=== PATIENT | female | born 1950 | race Caucasian/White ===

== ENCOUNTER 2022-12-19 07:59 | Emergency (ER) | payer MEDICARE, OTHER, SELFPAY ==
--- NOTE | ~2022-12-19 | XR_ITS ---
EXAMINATION: XR LUMBAR SPINE CLINICAL INFORMATION: Trauma COMPARISON: None TECHNIQUE: Frontal lateral and coned-down L5-S1 frontal lateral,total of 3 views FINDINGS: Five [id number] lumbar vertebrae were identified maintaining normal height, 2 rods, multiple screws posterior fusion of L4-L5 and S1, hardware are intact. Mild grade 1 anterior listhesis of L4 on L5 and L5 on S1. Mild levoscoliosis.. Loss of intervertebral disc spaces suggest underlying degenerative disc disease. Heavy vascular calcification. Catheter projecting over the midabdomen. Paravertebral soft tissues are unremarkable. There are radiolucencies, most likely superimposed bowel gas.. No radiographic evidence of osteolytic or osteoblastic lesions. XR/XR lumbar spine 2-3V IMPRESSION: - Hardware posterior fusion of lower lumbar spine is intact. - Mild grade 1 anterolisthesis of L4 on L5 and L5 on S1. - Heavy vascular calcification. - Catheter projecting over the midabdomen.
--- NOTE | ~2022-12-19 | XR_ITS ---
EXAMINATION: XR HIP, RIGHT Pelvis: CLINICAL INFORMATION: Pain COMPARISON: X-ray the right hip January 2021 TECHNIQUE: Two views of the right hip. Single view the pelvis FINDINGS: Right hip: No fracture. Alignment is anatomic. Hip joint space is maintained. Soft tissues are unremarkable. Pelvis: Bone and joints in the remaining pelvis unremarkable. Postoperative changes in the partially visualized lumbar sacral spine with orthopedic hardware in place. There is a catheter/tubing device overlying the pelvis XR/XR hip RT w PEL1V IMPRESSION: RIGHT HIP: No acute abnormality. PELVIS: No acute abnormality.
[2022-12-19 08:15] VITALS: BP 168/101; PULSE 76; RESP 18; TEMP 36.6; O2SAT 100; BMI 40.7
--- NOTE | 2022-12-19 08:28 | ED_ITS ---
HPI - General Adult General Chief complaint: Extremity Injury, Lower Stated complaint: R hip pain/back pain Time Seen by Provider: 12/19/22 08:20 Source: patient Mode of arrival: ambulatory Limitations: no limitations History of Present Illness HPI narrative: This is a 72 years old of female complaining of right hip pain lower back pain. She drove herself to the emergency department she was able to ambulate to [facility]. She states she visited another emergency department of December 16 she is not any better she has history of prior back surgery. Onset (ago): week(s) (1) Location: lower extremity (Right hip) Radiation: non-radiation Severity: moderate Quality: burning Pain Consistency: constant Exacerbating factors: none Associated symptoms: denies other symptoms Related Data Previous Rx's Medication Instructions Recorded cyclobenzaprine 10 mg tablet 10 mg PO TID PRN muscle spasm #10 12/19/22 tabs oxycodone 5 mg capsule 5 mg PO Q8H PRN pain #12 caps 12/19/22 Allergies Allergy/AdvReac Type Severity Reaction Status Date / Time celecoxib [Celebrex] Allergy Unknown hypertensio Verified 12/19/22 08:14 n Review of Systems ENT: Reports system reviewed and no additional complaints, except as documented Respiratory: Respiratory: Reports no additional respiratory complaints Gastrointestinal: Gastrointestinal: Reports no additional gastrointestinal complaints [facility] Past Medical History [facility] Narrative: Chronic lower back pain,ovarian cancer Social History Social History Advance Directives: No Advance Directives Information Provided: No Physical Exam ED Vital Signs: Vital Signs - 24 hr 12/19/22 08:15 Temperature 98 F Pulse Rate 76 Respiratory Rate 18 Blood Pressure 168/101 H Pulse Oximetry 100 Oxygen Delivery Method Room Air BMI result Body Mass Index 40.7 Const General: cooperative, no acute distress, well developed, alert and awake Nutritional Appearance: well nourished Limitations: no limitations HENMT Head: Yes normal to inspection General nose exam: Normal external nose present Face and sinus: Yes normal facial exam Mouth: Normal oral and palatal mucosa present Neck Neck: Yes normal visual inspection and Yes full ROM Chest Chest palpation & inspection: normal inspection of the chest Resp Effort & Inspection: normal respiratory effort Auscultation: clear to auscultation bilaterally Cardio Jugular venous distension: no JVD Rate: regular rate Rhythm: regular rhythm GI Inspection: Yes normal to inspection Palpation (GI): Soft to palpation and nontender Percussion: Yes normal to percussion Auscultation: normal bowel sounds Skin General skin exam: no rashes or lesions noted, elasticity normal and turgor normal Lesions: no lesions Rashes: no rashes Medical Decision Making Medical Decision Making [facility] Narrative: Patient presented with lower back pain right pain, she was ambulatory to the emergency department no injury. She does have a history of lower back pain most likely this pain is due to radiculopathy Differential Diagnosis Differential Diagnoses: The differential diagnosis associated with the presentation includes Occult hip fracture/sciatic/exacerbation of chronic lower back pain Admission/Observation Consideration of admission/observation: Escalation of care including admission/observation considered Independent Interpretation I performed an independent interpretation of an: Plain X-Ray Interpretation: I personally reviwed and interpreted the imaging Radiology Impression Discussion of test interpretation with radiology: I have reviewed the radiologist's reading. Radiologist Impression: FINDINGS: Right hip: No fracture. Alignment is anatomic. Hip joint space is maintained. Soft tissues are unremarkable. Pelvis: Bone and joints in the remaining pelvis unremarkable. Postoperative changes in the partially visualized lumbar sacral spine with orthopedic hardware in place. There is a catheter/tubing device overlying the pelvis XR/XR hip RT w PEL1V IMPRESSION: RIGHT HIP: No acute abnormality. ? PELVIS: No acute abnormality. ? Dictated By: Jose Angel Larkin MD Signed By: <Electronically signed by Jose Angel Larkin MD in OV> 12/19/22 0937 Discharge Plan Discharge Clinical Impression: Back pain Patient Disposition: Home, Self-Care Instructions: Back Pain (ED) Additional Instructions: Follow-up with your back surgeon also we will give you the number of onof the primary care physician [phone] Prescriptions: New oxycodone 5 mg capsule 5 mg PO Q8H PRN (Reason: pain) Qty: 12 0RF Rx Instructions: Partial Fill upon patient request. cyclobenzaprine 10 mg tablet 10 mg PO TID PRN (Reason: muscle spasm) Qty: 10 0RF Interventions: ED Discharge Assessment Last Done: 12/19/22 10:14 Discharge Date/Time: 12/19/22 10:14
== END 2022-12-19 10:14 | disposition home or self-care (01) ==
PROVIDERS: Emergency Provider Emergency Medicine
DX: M54.50 Low back pain, unspecified (principal); M25.551 Pain in right hip
CPT/HCPCS: 72100; 73502; 99282; 99284

== ENCOUNTER 2023-02-18 11:51 | Outpatient (AMB) | payer MEDICARE, OTHER, SELFPAY ==
--- NOTE | 2023-02-18 11:54 | MHC.PC.OV ---
Vital Signs 02/18/23 11:56 Height 5 ft 3.5 in Weight 250 lb 8 oz BMI 43.7 BP 148/78 H Blood Pressure Location Lt brachial Position Sitting Pulse 90 Pulse Source Pulse Oximeter Pulse Oximetry (%) 98 Oxygen Delivery Method Room Air Intake Visit Reasons: New patient-prediabetic,thyroid Intake Note: Patient is a new patient here to establish care for Overian Cancer, Thyroid Cancer, Skin Cancer, Back pain, Heart Murmur. Transferring care from Dr Bruno. Medical records have been requested and have received. 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: Not Required per policy Accompanied by: Self / Same As Patient Allergies celecoxib [Celebrex] Allergy (Unknown, Verified 02/18/23 12:36) hypertension Medication List - Last Reconciled 02/18/23 by TWILA Diego Tobacco use date assessed: 02/18/23 Fall risk assessment: 1 Fall in past year Last assessed Fall Risk: 02/18/23 Dental Screening Dental Screen Date: 02/18/23 Did you have a dental visit in the last 12 months?: No Did you have a dental problem in the last 6 months where you did not have access to dental care?: No Was dental information given to patient?: No (dentures) HPI HPI Comments History of Present Illness Details 72-year-old female new patient presents today to establish care. Past medical history significant for impaired glucose tolerance, thyroid cancer status post partial thyroidectomy. Patient currently follows with Dr. Federico NGUYEN. Patient also reports history of aortic stenosis patient [facility]. Patient reports had lumbar spine fusion in January 2022 patient continues to follow with Dr. Ubaldo LYNN for this. Patient also has history of ovarian cancer status post chemotherapy treatment in 2013 as well had a melanoma removed on her back that seen year. Patient denies any acute concerns. Denies chest pain, palpitations, shortness of breath and syncope. [facility] Medical History (Updated 02/19/23 @ 08:07 by TWILA Diego) Tubular adenoma Melanoma Ovarian cancer Thyroid cancer Aortic stenosis Surgical History (Updated 02/19/23 @ 08:04 by TWILA Diego) S/P lumbar spinal fusion History of carpal tunnel surgery History of knee surgery History of thyroidectomy Family History (Updated 02/18/23 @ 12:44 by TWILA Diego) Mother No problems noted. Father COPD (chronic obstructive pulmonary disease) Social History (Updated 02/18/23 @ 12:44 by TWILA Diego) Housing: House Alcohol intake: current Alcohol intake frequency: holidays/special occasions only Patient Tobacco Use Status: Former Tobacco user (30 year ago) e-Cigarette/Vaping Use: Never Used Second Hand Smoke Exposure: Yes service: No Current occupational status: retired Cognitive needs: Yes (cane) Hearing needs: No Vision needs: Yes (glasses) Questionnaire PHQ-9 Over the last 2 weeks, how often have you been bothered by any of the following problems? 1. Little interest or pleasure in doing things: not at all 2. Feeling down, depressed, or hopeless: not at all 3. Trouble falling or staying asleep, or sleeping too much: not at all 4. Feeling tired or having little energy: not at all 5. Poor appetite or overeating: not at all 6. Feeling bad about yourself - or that you are a failure or have let yourself or your family down: not at all 7. Trouble concentrating on things, such as reading the newspaper or watching television: not at all 8. Moving or speaking so slowly that other people could have noticed. Or the opposite - being so fidgety or restless that you have been moving around a lot more than usual: not at all 9. Thoughts that you would be better off or of hurting yourself in some way: not at all Total score: 0 Depression Screening Interpretation: Negative Depression Screening Done: Yes 83557 - PHQ-9 Billing: Yes Source: Developed by Drs. Familia Parker, Nandini Teague, Garett Urena and colleagues, with an educational sindi from [employer]. Thrive Questionnaire Date Thrive assessed: 02/18/23 I am a: Patient What is your living situation today?: I have a steady place to live Within the past 12 months, did the food you bought not last and you didn't have the money to get more?: Never true Within the past 12 months, did you worry whether your food would run out before you got money to buy more?: Never true Do you have trouble paying for medicines?: No Do you have trouble getting transportation to medical appointments?: No Do you have trouble paying your heating and electricity bill?: No Do you have trouble taking care of your child, family member or friend?: No Do you have trouble with day-to-day activities such as bathing, preparing meals, shopping, managing finances, etc.?: No Are you currently unemployed and looking for a job?: No Are you interested in more education?: No Currently or been in a relationship where the following occur: no concerns reported AUDIT C Alcohol Use Questionnaire (AUDIT-C) 1. How often do you have a drink containing alcohol?: Never Total Score: 0 SHARMILA-7 AMB Questionnaire SHARMILA-7 Date SHARMILA - 7 assessed: 02/18/23 Feeling nervous, anxious, or on edge: 0 = Not at all Not being able to stop or control worryin = Not at all Worrying too much about different things: 0 = Not at all Trouble relaxin = Not at all Being so restless that it is hard to sit still: 0 = Not at all Becoming easily annoyed or irritable: 0 = Not at all Feeling afraid as if something awful might happen: 0 = Not at all Total SHARMILA-7 score (0-4 normal; 5-9 mild; 10-14 moderate; 15-21 severe): 0 Source: Developed by Drs. Familia Parker, Nandini Teague, Garett Urena and colleagues, with an educational sindi from [employer]. SHARMILA-7 Assessment Billing SHARMILA-7 Assessment Tool: SHARMILA-7 Assessment 47589 Review of Systems Const Denies chills, Denies fatigue, Denies fever(s) and Denies poor appetite Eyes Denies no additional complaints ENT Reports Normal hearing present Card Denies chest pain, Denies syncope, Denies rapid heart rate and Denies dyspnea Resp Denies cough and Denies dyspnea GI Denies change in stool character, Denies constipation, Denies diarrhea, Denies nausea and Denies vomiting Denies urinary frequency, Denies dysuria and Denies urinary urgency Neuro Reports Normal hearing present, Denies confusion and Denies syncope Psych Denies confusion Endo Denies fatigue Physical exam (Primary Care) Vital Signs: Last Vital Signs Pulse 90 02/18/23 11:56 BP 148/78 H 02/18/23 11:56 Pulse Ox 98 02/18/23 11:56 Oxygen Delivery Method Room Air 02/18/23 11:56 BMI result Body Mass Index 43.7 Tobacco/Smoking Status: Tobacco use Status Tobacco use date assessed 02/18/23 02/18/23 12:00 Patient Tobacco Use Status Former Tobacco user (30 year 02/18/23 12:44 ago) e-Cigarette/Vaping Use Never Used 02/18/23 12:44 PHQ-9: PHQ-9 Score PHQ-9: Total score 0 02/18/23 12:45 Depression Screening Interpretation: Negative Thrive Assessment: Date of Thrive Assessment Date Thrive assessed 02/18/23 02/18/23 12:00 Currently or been in a relationship where the following occur: no concerns reported Const General: No confusion Orientation/consciousness: No confusion HENMT Head: Yes normocephalic and Yes atraumatic Eyes Conjunctivae: conjunctivae normal Chest Chest palpation & inspection: normal inspection of the chest Resp Effort & Inspection: normal respiratory effort Auscultation: clear to auscultation bilaterally, no crackles, no rhonchi and no wheezes Cardio Rate: regular rate Rhythm: regular rhythm Heart sounds: S1 normal heart sound present and S2 normal heart sound present Peripheral pulses: dorsalis pedis present GI Inspection: Yes normal to inspection General: Yes no CVA tenderness Back/Spine/Pelvis Back: no CVA tenderness Neuro General: No confusion Cranial nerves: Yes Normal hearing present Extrem General: No edema Assessment and Plan Assessment & Plan (1) Impaired glucose tolerance: Code(s): R73.02 - Impaired glucose tolerance (oral) Plan: Fasting glucose and hemoglobin A1c ordered. (2) Lumbar back pain: Code(s): M54.50 - Low back pain, unspecified Plan: Continue to follow with [facility] (3) Aortic stenosis: Code(s): I35.0 - Nonrheumatic aortic (valve) stenosis Plan: Continue to follow with [facility] cardiology. Patient reports she receives yearly echocardiogram Plan Follow-up in 3 months for complete physical exam Orders: Orders Comprehensive [place]. Panel Fast 02/18/23 R73.02 - Impaired glucose tolerance (oral) Hemoglobin A1c 02/18/23 R73.02 - Impaired glucose tolerance (oral) Complete Blood Count Auto Diff 02/18/23 Z13.0 - Encounter for screening for diseases of the blood and blood-forming organs and certain disorders involving the immune mechanism Lipid Panel 02/18/23 Z13.220 - Encounter for screening for lipoid disorders TSH reflex Free T4 02/18/23 Z13.29 - Encounter for screening for other suspected endocrine disorder Coding Level of Care Code New Pt Level 3 (44139) Diagnoses Impaired glucose tolerance R73.02 Lumbar back pain M54.50 Aortic stenosis I35.0 Additional Codes SHARMILA-7 Assessment Billing - SHARMILA-7 Assessment Tool: SHARMILA-7 Assessment 07900 ([id number])
[2023-02-18 11:56] VITALS: BP 148/78; PULSE 90; O2SAT 98; BMI 43.7
== END 2023-02-18 13:03 | disposition home or self-care (01) ==
PROVIDERS: PCP Nurse Practitioner Family; Visit Provider Nurse Practitioner Family
DX: R73.02 Impaired glucose tolerance (oral) (principal); M54.50 Low back pain, unspecified; I35.0 Nonrheumatic aortic (valve) stenosis
CPT/HCPCS: 99203

== ENCOUNTER 2023-02-22 08:14 | Outpatient (REF) | payer MEDICARE, OTHER, SELFPAY ==
[2023-02-22 09:21] LABS: Basophils Absolute Auto 0.1 X10*3/uL (0.0-0.2); Basophils Percent Auto 0.8 % (0-2); Eosinophils Absolute Auto 1.8 X10*3/uL (0.0-0.4); Hematocrit 41.9 % (37.0-47.0); Hemoglobin 14.6 g/dl (12.0-16.0); Imm Gran Abs Auto 0.02 X10*3/uL (0.00-0.03); Imm Gran Pct Auto 0.2 % (0.0-0.4); Lymphocytes Absolute Auto 1.6 X10*3/uL (1.2-4.9); Lymphocytes Percent Auto 19.5 % (20-40); MANUAL DIFF FLAG SCAN; Mean Corpuscular HGB Conc 34.8 g/dl (31.0-35.0); Mean Corpuscular Hemoglobin 31.3 pg (27.0-33.0); Mean Corpuscular Volume 89.9 fL (80.0-98.0); Mean Platelet Volume 9.6 fL (9.4-12.3); Monocytes Absolute Auto 0.5 X10*3/uL (0.1-1.2); Monocytes Percent Auto 6.1 % (2-11); Neutrophils Absolute Auto 4.3 x10*3/uL (2.0-8.3); Neutrophils Percent Auto 51.4 % (45-73); Platelet Count 195 X10*3/uL (160-400); Red Blood Count 4.66 X10*6/uL (4.20-5.50); SCAN SMEAR FLAG 1; White Blood Count 8.3 X10*3/uL (4.8-10.8)
[2023-02-22 09:38] LABS: Estimated Average Glucose 114 mg/dL; Hemoglobin A1c % 5.6 % (<6.0)
[2023-02-22 09:50] LABS: SLIDE REVIEW VERIFIED
[2023-02-22 09:58] LABS: Alanine Aminotransferase 15 U/L (0-31); Albumin Level 4.1 g/dL (3.5-5.0); Alkaline Phosphatase 122 U/L (39-117); Anion Gap 15 (12-20); Aspartate Amino Transferase 22 U/L (5-31); Bilirubin Total 0.7 mg/dL (0.0-1.0); Blood Urea Nitrogen 11 mg/dL (9-16); Calcium 9.7 mg/dL (8.4-10.2); Carbon Dioxide 24 mmol/L (22-29); Chloride 108 mmol/L (96-108); Cholesterol 230 mg/dL (<200); Estimated Glomerular Filt Rate > 60; Glucose Fasting 112 mg/dL (60-99); HDL Cholesterol 47 mg/dL (>40); LDL Cholesterol Calculated 159 mg/dL (<100); Sodium 143 mmol/L (135-145); Total Protein 7.1 g/dL (6.5-8.0); Triglycerides 120 mg/dL (<150)
[2023-02-22 10:06] LABS: TSH reflex Free T4 2.86 uIU/mL (0.32-4.0)
== END 2023-02-22 08:15 | disposition home or self-care (01) ==
LOC: HO.LAB 08:14
PROVIDERS: PCP Internal Medicine; Visit Provider Nurse Practitioner Family
DX: R73.02 Impaired glucose tolerance (oral) (principal); Z13.0 Encounter for screening for diseases of the blood and blood-forming organs and certain disorders involving the immune mechanism; Z13.220 Encounter for screening for lipoid disorders; Z13.29 Encounter for screening for other suspected endocrine disorder; E78.00 Pure hypercholesterolemia, unspecified
CPT/HCPCS: 36415; 80053; 80061; 83036; 84443; 85025

== ENCOUNTER 2023-06-02 13:31 | Outpatient (AMB) | payer MEDICARE, OTHER, SELFPAY ==
[2023-06-02 13:34] VITALS: BP 146/76; PULSE 81; O2SAT 98; BMI 46.0
--- NOTE | 2023-06-02 13:34 | A.OFFPC_ITS ---
Vital Signs 06/02/23 13:34 Height 5 ft 3.5 in Weight 264 lb BMI 46.0 BP 146/76 H Blood Pressure Location Lt brachial Position Sitting Pulse 81 Pulse Source Pulse Oximeter Pulse Oximetry (%) 98 Oxygen Delivery Method Room Air Intake Visit Reasons: Annual Exam Intake Note: Patient is here today for a physical. 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 Required: No Allergies celecoxib [Celebrex] Allergy (Unknown, Verified 06/02/23 13:34) hypertension Medication List - Last Reconciled 06/02/23 by Edward Maddox MD ezetimibe 10 mg PO DAILY metformin ER 500 mg PO DAILY multivitamin 1 tab PO DAILY red yeast rice 600 mg PO DAILY sertraline 50 mg PO DAILY Tobacco use date assessed: 06/02/23 Fall risk assessment: No Falls in past year Last assessed Fall Risk: 06/02/23 Dental Screening Dental Screen Date: 06/02/23 Did you have a dental visit in the last 12 months?: No Did you have a dental problem in the last 6 months where you did not have access to dental care?: No HPI Annual Exam HPI Details 73-year-old morbidly obese female with i mpaired glucose tolerance chr onic low back pain and aortic stenosis last seen in January 2023 comes in for physical exam review of the notes sees Orthopedics from [facility] has had toe fractures on the right foot, right carpal tunnel syndrome. Has post surgical and degenerative changes in the lumbar spine fusion hardware moderate to severe canal stenosis and moderate bilateral neural foraminal narrowing at L3-L4 varying degrees of moderate to severe neural foraminal stenosis at multiple levels more pronounced right L2-L3 left L5-S1. This was CT scan done in November 2022. And MRI done December 2022. 02/22/2022 had posterior laminectomy, decompression and instrumented fusion L4 to the sacrum Dr. Conner for spinal stenosis spondylolisthesis L4 to the sacrum. Patient also had right 1st carpometacarpal arthroplasty with flexor carpi radialis tendon transfer Dr. Lincoln done in October 2019, July 2017 had flexor tenosynovectomy right middle finger corticosteroid injection right 1st carpometacarpal joint right 2nd metacarpophalangeal joint Dr. Lincoln December 2010 had of foreign body removal right palm September 2010 left carpal tunnel release Dr. Lincoln August 2010 right carpal tunnel release L4-5 and L5-S1 fusion January 2022 PSS follow up 02/2023 Dr. Ordoñze. Thyroid nodule 12/14/2022 Dr. Alvarez, last US 12/2022 136/80 at home [facility] Medical History (Updated 06/02/23 @ 14:25 by Edward Maddox MD) Tubular adenoma Melanoma Ovarian cancer Thyroid cancer Aortic stenosis Surgical History (Updated 02/19/23 @ 08:04 by TWILA Diego) S/P lumbar spinal fusion History of carpal tunnel surgery History of knee surgery History of thyroidectomy Family History (Updated 02/18/23 @ 12:44 by TWILA Diego) Mother No problems noted. Father COPD (chronic obstructive pulmonary disease) Social History (Updated 06/02/23 @ 13:57 by Edward Maddox MD) Housing: House Alcohol intake: current Alcohol intake frequency: holidays/special occasions only Comment: 2-3 xa year 2 bottles beer Patient Tobacco Use Status: Former Tobacco user (30 year ago) Years Smoked: quit 30yrs ago 42 years old e-Cigarette/Vaping Use: Never Used Second Hand Smoke Exposure: Yes service: No Current occupational status: retired Cognitive needs: Yes (cane) Hearing needs: No Vision needs: Yes (glasses) Questionnaire PHQ-9 Over the last 2 weeks, how often have you been bothered by any of the following problems? 1. Little interest or pleasure in doing things: not at all 2. Feeling down, depressed, or hopeless: not at all 3. Trouble falling or staying asleep, or sleeping too much: not at all 4. Feeling tired or having little energy: not at all 5. Poor appetite or overeating: not at all 6. Feeling bad about yourself - or that you are a failure or have let yourself or your family down: not at all 7. Trouble concentrating on things, such as reading the newspaper or watching television: not at all 8. Moving or speaking so slowly that other people could have noticed. Or the opposite - being so fidgety or restless that you have been moving around a lot more than usual: not at all 9. Thoughts that you would be better off or of hurting yourself in some way: not at all Total score: 0 Depression Screening Interpretation: Negative Depression Screening Done: Yes 21155 - PHQ-9 Billing: Yes Source: Developed by Drs. Familia Parker, Nandini Teague, Garett Urena and colleagues, with an educational sindi from [employer]. Thrive Questionnaire Date Thrive assessed: 06/02/23 I am a: Patient What is your living situation today?: I have a steady place to live Within the past 12 months, did the food you bought not last and you didn't have the money to get more?: Never true Within the past 12 months, did you worry whether your food would run out before you got money to buy more?: Never true Do you have trouble paying for medicines?: No Do you have trouble getting transportation to medical appointments?: No Do you have trouble paying your heating and electricity bill?: No Do you have trouble taking care of your child, family member or friend?: No Do you have trouble with day-to-day activities such as bathing, preparing meals, shopping, managing finances, etc.?: No Are you currently unemployed and looking for a job?: No Are you interested in more education?: No Please select the resources that you would like help with: None THRIVE Score: 0 AUDIT C Alcohol Use Questionnaire (AUDIT-C) 1. How often do you have a drink containing alcohol?: Never 2. How many drinks containing alcohol do you have on a typical day when you are drinking?: 1 or 2 (0) 3. How often do you have six or more drinks on one occasion?: Never Total Score: 0 SHARMILA-7 AMB Questionnaire SHARMILA-7 Date SHARMILA - 7 assessed: 06/02/23 Feeling nervous, anxious, or on edge: 0 = Not at all Not being able to stop or control worryin = Not at all Worrying too much about different things: 0 = Not at all Trouble relaxin = Not at all Being so restless that it is hard to sit still: 0 = Not at all Becoming easily annoyed or irritable: 0 = Not at all Feeling afraid as if something awful might happen: 0 = Not at all Total SHARMILA-7 score (0-4 normal; 5-9 mild; 10-14 moderate; 15-21 severe): 0 Source: Developed by Nandini Jackson Kurt Kroenke and colleagues, with an educational sindi from [employer]. Review of Systems Const Denies poor appetite and Denies weakness Eyes Denies no additional complaints ENT Reports Normal hearing present, Denies dizziness, Denies nasal congestion, Denies tinnitus and Denies sore throat Card Denies chest pain, Denies syncope, Denies rapid heart rate and Denies dyspnea Resp Denies cough and Denies dyspnea GI Denies change in stool character, Reports constipation, Denies diarrhea, Denies nausea and Denies vomiting Denies urinary frequency, Denies difficulty voiding and Denies dysuria Neuro Reports Normal hearing present, Denies confusion, Denies dizziness, Denies syncope and Denies weakness Psych Denies confusion Physical exam (Primary Care) Vital Signs: Last Vital Signs Pulse 81 06/02/23 13:34 BP 146/76 H 06/02/23 13:34 Pulse Ox 98 06/02/23 13:34 Oxygen Delivery Method Room Air 06/02/23 13:34 BMI result Body Mass Index 46.0 Tobacco/Smoking Status: Tobacco use Status Tobacco use date assessed 06/02/23 06/02/23 13:36 Patient Tobacco Use Status Former Tobacco user (30 year 06/02/23 13:36 ago) e-Cigarette/Vaping Use Never Used 06/02/23 13:36 PHQ-9: PHQ-9 Score PHQ-9: Total score 0 06/02/23 13:36 Depression Screening Interpretation: Negative Thrive Assessment: Date of Thrive Assessment Date Thrive assessed 06/02/23 06/02/23 13:36 Const General: No confusion Orientation/consciousness: No confusion HENMT Head: Yes normocephalic Ears: external ears normal and TM's normal bilaterally Face and sinus: Yes normal facial exam Mouth: moist mucous membranes Throat: Yes tonsils normal Eyes Conjunctivae: conjunctivae normal Pupils: Equal, round and reactive pupils present and Pupil accommodation reflex normal Direct Ophthalmoscopy: normal light reflex Neck Neck: No lymphadenopathy Thyroid: Thyroid normal Chest Chest palpation & inspection: normal inspection of the chest Resp Effort & Inspection: normal respiratory effort and no audible wheezes Auscultation: clear to auscultation bilaterally, no crackles, no wheezes and lung sounds not diminished Cardio Rate: regular rate Rhythm: regular rhythm Peripheral pulses: radial pulses present and dorsalis pedis present GI Palpation (GI): no masses Auscultation: normal bowel sounds and normoactive bowel sounds Rectal Exam - Female: deferred Skin General skin exam: no rashes or lesions noted Rashes: no rashes Neuro General: No confusion Cranial nerves: Yes Equal, round and reactive pupils present and Yes Normal hearing present Cognition (Neuro): normal cognition Gait exam (Neuro): Normal gait present Motor exam (neuro): 5/5 motor strength present throughout Deep tendon reflexes (DTR's): Right brachioradialis reflex intensity grade: 2+, Left brachioradialis reflex intensity grade: 2+, Right patellar reflex intensity grade: 2+ and Left patellar reflex intensity grade: 2+ Extrem General: No edema Assessment and Plan Assessment & Plan (1) Annual physical exam: Code(s): Z00.00 - Encounter for general adult medical examination without abnormal findings (2) Impaired glucose tolerance: Code(s): R73.02 - Impaired glucose tolerance (oral) Plan: Decrease the amount of carbohydrate intake, pasta, bread, rice and potatoes are all sugar and that is aside from all the sweet stuff, remember that fruits are good but they are Sweet also. (3) Hypercholesteremia: Code(s): E78.00 - Pure hypercholesterolemia, unspecified Plan: Avoid fried foods, chicken skin, eggs, butter margarine, pastries and meat. Be it pork or beef they have a lot of cholesterol LDL goal of less than 130 and triglyceride of less than 150 (4) Lumbar back pain: Code(s): M54.50 - Low back pain, unspecified Plan: Keep active try to lose the weight! (5) Aortic stenosis: Code(s): I35.0 - Nonrheumatic aortic (valve) stenosis Plan: Continue to follow-up with cardiology (6) Thyroid nodule: Code(s): E04.1 - Nontoxic single thyroid nodule (7) Generalized anxiety disorder: Code(s): F41.1 - Generalized anxiety disorder (8) GERD (gastroesophageal reflux disease): Code(s): K21.9 - Gastro-esophageal reflux disease without esophagitis (9) Osteopenia: Code(s): M85.80 - Other specified disorders of bone density and structure, unspecified site (10) Obesities, morbid: Code(s): E66.01 - Morbid (severe) obesity due to excess calories (11) Obstructive sleep apnea: Code(s): G47.33 - Obstructive sleep apnea (adult) (pediatric) (12) Occipital headache: Code(s): R51.9 - Headache, unspecified Orders: Orders RT home sleep study Today G47.33 - Obstructive sleep apnea (adult) (pediatric) XR DEXA axial skeleton Today M81.0 - Age-related osteoporosis without current pathological fracture, M85.80 - Other specified disorders of bone density and structure, unspecified site Referrals Medical Weight Management Referral E66.01 - Morbid (severe) obesity due to excess calories Medications: New cyclobenzaprine 5 mg PO TID PRN 20 tabs 0RF muscle spasm R51.9 - Headache, unspecified Coding Level of Care Code Est Pt Prev Care >65y(32554) Diagnoses Annual physical exam Z00.00 Impaired glucose tolerance R73.02 Hypercholesteremia E78.00 Lumbar back pain M54.50 Aortic stenosis I35.0 Thyroid nodule E04.1 Generalized anxiety disorder F41.1 GERD (gastroesophageal reflux disease) K21.9 Osteopenia M85.80 Obesities, morbid E66.01 Obstructive sleep apnea G47.33 Occipital headache R51.9
== END 2023-06-02 14:33 | disposition home or self-care (01) ==
PROVIDERS: PCP Nurse Practitioner Family; Visit Provider Internal Medicine
DX: Z00.00 Encounter for general adult medical examination without abnormal findings (principal); E66.01 Morbid (severe) obesity due to excess calories; Z68.42 Body mass index [BMI] 45.0-49.9, adult; R73.02 Impaired glucose tolerance (oral); E78.00 Pure hypercholesterolemia, unspecified; M54.50 Low back pain, unspecified; I35.0 Nonrheumatic aortic (valve) stenosis; E04.1 Nontoxic single thyroid nodule; F41.1 Generalized anxiety disorder; K21.9 Gastro-esophageal reflux disease without esophagitis; M85.80 Other specified disorders of bone density and structure, unspecified site; G47.33 Obstructive sleep apnea (adult) (pediatric)
CPT/HCPCS: 99397

== ENCOUNTER 2023-06-18 09:02 | Emergency (ER) | payer MEDICARE, OTHER, SELFPAY ==
--- NOTE | ~2023-06-18 | XR_ITS ---
EXAMINATION: XR FOOT, RIGHT CLINICAL INFORMATION: Right great toe foot pain COMPARISON: None available. TECHNIQUE: AP, lateral, and oblique views of the right foot. FINDINGS: Comminuted mildly displaced intra-articular fracture of the first proximal phalanx extending from the mid diaphysis into the first metatarsophalangeal joint. Multi joint arthritic changes. Has planus. Spurring the dorsal midfoot. Tiny plantar calcaneal heel spur. Joint space alignment are otherwise maintained. Soft tissues are unremarkable. XR/XR foot RT min 3V IMPRESSION: 1. Comminuted mildly displaced intra-articular fracture of the first proximal phalanx extending from the mid diaphysis into the first metatarsophalangeal joint. 2. Multi joint arthritic changes. 3. Pes planus.
[2023-06-18 09:06] VITALS: BP 170/76; PULSE 94; RESP 18; TEMP 36.6; O2SAT 95; BMI 42.6
--- NOTE | 2023-06-18 10:30 | ED.LOWEXIN ---
HPI - Extremity Injury (Lower) General Chief Complaint: Extremity Injury, Lower Stated Complaint: fall 06/17, right foot injury Time Seen by Provider: 06/18/23 09:55 Source: patient Mode of arrival: wheelchair Limitations: no limitations History of Present Illness HPI Narrative: 73-year-old female presents the ER with right foot pain after an injury yesterday. Patient reports she is tripped going up the stairs but is unsure the exact mechanism of injury to her right foot. Since then she has had pain, swelling and difficulty with weight-bearing. She denies any head strike or loss of consciousness. She denies any associated weakness, numbness or tingling of the extremity. Related Data Home Medications Medication Instructions Recorded Confirmed ezetimibe 10 mg tablet 10 mg PO DAILY 06/02/23 06/02/23 metformin 500 mg tablet,extended 500 mg PO DAILY 06/02/23 06/02/23 release 24 hr multivitamin 1 tab PO DAILY 06/02/23 06/02/23 red yeast rice 600 mg tablet 600 mg PO DAILY 06/02/23 06/02/23 sertraline 50 mg tablet 50 mg PO DAILY 06/02/23 06/02/23 Previous Rx's Medication Instructions Recorded cyclobenzaprine 5 mg tablet 5 mg PO TID PRN muscle spasm #20 06/02/23 tabs tramadol 50 mg tablet 50 mg PO TID PRN pain #10 tabs 06/18/23 Allergies Allergy/AdvReac Type Severity Reaction Status Date / Time celecoxib [Celebrex] AdvReac Intermediate hypertensio Verified 06/18/23 09:06 n Review of Systems Review of Systems: Yes all other systems are reviewed and are negative Constitutional: Constitutional: Reports no additional constitutional complaints, Denies body ache(s), Denies chills, Denies fever(s), Denies headache(s) and Denies weakness Eyes: Eyes: Reports no additional eye complaints and Denies change in vision ENT: Reports system reviewed and no additional complaints, except as documented, Denies dizziness, Denies headache(s), Denies nasal congestion, Denies nasal discharge and Denies neck pain Cardiovascular: Cardiovascular: Reports no additional cardiovascular complaints, Denies chest pain, Denies leg edema and Denies dyspnea Respiratory: Respiratory: Reports no additional respiratory complaints, Denies cough and Denies dyspnea Gastrointestinal: Gastrointestinal: Reports no additional gastrointestinal complaints, Denies abdominal pain, Denies diarrhea, Denies nausea and Denies vomiting Genitourinary: Genitourinary: Reports no additional female genitourinary complaints and Denies urinary incontinence Musculoskeletal: Musculoskeletal: Reports no additional musculoskeletal complaints, Denies back pain, Reports arthralgias, Reports joint swelling, Reports limited range of motion, Denies neck pain, Denies numbness and Denies tingling Integumentary/Breasts: Skin/Breast: Reports system reviewed and no additional complaints, except as docu and Denies rash Neurologic: Reports system reviewed and no additional complaints, except as documented, Denies Abnormal speech present, Denies dizziness, Denies headache(s), Denies numbness, Denies tingling and Denies weakness PMFSH Past Medical History Attestation statement: The following information was validated with the patient. Source: old records reviewed and nursing notes reviewed Medical History Tubular adenoma Melanoma Ovarian cancer Thyroid cancer Aortic stenosis Surgical History S/P lumbar spinal fusion History of carpal tunnel surgery History of knee surgery History of thyroidectomy Family History Family History Mother No problems noted. Father COPD (chronic obstructive pulmonary disease) Social History Social History Housing: House Alcohol intake: current Alcohol intake frequency: holidays/special occasions only Comment: 2-3 xa year 2 bottles beer Patient Tobacco Use Status: Former Tobacco user (30 year ago) Years Smoked: quit 30yrs ago 42 years old e-Cigarette/Vaping Use: Never Used Second Hand Smoke Exposure: Yes Advance Directives: No Advance Directives Information Provided: No service: No Current occupational status: retired Cognitive needs: Yes (cane) Hearing needs: No Vision needs: Yes (glasses) Physical Exam Vital Signs: Vital Signs: Last Vital Signs Temp 97.9 F 06/18/23 09:06 Pulse 94 06/18/23 09:06 Resp 18 06/18/23 09:06 BP 170/76 H 06/18/23 09:06 Pulse Ox 95 02/24/24 09:06 O2 Del Method Room Air 06/18/23 09:06 BMI result Body Mass Index 42.6 Const: General: cooperative, healthy appearing, comfortable and no acute distress Orientation/consciousness: patient oriented x3 Limitations: no limitations HEENT: Head: Yes normal to inspection Ears: hearing grossly normal bilaterally General nose exam: Normal external nose present Face and sinus: Yes normal facial exam Mouth: Normal oral and palatal mucosa present Throat: Yes posterior oropharynx normal Eyes: General: appearance normal, both eyes and all related structures Pupils: Equal, round and reactive pupils present Neck: Neck: Yes normal visual inspection Chest: Chest palpation & inspection: normal inspection of the chest Resp: Effort & Inspection: normal respiratory effort Auscultation: clear to auscultation bilaterally Cardio: Rate: regular rate Rhythm: regular rhythm Peripheral pulses: Peripheral pulses 2+ throughout GI: Inspection: Yes normal to inspection Palpation (GI): Soft to palpation and nontender Auscultation: normal bowel sounds Back/Spine/Pelvis: Thoracic/Lumbar Spine: thoracic and lumbar spine normal to inspection Skin: General skin exam: no rashes or lesions noted Neuro: General: patient oriented x3, no focal motor deficits and normal sensation to monofilament Cranial nerves: Yes Equal, round and reactive pupils present Cognition (Neuro): normal cognition Speech: No Abnormal speech present Gait exam (Neuro): Normal gait present Motor exam (neuro): 5/5 motor strength present throughout Extrem: Other: To the base of the right foot great toe there is swelling, redness and tenderness on palpation with limited range of motion due to pain. There are normal DP and PT pulses. Normal sensation. General: Yes normal to inspection Medical Decision Making Medical Decision Making MDM Narrative: 73-year-old female presents the ER with right foot pain after an injury yesterday. Patient reports she is tripped going up the stairs but is unsure the exact mechanism of injury to her right foot. Since then she has had pain, swelling and difficulty with weight-bearing. She denies any head strike or loss of consciousness. She denies any associated weakness, numbness or tingling of the extremity. To the base of the right foot great toe there is swelling, redness and tenderness on palpation with limited range of motion due to pain. There are normal DP and PT pulses. Normal sensation. Will check x-ray Differential Diagnosis Differential Diagnoses: The differential diagnosis associated with the presentation includes fracture, contusion, sprain, strain, low suspicion for dislocation Admission/Observation Consideration of admission/observation: Escalation of care including admission/observation considered Consult Healthcare Provider Management of the patient was discussed with: Soliciting Freight Agent spoke to Orthopedics (Christina ABBASI) in regards to x-ray results. Recommended boot Independent Interpretation I performed an independent interpretation of an: Plain X-Ray Interpretation: I independently viewed the x-ray and agree with the radiology report Radiology Impression Discussion of test interpretation with radiology: I have reviewed the radiologist's reading. Radiologist Impression: [address] [address] XRay Report Signed Patient: Christianne Yoder MR#: [id number] : 1950 Acct:[id number] Age/Sex: 73 / F ADM Date: 06/18/23 Loc: .ED Attending Dr: Ordering Physician: Generic ED Physician Date of Service: 06/18/23 Procedure(s): XR foot RT min 3V Accession Number(s): [id number] cc: Generic ED Physician; Edward Maddox MD~ EXAMINATION: XR FOOT, RIGHT CLINICAL INFORMATION: Right great toe foot pain COMPARISON: None available. TECHNIQUE: AP, lateral, and oblique views of the right foot. FINDINGS: Comminuted mildly displaced intra-articular fracture of the first proximal phalanx extending from the mid diaphysis into the first metatarsophalangeal joint. Multi joint arthritic changes. Has planus. Spurring the dorsal midfoot. Tiny plantar calcaneal heel spur. Joint space alignment are otherwise maintained. Soft tissues are unremarkable. XR/XR foot RT min 3V IMPRESSION: 1. Comminuted mildly displaced intra-articular fracture of the first proximal phalanx extending from the mid diaphysis into the first metatarsophalangeal joint. 2. Multi joint arthritic changes. 3. Pes planus. Tests considered The following testing was considered but not selected: low suspicion for vascular injury requiring further imaging Prescription Management I considered prescription management with: Pain Medication Procedures Orthopedic Splinting/Casting Injury #1: Side: right Lower Extremity Injury Location: lower leg Lower Extremity Immobilizer: boot orthosis Other Orthopedic Equipment: cane Discharge Plan Discharge Clinical Impression: Foot fracture, right Patient Disposition: Home, Self-Care Instructions: Foot Fracture in Adults (ED) Additional Instructions: use the boot and cane for ambulation You may remove the boot when your at rest and apply ice to the affected area Elevate the extremity Take Motrin or Tylenol 1st for any pain. if no relief then you may take the stronger pain medication Prescriptions: New tramadol 50 mg tablet 50 mg PO TID PRN (Reason: pain) Qty: 10 0RF No Action metformin 500 mg tablet extended release 24 hr 500 mg PO DAILY ezetimibe 10 mg tablet 10 mg PO DAILY sertraline 50 mg tablet 50 mg PO DAILY red yeast rice 600 mg tablet 600 mg PO DAILY Rx Instructions: give with meal/snack multivitamin Tablet 1 tab PO DAILY cyclobenzaprine 5 mg tablet 5 mg PO TID PRN (Reason: muscle spasm) Qty: 20 0RF Referrals: [facility] [Provider Group] - 1 week
[2023-06-18] MEDS: traMADoL HCL 50 MG TABLET PO (10:45)
== END 2023-06-18 11:19 | disposition home or self-care (01) ==
PROVIDERS: Emergency Provider Emergency Medicine; PCP Internal Medicine
DX: S92.911A Unspecified fracture of right toe(s), initial encounter for closed fracture (principal); W18.43XA Slipping, tripping and stumbling without falling due to stepping from one level to another, initial encounter; Y93.89 Activity, other specified; Y92.9 Unspecified place or not applicable; Y99.9 Unspecified external cause status; M79.89 Other specified soft tissue disorders; M79.671 Pain in right foot
CPT/HCPCS: 73630; 99284

== ENCOUNTER 2023-06-28 10:17 | Outpatient (REF) | payer MEDICARE, OTHER, SELFPAY ==
--- NOTE | ~2023-06-28 | MM_ITS ---
EXAMINATION: BONE DENSITOMETRY CLINICAL INDICATION: Age-related osteoporosis without current pathological fracture. COMPARISON: This is the patient's baseline examination. TECHNIQUE: Using a [employer] DXA System (software version: 13.1) manufactured by [employer], dual-energy x-ray absorptiometry was performed of the lumbar spine and left hip. The images are of good technical quality. Summary results are attached. FINDINGS: LEFT FEMUR, NECK: BMD 0.778 g/cm2, Z-score -0.9, T-score -1.9, osteopenia. LEFT FEMUR, TOTAL: BMD 0.937 g/cm2, Z-score 0.1, T-score -0.6, normal. AP SPINE L1-L2 (excluding L3 and L4): The data of L1-L4 has been changed to exclude the L3 and L4 vertebral bodies, because metallic artifact at these levels may cause overestimation of lumbar spine density. BMD 1.298 g/cm2, Z-score 1.6, T-score 1.1, normal. IDENTIFIED RISK FACTORS: Menopause, osteoporosis, hysterectomy, bilateral oophorectomy. HISTORY OF FRACTURE: None listed. MEDICATIONS: None listed. MM/XR DEXA axial skeleton IMPRESSION: 1. DIAGNOSIS: Osteopenia based on the lowest T-score value of -1.9 in the femoral neck applying World Health Organization criteria. 2. 10-YEAR FRACTURE RISK PREDICTION, FRAX: Major osteoporotic fracture (clinical spine, forearm, hip or shoulder) 10.0%. Hip fracture 1.8%. 3. Treatment Recommendations: NOF guidelines recommend consideration for treatment in postmenopausal women and men age 50 and older presenting with the following: -A hip or vertebral (clinical or morphometric) fracture. -T-score less than or equal to -2.5 at the femoral neck or spine after appropriate evaluation to exclude secondary causes. -Low bone mass at the hip or spine and a 10-year fracture probability by FRAX of greater than or equal to 3% for hip fracture or greater than or equal to 20% for major osteoporotic fracture based on the [place] adapted WHO algorithm. 4. Other Recommendations: All treatment decisions require clinical judgment and consideration of individual patient factors, including patient preferences, comorbidities, previous drug use, risk factors not captured in the FRAX model (e.g. frailty, falls, vitamin D deficiency, increased bone turnover, interval significant decline in bone density) and possible under or overestimation of fracture risk by FRAX. Additional medical evaluation for secondary cause of low bone mineral density may be appropriate. FUTURE SCAN RECOMMENDATION: People with diagnosed cases of osteoporosis or at high risk for fracture should have regular bone mineral density tests. For patients eligible for Medicare, routine testing is allowed once every 2 years. The testing frequency can be increased to one year for patients who have rapidly progressing disease, those who are receiving or discontinuing medical therapy to restore bone mass, or have additional risk factors.
== END 2023-06-28 10:18 | disposition home or self-care (01) ==
LOC: HO.MAMMO 10:17
PROVIDERS: PCP Internal Medicine; Visit Provider Internal Medicine
DX: Z13.820 Encounter for screening for osteoporosis (principal); Z78.0 Asymptomatic menopausal state; M85.80 Other specified disorders of bone density and structure, unspecified site; M81.0 Age-related osteoporosis without current pathological fracture
CPT/HCPCS: 77080

== ENCOUNTER 2023-06-30 10:14 | Outpatient (AMB) | payer MEDICARE, OTHER, SELFPAY ==
--- NOTE | 2023-06-30 10:26 | A.OFFVIS_ITS ---
Intake Vital Signs 06/30/23 10:29 Height 5 ft 6 in Weight 264 lb BMI 42.6 Intake Visit Reasons: FC-Right ankle/foot FC DOI 06/17/23. Intake Note: Christianne garcia 73 year old female presents today for an ER follow up of right foot fx, DOI 06/17/23. Patient reports she is tripped going up the stairs, landing on her knee however she is unsure the exact mechanism of injury to her right foot. She presented to [facility] ED the following day due to her pain, swelling and difficulty with weight-bearing. She was placed in a walking boot and cane was given as well as orthopedic referral. Currently her pain has been increasing due to weather, states a burning sensation in her big toe. She will have mild swelling throughout the day and tingling in her foot with prolong sitting. Allergies celecoxib [Celebrex] Adverse Reaction (Intermediate, Verified 06/30/23 10:33) hypertension HPI FC-Right ankle/foot FC DOI 06/17/23. HPI Details 73-year-old female who presents [facility] for an ER follow-up of right foot injury s/p trip and fall going up the stairs and landing on her knee, 06/17/23. She was seen at ED the next day for her pain, swelling, and difficulty with weight bearing where she was placed in a walking boot, cane was given, and she was referred to our office. She currently states she has pain in her foot which has been aggravated due to the weather. She also c/o a burning sensation in her big toe. She also reports she has mild swelling throughout the day and tingling in her foot with prolonged sitting and boot use. She finds relief with resting. [facility] Medical History Tubular adenoma Melanoma Ovarian cancer Thyroid cancer Aortic stenosis Surgical History S/P lumbar spinal fusion History of carpal tunnel surgery History of knee surgery History of thyroidectomy Family History Mother No problems noted. Father COPD (chronic obstructive pulmonary disease) Social History Housing: House Alcohol intake: current Alcohol intake frequency: holidays/special occasions only Comment: 2-3 xa year 2 bottles beer Patient Tobacco Use Status: Former Tobacco user (30 year ago) Years Smoked: quit 30yrs ago 42 years old e-Cigarette/Vaping Use: Never Used Second Hand Smoke Exposure: Yes service: No Current occupational status: retired Cognitive needs: Yes (cane) Hearing needs: No Vision needs: Yes (glasses) Review of Systems Const All systems reviewed & are unremarkable except as noted in HPI and below Physical Exam Vital Signs: BMI result Body Mass Index 42.6 Const General: cooperative, healthy appearing, comfortable, no acute distress, well developed and alert Orientation/consciousness: patient oriented x3 HEENT Head: Yes normal to inspection, Yes normocephalic and Yes atraumatic Eyes General: appearance normal, both eyes and all related structures Resp Effort & Inspection: normal respiratory effort and able to speak in complete sentences Cardio Rate: regular rate Peripheral pulses: Peripheral pulses 2+ throughout GI Palpation (GI): Soft to palpation Skin Lesions: no lesions Rashes: no rashes Neuro General: patient oriented x3 Extrem Other: Right foot: Normal to inspection. She has some swelling around the great toe with tenderness to palpation. NVI. Office Procedures Fracture Care Fracture Billing Code: Fracture Billing Code Results Reviewed Results Reviewed: xrays right foot 06/18/23 IMPRESSION: 1. Comminuted mildly displaced intra-articular fracture of the first proximal phalanx extending from the mid diaphysis into the first metatarsophalangeal joint. 2. Multi joint arthritic changes. 3. Pes planus. Assessment & Plan Assessment & Plan (1) Fracture of right great toe: Code(s): S92.401A - Displaced unspecified fracture of right great toe, initial encounter for closed fracture Qualifiers: Encounter type: initial encounter Fracture type: closed Phalanx: unspecified phalanx Fracture alignment: displaced Qualified Code(s): S92.401A - Displaced unspecified fracture of right great toe, initial encounter for closed fracture Plan She will continue wearing her boot as needed for pain. I did let her know that bone healing typically takes 6-8 weeks to heal where it is strong and less painful. She can transition to a regular street shoe with a stiff sole if she feels them comfortable. She can see me back in 6 weeks with new x-rays, otherwise as needed. Patient Instructions: Scribed for Joselin Saldana PA-C, by Martin Donovan medical clerical assistant, on 06/30/2023 at 10:30 AM EST. IJoselin PA-C, have personally reviewed and agree with the information entered by the scribe. Coding Level of Care Code New Pt Level 3 (88093) Diagnoses Closed displaced fracture of phalanx of right great toe, unspecified phalanx, initial encounter S92.401A Encounter type: initial encounter Fracture type: closed Phalanx: unspecified phalanx Fracture alignment: displaced CPT Codes Fracture Care - Fracture Billing Code: Fracture Billing Code ([id number])
[2023-06-30 10:29] VITALS: BMI 42.6
== END 2023-06-30 11:02 | disposition home or self-care (01) ==
PROVIDERS: PCP Internal Medicine; Visit Provider Physician Assistant
DX: S92.411A Displaced fracture of proximal phalanx of right great toe, initial encounter for closed fracture (principal)
CPT/HCPCS: 99203

== ENCOUNTER → 2023-06-30 10:14 | Outpatient (BNVA) | payer MEDICARE, OTHER, SELFPAY | PROVIDERS: PCP Internal Medicine; Visit Provider Physician Assistant | DX: S92.401A Displaced unspecified fracture of right great toe, initial encounter for closed fracture (principal) | CPT/HCPCS: 99202 ==

== ENCOUNTER → 2023-07-19 09:46 | Outpatient (REF) | payer MEDICARE, OTHER, SELFPAY | LOC: HO.SL 09:46 | PROVIDERS: PCP Internal Medicine; Visit Provider Internal Medicine | DX: G47.33 Obstructive sleep apnea (adult) (pediatric) (principal) | CPT/HCPCS: 95806 ==

== ENCOUNTER → 2023-07-19 10:03 | Outpatient (BNV) | payer MEDICARE, OTHER, SELFPAY | PROVIDERS: PCP Internal Medicine; Visit Provider Internal Medicine | DX: G47.33 Obstructive sleep apnea (adult) (pediatric) (principal) | CPT/HCPCS: 95806 ==

== ENCOUNTER 2023-07-26 14:37 | Outpatient (AMB) | payer MEDICARE, OTHER, SELFPAY ==
[2023-07-26 14:47] VITALS: BP 136/86; PULSE 86; O2SAT 95; BMI 42.6
--- NOTE | 2023-07-26 14:47 | MHC.PC.OV ---
Vital Signs 07/26/23 14:47 Height 5 ft 6 in Weight 264 lb 0.2 oz BMI 42.6 BP 136/86 Blood Pressure Location Lt brachial Position Sitting Pulse 86 Pulse Source Pulse Oximeter Pulse Oximetry (%) 95 Oxygen Delivery Method Room Air Intake Visit Reasons: Follow Up/ Paper work Junior Systems Analyst Required: No Allergies celecoxib [Celebrex] Adverse Reaction (Intermediate, Verified 07/26/23 14:51) hypertension Tobacco use date assessed: 07/26/23 Fall risk assessment: No Falls in past year Last assessed Fall Risk: 07/26/23 Dental Screening Dental Screen Date: 06/02/23 HPI Follow Up/ Paper work HPI Details 73-year-old morbidly obese female with impaired glucose tolerance hypercholesterolemia aortic stenosis generalized anxiety disorder GERD obstructive sleep apnea coming in for an acute problem. Last seen in May 2023. Review of the notes in June 29 was seen by orthopedics for right ankle foot fracture date of incident was 06/17/2023 tripped going up the stairs. Diagnosis of comminuted mildly displaced intra-articular fracture of the 1st proximal phalanx extending from the mid diaphysis into the 1st metatarsophalangeal joint advised to wear the boot as needed for pain healing takes 6-8 weeks. FMLA paper for [employer] work. PFSH Medical History Tubular adenoma Melanoma Ovarian cancer Thyroid cancer Aortic stenosis Surgical History S/P lumbar spinal fusion History of carpal tunnel surgery History of knee surgery History of thyroidectomy Family History Mother No problems noted. Father COPD (chronic obstructive pulmonary disease) Social History Housing: House Alcohol intake: current Alcohol intake frequency: holidays/special occasions only Comment: 2-3 xa year 2 bottles beer Patient Tobacco Use Status: Former Tobacco user (30 year ago) Years Smoked: quit 30yrs ago 42 years old e-Cigarette/Vaping Use: Never Used Second Hand Smoke Exposure: Yes service: No Current occupational status: retired Cognitive needs: Yes (cane) Hearing needs: No Vision needs: Yes (glasses) Questionnaire Thrive Questionnaire Date Thrive assessed: 06/02/23 AUDIT C Alcohol Use Questionnaire (AUDIT-C) 1. How often do you have a drink containing alcohol?: Never 2. How many drinks containing alcohol do you have on a typical day when you are drinking?: 1 or 2 (0) 3. How often do you have six or more drinks on one occasion?: Never Total Score: 0 SHARMILA-7 AMB Questionnaire SHARMILA-7 Date SHARMILA - 7 assessed: 06/02/23 Source: Developed by Drs. Familia Parker, Nandini Teague, Garett Urena and colleagues, with an educational sindi from [employer]. Physical exam (Primary Care) Vital Signs: Last Vital Signs Pulse 86 07/26/23 14:47 BP 136/86 07/26/23 14:47 Pulse Ox 95 07/26/23 14:47 Oxygen Delivery Method Room Air 07/26/23 14:47 BMI result Body Mass Index 42.6 Tobacco/Smoking Status: Tobacco use Status Tobacco use date assessed 07/26/23 07/26/23 14:52 Patient Tobacco Use Status Former Tobacco user (30 year 07/26/23 14:49 ago) e-Cigarette/Vaping Use Never Used 07/26/23 14:49 Thrive Assessment: Date of Thrive Assessment Date Thrive assessed 06/02/23 07/26/23 14:49 Const General: alert; No acute distress Eyes Conjunctivae: conjunctivae normal Resp Auscultation: clear to auscultation bilaterally Cardio Rate: regular rate Rhythm: regular rhythm GI Inspection: Yes normal to inspection Extrem General: Yes normal to inspection and No edema Assessment and Plan Assessment & Plan (1) Fracture of right great toe: Code(s): S92.401A - Displaced unspecified fracture of right great toe, initial encounter for closed fracture Qualifiers: Encounter type: initial encounter Fracture type: closed Phalanx: unspecified phalanx Fracture alignment: displaced Qualified Code(s): S92.401A - Displaced unspecified fracture of right great toe, initial encounter for closed fracture Plan: Patient has seen ortho and advised to wear the boot as needed and 6-8 weeks of healing. (2) Lumbar back pain: Code(s): M54.50 - Low back pain, unspecified Plan: Walks with a cane for mobility. FMLA form filled out for the son (3) Obstructive sleep apnea: Code(s): G47.33 - Obstructive sleep apnea (adult) (pediatric) Plan: Patient had a sleep study and awaiting for results. Coding Level of Care Code Est Pt Level 4 (43672) Diagnoses Closed displaced fracture of phalanx of right great toe, unspecified phalanx, initial encounter S92.401A Encounter type: initial encounter Fracture type: closed Phalanx: unspecified phalanx Fracture alignment: displaced Lumbar back pain M54.50 Obstructive sleep apnea G47.33
== END 2023-07-26 16:41 | disposition home or self-care (01) ==
PROVIDERS: PCP Internal Medicine; Visit Provider Internal Medicine
DX: S92.401A Displaced unspecified fracture of right great toe, initial encounter for closed fracture (principal); M54.50 Low back pain, unspecified; G47.33 Obstructive sleep apnea (adult) (pediatric)
CPT/HCPCS: 99214

== ENCOUNTER 2023-09-30 07:44 | Outpatient (REF) | payer MEDICARE, OTHER, SELFPAY | END 2023-09-30 07:45 | disposition home or self-care (01) | LOC: HO.LAB 07:44 | PROVIDERS: PCP Internal Medicine; Visit Provider Physician Assistant Surgical | DX: Z13.89 Encounter for screening for other disorder (principal) ==

== ENCOUNTER 2023-12-12 10:34 | Outpatient (AMB) | payer MEDICARE, OTHER, SELFPAY ==
[2023-12-12 10:36] VITALS: BP 190/92; PULSE 89; O2SAT 97; BMI 43.0
--- NOTE | 2023-12-12 10:36 | MHC.PC.OV ---
Vital Signs 12/12/23 10:36 12/12/23 10:46 12/12/23 11:00 Height 5 ft 6 in Weight 266 lb 6 oz BMI 43.0 BP 190/92 H 180/110 H 170/90 H Blood Pressure Location Lt brachial Rt brachial Lt brachial Position Sitting Sitting Sitting Pulse 89 Pulse Source Pulse Oximeter Pulse Oximetry (%) 97 Oxygen Delivery Method Room Air Intake Visit Reasons: cholesterol Engine Specialist Required: No Accompanied by: Self / Same As Patient Allergies celecoxib [Celebrex] Adverse Reaction (Intermediate, Verified 12/12/23 10:36) hypertension Tobacco use date assessed: 12/12/23 Fall risk assessment: 1 Fall in past year Last assessed Fall Risk: 12/12/23 Dental Screening Dental Screen Date: 12/12/23 Did you have a dental visit in the last 12 months?: No Did you have a dental problem in the last 6 months where you did not have access to dental care?: No Was dental information given to patient?: No HPI cholesterol HPI Details 73-year-old morbidly obese female with a history of aortic stenosis hypercholesterolemia GERD generalized anxiety disorder obstructive sleep apnea coming in for follow-up. Patient was last seen in July 2023 having had a right great toe fracture. Colonoscopy is up-to-date 05/14/2022 mammogram is due bone density is up-to-date. Review of the notes was seen by Cardiology and had an echocardiogram 09/01/2023 ejection fraction 60% grade 2 diastolic impairment mild left concentric ventricular hypertrophy mild dilatation of the RV cavity trileaflet aortic valve moderate aortic stenosis mild to moderate, moderate thickening of the mitral leaflets mild tricuspid insufficiency. Patient had a sleep study done in 07/19/2023 showing mild obstructive sleep apnea COUNTS INCLUDE 234 BEDS AT THE [facility] Medical History (Updated 12/12/23 @ 11:06 by Edward Maddox MD) Tubular adenoma Melanoma Ovarian cancer Thyroid cancer Aortic stenosis Surgical History S/P lumbar spinal fusion History of carpal tunnel surgery History of knee surgery History of thyroidectomy Family History Mother No problems noted. Father COPD (chronic obstructive pulmonary disease) Social History Housing: House Alcohol intake: current Alcohol intake frequency: holidays/special occasions only Comment: 2-3 xa year 2 bottles beer Patient Tobacco Use Status: Former Tobacco user (30 year ago) Years Smoked: quit 30yrs ago 42 years old e-Cigarette/Vaping Use: Never Used Second Hand Smoke Exposure: Yes service: No Current occupational status: retired Cognitive needs: Yes (cane) Hearing needs: No Vision needs: Yes (glasses) Questionnaire PHQ-9 Over the last 2 weeks, how often have you been bothered by any of the following problems? 1. Little interest or pleasure in doing things: not at all 2. Feeling down, depressed, or hopeless: not at all 3. Trouble falling or staying asleep, or sleeping too much: not at all 4. Feeling tired or having little energy: not at all 5. Poor appetite or overeating: not at all 6. Feeling bad about yourself - or that you are a failure or have let yourself or your family down: not at all 7. Trouble concentrating on things, such as reading the newspaper or watching television: not at all 8. Moving or speaking so slowly that other people could have noticed. Or the opposite - being so fidgety or restless that you have been moving around a lot more than usual: not at all 9. Thoughts that you would be better off or of hurting yourself in some way: not at all Total score: 0 Depression Screening Interpretation: Negative Depression Screening Done: Yes 50485 - PHQ-9 Billing: Yes Source: Developed by Drs. Familia Parker, Nandini Teague, Garett Urena and colleagues, with an educational sindi from [employer]. Thrive Questionnaire Date Thrive assessed: 12/12/23 I am a: Patient What is your living situation today?: I have a steady place to live Within the past 12 months, did the food you bought not last and you didn't have the money to get more?: Never true Within the past 12 months, did you worry whether your food would run out before you got money to buy more?: Never true Do you have trouble paying for medicines?: No Do you have trouble getting transportation to medical appointments?: No Do you have trouble paying your heating and electricity bill?: No Do you have trouble taking care of your child, family member or friend?: No Do you have trouble with day-to-day activities such as bathing, preparing meals, shopping, managing finances, etc.?: No Are you currently unemployed and looking for a job?: No Are you interested in more education?: No Please select the resources that you would like help with: None Currently or been in a relationship where the following occur: No concerns reported THRIVE Score: 0 AUDIT C Alcohol Use Questionnaire (AUDIT-C) 1. How often do you have a drink containing alcohol?: Never 2. How many drinks containing alcohol do you have on a typical day when you are drinking?: 1 or 2 (0) 3. How often do you have six or more drinks on one occasion?: Never Total Score: 0 SHARMILA-7 AMB Questionnaire SHARMILA-7 Date SHARMILA - 7 assessed: 12/12/23 Feeling nervous, anxious, or on edge: 0 = Not at all Not being able to stop or control worryin = Not at all Worrying too much about different things: 0 = Not at all Trouble relaxin = Not at all Being so restless that it is hard to sit still: 0 = Not at all Becoming easily annoyed or irritable: 0 = Not at all Feeling afraid as if something awful might happen: 0 = Not at all Total SHARMILA-7 score (0-4 normal; 5-9 mild; 10-14 moderate; 15-21 severe): 0 Source: Developed by Drs. Familia Parker, Nandini Teague, Garett Urena and colleagues, with an educational sindi from [employer]. Physical exam (Primary Care) Vital Signs: Last Vital Signs Pulse 89 12/12/23 10:36 BP 180/110 H 12/12/23 10:46 Pulse Ox 97 12/12/23 10:36 Oxygen Delivery Method Room Air 12/12/23 10:36 BMI result Body Mass Index 43.0 Tobacco/Smoking Status: Tobacco use Status Tobacco use date assessed 12/12/23 12/12/23 10:46 Patient Tobacco Use Status Former Tobacco user (30 year 12/12/23 10:46 ago) e-Cigarette/Vaping Use Never Used 12/12/23 10:46 PHQ-9: PHQ-9 Score PHQ-9: Total score 0 12/12/23 10:46 Depression Screening Interpretation: Negative Thrive Assessment: Date of Thrive Assessment Date Thrive assessed 12/12/23 12/12/23 10:46 Currently or been in a relationship where the following occur: No concerns reported Const General: alert; No acute distress Eyes Conjunctivae: conjunctivae normal Resp Auscultation: clear to auscultation bilaterally Cardio Rate: regular rate Rhythm: regular rhythm GI Inspection: Yes normal to inspection Extrem General: Yes normal to inspection and No edema Assessment and Plan Assessment & Plan (1) Obesities, morbid: Code(s): E66.01 - Morbid (severe) obesity due to excess calories Plan: Diet and exercise (2) Aortic stenosis: Comment: August 2023 moderate aortic stenosis 1.2 cm Code(s): I35.0 - Nonrheumatic aortic (valve) stenosis Plan: Patient continues to be monitored by Cardiology August 2023 last tested (3) Impaired glucose tolerance: Code(s): R73.02 - Impaired glucose tolerance (oral) Plan: Decrease the amount of carbohydrate intake, pasta, bread, rice and potatoes are all sugar and that is aside from all the sweet stuff, remember that fruits are good but they are Sweet also. (4) Hypercholesteremia: Code(s): E78.00 - Pure hypercholesterolemia, unspecified Plan: Avoid fried foods, chicken skin, eggs, butter margarine, pastries and meat. Be it pork or beef they have a lot of cholesterol LDL goal of less than 130 and triglyceride of less than 150 on Zetia (5) Blood pressure elevated without history of HTN: Code(s): R03.0 - Elevated blood-pressure reading, without diagnosis of hypertension Plan: monitor the BP and ff up .dicussed about the importance of monitor the BP and record (6) Lumbar back pain: Comment: john Conner 2021 Code(s): M54.50 - Low back pain, unspecified Plan: seeing [facility] (7) Hyperhidrosis: Code(s): R61 - Generalized hyperhidrosis Plan: oral oxybutinin prescribe Orders: Orders Complete Blood Count Auto Diff Today E78.00 - Pure hypercholesterolemia, unspecified Thyroid Stimulating Hormone Today E78.00 - Pure hypercholesterolemia, unspecified Lipid Panel Today E78.00 - Pure hypercholesterolemia, unspecified Vitamin B12 and Folate Today E78.00 - Pure hypercholesterolemia, unspecified Comprehensive Met. Panel Today E78.00 - Pure hypercholesterolemia, unspecified Free T4 (Free Thyroxine) Today E78.00 - Pure hypercholesterolemia, unspecified Hemoglobin A1c Today E78.00 - Pure hypercholesterolemia, unspecified Vitamin D 25-OH Total Today E78.00 - Pure hypercholesterolemia, unspecified Medications: New oxybutynin chloride 2.5 mg PO BID 60 tabs 2RF R61 - Generalized hyperhidrosis Coding Level of Care Code Est Pt Level 4 (84665) Diagnoses Obesities, morbid E66.01 Aortic stenosis I35.0 Impaired glucose tolerance R73.02 Hypercholesteremia E78.00 Blood pressure elevated without history of HTN R03.0 Lumbar back pain M54.50 Hyperhidrosis R61
[2023-12-12 10:46] VITALS: BP 180/110
[2023-12-12 11:00] VITALS: BP 170/90
== END 2023-12-12 11:31 | disposition home or self-care (01) ==
PROVIDERS: PCP Internal Medicine; Visit Provider Internal Medicine
DX: I35.0 Nonrheumatic aortic (valve) stenosis (principal); E66.01 Morbid (severe) obesity due to excess calories; Z68.41 Body mass index [BMI] 40.0-44.9, adult; R73.02 Impaired glucose tolerance (oral); E78.00 Pure hypercholesterolemia, unspecified; R03.0 Elevated blood-pressure reading, without diagnosis of hypertension; M54.50 Low back pain, unspecified; R61 Generalized hyperhidrosis
CPT/HCPCS: 99214

== ENCOUNTER 2023-12-13 06:49 | Outpatient (REF) | payer MEDICARE, OTHER, SELFPAY ==
[2023-12-13 07:03] LABS: MANUAL DIFF FLAG NO
[2023-12-13 07:13] LABS: Basophils Absolute Auto 0.1 X10*3/uL (0.0-0.2); Basophils Percent Auto 0.7 % (0-2); Eosinophils Absolute Auto 0.4 X10*3/uL (0.0-0.4); Eosinophils Percent Auto 4.5 % (0-4); Hematocrit 42.5 % (37.0-47.0); Hemoglobin 14.1 g/dl (12.0-16.0); Imm Gran Abs Auto 0.02 X10*3/uL (0.00-0.03); Imm Gran Pct Auto 0.2 % (0.0-0.4); Lymphocytes Absolute Auto 1.8 X10*3/uL (1.2-4.9); Lymphocytes Percent Auto 22.6 % (20-40); Mean Corpuscular HGB Conc 33.2 g/dl (31.0-35.0); Mean Corpuscular Hemoglobin 30.7 pg (27.0-33.0); Mean Corpuscular Volume 92.6 fL (80.0-98.0); Mean Platelet Volume 9.2 fL (9.4-12.3); Monocytes Absolute Auto 0.6 X10*3/uL (0.1-1.2); Neutrophils Absolute Auto 5.2 x10*3/uL (2.0-8.3); Platelet Count 231 X10*3/uL (160-400); Red Blood Count 4.59 X10*6/uL (4.20-5.50); Red Cell Distribution Width 14.2 % (11.0-16.0)
[2023-12-13 07:39] LABS: Estimated Average Glucose 117 mg/dL; Hemoglobin A1c % 5.7 % (<6.0)
[2023-12-13 07:48] LABS: Alanine Aminotransferase 26 U/L (0-31); Albumin Level 3.9 g/dL (3.5-5.0); Alkaline Phosphatase 72 U/L (39-117); Anion Gap 16 (12-20); Aspartate Amino Transferase 29 U/L (5-31); Bilirubin Total 0.4 mg/dL (0.0-1.0); Blood Urea Nitrogen 12 mg/dL (9-16); Calcium 9.2 mg/dL (8.4-10.2); Carbon Dioxide 21 mmol/L (22-29); Chloride 110 mmol/L (96-108); Cholesterol 221 mg/dL (<200); Estimated Glomerular Filt Rate > 60; Glucose Random 120 mg/dL (60-115); HDL Cholesterol 44 mg/dL (>40); LDL Cholesterol Calculated 137 mg/dL (<100); Potassium 3.8 mmol/L (3.3-5.1); Sodium 143 mmol/L (135-145); Total Protein 6.9 g/dL (6.5-8.0); Triglycerides 200 mg/dL (<150)
[2023-12-13 08:11] LABS: Free T4 (Free Thyroxine) 0.64 ng/dL (0.71-1.85); Thyroid Stimulating Hormone 2.58 uIU/mL (0.32-4.0); Vitamin D 25-OH Total 38.7 ng/mL (>30)
[2023-12-13 08:26] LABS: Folate 12.5 ng/mL (> or = 4.0); Vitamin B12 1117 pg/mL (200-900)
== END 2023-12-13 06:50 | disposition home or self-care (01) ==
LOC: HO.LAB 06:49
PROVIDERS: PCP Internal Medicine; Visit Provider Internal Medicine
DX: Z13.1 Encounter for screening for diabetes mellitus (principal); E78.00 Pure hypercholesterolemia, unspecified
CPT/HCPCS: 36415; 80053; 80061; 82306; 82607; 82746; 83036; 84439; 84443; 85025

== ENCOUNTER 2024-03-30 12:47 | Outpatient (AMB) | payer MEDICARE, OTHER, SELFPAY ==
[2024-03-30 12:54] VITALS: BP 168/98; PULSE 89; O2SAT 94; BMI 44.9
--- NOTE | 2024-03-30 12:54 | MHC.PC.OV ---
Vital Signs 03/30/24 12:54 Height 5 ft 6 in Weight 278 lb BMI 44.9 BP 168/98 H Blood Pressure Location Lt brachial Position Sitting Pulse 89 Pulse Source Pulse Oximeter Pulse Oximetry (%) 94 Oxygen Delivery Method Room Air Intake Visit Reasons: Hypertension Allergies celecoxib [Celebrex] Adverse Reaction (Intermediate, Verified 03/30/24 12:54) hypertension Tobacco use date assessed: 03/30/24 Fall risk assessment: No Falls in past year Last assessed Fall Risk: 03/30/24 Dental Screening Dental Screen Date: 12/12/23 HPI Hypertension HPI Details Patient sees Dr. Barrientos for ENDOCRINE The patient is a 74-year-old female presenting with a history of elevated blood pressure, noted to be high at previous medical appointments, recommended for monitoring. The patient acknowledges elevated readings of 180 and 170 mmHg during prior physician visits, with at-home measurements peaking at 145/36 or 135/72 mmHg. There is no consistent home monitoring due to perceived unimportance. She was last seen in November 2023 with similar issues. Medical history includes morbid obesity, a history of urethral stenosis last tested in August 2023, impaired glucose tolerance indicated by recent HbA1c of 6.1%, hypercholesterolemia with LDL at 174 mg/dL, total cholesterol at 258 mg/dL, GERD, obstructive sleep apnea, and a history of thyroid cancer, with a forthcoming ultrasound scheduled for April as a precaution. Previous blood work in November 2023 showed normal TSH levels. She takes red yeast rice for cholesterol control, reporting it effective over prescribed medications like Zeria. She also reports a relationship of depression and anxiety treatment (Zoloft) with increased sweating and minor memory loss, which is under evaluation by discontinuation. - Colonoscopy last completed in 2022 and up to date. - Mammogram due but has been completed at baseline. - Bone density test up to date as of June 2023. - Follow-up ultrasound for thyroid scheduled for April. - Discussed lifestyle management, advised weight management due to obesity. - Discussed dietary modifications focusing on cholesterol management with red yeast rice instead of medication. - Recommended ambulatory blood pressure monitoring for better home tracking of blood pressure. - Upcoming nephrology referral for further blood pressure management. - Employment: Son works in [email or web address], impacts her schedule for appointments. - Family Status: Lives with son and [id number], strained relationships noted. - Activity level: Has a treadmill, plans to increase activity. 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 - Nutrition: Prefers red yeast rice for cholesterol management over pharmaceuticals. - Cardiovascular: Reports episodes of shortness of breath. - Musculoskeletal: Reports pain and prior injections in the spine for osteoarthritis. - Neurology/Psychiatry: Reports increased sweating and memory issues potentially related to antidepressant medication. - Genitourinary: Nocturia noted, not using sleep apnea device. [facility] Medical History (Updated 03/30/24 @ 13:17 by Edward Maddox MD) Blood pressure elevated without history of HTN Tubular adenoma Melanoma Ovarian cancer Thyroid cancer Aortic stenosis Surgical History S/P lumbar spinal fusion History of carpal tunnel surgery History of knee surgery History of thyroidectomy Family History Mother No problems noted. Father COPD (chronic obstructive pulmonary disease) Social History Housing: House Alcohol intake: current Alcohol intake frequency: holidays/special occasions only Comment: 2-3 xa year 2 bottles beer Patient Tobacco Use Status: Former Tobacco user (30 year ago) Tobacco use type: Cigarette Years Smoked: quit 30yrs ago 42 years old e-Cigarette/Vaping Use: Never Used Second Hand Smoke Exposure: Yes service: No Current occupational status: retired Cognitive needs: Yes (cane) Hearing needs: No Vision needs: Yes (glasses) Questionnaire PHQ-9 Over the last 2 weeks, how often have you been bothered by any of the following problems? 1. Little interest or pleasure in doing things: not at all 2. Feeling down, depressed, or hopeless: not at all 3. Trouble falling or staying asleep, or sleeping too much: not at all 4. Feeling tired or having little energy: not at all 5. Poor appetite or overeating: not at all 6. Feeling bad about yourself - or that you are a failure or have let yourself or your family down: not at all 7. Trouble concentrating on things, such as reading the newspaper or watching television: not at all 8. Moving or speaking so slowly that other people could have noticed. Or the opposite - being so fidgety or restless that you have been moving around a lot more than usual: not at all 9. Thoughts that you would be better off or of hurting yourself in some way: not at all Total score: 0 Depression Screening Interpretation: Negative Depression Screening Done: Yes 99301 - PHQ-9 Billing: Yes Source: Developed by Drs. Familia Parker, Nandini Teague, Garett Urena and colleagues, with an educational sindi from [employer]. Thrive Questionnaire Date Thrive assessed: 12/12/23 AUDIT C Alcohol Use Questionnaire (AUDIT-C) 3. How often do you have six or more drinks on one occasion?: Never Total Score: 0 SHARMILA-7 AMB Questionnaire SHARMILA-7 Date SHARMILA - 7 assessed: 12/12/23 Source: Developed by Drs. Familia Parker, Nnadini Teague, Garett Urena and colleagues, with an educational sindi from [employer]. Physical exam (Primary Care) Vital Signs: Last Vital Signs Pulse 89 03/30/24 12:54 BP 168/98 H 03/30/24 12:54 Pulse Ox 94 03/30/24 12:54 Oxygen Delivery Method Room Air 03/30/24 12:54 BMI result Body Mass Index 44.9 Tobacco/Smoking Status: Tobacco use Status Tobacco use date assessed 03/30/24 03/30/24 12:55 Patient Tobacco Use Status Former Tobacco user (30 year 03/30/24 12:55 ago) Tobacco use type Cigarette 03/30/24 12:55 e-Cigarette/Vaping Use Never Used 03/30/24 12:55 PHQ-9: PHQ-9 Score PHQ-9: Total score 0 03/30/24 13:11 Depression Screening Interpretation: Negative Thrive Assessment: Date of Thrive Assessment Date Thrive assessed 12/12/23 03/30/24 12:55 Const General: alert; No acute distress Eyes Conjunctivae: conjunctivae normal Resp Auscultation: clear to auscultation bilaterally Cardio Rate: regular rate Rhythm: regular rhythm GI Inspection: Yes normal to inspection Extrem General: Yes normal to inspection and No edema Coding Level of Care Code Est Pt Level 4 (45484) Diagnoses Primary hypertension I10 Hypertension type: primary hypertension Morbid obesity due to excess calories E66.01 Obstructive sleep apnea G47.33 Hypercholesteremia E78.00 Nonrheumatic aortic valve stenosis I35.0 Cardiac valve disease etiology: nonrheumatic Impaired glucose tolerance R73.02 Additional Codes PHQ-9 - 40834 - PHQ-9 Billing: Yes ([id number]) Assessment & Plan Assessment & Plan (1) Hypertension: Code(s): I10 - Essential (primary) hypertension Category: Medical Qualifiers: Hypertension type: primary hypertension Qualified Code(s): I10 - Essential (primary) hypertension Plan: Concern that the blood pressure is elevated and discussed about medical treatment. states the BP at home is 145/72. (2) Morbid obesity due to excess calories: Comment: hx of thyroid cancer- cannot take GLP! Code(s): E66.01 - Morbid (severe) obesity due to excess calories Category: Medical Plan: Diet and exercise noted increase in weight. (3) Obstructive sleep apnea: Comment: mild and no need for CPAP Code(s): G47.33 - Obstructive sleep apnea (adult) (pediatric) Category: Medical Plan: Discussed about sleep apnea and relation to blood pressure (4) Hypercholesteremia: Code(s): E78.00 - Pure hypercholesterolemia, unspecified Category: Medical Plan: Avoid fried foods, chicken skin, eggs, butter margarine, pastries and meat. Be it pork or beef they have a lot of cholesterol LDL goal of less than 130 and triglyceride of less than 150. (5) Aortic stenosis: Comment: August 2023 moderate aortic stenosis 1.2 cm Code(s): I35.0 - Nonrheumatic aortic (valve) stenosis Category: Medical Qualifiers: Cardiac valve disease etiology: nonrheumatic Qualified Code(s): I35.0 - Nonrheumatic aortic (valve) stenosis Plan: Will request for another ultrasound in 09/11/2024 (6) Impaired glucose tolerance: Code(s): R73.02 - Impaired glucose tolerance (oral) Category: Medical Plan: Decrease the amount of carbohydrate intake, pasta, bread, rice and potatoes are all sugar and that is aside from all the sweet stuff, remember that fruits are good but they are Sweet also. Plan - Labs: Hemoglobin A1c 6.1% (indicative of pre-diabetes), LDL 174 mg/dL, Total cholesterol 258 mg/dL, Triglycerides 95 mg/dL, HDL 65 mg/dL. TSH levels noted as normal. - Previously noted hypertension with an at-home measurement of a maximum 145/36 to 135/72 mmHg. - Elevated Blood Pressure: Referral to nephrology for ambulatory blood pressure monitoring to assess daily patterns in a regular environment. Discussed current home measurements and inconsistencies. - Hypercholesterolemia: Continue red yeast rice as preferred for cholesterol management, monitor lipid levels in subsequent labs. - Impaired Glucose Tolerance: Monitor carbohydrate intake, encourage routine exercise, and regular follow-up to reassess HbA1c. - General Anxiety Disorder: Evaluate ongoing effects of Zoloft on sweating and memory, consider gradual tapering with monitoring. - History of Thyroid Cancer: Follow-up ultrasound scheduled to monitor for any progression. - Osteoarthritis: Continue muscle relaxants as needed, follow up with pain management services. I discussed with the patient the significance of managing elevated blood pressure and suggested the use of ambulatory monitoring through a nephrology referral. I emphasized the importance of consistent home recording of blood pressure. We reviewed the current use of red yeast rice for cholesterol management, which the patient finds effective, and discussed maintaining this regimen. The patient's elevated A1c level was discussed as indicative of pre-diabetes, and I reinforced lifestyle changes. For anxiety and depression management, we addressed the side effects of Zoloft, specifically increased sweating and minor memory issues. Future follow-up in four months was agreed upon to reassess the blood pressure and cholesterol levels, and to monitor any changes in these conditions. - Schedule and attend nephrology referral for ambulatory blood pressure monitoring. - Continue using red yeast rice and monitor cholesterol levels periodically. - Maintain home blood pressure logs to identify trends. - Engage in regular physical activity as tolerated. - Follow dietary recommendations focusing on low cholesterol and balanced glucose management. - Watch for any worsening of memory or continued excessive sweating, and report these symptoms. - Attend scheduled ultrasound for thyroid monitoring in April. Orders: Orders AMB Hemoglobin A1c Today Z13.9 - Encounter for screening, unspecified Referrals Nephrology Referral I10 - Essential (primary) hypertension Medications: Discontinued tramadol Discontinued Reason: Doctor's Order 50 mg PO TID PRN 10 tabs 0RF pain
--- OUTSIDE RECORDS SUMMARY | 2024-04-04 08:29 | XMS_ITS | Patient Health Record ---
Author Organization [facility] Address [address] [place] [address] Care Team Providers Care Lining Stitcher Name Role Phone Sobia White Primary Care Provider Harriett Glover Unavailable [phone] Reason For Referral No Information Medications Medication SIG (Take, Route, Fr equency, Duration) Notes Start Date End Date Status Hair Skin Nails Acti ve Multivitamin Adults 50+ Active Vitamin B-12 500 MCG 1 tablet Orally Onc e a day for 30 day(s) Active Vitamin B-6 100 MG 1 tablet Orally Once a day for 30 day(s) Active Social History Tobacco Use: Social History Observation Description Date Details (start date - stop date) Former Smoker NA - NA Tobacco Use/Smoking Question Answer Notes Are you a: former smoker Additional Findings: Tobacco Non-User Current no n-smoker,Ex-cigarette smoker Alcohol Screen Question Answer Notes Did you have a drink contain ing alcohol in the past year? Yes How often did you have a dri nk containing alcohol in the past year? Monthly or less (1 point) Points 1 Interpretation Negative Tobacco use other than smoking: Question Answer Notes Are you an other tobacco user? No Problems Problem Type SNOMED Code ICD Code Onset Dates Problem Status W/U Status Risk Notes Problem 677998712 Hammer toe of ri ght foot (M20.41) Active confirmed Problem 592514394 Hammer toe of le ft foot (M20.42) Active confirmed Problem 126167651 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) Active confirmed Plan Of Treatment Pending Test Test Name Order Date X ray : Foot, left 3V 12/09/2021 X ray : Foot, right 3V 12/09/2021 Insurance Providers Payer Name Payer Address Payer Phone Subscriber Number Group Number Insured Name Patient Relationship to Insured Coverage Start Date Coverage End Date Medicare National [employer]t [employer] [address] [place] [phone] [id number] Christianne Yoder Self - patient is the insured [employer] [address] [place] [address] [id number] Christianne Yoder Self - patient is the insured Medical (General) History Medical History History ICD Code Arthritis Back,Hip,and Knee pain Cancer Reflux ( GERD) Measles Mumps Chicken pox Joint implants/screws Surgical History Surgery Date(Month/Year) knee replacement 11/2015, 05/2016 hysterectomy 03/2013 trapezoid bone 10/2019
--- OUTSIDE RECORDS SUMMARY | 2024-04-04 08:29 | XMS_ITS | Patient Health Record ---
Author Organization [facility] Address 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 08470807817138619 Problem 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) Active confirmed [id number] PLAN OF TREATMENT Pending Test Test Name Order Date X ray : Foot, left 3v 09/30/2020 X ray : Foot, right 3v 09/30/2020 Insurance Providers Payer Name Payer Address Payer Phone Subscriber Number Group Number Insured Name Patient Relationship to Insured Coverage Start Date Coverage End Date Medicare of [place] s [address] [place] [phone] [id number] Christianne Yoder Self - patient is the insured [facility] [address] [place] [address] [id number] Yoder Christianne Self - patient is the insured MEDICAL (GENERAL) HISTORY Medical History History ICD Code History of Ovarian Cancer: chemotherapy History of Melanoma Mixed hyperlipidemia Primary insomnia Surgical History Surgery Date(Month/Year) B/L knee surgeries
--- OUTSIDE RECORDS SUMMARY | 2024-04-04 08:30 | XMS_ITS | Continuity of Care Document ---
Author Organization [facility] [address] [place] [address] Phone [phone] Care Team Providers Care Behavioral Health Consultant Name Role Phone Edward Maddox Care Team Information [employer] Store Area Supervisor + [phone] Problems Active Problems Provider Date H/O: depression Yosef Barrientos M.D. Onset: 1 05/27/2023 Malignant melanoma Yosef Barrientos M.D. Onset : 03/26/2024 Multinodular goiter Yosef Barrientos M.D. Onse t: 03/26/2024 Osteoporosis Yosef Barrientos M.D. Onset: 1 05/28/2023 Hypercholesterolemia Yosef Barrientos M.D. Ons et: 03/27/2024 Essential hypertension Yosef Barrientos M.D. O nset: 03/27/2024 Heart disease Yosef Barrientos M.D. Onset: 1 05/28/2023 Obesity Yosef Barrientos M.D. Onset: 1 05/28/2023 Social History Type Date Description Comments Sex Unknown Medications Active Medications SIG Qnty Indications Order ing Provider Date Zepbound2.5mg/0.5ML Solution Auto-Inject inject weekly 2ml Yosef Barrientos M.D. 04/02/2024 Cyclobenzaprine OVY57id Tablets Take 1 Tablet By Mouth Three Times Daily as Needed Noe Ordoñez MD [id number] Tablets Unknown Sertraline GKI79zo Tablets Take 1 Tablet By Mouth Daily Andree Diggs Oxybutynin Chloride2.5mg Tablets Take 1 Tablet By Mouth Twice Daily Po, Lorenver Anszqltqvnxrqz8lu Tablets Take 1 Tablet By Mouth Twice Daily as Needed For Sweating Unknown [id number]/GM Powder Apply Externally To The Affected Area Every Day After Shower Unknown Cyclobenzaprine HCL5mg Tablets Take 1 Tablet By Mouth Three Times Daily as Needed For Muscle Spasm Po, Lorenver Vital Signs Date Vital Result Comment 03/27/2024 1:41pm BP Systolic 170 mmHg BP Diastolic 105 mmHg Height 66 inches 5'6 Weight 278.50 lb BMI (Body Mass Index) 44.9 kg/m2 Results Test Acquired Date Facility Test Result H/L Range N ote Comp. Metabolic Panel (14) 03/28/2024 [facility] Glucose 123 mg/dL High 70-99 BUN 19 mg/dL 8-27 Creatinine 0.77 mg/dL 0.57-1.00 eGFR 82 mL/min/1.73 >59 BUN/Creatinine Ratio 25 12-28 Sodium 146 mmol/L High 134-144 Potassium 4.2 mmol/L 3.5-5.2 Chloride 105 mmol/L 96-106 Carbon Dioxide, Total 23 mmol/L 20-29 Calcium 10.1 mg/dL 8.7-10.3 Protein, Total 7.0 g/dL 6.0-8.5 Albumin 4.3 g/dL 3.8-4.8 Globulin, Total 2.7 g/dL 1.5-4.5 Bilirubin, Total 0.5 mg/dL 0.0-1 .2 Alkaline Phosphatase 87 IU/L 44-121 Ast (Sgot) 25 IU/L 0-40 Alt (SGPT) 28 IU/L 0-32 Hemoglobin A1c 03/28/2024 [facility] Hemoglobin A1c 6.3 % High 4.8-5.6 1 CBC With Differential/Pl atelet 03/28/2024 [facility] WBC 10.2 x10E3/uL 3.4-10.8 RBC 4.78 x10E6/uL 3.77-5.28 Hemoglobin 15.0 g/dL 11.1-15.9 Hematocrit 45.7 % 34.0-46.6 MCV 96 fL 79-97 MCH 31.4 pg 26.6-33.0 MCHC 32.8 g/dL 31.5-35.7 RDW 14.2 % 11.7-15.4 Platelets 275 x10E3/uL 150-450 Neutrophils 73 % Not Estab. Lymphs 16 % Not Estab. Monocytes 7 % Not Estab. Eos 2 % Not Estab. Basos 1 % Not Estab. Immature Cells TNP Neutrophils (Absolute) 7.5 x10E3/uL High 1.4-7.0 Lymphs (Absolute) 1.7 x10E3/uL 0.7-3.1 Monocytes(Absol kalin ) 0.7 x10E3/uL 0.1-0.9 Eos (Absolute) 0.2 x10E3/uL 0.0-0.4 Baso (Absolute) 0.1 x10E3/uL 0.0-0.2 Immature Granulocytes 1 % Not Estab. Immature Grans (Abs) 0.1 x10E3/uL 0.0-0.1 NRBC TNP Hematology Comments: TNP TSH+Free T4 03/28/2024 [facility] TSH 2.870 uIU/mL 0.450-4.5 00 T4,Free(Direct) 0.83 ng/dL 0.82- 1.77 Igf-1 With Z-Score 03/28/2024 [facility] Insulin-Like Growth Factor I 61 ng/mL 48-191 Igf-1, Z Score -1.4 S.D. -2.0 - +2.0 Tgab+Thyroglobu bhartahi, Naheed Or LCMS 03/28/2024 [facility] Thyroglobulin Antibody <1.0 IU/mL 0.0-0.9 2 Thyroglobulin b y Naheed 10.6 ng/mL 1.5-38.5 3 1 Prediabetes: 5.7 - 6 .4 Diabetes: >6.4 Glycemic control for adults with diabetes: <7.0 2 Thyroglobulin Antibo dy measured by [employer] Methodology It should be noted that the presence of thyroglobulin antibodies may not be pathogenic nor diagnostic, especially at very low levels. The assay continuous dryout operator has found that four percent of individuals without evidence of thyroid disease or autoimmunity will have positive TgAb levels up to 4 IU/mL. 3 According to the [facility] [employer], the reference interval for Thyroglobulin (TG) should be related to euthyroid patients and not for patients who underwent thyroidectomy. TG reference intervals for these patients depend on the residual mass of the thyroid tissue left after surgery. Establishing a post-operative baseline is recommended. The assay limit of quantitation is 0.1 ng/mL Thyroglobulin measured by [employer] Immunometric Assay Medical Devices Description No Information Available Encounters Type Date Location Provider Dx Diagnosis Office Visit 03/27/2024 1:45p Main Office Yosef Lizama M.D. 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 03/27/2024 R61 Excessive sweating Yosef genao M.D. Plan of Treatment Future Appointment(s):* 07/26/2024 10:00 am - Yosef Barrientos M.D. at Main Office 03/27/2024 - Yosef Barrientos M.D.* C73 Hurthle cell carcinoma of thyroid * R61 Excessive sweating* New Xrays:* Ultrasound Thyroid, Scheduled: 05/02/24 Functional Status Description No Information Available Mental Status Description No Information Available Referrals Description No Information Available
== END 2024-03-30 13:39 | disposition home or self-care (01) ==
PROVIDERS: PCP Internal Medicine; Visit Provider Internal Medicine
DX: I10 Essential (primary) hypertension (principal); E66.01 Morbid (severe) obesity due to excess calories; Z68.41 Body mass index [BMI] 40.0-44.9, adult; G47.33 Obstructive sleep apnea (adult) (pediatric); E78.00 Pure hypercholesterolemia, unspecified; I35.0 Nonrheumatic aortic (valve) stenosis; R73.02 Impaired glucose tolerance (oral)

== ENCOUNTER → 2024-03-30 12:47 | Outpatient (BNVA) | payer MEDICARE, OTHER, SELFPAY | PROVIDERS: PCP Internal Medicine; Visit Provider Internal Medicine | DX: I10 Essential (primary) hypertension (principal); E66.01 Morbid (severe) obesity due to excess calories; G47.33 Obstructive sleep apnea (adult) (pediatric); E78.00 Pure hypercholesterolemia, unspecified; I35.0 Nonrheumatic aortic (valve) stenosis; R73.02 Impaired glucose tolerance (oral) | CPT/HCPCS: 96127; 99212 ==

== ENCOUNTER 2024-04-17 10:16 | Outpatient (AMB) | payer MEDICARE, OTHER, SELFPAY ==
[2024-04-17 10:07] VITALS: BP 170/100; PULSE 95; O2SAT 97; BMI 44.9
--- NOTE | 2024-04-17 10:07 | HO.NEPHOV_ITS ---
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 Over the last 6 hours 8 years she has gained significant weight. Blood pressure has been elevated however she tells me at home blood pressure readings have been around 135 mm Hg systolic. She is not on any antihypertensive medication at this time. She has history of ovarian cancer status post hysterectomy. History of partial thyroidectomy. She has upper body sweating and she is currently being evaluated. She underwent home sleep study which showed mild obstructive sleep apnea however she had significant nocturnal hypoxemia. CPAP has been recommended COUNTS INCLUDE 234 BEDS AT THE [facility] Medical History (Updated 03/30/24 @ 13:17 by Edward Maddox MD) Blood pressure elevated without history of HTN Tubular adenoma Melanoma Ovarian cancer Thyroid cancer Aortic stenosis Surgical History S/P lumbar spinal fusion History of carpal tunnel surgery History of knee surgery History of thyroidectomy Family History Mother No problems noted. Father COPD (chronic obstructive pulmonary disease) Social History Housing: House Alcohol intake: current Alcohol intake frequency: holidays/special occasions only Comment: 2-3 xa year 2 bottles beer Patient Tobacco Use Status: Former Tobacco user Tobacco use type: Cigarette Years Smoked: quit 30yrs ago 42 years old e-Cigarette/Vaping Use: Never Used Second Hand Smoke Exposure: Yes service: No Current occupational status: retired Cognitive needs: Yes (cane) Hearing needs: No Vision needs: Yes (glasses) Review of Systems Const Denies fever(s) and Denies weight loss Card Denies chest pain Resp Denies cough and Denies hemoptysis GI Denies abdominal pain, Denies diarrhea and Denies nausea Musc Denies back pain Neuro Denies focal weakness Physical Exam Vital Signs: Last Vital Signs Pulse 95 04/17/24 10:07 BP 170/100 H 04/17/24 10:07 Pulse Ox 97 04/17/24 10:07 Oxygen Delivery Method Room Air 04/17/24 10:07 BMI result Body Mass Index 44.9 Comfortable Neck supple no JVD. Lungs entry equal no rales. Heart S1-S2 heard no gallop or rub. Abdomen soft nontender. Neuro alert awake oriented. No asterixis. Extremities no edema. Results Reviewed Nephrology Results: Hgb 14.1 g/dl (12.0-16.0) 12/13/23 WBC 8.0 X10*3/uL (4.8-10.8) 12/13/23 Plt Count 231 X10*3/uL (160-400) 12/13/23 Sodium 143 mmol/L (135-145) 12/13/23 Potassium 3.8 mmol/L (3.3-5.1) 12/13/23 Chloride 110 mmol/L (96-108) H 12/13/23 Carbon Dioxide 21 mmol/L (22-29) L 12/13/23 BUN 12 mg/dL (9-16) 12/13/23 Creatinine 0.77 mg/dL (0.5-1.4) 12/13/23 Calcium 9.2 mg/dL (8.4-10.2) 12/13/23 Assessment & Plan Assessment & Plan (1) Hypertension: Code(s): I10 - Essential (primary) hypertension Category: Medical Qualifiers: Hypertension type: primary hypertension Qualified Code(s): I10 - Esse ntial (primary) hypertension Plan Blood pressure elevated today. I will arrange for 24 hour ambulatory blood pressure monitoring. In the meantime encouraged her to stand low-sodium diet She will benefit from weight loss. I suspect she has sleep apnea and the home sleep study showed mild STEFANIE with hypoxemia at night. She might need a incenter polysomnography. Orders: Orders AMB 24 HR B/P Monitor PLACEMENT Today I10 - Essential (primary) hypertension Coding Level of Care Code New Pt Level 4 (47290) Diagnoses Primary hypertension I10 Hypertension type: primary hypertension
--- OUTSIDE RECORDS SUMMARY | 2024-04-17 10:18 | XMS_ITS | Patient Health Record ---
Author Organization [facility] Address [address] [place] [address] Care Team Providers Care Project Inspector Name Role Phone Sobia White Primary Care Provider Harriett Glover Unavailable [phone] Reason For Referral No Information Medications Medication [...] Problem Status W/U Status Risk Notes Problem 268739274 Hammer toe of ri ght foot (M20.41) Active confirmed Problem 007938348 Hammer toe of le ft foot (M20.42) Active confirmed Problem 404884237 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) Active confirmed Plan Of Treatment Pending Test Test Name Order Date X ray : Foot, left 3V 12/09/2021 X ray : Foot, right 3V 12/09/2021 Insurance Providers Payer Name Payer Address Payer Phone Subscriber Number Group Number Insured Name Patient Relationship to Insured Coverage Start Date Coverage End Date Medicare National Govt Sv[employer] [address] [place] [phone] [id number] Christianne Yoder Self - patient is the insured [employer] [address] [place] [address] [id number] Christianne Yoder Self - patient is the insured Medical (General) History Medical History History ICD Code Arthritis Back,Hip,and Knee pain Cancer Reflux ( GERD) Measles Mumps Chicken pox Joint implants/screws Surgical History Surgery Date(Month/Year) knee replacement 11/2015, 05/2016 hysterectomy 03/2013 trapezoid bone 10/2019
--- OUTSIDE RECORDS SUMMARY | 2024-04-17 10:19 | XMS_ITS | Continuity of Care Document ---
Author Organization [facility] [address] [place] [address] Phone [phone] Care Team Providers Care Wildlife Rehabilitator Name Role Phone Edward Maddox Care Team Information Inside Sales Agent + [phone] Problems Active Problems Provider Date H/O: depression [...] weekly 2ml Yosef Barrientos M.D. 04/02/2024 Cyclobenzaprine BAL27zt Tablets Take 1 Tablet By Mouth Three Times Daily as Needed Noe Ordoñez MD [id number] Tablets Unknown Sertraline VTS12dr Tablets Take 1 Tablet By Mouth Daily Andree Diggs Oxybutynin Chloride2.5mg Tablets Take 1 Tablet By Mouth Twice Daily Po, Lorenver Urwnqqhctdwsfe9bh Tablets Take 1 Tablet By Mouth Twice Daily as Needed For Sweating Unknown [id number]/GM Powder Apply Externally To The Affected Area [...] Score -1.4 S.D. -2.0 - +2.0 Tgab+Thyroglobu bharathi, Naheed Or LCMS 03/28/2024 [facility] Thyroglobulin Antibody <1.0 IU/mL 0.0-0.9 2 Thyroglobulin b y Naheed 10.6 ng/mL 1.5-38.5 3 1 Prediabetes: 5.7 - 6 .4 Diabetes: >6.4 Glycemic control for adults with diabetes: <7.0 2 Thyroglobulin Antibo dy measured by [employer] Methodology It should be noted that the presence of thyroglobulin antibodies may not be pathogenic nor diagnostic, especially at very low levels. The assay senior enterprise architect has found that four percent of individuals without evidence of thyroid disease or autoimmunity will have positive TgAb levels up to 4 IU/mL. 3 According to the [employer] [facility] [employer], the reference interval [...] Diagnosis Office Visit 03/27/2024 1:45p Main Office Yosfe Lizama M.D. C73 Malignant neoplasm of thyroid [...]
--- OUTSIDE RECORDS SUMMARY | 2024-04-17 10:19 | XMS_ITS | Patient Health Record ---
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 Problem [id number] 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 Problem [id number] 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) Active confirmed Plan Of Treatment Pending Test Test Name Order Date X ray : Foot, left 3v 09/30/2020 X ray : Foot, right 3v 09/30/2020 Insurance Providers Payer Name Payer Address Payer Phone Subscriber Number Group Number Insured Name Patient Relationship to Insured Coverage Start Date Coverage End Date Medicare of [place] s [address] [place] [phone] [id number] Christianne Yoder Self - patient is the insured [facility] [address] [place] [address] [id number] YoderChristianne Self - patient is the insured Medical (General) History Medical History History ICD Code History of Ovarian Cancer: chemotherapy History of Melanoma Mixed hyperlipidemia Primary insomnia Surgical History Surgery Date(Month/Year) B/L knee surgeries
== END 2024-04-17 10:23 | disposition home or self-care (01) ==
PROVIDERS: PCP Internal Medicine; Referring Provider Internal Medicine; Visit Provider Internal Medicine Hypertension Specialist
DX: I10 Essential (primary) hypertension (principal)
CPT/HCPCS: 99204

== ENCOUNTER → 2024-04-17 10:16 | Outpatient (BNVA) | payer MEDICARE, OTHER, SELFPAY | PROVIDERS: PCP Internal Medicine; Referring Provider Internal Medicine; Visit Provider Internal Medicine Hypertension Specialist | DX: I10 Essential (primary) hypertension (principal) | CPT/HCPCS: 99202 ==

== ENCOUNTER → 2024-04-30 07:35 | Outpatient (BNV) | payer MEDICARE, OTHER, SELFPAY | PROVIDERS: Emergency Provider Emergency Medicine Emergency Medical Services; PCP Internal Medicine; Visit Provider Internal Medicine | DX: M54.50 Low back pain, unspecified (principal) | CPT/HCPCS: 93010 ==

== ENCOUNTER → 2024-04-30 08:40 | Outpatient (BNV) | payer MEDICARE, OTHER, SELFPAY | PROVIDERS: Emergency Provider Emergency Medicine Emergency Medical Services; PCP Internal Medicine; Visit Provider Radiology Diagnostic Radiology | DX: M25.511 Pain in right shoulder (principal); R07.1 Chest pain on breathing | CPT/HCPCS: 71046; 71275; 73030 ==

== ENCOUNTER 2024-05-15 10:36 | Outpatient (AMB) | payer MEDICARE, OTHER, SELFPAY ==
--- NOTE | 2024-05-15 10:41 | HO.NEPHOV ---
Vital Signs 05/15/24 10:43 Height 5 ft 6 in Weight 278 lb BMI 44.9 Pulse 109 H Pulse Source Pulse Oximeter Pulse Oximetry (%) 96 Oxygen Delivery Method Room Air Intake Visit Reasons: BP Take off/Interpretation Sporting Goods Salesperson Required: No Accompanied by: Self / Same As Patient Allergies celecoxib [Celebrex] Adverse Reaction (Intermediate, Verified 05/15/24 10:43) hypertension Medication List - Last Reconciled 05/15/24 by Navi Ramsay MD acetaminophen (Tylenol Extra Strength) 500 mg PO Q6H PRN cyclobenzaprine 5 mg PO TID PRN lidocaine 5% (Lidoderm) 1 patch topical DAILY multivitamin 1 tab PO DAILY oxybutynin chloride 5 mg PO DAILY red yeast rice 600 mg PO DAILY tramadol 50 mg PO Q8H PRN HPI Comments Details: 74-year-old woman with a history of obesity has been referred for evaluation hypertension. Over the last 6 hours 8 years she has gained significant weight. Blood pressure has been elevated however she tells me at home blood pressure readings have been around 135 mm Hg systolic. She is not on any antihypertensive medication at this time. She has history of ovarian cancer status post hysterectomy. History of partial thyroidectomy. She has upper body sweating and she is currently being evaluated. She underwent home sleep study which showed mild obstructive sleep apnea however she had significant nocturnal hypoxemia. CPAP has been recommended 05/15/2024. She underwent 24 hour ABP M. Home blood pressure readings have been around 145 mm Hg. [facility] Medical History (Updated 05/01/24 @ 00:01 by Oscar Rodriguez) Blood pressure elevated without history of HTN Tubular adenoma Melanoma Ovarian cancer Thyroid cancer Aortic stenosis Surgical History S/P lumbar spinal fusion History of carpal tunnel surgery History of knee surgery History of thyroidectomy Family History Mother No problems noted. Father COPD (chronic obstructive pulmonary disease) Social History Housing: House Alcohol intake: current Alcohol intake frequency: holidays/special occasions only Comment: 2-3 xa year 2 bottles beer Patient Tobacco Use Status: Former Tobacco user Tobacco use type: Cigarette Years Smoked: quit 30yrs ago 42 years old e-Cigarette/Vaping Use: Never Used Second Hand Smoke Exposure: Yes service: No Current occupational status: retired Cognitive needs: Yes (cane) Hearing needs: No Vision needs: Yes (glasses) Physical Exam Vital Signs: Last Vital Signs Pulse 109 H 05/15/24 10:43 Pulse Ox 96 05/15/24 10:43 Oxygen Delivery Method Room Air 05/15/24 10:43 BMI result Body Mass Index 44.9 Comfortable Neck supple no JVD. Lungs entry equal no rales. Heart S1-S2 heard no gallop or rub. Abdomen soft nontender. Neuro alert awake oriented. No asterixis. Extremities no edema. Office Procedures 24 B/P Monitor Interpretation Details: 24 hour ABP M reveals suboptimal blood pressure. Suboptimal nocturnal dipping. CPT: 48362 24 Hour Blood Pressure Monitor Reading Procedure code (CPT) selection complete Results Reviewed Nephrology Results: Hgb 14.2 g/dl (12.0-16.0) 04/30/24 WBC 9.7 X10*3/uL (4.8-10.8) 04/30/24 Plt Count 203 X10*3/uL (160-400) 04/30/24 Sodium 142 mmol/L (135-145) 04/30/24 Potassium 4.8 mmol/L (3.3-5.1) 04/30/24 Chloride 112 mmol/L (96-108) H 04/30/24 Carbon Dioxide 22 mmol/L (22-29) 04/30/24 BUN 12 mg/dL (9-16) 04/30/24 Creatinine 0.73 mg/dL (0.5-1.4) 04/30/24 Calcium 8.6 mg/dL (8.4-10.2) 04/30/24 Assessment & Plan Assessment & Plan (1) Hypertension: Code(s): I10 - Essential (primary) hypertension Category: Medical Qualifiers: Hypertension type: primary hypertension Qualified Code(s): I10 - Essential (primary) hypertension Plan Blood pressure elevated today. 24 hour ABP M revealed suboptimal blood pressures with minimal nocturnal dipping. I will add HCTZ 12.5 mg a day and titrate the dose In the meantime encouraged her to stay on low-sodium diet She will benefit from weight loss. I suspect she has sleep apnea and the home sleep study showed mild STEFANIE with hypoxemia at night. She might need a incenter polysomnography. Orders: Orders AMB 24 HR B/P Monitor INTERPRETATION Today I10 - Essential (primary) hypertension Medications: New hydrochlorothiazide 12.5 mg PO DAILY 30 caps 3RF Coding Level of Care Code Est Pt Level 4 (81388) Diagnoses Primary hypertension I10 Hypertension type: primary hypertension CPT Codes - CPT: 33407 24 Hour Blood Pressure Monitor Reading ([id number])
[2024-05-15 10:43] VITALS: PULSE 109; O2SAT 96; BMI 44.9
== END 2024-05-15 11:04 | disposition home or self-care (01) ==
PROVIDERS: PCP Internal Medicine; Visit Provider Internal Medicine Hypertension Specialist
DX: I10 Essential (primary) hypertension (principal)
CPT/HCPCS: 93790; 99214

== ENCOUNTER → 2024-05-15 10:36 | Outpatient (BNVA) | payer MEDICARE, OTHER, SELFPAY | PROVIDERS: PCP Internal Medicine; Visit Provider Internal Medicine Hypertension Specialist | DX: I10 Essential (primary) hypertension (principal); E66.9 Obesity, unspecified; Z68.41 Body mass index [BMI] 40.0-44.9, adult | CPT/HCPCS: 93786; 99212 ==

== ENCOUNTER 2024-06-26 09:36 | Outpatient (AMB) | payer MEDICARE, OTHER, SELFPAY ==
[2024-06-26 09:37] VITALS: BP 166/98; PULSE 111; O2SAT 98; BMI 44.7
--- NOTE | 2024-06-26 09:37 | HO.NEPHOV ---
Vital Signs 06/26/24 09:37 Height 5 ft 6 in Weight 277 lb BMI 44.7 BP 166/98 H Blood Pressure Location Rt brachial Position Sitting Pulse 111 H Pulse Source Pulse Oximeter Pulse Oximetry (%) 98 Oxygen Delivery Method Room Air Intake Visit Reasons: Hypertension/ Conf Director Of Early Childhood Required: No Accompanied by: Self / Same As Patient Allergies celecoxib [Celebrex] Adverse Reaction (Intermediate, Verified 06/26/24 09:40) hypertension Medication List - Last Reconciled 06/26/24 by Navi Ramsay MD acetaminophen (Tylenol Extra Strength) 500 mg PO Q6H PRN cyclobenzaprine 5 mg PO TID PRN hydrochlorothiazide 25 mg PO DAILY lidocaine 5% (Lidoderm) 1 patch topical DAILY multivitamin 1 tab PO DAILY HPI Comments Details: 74-year-old woman with a history of obesity has been referred for evaluation hypertension. Over the last 6 hours 8 years she has gained significant weight. Blood pressure has been elevated however she tells me at home blood pressure readings have been around 135 mm Hg systolic. She is not on any antihypertensive medication at this time. She has history of ovarian cancer status post hysterectomy. History of partial thyroidectomy. She has upper body sweating and she is currently being evaluated. She underwent home sleep study which showed mild obstructive sleep apnea however she had significant nocturnal hypoxemia. CPAP has been recommended 05/15/2024. She underwent 24 hour ABP M. Home blood pressure readings have been around 145 mm Hg. 06/26/24 BP is suboptimal Tolerating HCTZ PFSH Medical History (Updated 05/01/24 @ 00:01 by Oscar Rodriguez) Blood pressure elevated without history of HTN Tubular adenoma Melanoma Ovarian cancer Thyroid cancer Aortic stenosis Surgical History S/P lumbar spinal fusion History of carpal tunnel surgery History of knee surgery History of thyroidectomy Family History Mother No problems noted. Father COPD (chronic obstructive pulmonary disease) Social History Housing: House Alcohol intake: current Alcohol intake frequency: holidays/special occasions only Comment: 2-3 xa year 2 bottles beer Patient Tobacco Use Status: Former Tobacco user Tobacco use type: Cigarette Years Smoked: quit 30yrs ago 42 years old e-Cigarette/Vaping Use: Never Used Second Hand Smoke Exposure: Yes service: No Current occupational status: retired Cognitive needs: Yes (cane) Hearing needs: No Vision needs: Yes (glasses) Physical Exam Vital Signs: Last Vital Signs Pulse 111 H 06/26/24 09:37 BP 166/98 H 06/26/24 09:37 Pulse Ox 98 06/26/24 09:37 Oxygen Delivery Method Room Air 06/26/24 09:37 BMI result Body Mass Index 44.7 Results Reviewed Nephrology Results: Hgb 14.2 g/dl (12.0-16.0) 04/30/24 WBC 9.7 X10*3/uL (4.8-10.8) 04/30/24 Plt Count 203 X10*3/uL (160-400) 04/30/24 Sodium 142 mmol/L (135-145) 04/30/24 Potassium 4.8 mmol/L (3.3-5.1) 04/30/24 Chloride 112 mmol/L (96-108) H 04/30/24 Carbon Dioxide 22 mmol/L (22-29) 04/30/24 BUN 12 mg/dL (9-16) 04/30/24 Creatinine 0.73 mg/dL (0.5-1.4) 04/30/24 Calcium 8.6 mg/dL (8.4-10.2) 04/30/24 Assessment & Plan Assessment & Plan (1) Hypertension: Code(s): I10 - Essential (primary) hypertension Category: Medical Qualifiers: Hypertension type: primary hypertension Qualified Code(s): I10 - Essential (primary) hypertension Plan Blood pressure elevated today. 24 hour ABP M revealed suboptimal blood pressures with minimal nocturnal dipping. BP is still sub optimal I will INCREASE HCTZ 25 mg a day In the meantime encouraged her to stay on low-sodium diet She will benefit from weight loss. Needs to monitor BP at home She has a component of white coat effect I suspect she has sleep apnea and the home sleep study showed mild STEFANIE with hypoxemia at night. She might need a incenter polysomnography. Orders: Orders Basic Metabolic Panel 2 Months I10 - Essential (primary) hypertension Medications: New hydrochlorothiazide 25 mg (2 x 12.5 mg) PO DAILY 60 caps 2RF Coding Level of Care Code Est Pt Level 4 (27251) Diagnoses Primary hypertension I10 Hypertension type: primary hypertension
--- OUTSIDE RECORDS SUMMARY | 2024-06-26 10:48 | XMS_ITS | Encounter Summary ---
Author Organization [facility] Address [address] [place] [address] Care Team Providers Care Tear Down Matcher Name Role Phone Edward Maddox MD Primary Care Provider [phone] Encounter Details Date Type Department Care Team (Latest Contact Info) Description 03/29/2024 Lab Requisition [facility] - Main Lab [address] [place] [id number] Andree Yusuf MD [address] [address] Encounter for gynecological examination (general) (routine) without abnormal findings Social History Tobacco Use Types Packs/Day Years Used Date Smoking Tobacco: Never Assessed Comments Unknown Sex and Gender Information Value Date Recorded Sex Assigned at Not on file Legal Sex Female 7:37 PM EST Gender Identity Not on file Sexual Orientation Not on file documented as of this encounter Plan of Treatment Not on file documented as of this encounter Procedures Procedure Name Priority Date/Time Associated Diagnosis Comments PAP SMEAR Routine 03/28/2024 12:00 AM EST Encounter for gynecological examination (general) (routine) without abnormal findings documented in this encounter Results * Pap smear (03/28/2024 12:00 AM EST) Interpretation Negative for intraepithelial lesion or malignancy 04/02/2024 3:10 PM EST [facility] General Categorization Negative 04/02/2024 3:10 PM EST [facility] Specimen Adequacy Satisfactory for evaluation 04/02/2024 3:10 PM EST [facility] Pap Methodology Liquid Based Pap Test 04/02/2024 3:10 PM EST [facility] Disclaimer The Pap test is a screening test which carries an inherent false negative rate. These test results should be correlated with the patient's clinical findings and history. This Pap test was processed using an automated screening system. Technical cytopathology services provided by [facility], at [address] [place] [id number] (CLIA # [id number]/Deandre Aleman MD, Forestry Consultant.) 04/02/2024 3:10 PM [facility] Console Pap Interpretation Reported 04/02/2024 3:10 PM [facility] Brushing/Spatula Vaginal structure / Unknown 03/28/2024 03/29/2024 8:25 AM EST us Andree Yusuf MD LAB CYTOLOGY ORDERABLES Final Result [facility] [address] [place] [address], documented in this encounter Visit Diagnoses Diagnosis Encounter for gynecological examination (general) (routine) without abnormal findings documented in this encounter Care Teams Tear Down Matcher Relationship Specialty Start Date End Date Edward Maddox MD [address] [place] [address] [address] [facility] [place] [address] PCP - General Internal Medicine 04/20/24 documented as of this encounter
--- OUTSIDE RECORDS SUMMARY | 2024-06-26 10:48 | XMS_ITS | Clinical Summary ---
Author Organization [address] Address [address] [place] [address] Phone Care Team Providers Care Senior Cost Analyst Name Role Phone Edward Maddox MD Primary Care Provider [phone] Encounters Date Type Department Care Team Description 03/29/2024 Lab Requisition [facility] - Main Lab [address] [facility] [place] [address] Andree Yusuf MD Encounter for gynecological examination (general) (routine) without abnormal findings from Last 3 Months Social History Tobacco Use Types Packs/Day Years Used Date Smoking Tobacco: Never Assessed Comments Unknown Sex and Gender Information Value Date Recorded Sex Assigned at Not on file Legal Sex Female 7:37 PM EST Gender Identity Not on file Sexual Orientation Not on file Plan of Treatment Health Maintenance Due Date Last Done Comments Breast Cancer Screening 1950 RSV Immunization Patients 60+ Years Old (1 - Risk 60-74 years 1-dose series) 2012 COVID-19 Vaccine (2 - Abram risk series) 07/24/2020 06/26/2020 Colorectal Cancer Screening: Colonoscopy 05/24/2023 Depression Screening 05/24/2023 Falls Risk Assessment 05/24/2023 Medicare Annual Wellness Visit 05/24/2023 Social Influencers of Health Screening 05/24/2023 Influenza Vaccine (#1) 2023 , 02/21/2019, 01/09/2018, Additional history exists Hypertension/CHF/CAD Annual BMP Blood Test 03/27/2024 08/16/2022, 04/13/2022, 05/27/2021, Additional history exists DTaP,Tdap,and Td Vaccines (5 - Td or Tdap) 12/24/2027 12/23/2017, 04/01/2008, 04/01/2008, Additional history exists Osteoporosis Screening (Bone Density Screening) 04/21/2028 04/21/2018 Cholesterol Screening (Lipid Panel) 02/24/2029 02/25/2024 Zoster Vaccines Completed 05/24/2019, 1109/2018, 09/04/2015 Pneumococcal Vaccine: 50+ Years Completed 01/22/2020, 05/11/2016, 04/30/2009 Hepatitis C Screening Completed 01/23/2020 HIB Vaccines Aged Out No longer eligi ble based on patient's age to complete this topic HPV Vaccines Aged Out No longer eligi ble based on patient's age to complete this topic Hepatitis A Vaccines Aged Out No long er eligible based on patient's age to complete this topic Hepatitis B Vaccines Aged Out No long er eligible based on patient's age to complete this topic IPV Vaccines Aged Out No longer eligi ble based on patient's age to complete this topic MMR Vaccines Aged Out No longer eligi ble based on patient's age to complete this topic Meningococcal ACWY Vaccine Aged Out N o longer eligible based on patient's age to complete this topic Meningococcal B Vacine Aged Out No lo nger eligible based on patient's age to complete this topic RSV Immunization Patients Under 20 months Aged Out No longer eligible based on patient's age to complete this topic Varicella Vaccines Aged Out No longer eligible based on patient's age to complete this topic Procedures Procedure Name Priority Date/Time Associated Diagnosis Comments CANCER ANTIGEN 125 Routine 04/20/2024 11 :17 AM EST Ovarian cancer (CMS/HCC) PAP SMEAR Routine 03/28/2024 12:00 AM EST Encounter for gynecological examination (general) (routine) without abnormal findings from Last 3 Months Results * Cancer antigen 125 (04/20/2024 11:17 AM EST) CA 125 8.0 <35.0 unit/mL LAB CHEMISTRY METHOD 04/20/2024 1:18 PM EST [facility] Blood Venous blood specimen / Unknown Venipuncture / Unknown 04/20/2024 11:17 AM EST 04/20/2024 12:07 PM EST Narrative [facility] - 04/20/2024 1:18 PM EST The Siemens Advia Centaur Chemiluminescent Immunoassay is used. Results obtained with different assay methods or kits cannot be used interchangeably. Results cannot be interpreted as absolute evidence of the presence or absence of malignant disease. us Andree Yusuf MD LAB BLOOD ORDERABLES Fin al Result [facility] [address] [place] [address], * Pap smear (03/28/2024 12:00 AM EST) Interpretation Negative for intraepithelial lesion or malignancy 04/02/2024 3:10 PM EST [facility] General Categorization Negative 04/02/2024 3:10 PM EST [facility] Specimen Adequacy Satisfactory for evaluation 04/02/2024 3:10 PM EST [facility] Pap Methodology Liquid Based Pap Test 04/02/2024 3:10 PM EST [facility] Disclaimer The Pap test is a screening test which carries an inherent false negative rate. These test results should be correlated with the patient's clinical findings and history. This Pap test was processed using an automated screening system. Technical cytopathology services provided by [facility], at [address] [place] [id number] (CLIA # [id number]/Deandre Aleman MD, In Service Education Teacher.) 04/02/2024 3:10 PM EST [facility] Console Pap Interpretation Reported 04/02/2024 3:10 PM [facility] Brushing/Spatula Vaginal structure / Unknown 03/28/2024 03/29/2024 8:25 AM EST Andree Yusuf MD LAB CYTOLOGY ORDERABLES Final Result [facility] [address] [place] [address], [place] [phone] from Last 3 Months Insurance MEDICARE [facility] Care Teams Senior Cost Analyst Relationship Specialty Start Date End Date Edward Maddox MD [address] [place] [address] Sandra Encinas [facility] [place] [address] PCP - General Internal Medicine 04/20/24
--- OUTSIDE RECORDS SUMMARY | 2024-06-26 10:48 | XMS_ITS | Patient Health Record ---
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 Problem [id number] 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
--- OUTSIDE RECORDS SUMMARY | 2024-06-26 10:48 | XMS_ITS | Patient Health Record ---
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) Active confirmed Plan Of Treatment Pending Test Test Name Order Date X ray : Foot, left 3V 12/09/2021 X ray : Foot, right 3V 12/09/2021 Insurance Providers Payer Name Payer Address Payer Phone Subscriber Number Group Number Insured Name Patient Relationship to Insured Coverage Start Date Coverage End Date Medicare National [employer]t [employer] [address] [place] [phone] [id number] Christianne Yoder Self - patient is the insured [employer] [address] [place] [address] [id number] Christianne Yoder Self - patient is the insured Medical (General) History Medical History History ICD Code Arthritis Back,Hip,and Knee pain Cancer Reflux ( GERD) Measles Mumps Chicken pox Joint implants/screws Surgical History Surgery Date(Month/Year) knee replacement 11/2015, 05/2016 hysterectomy 03/2013 trapezoid bone 10/2019
--- OUTSIDE RECORDS SUMMARY | 2024-06-26 10:48 | XMS_ITS | Continuity of Care Document ---
Author Organization [facility] [address] [place] [address] Phone [phone] Care Team Providers Care Music Writer Name Role Phone Edward Maddox Care Team Information Narrow Gauge Operator + [phone] Problems Active Problems Provider Date H/O: depression [...] Unknown Medications Active Medications SIG Qnty Indications Ordering Provider Date Wegovy0.25mg/0.5ML Solution Auto-Inject inject 0.5 ml weekly for one month 2ml Yosef Barrientos M.D. 06/05/2024 Zepbound2.5mg/0.5ML Solution Auto-Inject inject weekly 2ml Yosef Barrientos M.D. 04/02/2024 Cyclobenzaprine ZOW90dy Tablets Take 1 Tablet By Mouth Three Times Daily as Needed Noe Ordoñez MD Vital Signs Date Vital Result Comment 03/27/2024 [...] <7.0 2 Thyroglobulin Antibo dy measured by [facility] Methodology It should be noted that the presence of thyroglobulin antibodies may not be pathogenic nor diagnostic, especially at very low levels. The assay advertising copy writer has found that four percent of individuals without evidence of thyroid disease or autoimmunity will have positive TgAb levels up to 4 IU/mL. 3 According to the [employer] [facility] [employer], the reference interval for Thyroglobulin (TG) should be related to euthyroid patients and not for patients who underwent thyroidectomy. TG reference intervals for these patients depend on the residual mass of the thyroid tissue left after surgery. Establishing a post-operative baseline is recommended. The assay limit of quantitation is 0.1 ng/mL Thyroglobulin measured by [facility] Immunometric Assay Medical Devices Description No Information Available Encounters Type Date Location Provider Dx Diagnosis Office Visit 03/27/2024 1:45p Main Office Yosef Lizama M.D. 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 03/27/2024 R61 Excessive sweating Yosef genao M.D. Plan of Treatment 03/27/2024 - Yosef Barrientos M.D.* C73 Hurthle cell carcinoma of thyroid * R61 Excessive sweating* New Xrays:* Ultrasound Thyroid, Scheduled: 05/02/24 Functional Status Description No Information Available Mental Status Description No Information Available Referrals Description No Information Available
== END 2024-06-26 09:57 | disposition home or self-care (01) ==
PROVIDERS: PCP Internal Medicine; Visit Provider Internal Medicine Hypertension Specialist
DX: I10 Essential (primary) hypertension (principal)
CPT/HCPCS: 99214

== ENCOUNTER → 2024-06-26 09:36 | Outpatient (BNVA) | payer MEDICARE, OTHER, SELFPAY | PROVIDERS: PCP Internal Medicine; Visit Provider Internal Medicine Hypertension Specialist | DX: I10 Essential (primary) hypertension (principal) | CPT/HCPCS: 99212 ==

== ENCOUNTER 2024-07-30 09:15 | Outpatient (AMB) | payer MEDICARE, OTHER, SELFPAY ==
[2024-07-30 09:18] VITALS: BP 156/90; PULSE 100; O2SAT 98; BMI 43.1
--- NOTE | 2024-07-30 09:18 | A.OFFPC_ITS ---
Vital Signs 07/30/24 09:18 Height 5 ft 6 in Weight 267 lb BMI 43.1 BP 156/90 H Blood Pressure Location Lt brachial Position Sitting Pulse 100 Pulse Source Pulse Oximeter Pulse Oximetry (%) 98 Oxygen Delivery Method Room Air Intake Visit Reasons: BP elevation Allergies celecoxib [Celebrex] Adverse Reaction (Intermediate, Verified 07/30/24 09:18) hypertension Tobacco use date assessed: 07/30/24 Fall risk assessment: No Falls in past year Last assessed Fall Risk: 07/30/24 Dental Screening Dental Screen Date: 07/30/24 Did you have a dental visit in the last 12 months?: Yes Did you have a dental problem in the last 6 months where you did not have access to dental care?: No Was dental information given to patient?: Patient has dentist HPI BP elevation HPI Details Patient has BP list on her own and is good 104-136 DBP 70-84 but do ff up with nephrology, PAtient also complains of R shoulder pain and also low back pain PFS Medical History (Updated 07/30/24 @ 10:00 by Edward Maddox MD) Blood pressure elevated without history of HTN Tubular adenoma Melanoma Ovarian cancer Thyroid cancer Aortic stenosis Surgical History S/P lumbar spinal fusion History of carpal tunnel surgery History of knee surgery History of thyroidectomy Family History Mother No problems noted. Father COPD (chronic obstructive pulmonary disease) Social History Housing: House Alcohol intake: current Alcohol intake frequency: holidays/special occasions only Comment: 2-3 xa year 2 bottles beer Patient Tobacco Use Status: Former Tobacco user Tobacco use type: Cigarette Years Smoked: quit 30yrs ago 42 years old e-Cigarette/Vaping Use: Never Used Second Hand Smoke Exposure: Yes service: No Current occupational status: retired Cognitive needs: Yes (cane) Hearing needs: No Vision needs: Yes (glasses) Questionnaire PHQ-9 Over the last 2 weeks, how often have you been bothered by any of the following problems? 1. Little interest or pleasure in doing things: not at all 2. Feeling down, depressed, or hopeless: not at all 3. Trouble falling or staying asleep, or sleeping too much: not at all 4. Feeling tired or having little energy: not at all 5. Poor appetite or overeating: not at all 6. Feeling bad about yourself - or that you are a failure or have let yourself or your family down: not at all 7. Trouble concentrating on things, such as reading the newspaper or watching television: not at all 8. Moving or speaking so slowly that other people could have noticed. Or the opposite - being so fidgety or restless that you have been moving around a lot more than usual: not at all 9. Thoughts that you would be better off or of hurting yourself in some way: not at all Total score: 0 Depression Screening Interpretation: Negative Depression Screening Done: Yes 70447 - PHQ-9 Billing: Yes Source: Developed by Drs. Familia Parker, Nandini Teague, Graett Urena and colleagues, with an educational sindi from [employer]. Thrive Questionnaire Date Thrive assessed: 07/30/24 I am a: Patient What is your living situation today?: I have a steady place to live Within the past 12 months, did the food you bought not last and you didn't have the money to get more?: Never true Within the past 12 months, did you worry whether your food would run out before you got money to buy more?: Never true Do you have trouble paying for medicines?: No Do you have trouble getting transportation to medical appointments?: No Do you have trouble paying your heating and electricity bill?: No Do you have trouble taking care of your child, family member or friend?: No Do you have trouble with day-to-day activities such as bathing, preparing meals, shopping, managing finances, etc.?: No Are you currently unemployed and looking for a job?: No Are you interested in more education?: No Currently or been in a relationship where the following occur: No concerns reported THRIVE Score: 0 AUDIT C Alcohol Use Questionnaire (AUDIT-C) 3. How often do you have six or more drinks on one occasion?: Never Total Score: 0 SHARMILA-7 AMB Questionnaire SHARMILA-7 Date SHARMILA - 7 assessed: 07/30/24 Feeling nervous, anxious, or on edge: 0 = Not at all Not being able to stop or control worryin = Not at all Worrying too much about different things: 0 = Not at all Trouble relaxin = Not at all Being so restless that it is hard to sit still: 0 = Not at all Becoming easily annoyed or irritable: 0 = Not at all Feeling afraid as if something awful might happen: 0 = Not at all Total SHARMILA-7 score (0-4 normal; 5-9 mild; 10-14 moderate; 15-21 severe): 0 Source: Developed by Drs. Familia Parker, Nandini Teague, Garett Urena and colleagues, with an educational sindi from [employer]. Physical exam (Primary Care) Vital Signs: Last Vital Signs Pulse 100 07/30/24 09:18 BP 156/90 H 07/30/24 09:18 Pulse Ox 98 07/30/24 09:18 Oxygen Delivery Method Room Air 07/30/24 09:18 BMI result Body Mass Index 43.1 Tobacco/Smoking Status: Tobacco use Status Tobacco use date assessed 07/30/24 07/30/24 09:24 Patient Tobacco Use Status Former Tobacco user 07/30/24 09:24 Tobacco use type Cigarette 07/30/24 09:24 e-Cigarette/Vaping Use Never Used 07/30/24 09:24 PHQ-9: PHQ-9 Score PHQ-9: Total score 0 07/30/24 09:51 Depression Screening Interpretation: Negative Thrive Assessment: Date of Thrive Assessment Date Thrive assessed 07/30/24 07/30/24 09:24 Currently or been in a relationship where the following occur: No concerns reported Const General: alert; No acute distress Eyes Conjunctivae: conjunctivae normal Resp Auscultation: clear to auscultation bilaterally Cardio Rate: regular rate Rhythm: regular rhythm GI Inspection: Yes normal to inspection Extrem General: Yes normal to inspection and No edema Coding Level of Care Code Est Pt Level 4 (85567) Complex EM visit Add On G2211 Diagnoses Morbid obesity due to excess calories E66.01 Primary hypertension I10 Hypertension type: primary hypertension GERD (gastroesophageal reflux disease) K21.9 Thyroid cancer C73 Impaired glucose tolerance R73.02 Nonrheumatic aortic valve stenosis I35.0 Cardiac valve disease etiology: nonrheumatic Hypercholesteremia E78.00 Lumbar back pain M54.50 Shoulder pain, right M25.511 Additional Codes PHQ-9 - 47963 - PHQ-9 Billing: Yes ([id number]) Assessment & Plan Assessment & Plan (1) Morbid obesity due to excess calories: Comment: hx of thyroid cancer- cannot take GLP! Code(s): E66.01 - Morbid (severe) obesity due to excess calories Category: Medical Plan: Diet and exercise (2) Hypertension: Code(s): I10 - Essential (primary) hypertension Category: Medical Qualifiers: Hypertension type: primary hypertension Qualified Code(s): I10 - Essential (primary) hypertension Plan: Patient is being followed up by Nephrology on hydrochlorothiazide and recently increased but patient declined (3) GERD (gastroesophageal reflux disease): Code(s): K21.9 - Gastro-esophageal reflux disease without esophagitis Category: Medical Plan: Avoid the foods that causes that usually spicy foods, tomato products, juices, coffee, soda and foods that your sensitive to. After eating do not lie down, allow 3-4 hours before in lie down. And keep the head of bed above 30 degrees to avoid the acid from going up. 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 With a normal hemoglobin A1c (6) Aortic stenosis: Comment: August 2023 moderate aortic stenosis 1.2 cm Code(s): I35.0 - Nonrheumatic aortic (valve) stenosis Category: Medical Qualifiers: Cardiac valve disease etiology: nonrheumatic Qualified Code(s): I35.0 - Nonrheumatic aortic (valve) stenosis Plan: Will continue to monitor with another echocardiogram (7) Hypercholesteremia: Code(s): E78.00 - Pure hypercholesterolemia, unspecified Category: Medical Plan: Avoid fried foods, chicken skin, eggs, butter margarine, pastries and meat. Be it pork or beef they have a lot of cholesterol LDL goal of less than 130 and triglyceride of less than 150 (8) Lumbar back pain: Comment: john Conner 2021 Code(s): M54.50 - Low back pain, unspecified Category: Medical Plan: Patient has lumbar stenosis and SI joint problem. (9) Shoulder pain, right: Code(s): M25.511 - Pain in right shoulder Category: Medical Plan History of Present Illness The patient is a 74-year-old female presenting for follow-up on multiple chronic conditions and pain management. Her medical history is significant for aortic stenosis, impaired glucose tolerance, and morbid obesity, with ongoing challenges in weight management despite a recent 10-pound weight loss. A history of hypercholesterolemia presents with a heightened LDL and triglyceride level. She has experienced recent thoracic back muscle spasms and has a diagnosis of lumbar spondylosis and spinal stenosis, alongside sacroiliac joint dysfunction that previously required injections for pain relief. Gastroesophageal reflux disease and obstructive sleep apnea are addressed within her comprehensive care plan. 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 She experiences chronic low back pain, accentuated by recent recommendations to increase hydrochlorothiazide for blood pressure regulation. The patient reports issues with calcified bursitis in the shoulder, affecting mobility and prompting interest in further orthopedic assessment. Health Maintenance - Mammogram done in October 2022 - Bone density scan up to date as of June 2023 - Recent colon test completed in April 2022 - Continual monitoring and control of hemoglobin A1c levels - Fasting lipid profile indicated LDL of 137 mg/dL and triglycerides of 200 mg/dL in November 2023 Social History - Engages in minimal physical activity, recently started walking on a treadmill at home - Reports taking Tylenol regularly for pain management - No regular use of muscle relaxants or vitamins Review of Systems - Musculoskeletal: Reports persistent back pain, shoulder pain, and limitations in movement - Cardiovascular: Denies new onset chest pain or palpitations - Gastrointestinal: Reports management of GERD symptoms - Respiratory: Denies new onset respiratory symptoms - Neurological: Denies recent headaches or visual changes Physical Exam Results - Labs: Hemoglobin A1c under control, liver function test shows elevation at 53 - Diagnostic Tests: Last echocardiogram in August 2023 showed aortic stenosis with measurement at 1.2 cm, recent thyroid ultrasound with no residual thyroid tissue, fasting lipid profile showing elevated LDL and triglycerides - Imaging: CT angiogram of the chest, negative for pulmonary embolism Plan The patient's management involves comprehensive treatment of multiple chronic conditions. For hypertension, hydrochlorothiazide has been increased to a dosage of 25 mg daily. Hypercholesterolemia management includes Zetia with lifestyle modifications to achieve specific lipid targets. Regarding lumbar spondylosis and thoracic pain, orthopedics and neurosurgery evaluations are warranted, and pain management includes Tramadol and potential lidocaine gel, dependent on authorization. Management of calcified bursitis urges further orthopedic assessment. Endocrinology oversight will ensure thyroid hormone monitoring post- hemithyroidectomy. Ongoing follow-up with nephrology and cardiology is essential. Continuation of moderate physical activity is highly encouraged to support overall health. Patient was informed and verbally consented to the use of an ambient scribe for clinic note documentation during this visit. Discussion Notes I discussed the various chronic conditions the patient faces, emphasizing each management plan's necessity, including the increase in hydrochlorothiazide dosage for hypertension and Zetia for hypercholesterolemia control. I addressed pain management strategies, including Tramadol and possible lidocaine gel use, underlining the need for prior authorization. We reviewed the rationale for additional consultations with orthopedics and neurosurgery regarding the patient's back and shoulder issues. I emphasized the importance of follow-up appointments with endocrinology, nephrology, and cardiology to ensure comprehensive management of her conditions. I highlighted potential insurance limitations and how they impact the accessibility of treatments like Mounjaro. I suggested ongoing moderate physical activity and weight management as adjunct supports to treatment. We planned for an MRI and further diagnostic imaging studies for a detailed assessment of thoracic and lumbar issues. I also scheduled a follow-up in three months to reassess treatment efficacy and ongoing care needs. Patient Instructions - Take hydrochlorothiazide 25 mg once daily for blood pressure management. - Continue with Zetia for cholesterol management and adhere to dietary and exercise recommendations. - Use Tramadol for pain management as prescribed. - Contact insurance to check coverage for lidocaine gel and use as advised. - Attend all follow-up appointments with specialists including orthopedics, neurosurgery, cardiology, and endocrinology. - Continue walking or other moderate exercises as tolerated to aid in weight management. - Schedule blood work and imaging studies as instructed before the next visit. - Return to the clinic in three months or sooner if symptoms worsen or for any new concerns. Orders: Orders MR lumbar spine wo con Today M54.50 - Low back pain, unspecified Thyroid Stimulating Hormone Today M54.50 - Low back pain, unspecified Lipid Panel Today E78.00 - Pure hypercholesterolemia, unspecified, M54.50 - Low back pain, unspecified Vitamin D 25-OH Total Today M54.50 - Low back pain, unspecified Hemoglobin A1c Today M54.50 - Low back pain, unspecified Complete Blood Count Auto Diff Today M54.50 - Low back pain, unspecified Comprehensive Met. Panel Today M54.50 - Low back pain, unspecified Free T4 (Free Thyroxine) Today M54.50 - Low back pain, unspecified Vitamin B12 and Folate Today M54.50 - Low back pain, unspecified Referrals Orthopedics Referral M25.511 - Pain in right shoulder Neurosurgery Referral M54.50 - Low back pain, unspecified Medications: New tirzepatide (Mounjaro) for 4 weeks 2.5 mg (0.5 mL) subcut QWEEK 2 mL 0RF lidocaine HCl 4% (AsperFlex (lidocaine HCl)) 1 ea topical TID PRN 100 grams 0RF low back pain M54.50 - Low back pain, unspecified ezetimibe 10 mg PO DAILY 30 tabs 0RF Changed From hydrochlorothiazide 25 mg (2 x 12.5 mg) PO DAILY 60 caps 2RF To hydrochlorothiazide 12.5 mg PO DAILY 60 caps 2RF Discontinued lidocaine 5% (Lidoderm) leave on most painful area for up to 12 hrs Discontinued Reason: Insurance Denied 1 patch topical DAILY 30 ea 0RF
--- OUTSIDE RECORDS SUMMARY | 2024-07-30 10:16 | XMS_ITS | Clinical Summary ---
Author Organization [address] Address [address] [place] [address] Phone Care Team Providers Care Chalk Machine Operator Name Role Phone Edward Maddox MD Primary Care Provider [phone] Social History Tobacco Use Types Packs/Day Years Used Date Smoking Tobacco: Never Assessed Comments Unknown Sex and Gender Information Value Date Recorded Sex Assigned at Not on file Legal Sex Female 7:37 PM EST Gender Identity Not on file Sexual Orientation Not on file Plan of Treatment Health Maintenance Due Date Last Done Comments Breast Cancer Screening 1950 RSV Immunization Adult Patients (1 - Risk 60-74 years 1-dose series) [...] Panel) 02/24/2029 02/25/2024 Zoster Vaccines Completed 05/24/2019, 09/2018, 09/04/2015 Pneumococcal Vaccine: 50+ Years Completed 01/22/2020, [...] on patient's age to complete this topic Insurance MEDICARE [facility] Care Teams Chalk Machine Operator Relationship Specialty Start Date End Date Edward Maddox MD [address] [place] [address] [address] [facility] [place] [address] PCP - General Internal Medicine 04/20/24
--- OUTSIDE RECORDS SUMMARY | 2024-07-30 10:16 | XMS_ITS | Continuity of Care Document ---
Author Organization [facility] [address] [place] [address] Phone [phone] Care Team Providers Care Reworker Name Role Phone Edward Maddox Care Team Information Truck Headlight Assembler [phone] Problems Active Problems Provider Date H/O: depression [...] Obesity Yosef Barrientos M.D. Onset: 1 05/28/2023 Hurthle cell carcinoma of thyroid Yosef bah M.D. Onset: 07/09/2024 Social History Type Date Description Comments Sex Unknown Medications Active Medications SIG Qnty Indications Ordering Provider Date Wegovy0.25mg/0.5ML Solution Auto-Inject inject 0.5 ml weekly for one month 2ml Yosef Barrientos M.D. 06/05/2024 Zepbound2.5mg/0.5ML Solution Auto-Inject inject weekly 2ml Yosef Barrientos M.D. 04/02/2024 Cyclobenzaprine IYN45pr Tablets Take 1 Tablet By Mouth Three Times Daily as Needed Noe Ordoñez MD Ozxovyottxinlkygpcf18.5m g Capsules Take 1 Capsule By Mouth Daily Unknown Vital Signs Date Vital Result Comment 07/09/2024 8:56am BP Systolic 170 mmHg BP Diastolic 86 mmHg Heart Rate 72 /min Height 66 inches 5'6 Weight 277.25 lb BMI (Body Mass Index) 44.7 kg/m2 Results Test Acquired Date Facility Test [...] <7.0 2 Thyroglobulin Antibo dy measured by [employer] It should be noted that the presence of thyroglobulin antibodies may not be pathogenic nor diagnostic, especially at very low levels. The assay crop adjuster has found that four percent of individuals without evidence of thyroid disease or autoimmunity will have positive TgAb levels up to 4 IU/mL. 3 According to the [facility] [employer], the reference interval for Thyroglobulin (TG) should be related to euthyroid patients and not for patients who underwent thyroidectomy. TG reference intervals for these patients depend on the residual mass of the thyroid tissue left after surgery. Establishing a post-operative baseline is recommended. The assay limit of quantitation is 0.1 ng/mL Thyroglobulin measured by [employer] Medical Devices Description No Information Available Encounters Type Date Location Provider Dx Diagnosis Office Visit 07/09/2024 8:45a Main Office Yosef Barrientos M.D. E66.9 Obesity, unspecified C73 Malignant neoplasm o f thyroid gland Assessments Date Code Description Provider 07/09/2024 E66.9 Obesity Yosef rosas M.D. 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 Plan of Treatment No Information Available Functional Status Description No Information Available Mental Status Description No Information Available Referrals Description No Information Available
--- OUTSIDE RECORDS SUMMARY | 2024-07-30 10:16 | XMS_ITS | Encounter Summary ---
Author Organization [facility] Address [address] [place] [address] Care Team Providers Care Supervisor Process Testing Name Role Phone Edward Maddox MD Primary Care Provider [phone] Encounter Details Date Type Department Care Team (Latest Contact Info) Description 03/29/2024 Lab Requisition [facility] - Main Lab [address] [place] [id number] Andree Yusuf MD [address] [address] Encounter for gynecological examination (general) [...] lesion or malignancy 04/02/2024 3:10 PM EST [facility] General Categorization Negative 04/02/2024 3:10 PM EST [facility] Specimen Adequacy Satisfactory for evaluation 04/02/2024 3:10 PM EST [facility] Pap Methodology Liquid Based Pap Test 04/02/2024 3:10 PM EST [facility] Disclaimer The Pap test is a screening test which carries an inherent false negative rate. These test results should be correlated with the patient's clinical findings and history. This Pap test was processed using an automated screening system. Technical cytopathology services provided by [facility], at [address] [place] [id number] (CLIA # [id number]/Deandre Aleman MD, Plant Physiologist.) 04/02/2024 3:10 PM [facility] Console Pap Interpretation Reported 04/02/2024 3:10 PM [facility] Brushing/Spatula Vaginal structure / Unknown 03/28/2024 03/29/2024 8:25 AM EST us Andree Yusuf MD LAB CYTOLOGY ORDERABLES Final Result [facility] [address] [place] [address], documented in this encounter Visit Diagnoses Diagnosis Encounter for gynecological examination (general) (routine) without abnormal findings documented in this encounter Care Teams Supervisor Process Testing Relationship Specialty Start Date End Date Edward Maddox MD [address] [place] [address] [address] [facility] [place] [address] PCP - General Internal Medicine 04/20/24 documented as of this encounter
--- OUTSIDE RECORDS SUMMARY | 2024-07-30 10:16 | XMS_ITS | Patient Health Record ---
Author Organization [facility] Address [address] [place] [address] Care Team Providers Care Stock Layer Name Role Phone Sobia White Primary Care Provider Harriett Glover Unavailable [phone] Reason For Referral No Information Medications Medication [...] Problem Status W/U Status Risk Notes Problem [id number] Hammer toe of ri ght foot (M20.41) Active confirmed Problem [id number] Hammer toe of le ft foot (M20.42) Active confirmed Problem [id number] 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) Active confirmed Plan Of Treatment Pending Test Test Name Order Date X ray : Foot, left 3V 12/09/2021 X ray : Foot, right 3V 12/09/2021 Insurance Providers Payer Name Payer Address Payer Phone Subscriber Number Group Number Insured Name Patient Relationship to Insured Coverage Start Date Coverage End Date Medicare National [employer]t [employer] [address] [place] [phone] [id number] Christianne Yoder Self - patient is the insured [employer] [address] [place] [address] [id number] Christianne Yoder Self - patient is the insured Medical (General) History Medical History History ICD Code Arthritis Back,Hip,and Knee pain Cancer Reflux ( GERD) Measles Mumps Chicken pox Joint implants/screws Surgical History Surgery Date(Month/Year) knee replacement 11/2015, 05/2016 hysterectomy 03/2013 trapezoid bone 10/2019
--- OUTSIDE RECORDS SUMMARY | 2024-07-30 10:16 | XMS_ITS | Patient Health Record ---
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 Problem [id number] 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
== END 2024-07-30 10:14 | disposition home or self-care (01) ==
LOC: HO.HMCH 09:15
PROVIDERS: PCP Internal Medicine; Visit Provider Internal Medicine
DX: I10 Essential (primary) hypertension (principal); E66.01 Morbid (severe) obesity due to excess calories; C73 Malignant neoplasm of thyroid gland; Z68.41 Body mass index [BMI] 40.0-44.9, adult; K21.9 Gastro-esophageal reflux disease without esophagitis; R73.02 Impaired glucose tolerance (oral); I35.0 Nonrheumatic aortic (valve) stenosis; E78.00 Pure hypercholesterolemia, unspecified; M54.50 Low back pain, unspecified; M25.511 Pain in right shoulder

== ENCOUNTER → 2024-07-30 09:15 | Outpatient (BNVA) | payer MEDICARE, OTHER, SELFPAY | PROVIDERS: PCP Internal Medicine; Visit Provider Internal Medicine | DX: M25.511 Pain in right shoulder (principal); M54.50 Low back pain, unspecified; E66.01 Morbid (severe) obesity due to excess calories; I10 Essential (primary) hypertension; K21.9 Gastro-esophageal reflux disease without esophagitis; C73 Malignant neoplasm of thyroid gland; R73.02 Impaired glucose tolerance (oral); I35.0 Nonrheumatic aortic (valve) stenosis; E78.00 Pure hypercholesterolemia, unspecified; Z68.41 Body mass index [BMI] 40.0-44.9, adult | CPT/HCPCS: 96127; 99212 ==

== ENCOUNTER 2024-08-02 09:49 | Outpatient (REF) | payer MEDICARE, OTHER, SELFPAY ==
--- NOTE | ~2024-08-02 | MR_ITS ---
CLINICAL HISTORY: M54.50 - Low back pain, unspecified MR lumbar spine without contrast. COMPARISON: None FINDINGS: Grade 1 anterolisthesis of L4 on L5 with posterior spinal fixation hardware bridging the L4, L5 and S1 levels. Metallic artifact from the hardware limits evaluation on multiple sequences at these levels. Grade 1 anterolisthesis of L5 on S1 with posterior spinal fixation hardware present. Mild apex left curvature of the mid lumbar spine. Vertebral heights are maintained. Modic type 2 degenerative endplate changes at L3-L4. The conus terminates at superior endplate of L2 and is otherwise unremarkable. Visualized portions of the sacrum are normal. Small amount of edema present within the posterior subcutaneous soft tissues in the lower lumbar spine. No organizing fluid collection identified. No abnormal enhancement. L5-S1: Loss of disc space height. Posterior disc uncovering measuring 4 mm. Mild spinal canal stenosis at this level. Facet joint arthrosis. Mild right and pdolfdqp-rq-gytmqh left neural foraminal narrowing. L4-L5: Loss of disc space height. Posterior disc uncovering measuring 4 mm. Mild spinal canal stenosis at this level. Facet joint arthrosis. Akzl-kp-rdrsciaw bilateral neural foraminal narrowing. L3-L4: Loss of disc space height. Posterior disc bulge measuring 4 mm. Facet joint arthrosis. Severe spinal canal stenosis at this level measuring 5 mm. Ligamentum flavum hypertrophy. Severe bilateral neural foraminal narrowing. L2-L3: Loss of disc space height. Mild posterior disc bulge. Facet joint arthrosis. Alhlznxq-so-pbflno right and mild left neural foraminal narrowing. Mild spinal canal stenosis at this level. L1-L2: Loss of disc space height. Mild broad-based posterior disc bulge measuring 4 mm. Kuxq-px-yenvqbdi right neural foraminal narrowing. Mild right hydronephrosis partially visualized. IMPRESSION: 1. No evidence of acute injury to the lumbar spine. No abnormal enhancement. 2. Posterior spinal fixation hardware bridges the L4 through S1 levels. Artifact from the hardware limits evaluation at these levels. 3. Grade 1 anterolisthesis of L4 on L5 and L5 on S1 with posterior spinal fixation hardware place. 4. Severe spinal canal stenosis at L3-4 mild spinal canal stenosis at L4-5 and L5-S1. 5. Advanced multilevel degenerative changes of the lumbar spine with multilevel ljgxdxse-wr-poejvk spinal canal stenosis most pronounced at L3-4. 6. Partially visualized mild right hydronephrosis. This document has been electronically signed by: Oscar Welch MD on 08/03/2024 13:20:23
[2024-08-02] MEDS: gadobutroL 10 ML VIAL IVPUSH (11:07)
--- OUTSIDE RECORDS SUMMARY | 2024-08-02 11:09 | XMS_ITS | Clinical Summary ---
Author Organization [address] Address [address] [place] [address] Phone Care Team Providers Care Focused Factory Manager Name Role Phone Edward Maddox MD Primary Care Provider [phone] Social History Tobacco Use Types Packs/Day Years [...] 05/24/2023 Social Influencers of Health Screening 05/24/2023 Hypertension/CHF/CAD Annual BMP Blood Test 03/27/2024 08/16/2022, 04/13/2022, 05/27/2021, Additional history exists Influenza Vaccine (Season Ended) 2024 01/22/2020, 02/21/2019, 01/09/2018, Additional history exists DTaP,Tdap,and Td Vaccines (5 [...] age to complete this topic Meningococcal B Vaccine Aged Out No l onger eligible based on patient's age to complete this topic RSV Immunization Patients Under 20 months Aged Out No longer eligible based on patient's age to complete this topic Varicella Vaccines Aged Out No longer eligible based on patient's age to complete this topic Insurance [facility]ICARE [facility] Care Teams Focused Factory Manager Relationship Specialty Start Date End Date Edward Maddox MD [address] [place] [address] [address] [facility] [place] [address] PCP - General Internal Medicine 04/20/24
--- OUTSIDE RECORDS SUMMARY | 2024-08-02 11:09 | XMS_ITS | Patient Health Record ---
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) Active confirmed Problem [id number] 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
--- OUTSIDE RECORDS SUMMARY | 2024-08-02 11:09 | XMS_ITS | Encounter Summary ---
Author Organization [facility] Address [address] [place] [address] Care Team Providers Care Presentation Team Member Name Role Phone Edward Maddox MD Primary Care Provider Encounter Details Date Type Department Care Team (Latest Contact Info) Description 03/29/2024 Lab Requisition [facility] - Main Lab [address] [place] [id number] Andree Yusuf MD [address] [address] Encounter for gynecological examination (general) [...] lesion or malignancy 04/02/2024 3:10 PM EST [facility] General Categorization Negative 04/02/2024 3:10 PM EST [facility] Specimen Adequacy Satisfactory for evaluation 04/02/2024 3:10 PM EST [facility] Pap Methodology Liquid Based Pap Test 04/02/2024 3:10 PM EST [facility] Disclaimer The Pap test is a screening test which carries an inherent false negative rate. These test results should be correlated with the patient's clinical findings and history. This Pap test was processed using an automated screening system. Technical cytopathology services provided by [facility], at [address] [place] [address] (CLIA # [id number]/Deandre Aleman MD, Graphics Coordinator.) 04/02/2024 3:10 PM [facility] Console Pap Interpretation Reported 04/02/2024 3:10 PM [facility] Brushing/Spatula Vaginal structure / Unknown 03/28/2024 03/29/2024 8:25 AM EST us Andree Yusuf MD LAB CYTOLOGY ORDERABLES Final Result [facility] [address] [place] [address], documented in this encounter Visit Diagnoses Diagnosis Encounter for gynecological examination (general) (routine) without abnormal findings documented in this encounter Care Teams Presentation Team Member Relationship Specialty Start Date End Date Edward Maddox MD [address] [place] [address] [address] [facility] [place] [address] PCP - General Internal Medicine 04/20/24 documented as of this encounter
--- OUTSIDE RECORDS SUMMARY | 2024-08-02 11:09 | XMS_ITS | Patient Health Record ---
Author Organization [facility] Address [address] [place] [address] Care Team Providers Care Clarification Operator Name Role Phone Sobia White Primary Care Provider Harriett Glover Unavailable [phone] Reason For Referral No Information Medications Medication [...] Problem Status W/U Status Risk Notes Problem [id number] Hammer toe of ri ght foot (M20.41) Active confirmed Problem 203617823 Hammer toe of le ft foot (M20.42) Active confirmed Problem 905151714 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) Active confirmed Plan Of Treatment Pending Test Test Name Order Date X ray : Foot, left 3V 12/09/2021 X ray : Foot, right 3V 12/09/2021 Insurance Providers Payer Name Payer Address Payer Phone Subscriber Number Group Number Insured Name Patient Relationship to Insured Coverage Start Date Coverage End Date Medicare National Govt Sv[employer] [address] [place] [phone] [id number] Christianne Yoder Self - patient is the insured [employer] [address] [place] [address] [id number] Christianne Yoder Self - patient is the insured Medical (General) History Medical History History ICD Code Arthritis Back,Hip,and Knee pain Cancer Reflux ( GERD) Measles Mumps Chicken pox Joint implants/screws Surgical History Surgery Date(Month/Year) knee replacement 11/2015, 05/2016 hysterectomy 03/2013 trapezoid bone 10/2019
== END 2024-08-02 09:50 | disposition home or self-care (01) ==
LOC: HO.MRI 09:49
PROVIDERS: PCP Internal Medicine; Visit Provider Internal Medicine
DX: M54.50 Low back pain, unspecified (principal)
CPT/HCPCS: 72158; A9585

== ENCOUNTER → 2024-08-02 10:02 | Outpatient (BNV) | payer MEDICARE, OTHER, SELFPAY | PROVIDERS: PCP Internal Medicine; Visit Provider Radiology Diagnostic Radiology | DX: M54.50 Low back pain, unspecified (principal) | CPT/HCPCS: 72158 ==

== ENCOUNTER 2024-08-20 09:00 | Outpatient (AMB) | payer MEDICARE, OTHER, SELFPAY ==
--- NOTE | 2024-08-20 09:02 | A.SPINEOV_ITS ---
Vital Signs 08/20/24 09:06 Height 5 ft 6 in Weight 264 lb BMI 42.6 Intake Visit Reasons: LBP Intake Note: Ms. Yoder is here today c/o Low back pain that radiates down the right leg. [employer] Required: No Allergies celecoxib [Celebrex] Adverse Reaction (Intermediate, Verified 07/30/24 09:18) hypertension Assessment & Plan Assessment & Plan (1) Degenerative scoliosis: Code(s): M41.50 - Other secondary scoliosis, site unspecified Category: Medical Plan Dear Dr. Maddox Thank you for referring Christianne to our office today. She is a pleasant, complicated 74-year-old female who comes in today with a chief complaint of severe low back pain and right hip pain. She states this has been going on for about 10 years. She denies any known inciting incident for the pain. She denies any shooting radicular pain down her bilateral lower extremities. She denies any significant numbness/tingling in her bilateral lower extremities. S he states that standing and ambulation worsens her pain, and reports that sitting helps to alleviate her pain. She has attempted several different forms of conservative treatment in an effort to address her pain, including physical therapy which she found was not helpful, cortisone injections with our colleagues at [facility], and associate director career services. After exhausting conservative treatment she attempted lumbar fusion L4-S1 with Dr. Caro in 2021. She was informed that it will be a minimally invasive surgery. She had a very difficult postoperative recovery course, and reported severe pain after surgery despite narcotic pain control. Thankfully, she does state that her pain overall gradually improved since the surgery, but is still fairly severe rating as a 9/10 PMH: History of L4-S1 lumbar fusion completed by Dr. Caro, history of bilateral total knee replacements in 2016, and 2017. Current right rotator cuff impingement. Osteopenia based on DEXA scan from 06/28/2023, with lowest T-score of-1.9. History of ovarian cancer in remission since 07/27/2013. History of skin cancer removal, followed by Dermatology yearly. History of thyroid cancer with partial thyroid removal, followed by endocrinology yearly. Prediabetic, hypertension, aortic stenosis, obesity. Social hx: Patient does not smoke, reports no substance use. Medications: See [employer] list. Mounjaro, no anticoagulants. Allergies: Celebrex. Physical exam: The patient has 5/5 strength in her upper and lower extremities. She ambulates slowly slightly hunched over. She is able to get up onto the exam table without assistance. She has no significant sensational deficits on examination. Her reflexes are 2+ intact diffusely. (-) bilateral straight leg raise, (-) clonus, (-) Lowery's. Imaging review: MRI of the lumbar spine completed here at [facility] [place] [place] shows evidence of previous L4-S1 lumbar fusion. There is a degenerative levoscoliosis of the lumbar spine with the apex at L2-3. Diffuse spondylosis of the lumbar spine with severe degenerative disc disease most pronounced at L2-3, L3-4. Impression: Christianne is a pleasant 74-year-old female who comes in today for evaluation of chronic longstanding low back pain, despite L4-S1 lumbar fusion completed by Dr. Caro in 2021. She reports that her pain did slightly improve after surgery, but still is quite debilitating throughout the day. I believe based on her imaging she is likely symptomatic from the degenerative scoliosis that has formed above her previous fusion construct. We did briefly discuss the possibility of lumbar fusion to address this, however I believe we should obtain a CT scan of the lumbar spine before heading further down that road. I would like to evaluate for fusion progress L4-S1, to see if posterior instrumentation could be removed concurrently if lumbar fusion were offered to her. I would also like to see if there is any auto fusion of the above segments where the degenerative scoliosis seems to be forming. I will call the patient back after we have her CT scan read by Radiology, and I am able to review her case with Dr. Mcdonnell. Thank you for allowing us to care for your patient. The total time spent with this visit with this patient was 65 minutes reviewing history, physical exam, MRI imaging review, and implementation of treatment plan or further diagnostic testing Dylan Mcdonnell MD,PhD [facility] Orders: Orders CT lumbar spine wo IV con Today M54.50 - Low back pain, unspecified Coding Level of Care Code New Pt Level 5 (81049) Diagnoses Degenerative scoliosis M41.50
[2024-08-20 09:06] VITALS: BMI 42.6
--- OUTSIDE RECORDS SUMMARY | 2024-08-20 09:44 | XMS_ITS | Clinical Summary ---
Author Organization [address] Address [address] [place] [address] Phone Care Team Providers Care Slots Manager Name Role Phone Edward Maddox MD Primary Care Provider [phone] Social History Tobacco Use Types Packs/Day Years [...] age to complete this topic Insurance MEDICARE [facility] Care Teams Slots Manager Relationship Specialty Start Date End Date Edward Maddox MD [address] [place] [address] [address] [facility] [place] [address] PCP - General Internal Medicine 04/20/24
--- OUTSIDE RECORDS SUMMARY | 2024-08-20 09:44 | XMS_ITS | Patient Health Record ---
Author Organization [facility] Address [address] [place] [address] Care Team Providers Care Tugboat Mate Name Role Phone Sobia White Primary Care Provider Harriett Glover Unavailable [phone] Reason For Referral No Information Medications Medication [...] Problem Status W/U Status Risk Notes Problem 992006424 Hammer toe of ri ght foot (M20.41) Active confirmed Problem 453438311 Hammer toe of le ft foot (M20.42) Active confirmed Problem 300650532 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) Active confirmed Plan Of Treatment Pending Test Test Name Order Date X ray : Foot, left 3V 12/09/2021 X ray : Foot, right 3V 12/09/2021 Insurance Providers Payer Name Payer Address Payer Phone Subscriber Number Group Number Insured Name Patient Relationship to Insured Coverage Start Date Coverage End Date Medicare National Govt Svcs Inc [address] [place] [phone] [id number] Christianne Yoder Self - patient is the insured [employer] [address] [place] [address] [id number] Christianne Yoder Self - patient is the insured Medical (General) History Medical History History ICD Code Arthritis Back,Hip,and Knee pain Cancer Reflux ( GERD) Measles Mumps Chicken pox Joint implants/screws Surgical History Surgery Date(Month/Year) knee replacement 11/2015, 05/2016 hysterectomy 03/2013 trapezoid bone 10/2019
--- OUTSIDE RECORDS SUMMARY | 2024-08-20 09:44 | XMS_ITS | Encounter Summary ---
Author Organization [facility] Address [address] [place] [address] Care Team Providers Care Duct Layer Supervisor Name Role Phone Edward Maddox MD Primary Care Provider [phone] Encounter Details Date Type Department Care Team (Latest Contact Info) Description 03/29/2024 Lab Requisition [facility] - Main Lab [address] [place] [phone] Andree Yusuf MD [address] [address] Encounter for gynecological examination (general) [...] lesion or malignancy 04/02/2024 3:10 PM EST [facility] General Categorization Negative 04/02/2024 3:10 PM EST [facility] Specimen Adequacy Satisfactory for evaluation 04/02/2024 3:10 PM EST [facility] Pap Methodology Liquid Based Pap Test 04/02/2024 3:10 PM EST [facility] Disclaimer The Pap test is a screening test which carries an inherent false negative rate. These test results should be correlated with the patient's clinical findings and history. This Pap test was processed using an automated screening system. Technical cytopathology services provided by [facility], at [address] [place] [address] (CLIA # [id number]/Deandre Aleman MD, Livestock Haulier.) 04/02/2024 3:10 PM [facility] Console Pap Interpretation Reported 04/02/2024 3:10 PM [facility] Brushing/Spatula Vaginal structure / Unknown 03/28/2024 03/29/2024 8:25 AM EST us Andree Yusuf MD LAB CYTOLOGY ORDERABLES Final Result [facility] [address] [place] [address], documented in this encounter Visit Diagnoses Diagnosis Encounter for gynecological examination (general) (routine) without abnormal findings documented in this encounter Care Teams Duct Layer Supervisor Relationship Specialty Start Date End Date Edward Maddox MD [address] [place] [address] [address] [facility] [place] [address] PCP - General Internal Medicine 04/20/24 documented as of this encounter
--- OUTSIDE RECORDS SUMMARY | 2024-08-20 09:45 | XMS_ITS | Continuity of Care Document ---
Author Organization [facility] [address] [facility] [address] [place] [address] Phone [phone] Care Team Providers Care Talent Development Consultant Name Role Phone Edward Maddox Care Team Information Senior Qualitative Researcher [phone] Problems Active Problems Provider Date H/O: depression [...] weekly 2ml Yosef Barrientos M.D. 04/02/2024 Cyclobenzaprine [id number] Tablets Take 1 Tablet By Mouth Three Times Daily as Needed Noe Ordoñez MD Yuvrfjjkhxxwzbrznvo81.5m g Capsules Take 1 Capsule By Mouth [...] 1.4-7.0 Lymphs (Absolute) 1.7 x10E3/uL 0.7-3.1 Monocytes(Absol point hope ira ) 0.7 x10E3/uL 0.1-0.9 Eos (Absolute) 0.2 [...] <7.0 2 Thyroglobulin Antibo dy measured by [employer] Methodology It should be noted that the presence of thyroglobulin antibodies may not be pathogenic nor diagnostic, especially at very low levels. The assay addiction psychiatrist has found that four percent of individuals without evidence of thyroid disease or autoimmunity will have positive TgAb levels up to 4 IU/mL. 3 According to the [facility] Academy of Clinical Biochemistry, the reference interval for Thyroglobulin (TG) should be related to euthyroid patients and not for patients who underwent thyroidectomy. TG reference intervals for these patients depend on the residual mass of the thyroid tissue left after surgery. Establishing a post-operative baseline is recommended. The assay limit of quantitation is 0.1 ng/mL Thyroglobulin measured by [employer] Immunometric Assay Medical Devices Description No Information [...]
--- OUTSIDE RECORDS SUMMARY | 2024-08-20 09:45 | XMS_ITS | Patient Health Record ---
Author Organization [facility] Address [address] 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
== END 2024-08-20 10:53 | disposition home or self-care (01) ==
LOC: HO.HNS 09:00
PROVIDERS: PCP Internal Medicine; Referring Provider Internal Medicine; Visit Provider Physician Assistant
DX: M54.50 Low back pain, unspecified (principal); M41.50 Other secondary scoliosis, site unspecified
CPT/HCPCS: 99205

== ENCOUNTER → 2024-08-20 09:00 | Outpatient (BNVA) | payer MEDICARE, OTHER, SELFPAY | PROVIDERS: PCP Internal Medicine; Referring Provider Internal Medicine; Visit Provider Physician Assistant | DX: M54.50 Low back pain, unspecified (principal); M41.50 Other secondary scoliosis, site unspecified | CPT/HCPCS: 99202 ==

== ENCOUNTER 2024-08-22 08:17 | Outpatient (REF) | payer MEDICARE, OTHER, SELFPAY ==
--- OUTSIDE RECORDS SUMMARY | 2024-08-22 08:31 | XMS_ITS | Clinical Summary ---
Author Organization [address] Address [address] [place] [address] Phone Care Team Providers Care Weighing Station Operator Name Role Phone Edward Maddox MD Primary Care Provider [phone] Social History Tobacco Use Types Packs/Day Years [...] age to complete this topic Insurance [facility]ICARE [facility] Care Teams Weighing Station Operator Relationship Specialty Start Date End Date Edward Maddox MD [address] [place] [address] [address] [facility] [place] [address] PCP - General Internal Medicine 04/20/24
--- OUTSIDE RECORDS SUMMARY | 2024-08-22 08:31 | XMS_ITS | Encounter Summary ---
Author Organization [facility] Address [address] [place] [address] Care Team Providers Care Travel Writer Name Role Phone Edward Maddox MD Primary Care Provider Encounter Details Date Type Department Care Team (Latest Contact Info) Description 03/29/2024 Lab Requisition [facility] - Main Lab [address] [place] [id number] Andree Yusuf MD [address] [address] Encounter for gynecological examination (general) [...] lesion or malignancy 04/02/2024 3:10 PM EST [facility] General Categorization Negative 04/02/2024 3:10 PM EST [facility] Specimen Adequacy Satisfactory for evaluation 04/02/2024 3:10 PM EST [facility] Pap Methodology Liquid Based Pap Test 04/02/2024 3:10 PM EST [facility] Disclaimer The Pap test is a screening test which carries an inherent false negative rate. These test results should be correlated with the patient's clinical findings and history. This Pap test was processed using an automated screening system. Technical cytopathology services provided by [facility], at [address] [place] [id number] (CLIA # [id number]/Deandre Aleman MD, Mobile Ui Designer.) 04/02/2024 3:10 PM [facility] Console Pap Interpretation Reported 04/02/2024 3:10 PM [facility] Brushing/Spatula Vaginal structure / Unknown 03/28/2024 03/29/2024 8:25 AM EST us Andree Yusuf MD LAB CYTOLOGY ORDERABLES Final Result [facility] [address] [place] [address], documented in this encounter Visit Diagnoses Diagnosis Encounter for gynecological examination (general) (routine) without abnormal findings documented in this encounter Care Teams Travel Writer Relationship Specialty Start Date End Date Edward Maddox MD [address] [place] [address] Dr [address] [facility] [place] [address] PCP - General Internal Medicine 04/20/24 documented as of this encounter
--- OUTSIDE RECORDS SUMMARY | 2024-08-22 08:31 | XMS_ITS | Patient Health Record ---
Author Organization [facility] Address [address] [place] [address] Care Team Providers Care Research Advisor Name Role Phone Sobia White Primary Care Provider Harriett Glover Unavailable [phone] Reason For Referral No Information Medications Medication [...] Problem Status W/U Status Risk Notes Problem [id number] Hammer toe of ri ght foot (M20.41) Active confirmed Problem 822955642 Hammer toe of le ft foot (M20.42) Active confirmed Problem 474718452 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) Active confirmed Plan Of Treatment Pending Test Test Name Order Date X ray : Foot, left 3V 12/09/2021 X ray : Foot, right 3V 12/09/2021 Insurance Providers Payer Name Payer Address Payer Phone Subscriber Number Group Number Insured Name Patient Relationship to Insured Coverage Start Date Coverage End Date Medicare National Govt Svcs Inc [address] [place] [phone] [id number] Christianne Yoder Self - patient is the insured [employer] [address] [place] [address] [id number] Christianne Yoder Self - patient is the insured Medical (General) History Medical History History ICD Code Arthritis Back,Hip,and Knee pain Cancer Reflux ( GERD) Measles Mumps Chicken pox Joint implants/screws Surgical History Surgery Date(Month/Year) knee replacement 11/2015, 05/2016 hysterectomy 03/2013 trapezoid bone 10/2019
[2024-08-22 09:25] LABS: Anion Gap 15 (12-20); Blood Urea Nitrogen 11 mg/dL (9-16); Calcium 9.7 mg/dL (8.4-10.2); Carbon Dioxide 25 mmol/L (22-29); Chloride 106 mmol/L (96-108); Estimated Glomerular Filt Rate > 60; Glucose Random 111 mg/dL (60-115); Potassium 3.6 mmol/L (3.3-5.1); Sodium 142 mmol/L (135-145)
== END 2024-08-22 08:18 | disposition home or self-care (01) ==
LOC: HO.LAB 08:17
PROVIDERS: PCP Internal Medicine; Visit Provider Internal Medicine Hypertension Specialist
DX: I10 Essential (primary) hypertension (principal)
CPT/HCPCS: 36415; 80048

== ENCOUNTER 2024-08-27 10:57 | Outpatient (AMB) | payer MEDICARE, OTHER, SELFPAY ==
[2024-08-27 11:00] VITALS: BP 152/92; PULSE 102; O2SAT 98; BMI 42.5
--- NOTE | 2024-08-27 11:00 | HO.NEPHOV ---
Vital Signs 08/27/24 11:00 Height 5 ft 6 in Weight 263 lb 2 oz BMI 42.5 BP 152/92 H Blood Pressure Location Lt brachial Position Sitting Pulse 102 H Pulse Source Pulse Oximeter Pulse Oximetry (%) 98 Oxygen Delivery Method Room Air Intake Visit Reasons: 2 MO FU/ Conf Shoer Required: No Accompanied by: Self / Same As Patient Allergies celecoxib [Celebrex] Adverse Reaction (Intermediate, Verified 08/27/24 11:03) hypertension Medication List - Last Reconciled 08/27/24 by Navi Ramsay MD acetaminophen (Tylenol Extra Strength) 500 mg PO Q6H PRN cyclobenzaprine 5 mg PO TID PRN ezetimibe 10 mg PO DAILY hydrochlorothiazide 12.5 mg PO DAILY lidocaine HCl 4% (AsperFlex (lidocaine HCl)) 1 ea topical TID PRN multivitamin 1 tab PO DAILY tirzepatide (Mounjaro) 2.5 mg (0.5 mL) subcut QWEEK Do you need a note to return to daycare/school/sports/work: No HPI Comments Details: 74-year-old woman with a history of obesity has been referred for evaluation hypertension. Over the last 6 hours 8 years she has gained significant weight. Blood pressure has been elevated however she tells me at home blood pressure readings have been around 135 mm Hg systolic. She is not on any antihypertensive medication at this time. She has history of ovarian cancer status post hysterectomy. History of partial thyroidectomy. She has upper body sweating and she is currently being evaluated. She underwent home sleep study which showed mild obstructive sleep apnea however she had significant nocturnal hypoxemia. CPAP has been recommended 05/15/2024. She underwent 24 hour ABP M. Home blood pressure readings have been around 145 mm Hg. 06/26/24; BP is suboptimal; Tolerating HCTZ 08/27/2024. Overall she is doing well. She has lost few lb with Mounjaro. She is on 2.5 mg. Waiting to see continuous process rotary drum tanner for further dose adjustment. She has cut back on hydrochlorothiazide and she is taking 12.5 mg a day. Home blood pressure readings were reviewed. Home blood pressure readings are excellent. ON LICENSE OF [facility] Medical History Blood pressure elevated without history of HTN Tubular adenoma Melanoma Ovarian cancer Thyroid cancer Aortic stenosis Surgical History S/P lumbar spinal fusion History of carpal tunnel surgery History of knee surgery History of thyroidectomy Family History Mother No problems noted. Father COPD (chronic obstructive pulmonary disease) Social History Housing: House Alcohol intake: current Alcohol intake frequency: holidays/special occasions only Comment: 2-3 xa year 2 bottles beer Patient Tobacco Use Status: Former Tobacco user Tobacco use type: Cigarette Years Smoked: quit 30yrs ago 42 years old e-Cigarette/Vaping Use: Never Used Second Hand Smoke Exposure: Yes service: No Current occupational status: retired Cognitive needs: Yes (cane) Hearing needs: No Vision needs: Yes (glasses) Physical Exam Vital Signs: Last Vital Signs Pulse 102 H 08/27/24 11:00 BP 152/92 H 08/27/24 11:00 Pulse Ox 98 08/27/24 11:00 Oxygen Delivery Method Room Air 08/27/24 11:00 BMI result Body Mass Index 42.5 Results Reviewed Nephrology Results: Sodium 142 mmol/L (135-145) 08/22/24 Potassium 3.6 mmol/L (3.3-5.1) 08/22/24 Chloride 106 mmol/L (96-108) 08/22/24 Carbon Dioxide 25 mmol/L (22-29) 08/22/24 BUN 11 mg/dL (9-16) 08/22/24 Creatinine 0.76 mg/dL (0.5-1.4) 08/22/24 Calcium 9.7 mg/dL (8.4-10.2) 08/22/24 Assessment & Plan Assessment & Plan (1) Hypertension: Code(s): I10 - Essential (primary) hypertension Category: Medical Qualifiers: Hypertension type: primary hypertension Qualified Code(s): I10 - Essential (primary) hypertension Plan Blood pressure elevated in the office today. Home blood pressure readings are excellent 24 hour ABP M revealed suboptimal blood pressures with minimal nocturnal dipping. Based on home blood pressure readings I will continue with hydrochlorothiazide 12.5 mg a day. In the meantime encouraged her to stay on low-sodium diet She will benefit from weight loss. Continue to monitor BP at home She has a component of white coat effect I suspect she has sleep apnea and the home sleep study showed mild STEFANIE with hypoxemia at night. She might need a incenter polysomnography. Medications: Changed From ezetimibe 10 mg PO DAILY 30 tabs 0RF To ezetimibe Taking Rosuvastatin 10 mg daily 10 mg PO DAILY Coding Level of Care Code Est Pt Level 4 (17315) Diagnoses Primary hypertension I10 Hypertension type: primary hypertension
--- OUTSIDE RECORDS SUMMARY | 2024-08-27 12:37 | XMS_ITS | Patient Health Record ---
Author Organization [facility] Address [address] [place] [address] Care Team Providers Care Dry Cure Worker Name Role Phone Sobia White Primary Care Provider Harriett Glover Unavailable [phone] Reason For Referral No Information Medications Medication [...] Problem Status W/U Status Risk Notes Problem 523328555 Hammer toe of ri ght foot (M20.41) Active confirmed Problem 732739750 Hammer toe of le ft foot (M20.42) Active confirmed Problem 408743671 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) Active confirmed Plan Of Treatment Pending Test Test Name Order Date X ray : Foot, left 3V 12/09/2021 X ray : Foot, right 3V 12/09/2021 Insurance Providers Payer Name Payer Address Payer Phone Subscriber Number Group Number Insured Name Patient Relationship to Insured Coverage Start Date Coverage End Date Medicare National Govt Svcs Inc [address] [place] [phone] [id number] Christianne Yoder Self - patient is the insured [employer]) [address] [place] [address] [id number] Christianne Yoder Self - patient is the insured Medical (General) History Medical History History ICD Code Arthritis Back,Hip,and Knee pain Cancer Reflux ( GERD) Measles Mumps Chicken pox Joint implants/screws Surgical History Surgery Date(Month/Year) knee replacement 11/2015, 05/2016 hysterectomy 03/2013 trapezoid bone 10/2019
--- OUTSIDE RECORDS SUMMARY | 2024-08-27 12:37 | XMS_ITS | Encounter Summary ---
Author Organization [facility] Address [address] [place] [address] Care Team Providers Care Bias Cutting Machine Operator Name Role Phone Edward Maddox MD Primary Care Provider [phone] Encounter Details Date Type Department Care Team (Latest Contact Info) Description 03/29/2024 Lab Requisition [facility] - Main Lab [address] [place] [phone] Andree Yusuf MD [address] [address] Encounter for gynecological examination (general) [...] lesion or malignancy 04/02/2024 3:10 PM EST [facility] General Categorization Negative 04/02/2024 3:10 PM EST [facility] Specimen Adequacy Satisfactory for evaluation 04/02/2024 3:10 PM EST [facility] Pap Methodology Liquid Based Pap Test 04/02/2024 3:10 PM EST [facility] Disclaimer The Pap test is a screening test which carries an inherent false negative rate. These test results should be correlated with the patient's clinical findings and history. This Pap test was processed using an automated screening system. Technical cytopathology services provided by [facility], at [address] [place] [address] (CLIA # [id number]/Deandre Aleman MD, Laborer Concrete Paving.) 04/02/2024 3:10 PM [facility] Console Pap Interpretation Reported 04/02/2024 3:10 PM [facility] Brushing/Spatula Vaginal structure / Unknown 03/28/2024 03/29/2024 8:25 AM EST us Andree Yusuf MD LAB CYTOLOGY ORDERABLES Final Result [facility] [address] [place] [address], documented in this encounter Visit Diagnoses Diagnosis Encounter for gynecological examination (general) (routine) without abnormal findings documented in this encounter Care Teams Bias Cutting Machine Operator Relationship Specialty Start Date End Date Edward Maddox MD [address] [place] [address] Dr [address] [facility] [place] [address] PCP - General Internal Medicine 04/20/24 documented as of this encounter
--- OUTSIDE RECORDS SUMMARY | 2024-08-27 12:37 | XMS_ITS | Clinical Summary ---
Author Organization [address] Address [address] [place] [address] Phone Care Team Providers Care Industrial Safety And Health Specialist Name Role Phone Edward Maddox MD Primary Care Provider [phone] Social History Tobacco Use Types Packs/Day Years [...] to complete this topic Insurance [facility]IC[facility] Care Teams Industrial Safety And Health Specialist Relationship Specialty Start Date End Date Edward Maddox MD [address] [place] [address] [address] [facility] [place] [address] PCP - General Internal Medicine 04/20/24
--- OUTSIDE RECORDS SUMMARY | 2024-08-27 12:38 | XMS_ITS | Patient Health Record ---
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) Active confirmed Problem 67425701202706299 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
--- OUTSIDE RECORDS SUMMARY | 2024-08-27 12:38 | XMS_ITS | Continuity of Care Document ---
Author Organization [facility] [address] [facility] [address] [place] [address] Phone [phone] Care Team Providers Care Stacker Attendant Name Role Phone Edward Maddox Care Team Information Entomology Teacher [phone] Problems Active Problems Provider Date H/O: depression Yosef Barrientos M.D. Onset: 1 05/27/2023 Malignant melanoma Yosef Barrietnos M.D. Onset : 03/26/2024 Multinodular goiter Yosef [...] weekly 2ml Yosef Barrientos M.D. 04/02/2024 Cyclobenzaprine CUW31hw Tablets Take 1 Tablet By Mouth Three Times Daily as Needed Noe Ordoñez MD Iydpsaggrypuwlvyani06.5m g Capsules Take 1 Capsule By Mouth [...] 1.4-7.0 Lymphs (Absolute) 1.7 x10E3/uL 0.7-3.1 Monocytes(Absol mentasta ) 0.7 x10E3/uL 0.1-0.9 Eos (Absolute) 0.2 [...] <7.0 2 Thyroglobulin Antibo dy measured by Modusly Methodology It should be noted that the presence of thyroglobulin antibodies may not be pathogenic nor diagnostic, especially at very low levels. The assay batch freezer has found that four percent of individuals without evidence of thyroid disease or autoimmunity will have positive TgAb levels up to 4 IU/mL. 3 According to the [facility] [employer], the reference interval for Thyroglobulin (TG) should be related to euthyroid patients and not for patients who underwent thyroidectomy. TG reference intervals for these patients depend on the residual mass of the thyroid tissue left after surgery. Establishing a post-operative baseline is recommended. The assay limit of quantitation is 0.1 ng/mL Thyroglobulin measured by Modusly Immunometric Assay Medical Devices Description No Information [...]
== END 2024-08-27 11:22 | disposition home or self-care (01) ==
LOC: HO.HKA 10:57
PROVIDERS: PCP Internal Medicine; Visit Provider Internal Medicine Hypertension Specialist
DX: I10 Essential (primary) hypertension (principal)
CPT/HCPCS: 99214

== ENCOUNTER → 2024-08-27 10:57 | Outpatient (BNVA) | payer MEDICARE, OTHER, SELFPAY | PROVIDERS: PCP Internal Medicine; Visit Provider Internal Medicine Hypertension Specialist | DX: I10 Essential (primary) hypertension (principal) | CPT/HCPCS: 99212 ==

== ENCOUNTER 2024-09-26 07:12 | Outpatient (REF) | payer MEDICARE, OTHER, SELFPAY | END 2024-09-26 07:13 | disposition home or self-care (01) | LOC: HO.CT 07:12 | PROVIDERS: PCP Internal Medicine; Visit Provider Physician Assistant | DX: M54.50 Low back pain, unspecified (principal) | CPT/HCPCS: 72131 ==

== ENCOUNTER → 2024-09-26 07:14 | Outpatient (BNV) | payer MEDICARE, OTHER, SELFPAY | PROVIDERS: PCP Internal Medicine; Visit Provider Radiology Diagnostic Radiology | DX: M43.16 Spondylolisthesis, lumbar region (principal) | CPT/HCPCS: 72131 ==

== ENCOUNTER 2024-09-27 09:30 | Outpatient (AMB) | payer MEDICARE, OTHER, SELFPAY ==
--- NOTE | 2024-09-27 09:37 | MHC.OFFVIS ---
Vital Signs 09/27/24 09:54 Height 5 ft 6 in Weight 263 lb BMI 42.4 Intake Visit Reasons: Newprob- Pain in right shoulder Intake Note: Christianne is a 74 year old right hand dominant female who presents today for an evaluation of right shoulder pain. Patient was recently seen by her PCP who referred patient to orthopedics. Patient reports her pain has been intolerable and was seen at the ER in March for her pain. Her pain is located in her shoulder and travels to her shoulder blade area. Aggravating pain with sleeping on her right side. No numbness or tingling. Finds some relief Aleve. History of shoulder injections with the last one being in 2019. Patient mentions she was diagnosed with degenerative scoliosis. Allergies celecoxib [Celebrex] Adverse Reaction (Intermediate, Verified 09/27/24 09:59) hypertension Medication List - Last Reconciled 09/27/24 by Joselin Saldana PA-C acetaminophen (Tylenol Extra Strength) 500 mg PO Q6H PRN cyclobenzaprine 5 mg PO TID PRN hydrochlorothiazide 12.5 mg PO DAILY multivitamin 1 tab PO DAILY rosuvastatin mg PO DAILY tirzepatide (Mounjaro) 2.5 mg (0.5 mL) subcut QWEEK HPI HPI Newprob- Pain in right shoulder: Details: 74 yo female presents to the office today for her right shoulder. She states she has been experiencing pain in the shoulder for several years. She states she was seen for her shoulder in the past at [facility] and also someone in [facility] and she had steroid injections. She states the injections were helpful. She states she has no limitations with ROM, but she does have pain that extends from the shoulder to the scapula. She denies n/t. She states she has done PT many years ago. No other treatment to date. [facility] Medical History Blood pressure elevated without history of HTN Tubular adenoma Melanoma Ovarian cancer Thyroid cancer Aortic stenosis Surgical History S/P lumbar spinal fusion History of carpal tunnel surgery History of knee surgery History of thyroidectomy Family History Mother No problems noted. Father COPD (chronic obstructive pulmonary disease) Social History Housing: House Alcohol intake: current Alcohol intake frequency: holidays/special occasions only Comment: 2-3 xa year 2 bottles beer Patient Tobacco Use Status: Former Tobacco user Tobacco use type: Cigarette Years Smoked: quit 30yrs ago 42 years old e-Cigarette/Vaping Use: Never Used Second Hand Smoke Exposure: Yes service: No Current occupational status: retired Cognitive needs: Yes (cane) Hearing needs: No Vision needs: Yes (glasses) Review of Systems Const All systems reviewed & are unremarkable except as noted in HPI and below Physical Exam Vital Signs: BMI result Body Mass Index 42.4 Const General: cooperative and no acute distress Orientation/consciousness: patient oriented x3 Resp Effort & Inspection: normal respiratory effort and able to speak in complete sentences Cardio Peripheral pulses: Peripheral pulses 2+ throughout Neuro General: patient oriented x3 Extrem Other: Right shoulder normal to inspection. Full range of motion in all planes. She has mild tenderness around the paraScapular region. 5/5 rotator cuff strength. No tenderness over the AC joint. Neurovascularly intact. Results Reviewed Results Reviewed: X-rays of the right shoulder obtained April are significant for AC joint arthritis Assessment & Plan Assessment & Plan (1) Arthritis of right acromioclavicular joint: Code(s): M19.011 - Primary osteoarthritis, right shoulder Category: Medical (2) Dyskinesis of right scapula: Code(s): M25.311 - Other instability, right shoulder Category: Medical Plan I encouraged a course of physical therapy to work on rotator cuff and periscapular stabilization techniques. I did send her a prescription of Celebrex to take twice a day for 2 weeks. I also sent a prescription for diclofenac cream which she can use up to 4 times a day. Most of her pain is located around the scapular region which I feel may be due in part to poor mechanics. If symptoms persist or worsen she can contact our office otherwise follow up as needed. Medications: New diclofenac sodium 1% apply 4grams to affected area four times a day as needed 4 grams topical QID 100 grams 6RF 30 days celecoxib (Celebrex) 200 mg PO BID 60 caps 3RF 30 days Coding Level of Care Code Est Pt Level 3 (31295) Complex EM visit Add On G2211 Diagnoses Arthritis of right acromioclavicular joint M19.011 Dyskinesis of right scapula M25.311
[2024-09-27 09:54] VITALS: BMI 42.4
--- OUTSIDE RECORDS SUMMARY | 2024-09-27 10:31 | XMS_ITS | Patient Health Record ---
Author Organization [facility] Address [address] [place] [address] Care Team Providers Care Client Services Vice President Name Role Phone Sobia White Primary Care Provider Harriett Glover Unavailable [phone] Reason For Referral No Information Medications Medication [...] Problem Status W/U Status Risk Notes Problem 732171909 Hammer toe of ri ght foot (M20.41) Active confirmed Problem 308775592 Hammer toe of le ft foot (M20.42) Active confirmed Problem 965922563 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) Active confirmed Plan Of Treatment Pending Test Test Name Order Date X ray : Foot, left 3V 12/09/2021 X ray : Foot, right 3V 12/09/2021 Insurance Providers Payer Name Payer Address Payer Phone Subscriber Number Group Number Insured Name Patient Relationship to Insured Coverage Start Date Coverage End Date Medicare National Govt Svcs Inc [address] [place] [phone] [id number] Christianne Yoder Self - patient is the insured [employer] [address] [place] [address] [id number] Christianne Yoder Self - patient is the insured Medical (General) History Medical History History ICD Code Arthritis Back,Hip,and Knee pain Cancer Reflux ( GERD) Measles Mumps Chicken pox Joint implants/screws Surgical History Surgery Date(Month/Year) knee replacement 11/2015, 05/2016 hysterectomy 03/2013 trapezoid bone 10/2019
== END 2024-09-27 10:48 | disposition home or self-care (01) ==
LOC: HO.HOS 09:31
PROVIDERS: PCP Internal Medicine; Visit Provider Physician Assistant
DX: M19.011 Primary osteoarthritis, right shoulder (principal); M25.311 Other instability, right shoulder
CPT/HCPCS: 99213; G2211

== ENCOUNTER → 2024-09-27 09:30 | Outpatient (BNVA) | payer MEDICARE, OTHER, SELFPAY | PROVIDERS: PCP Internal Medicine; Visit Provider Physician Assistant | DX: M19.011 Primary osteoarthritis, right shoulder (principal); M25.311 Other instability, right shoulder | CPT/HCPCS: 99212 ==

== ENCOUNTER 2024-10-10 14:53 | Outpatient (REF) | payer MEDICARE, OTHER, SELFPAY ==
--- OUTSIDE RECORDS SUMMARY | 2024-10-10 17:10 | XMS_ITS | Patient Health Record ---
Author Organization [facility] Address [address] [place] [address] Care Team Providers Care Deflector Operator Name Role Phone Sobia White Primary Care Provider Harriett Glover Unavailable [phone] Reason For Referral No Information Medications Medication [...] Problem Status W/U Status Risk Notes Problem 106663780 Hammer toe of ri ght foot (M20.41) Active confirmed Problem 034433780 Hammer toe of le ft foot (M20.42) Active confirmed Problem 389530678 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) Active confirmed Plan Of Treatment Pending Test Test Name Order Date X ray : Foot, left 3V 12/09/2021 X ray : Foot, right 3V 12/09/2021 Insurance Providers Payer Name Payer Address Payer Phone Subscriber Number Group Number Insured Name Patient Relationship to Insured Coverage Start Date Coverage End Date Medicare National Govt Svcs Inc [address] [place] [phone] [id number] Christianne Yoder Self - patient is the insured [employer] [address] [place] [address] [id number] Christianne Yoder Self - patient is the insured Medical (General) History Medical History History ICD Code Arthritis Back,Hip,and Knee pain Cancer Reflux ( GERD) Measles Mumps Chicken pox Joint implants/screws Surgical History Surgery Date(Month/Year) knee replacement 11/2015, 05/2016 hysterectomy 03/2013 trapezoid bone 10/2019
== END 2024-10-10 14:54 | disposition home or self-care (01) ==
LOC: HO.HOSX 14:53
PROVIDERS: Visit Provider Physician Assistant
DX: Z13.89 Encounter for screening for other disorder (principal)

== ENCOUNTER 2024-11-07 14:18 | Outpatient (REF) | payer MEDICARE, OTHER, SELFPAY ==
--- NOTE | ~2024-11-07 | XR_ITS ---
EXAMINATION: X-ray lumbar spine. CLINICAL INFORMATION: Low back pain. Intervertebral disc degeneration, lumbar region. TECHNIQUE: AP and lateral views. Lateral views during flexion and extension position. COMPARISON: December 13, 2022. FINDINGS: Transpedicular screws bilaterally from L4 to S1 without loosening. Grade 1 anterolisthesis L4-5. Endplate sclerosis at L5-S1. Multilevel endplate sclerosis marginal osteophyte formation throughout the lower thoracic and upper lumbar spine. No gross motion during flexion and/or extension position. Vascular calcifications abdominal aorta and iliac arteries. Levoconvex rotoscoliosis apex at L2-3. Vascular clips right upper quadrant abdomen. Superior endplate compression deformity representing 30% volume loss at L2, unchanged. XR/XR lumbar spine 4V min IMPRESSION: No gross instability. Multilevel thoracolumbar spondylosis. Status post posterior fusion L4 S1. Overall stable since prior exam. Atherosclerosis disease. Electronically signed by: Eduardo Tomlin MD 11/07/2024 03:26 PM EDT
== END 2024-11-07 14:19 | disposition home or self-care (01) ==
LOC: HO.HOSX 14:18
PROVIDERS: PCP Internal Medicine; Visit Provider Neurological Surgery
DX: M51.362 Other intervertebral disc degeneration, lumbar region with discogenic back pain and lower extremity pain (principal); M48.061 Spinal stenosis, lumbar region without neurogenic claudication; M85.80 Other specified disorders of bone density and structure, unspecified site
CPT/HCPCS: 72110; 99212

== ENCOUNTER 2024-11-07 14:18 | Outpatient (AMB) | payer MEDICARE, OTHER, SELFPAY ==
--- NOTE | 2024-11-07 14:29 | A.SPINEOV_ITS ---
Intake Visit Reasons: discuss surgery Intake Note: Ms. Yoder is here to discuss surgery Furnace Repairer Helper Required: No Allergies celecoxib (Celebrex) Adverse Reaction (Intermediate, Verified 09/27/24 09:59) hypertension Assessment & Plan Assessment & Plan (1) Degenerative disc disease (DDD) of lumbar region with discogenic back pain and leg pain: Code(s): M51.362 - Other intervertebral disc degeneration, lumbar region with discogenic back pain and lower extremity pain Category: Medical Plan: Dear colleague, On November 07, 2024, I saw for follow-up Christianne Yoder to review and compare imaging to see if she is a candidate for surgery to address her excruciating back pain. As you know, she is status post L4-S1 lumbar fusion in 2021, which unfortunately did not improve her back pain. Additional imaging, shows progressive adjacent degenerative disc disease L3-4 with central spinal stenosis and progressive degenerative disc disease L2-3 causing an increase of the degenerative scoliosis. We had an extensive discussion about what the next step could be. We discussed extending fusion to L2-3 through an oblique lumbar interbody fusion L2-3 and L3- 4 with revision and extension of the posterior instrumentation to L2. I was quite claude with the patient that success rate is around 50% due to the fact that she already had previous surgery and has osteopenia. A quality of life is very poor and therefore I am willing to offer her the above procedure. The length of stay will be 1-2 days and recovery approximately 6 weeks to 3 months. The main complication in my opinion is breakdown of the construct due to poor bone quality, although this risk is low. She will think about this option and will let my office know if she wants to proceed. We will need preoperative clearance and Cardiology clearance before we can proceed. I also advised her to start calcium and vitamin-D for the osteopenia. I defer treatment for this to her primary care physician. I spent 50 for reviewing imaging, answering questions and discussing plan of care. Do not hesitate to call me with any questions or concerns Ravi Mcdonnell MD, PhD Spine Fellowship Trained Neurosurgeon Director, [facility] Orders: Orders XR lumbar spine 4V min Today M51.362 - Other intervertebral disc degeneration, lumbar region with discogenic back pain and lower extremity pain Coding Level of Care Code Est Pt Level 5 (17694) Diagnoses Degenerative disc disease (DDD) of lumbar region with discogenic back pain and leg pain M51.362
--- OUTSIDE RECORDS SUMMARY | 2024-11-07 14:59 | XMS_ITS | Patient Health Record ---
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) Active confirmed Problem 86031125039869021 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
--- OUTSIDE RECORDS SUMMARY | 2024-11-07 14:59 | XMS_ITS | Patient Health Record ---
[facility] Address [address] [place] [address] Care Team Providers Care Cadence Specialists Name Role Phone EdithmyrnaSobia Primary Care Provider Harriett Glover Unavailable [phone] Reason For Referral No Information Medications Medication SIG (Take, Route, Fr equency, Duration) Notes Start Date End Date Status Hair Skin Nails Acti ve Multivitamin Adults 50+ Active Vitamin B-12 500 MCG 1 tablet Orally Onc e a day; Duration: 30 day(s) Active Vitamin B-6 100 MG 1 tablet Orally Once a day; Duration: 30 day(s) Active Social History Tobacco Use: [...] Problem Status W/U Status Risk Notes Problem Acquired hammer toe of right foot (14621991428 ) Hammer toe of right foot (M20.41) Active confirmed Problem Acquired hammer toe of left foot ([id number] 60676) Hammer toe of left foot (M20.42) Active confirmed Problem Acquired hallux valgus (64769183) 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) Active confirmed Plan Of Treatment Pending Test Test Name Order Date X ray : Foot, left 3V 12/09/2021 X ray : Foot, right 3V 12/09/2021 Insurance Providers Payer Name Payer Address Payer Phone Subscriber Number Group Number Insured Name Patient Relationship to Insured Coverage Start Date Coverage End Date Medicare National Govt Svcs Inc [address] [facility] [place] [address] [id number] Christianne Yoder Self - patient is the insured [employer] [address] [place] [address] [id number] Christianne Yoder Self - patient is the insured Medical (General) History Medical History History ICD Code Arthritis Back,Hip,and Knee pain Cancer Reflux ( GERD) Measles Mumps Chicken pox Joint implants/screws Surgical History Surgery Date(Month/Year) knee replacement 11/2015, 05/2016 hysterectomy 03/2013 trapezoid bone 10/2019
--- OUTSIDE RECORDS SUMMARY | 2024-11-07 14:59 | XMS_ITS | Clinical Summary ---
Author Organization [address] Address [address] [place] [address] Phone Care Team Providers Care Insurance Licensing Supervisor Name Role Phone Edward Maddox MD Primary Care Provider [phone] Social History Tobacco Use Types Packs/Day Years [...] 04/13/2022, 05/27/2021, Additional history exists Influenza Vaccine (#1) 2024 , 02/21/2019, 01/09/2018, Additional history exists DTaP,Tdap,and Td [...] age to complete this topic Insurance MEDICARE [facility] Care Teams Insurance Licensing Supervisor Relationship Specialty Start Date End Date Edward Maddox MD [address] [place] [address] [address] [facility] [place] [address] PCP - General Internal Medicine 04/20/24
--- OUTSIDE RECORDS SUMMARY | 2024-11-07 14:59 | XMS_ITS | Continuity of Care Document ---
Author Organization [facility] [address] [place] [address] Phone [phone] Care Team Providers Care Generator Assembler Name Role Phone Edward Maddox Care Team Information Metallurgy Laboratory Technician + [phone] Problems Active Problems Provider Date H/O: depression [...] Social History Type Date Description Comments Sex Female Sex Unknown Medications Active Medications SIG Qnty Indications Ordering Provider Date Kfvmooov3qs/0.5ML Solution Auto-Inject inject 5 mg every week 2ml Yosef Barrientos M.D. 09/12/2024 Cyclobenzaprine IRT36be Tablets Take 1 Tablet By Mouth Three Times Daily as Needed Noe Ordoñez MD Cdmbinvpxqrzdymsbwe62.5m g Capsules Take 1 Capsule By Mouth Daily Unknown History Medications Wegovy0.25mg/0.5ML Solution Auto-Inject inject 0.5 ml weekly for one month 2ml Yosef Barrientos M.D. 06/05/2024 - 09/12/2024 Zepbound2.5mg/0.5ML Solution Auto-Inject inject weekly 2ml Yosef Lizama M.D. 04/02/2024 - 09/12/2024 Vital Signs Date Vital Result Comment 07/09/2024 [...] 1.4-7.0 Lymphs (Absolute) 1.7 x10E3/uL 0.7-3.1 Monocytes(Absol soboba ) 0.7 x10E3/uL 0.1-0.9 Eos (Absolute) 0.2 [...] <1.0 IU/mL 0.0-0.9 2 Thyroglobulin b y Anheed 10.6 ng/mL 1.5-38.5 3 1 Prediabetes: 5.7 - 6 .4 Diabetes: >6.4 Glycemic control for adults with diabetes: <7.0 2 Thyroglobulin Antibo dy measured by NXE Methodology It should be noted that the presence of thyroglobulin antibodies may not be pathogenic nor diagnostic, especially at very low levels. The assay physical science aide has found that four percent of individuals without evidence of thyroid disease or autoimmunity will have positive TgAb levels up to 4 IU/mL. 3 According to the [facility] [employer] Clinical [employer]ochemistry, the reference interval for Thyroglobulin (TG) should be related to euthyroid patients and not for patients who underwent thyroidectomy. TG reference intervals for these patients depend on the residual mass of the thyroid tissue left after surgery. Establishing a post-operative baseline is recommended. The assay limit of quantitation is 0.1 ng/mL Thyroglobulin measured by Elfego Mcintosh Immunometric Assay Medical Devices Description No Information Available Encounters Type Date Location Provider Dx Diagnosis Office Visit 07/09/2024 8:45a Main Office Yosef Barrientos M.D. E66.9 Obesity, unspecified C73 Malignant neoplasm o f thyroid gland Assessments Date Code Description Provider 07/09/2024 E66.9 Obesity Yosef rosas M.D. 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 Plan of Treatment Future Appointment(s):* 01/10/2025 10:45 am - Yosef Barrientos M.D. at Main Office 07/09/2024 - Yosef Barrientos M.D.* E66.9 Obesity * C73 Hurthle cell carcinoma of thyroid Functional Status Description No Information Available Mental Status Description No Information Available Referrals Description No Information Available
== END 2024-11-07 16:11 | disposition home or self-care (01) ==
LOC: HO.HNS 14:18
PROVIDERS: PCP Internal Medicine; Visit Provider Neurological Surgery
DX: M51.362 Other intervertebral disc degeneration, lumbar region with discogenic back pain and lower extremity pain (principal)
CPT/HCPCS: 99215

== ENCOUNTER → 2024-11-07 15:14 | Outpatient (BNV) | payer MEDICARE, OTHER, SELFPAY | PROVIDERS: PCP Internal Medicine; Visit Provider Radiology Diagnostic Radiology | DX: M54.50 Low back pain, unspecified (principal) | CPT/HCPCS: 72110 ==

== ENCOUNTER 2024-11-08 07:53 | Outpatient (REF) | payer MEDICARE, OTHER, SELFPAY ==
--- OUTSIDE RECORDS SUMMARY | 2024-11-08 07:56 | XMS_ITS | Patient Health Record ---
Author [facility] Address [address] [place] [address] Care Team Providers Care Territory Representative Name Role Phone EdithmyrnaSobia Primary Care Provider Harriett Glover Unavailable [phone] Reason For Referral No Information Medications Medication [...] Problem Acquired hammer toe of right foot (40548911521 ) Hammer toe of right foot (M20.41) Active confirmed Problem Acquired hammer toe of left foot (44288112377 18827) Hammer toe of left foot (M20.42) Active confirmed Problem Acquired hallux valgus (96975849) 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) Active confirmed Plan Of Treatment Pending Test Test Name Order Date X ray : Foot, left 3V 12/09/2021 X ray : Foot, right 3V 12/09/2021 Insurance Providers Payer Name Payer Address Payer Phone Subscriber Number Group Number Insured Name Patient Relationship to Insured Coverage Start Date Coverage End Date Medicare National Govt Svcs Inc [address] [place] [phone] [id number] Christianne Yoder Self - patient is the insured [employer] [address] [place] [address] [id number] Christianne Yoder Self - patient is the insured Medical (General) History Medical History History ICD Code Arthritis Back,Hip,and Knee pain Cancer Reflux ( GERD) Measles Mumps Chicken pox Joint implants/screws Surgical History Surgery Date(Month/Year) knee replacement 11/2015, 05/2016 hysterectomy 03/2013 trapezoid bone 10/2019
--- OUTSIDE RECORDS SUMMARY | 2024-11-08 07:56 | XMS_ITS | Patient Health Record ---
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 Problem 91281638052266679 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
--- OUTSIDE RECORDS SUMMARY | 2024-11-08 07:56 | XMS_ITS | Continuity of Care Document ---
Author Organization [facility] [address] [place] [address] Phone [phone] Care Team Providers Care Excavator Backhoe Operator Name Role Phone Edward Maddox Care Team Information Laboratory Phlebotomist + [phone] Problems Active Problems Provider Date H/O: depression [...] Medications SIG Qnty Indications Ordering Provider Date Dselkyga3zo/0.5ML Solution Auto-Inject inject 5 mg every week 2ml Yosef Barrientos M.D. 09/12/2024 Cyclobenzaprine NBO63ex Tablets Take 1 Tablet By Mouth Three Times Daily as Needed Noe Ordoñez MD Sjvmjupahozysxjdntn33.5m g Capsules Take 1 Capsule By Mouth [...] 1.4-7.0 Lymphs (Absolute) 1.7 x10E3/uL 0.7-3.1 Monocytes(Absol [place] ) 0.7 x10E3/uL 0.1-0.9 Eos (Absolute) 0.2 [...] <7.0 2 Thyroglobulin Antibo dy measured by [employer] Methodology It should be noted that the presence of thyroglobulin antibodies may not be pathogenic nor diagnostic, especially at very low levels. The assay healthcare receptionist has found that four percent of individuals without evidence of thyroid disease or autoimmunity will have positive TgAb levels up to 4 IU/mL. 3 According to the [place] [facility] Academy of Clinical Biochemistry, the reference interval for Thyroglobulin (TG) should be related to euthyroid patients and not for patients who underwent thyroidectomy. TG reference intervals for these patients depend on the residual mass of the thyroid tissue left after surgery. Establishing a post-operative baseline is recommended. The assay limit of quantitation is 0.1 ng/mL Thyroglobulin measured by Elfego Howe Immunometric Assay Medical Devices Description No Information [...]
--- OUTSIDE RECORDS SUMMARY | 2024-11-08 07:56 | XMS_ITS | Clinical Summary ---
Author Organization [address] Address [address] [place] [address] Phone Care Team Providers Care Collections Clerk Name Role Phone Edward Maddox MD Primary Care Provider Social History Tobacco Use Types Packs/Day Years [...] age to complete this topic Insurance MEDICARE [facility] Care Teams Collections Clerk Relationship Specialty Start Date End Date Edward Maddox MD [address] [place] [address] [address] [facility] [place] [address] PCP - General Internal Medicine 04/20/24
[2024-11-08 08:19] LABS: MANUAL DIFF FLAG NO
[2024-11-08 08:56] LABS: Hematocrit 41.2 % (37.0-47.0); Hemoglobin 13.8 g/dl (12.0-16.0); Imm Gran Abs Auto 0.01 X10*3/uL (0.00-0.03); Imm Gran Pct Auto 0.2 % (0.0-0.4); Lymphocytes Absolute Auto 1.4 X10*3/uL (1.2-4.9); Mean Corpuscular HGB Conc 33.5 g/dl (31.0-35.0); Mean Corpuscular Hemoglobin 31.0 pg (27.0-33.0); Mean Corpuscular Volume 92.6 fL (80.0-98.0); NRBC Abs Auto 0.000 X10*3/uL (0.0-0.012); NRBC Pct Auto 0.0 /100WBC (0.0-0.2); Platelet Count 189 X10*3/uL (160-400); Red Blood Count 4.45 X10*6/uL (4.20-5.50); White Blood Count 6.6 X10*3/uL (4.8-10.8)
[2024-11-08 09:17] LABS: Hemoglobin A1C 129.6137 umol/L; Total Hemoglobin (HGBA1C) 3726.4982 umol/L
[2024-11-08 09:29] LABS: Alanine Aminotransferase 19 U/L (0-31); Albumin Level 4.0 g/dL (3.5-5.0); Alkaline Phosphatase 63 U/L (39-117); Anion Gap 12 (12-20); Aspartate Amino Transferase 28 U/L (5-31); Blood Urea Nitrogen 13 mg/dL (9-16); Calcium 9.2 mg/dL (8.4-10.2); Carbon Dioxide 22 mmol/L (22-29); Chloride 113 mmol/L (96-108); Cholesterol 163 mg/dL (<200); Estimated Glomerular Filt Rate > 60; HDL Cholesterol 44 mg/dL (>40); Potassium 3.7 mmol/L (3.3-5.1); Sodium 143 mmol/L (135-145); Total Protein 6.7 g/dL (6.5-8.0); Triglycerides 120 mg/dL (<150)
[2024-11-08 09:45] LABS: Free T4 (Free Thyroxine) 0.84 ng/dL (0.71-1.85); Thyroid Stimulating Hormone 2.38 uIU/mL (0.32-4.0)
[2024-11-08 09:52] LABS: Folate 13.7 ng/mL (> or = 4.0); Vitamin B12 694 pg/mL (200-900)
== END 2024-11-08 07:54 | disposition home or self-care (01) ==
LOC: HO.LAB 07:53
PROVIDERS: Visit Provider Internal Medicine
DX: E78.00 Pure hypercholesterolemia, unspecified (principal); M54.50 Low back pain, unspecified
CPT/HCPCS: 36415; 80053; 80061; 82306; 82607; 82746; 83036; 84439; 84443; 85025

== ENCOUNTER 2024-11-14 10:46 | Outpatient (AMB) | payer MEDICARE, OTHER, SELFPAY ==
[2024-11-14 10:51] VITALS: BP 158/110; PULSE 103; RESP 18; TEMP 36.3; O2SAT 94; BMI 38.5
--- NOTE | 2024-11-14 10:51 | MHC.PC.OV ---
Vital Signs 11/14/24 10:51 Height 5 ft 6 in Weight 238 lb 6 oz BMI 38.5 BP 158/110 H Blood Pressure Location Lt brachial Position Sitting Respiration 18 Pulse 103 H Pulse Source Pulse Oximeter Temp 97.3 F Temp Source Temporal Artery Scan Pulse Oximetry (%) 94 Oxygen Delivery Method Room Air Intake Visit Reasons: 3 month f/u Allergies celecoxib (Celebrex) Adverse Reaction (Intermediate, Verified 11/14/24 10:54) hypertension Tobacco use date assessed: 11/14/24 Fall risk assessment: 1 Fall in past year Last assessed Fall Risk: 11/14/24 Dental Screening Dental Screen Date: 11/14/24 Did you have a dental visit in the last 12 months?: No Did you have a dental problem in the last 6 months where you did not have access to dental care?: No Was dental information given to patient?: Patient declined COUNT INCLUDES THE [facility] Medical History Blood pressure elevated without history of HTN Tubular adenoma Melanoma Ovarian cancer Thyroid cancer Aortic stenosis Surgical History S/P lumbar spinal fusion History of carpal tunnel surgery History of knee surgery History of thyroidectomy Family History Mother No problems noted. Father COPD (chronic obstructive pulmonary disease) Social History Housing: House Alcohol intake: current Alcohol intake frequency: holidays/special occasions only Comment: 2-3 xa year 2 bottles beer Patient Tobacco Use Status: Former Tobacco user Tobacco use type: Cigarette Years Smoked: quit 30yrs ago 42 years old e-Cigarette/Vaping Use: Never Used Second Hand Smoke Exposure: Yes service: No Current occupational status: retired Cognitive needs: Yes (cane) Hearing needs: No Vision needs: Yes (glasses) Questionnaire PHQ-9 Over the last 2 weeks, how often have you been bothered by any of the following problems? 1. Little interest or pleasure in doing things: not at all 2. Feeling down, depressed, or hopeless: not at all 3. Trouble falling or staying asleep, or sleeping too much: not at all 4. Feeling tired or having little energy: not at all 5. Poor appetite or overeating: not at all 6. Feeling bad about yourself - or that you are a failure or have let yourself or your family down: not at all 7. Trouble concentrating on things, such as reading the newspaper or watching television: not at all 8. Moving or speaking so slowly that other people could have noticed. Or the opposite - being so fidgety or restless that you have been moving around a lot more than usual: not at all 9. Thoughts that you would be better off or of hurting yourself in some way: not at all Total score: 0 Source: Developed by Drs. Familia Parker, Nandini Teague, Garett Urena and colleagues, with an educational sindi from [employer]. Thrive Questionnaire Date Thrive assessed: 07/30/24 I am a: Patient What is your living situation today?: I have a steady place to live Within the past 12 months, did the food you bought not last and you didn't have the money to get more?: Never true Within the past 12 months, did you worry whether your food would run out before you got money to buy more?: Never true Do you have trouble paying for medicines?: No Do you have trouble getting transportation to medical appointments?: No Do you have trouble paying your heating and electricity bill?: I choose not to answer this question Do you have trouble taking care of your child, family member or friend?: No Do you have trouble with day-to-day activities such as bathing, preparing meals, shopping, managing finances, etc.?: No Are you currently unemployed and looking for a job?: No Are you interested in more education?: No Please select the resources that you would like help with: None Currently or been in a relationship where the following occur: No concerns reported THRIVE Score: 0 AUDIT C Alcohol Use Questionnaire (AUDIT-C) 1. How often do you have a drink containing alcohol?: Monthly or less 2. How many drinks containing alcohol do you have on a typical day when you are drinking?: 1 or 2 3. How often do you have six or more drinks on one occasion?: Never Total Score: 1 SHARMILA-7 AMB Questionnaire SHARMILA-7 Date SHARMILA - 7 assessed: 07/30/24 Feeling nervous, anxious, or on edge: 0 = Not at all Not being able to stop or control worryin = Not at all Worrying too much about different things: 0 = Not at all Trouble relaxin = Not at all Being so restless that it is hard to sit still: 0 = Not at all Becoming easily annoyed or irritable: 0 = Not at all Feeling afraid as if something awful might happen: 0 = Not at all Total SHARMILA-7 score (0-4 normal; 5-9 mild; 10-14 moderate; 15-21 severe): 0 Source: Developed by Drs. Familia Parker, Nandini Teague, Garett Urena and colleagues, with an educational sindi from [employer]. Physical exam (Primary Care) Vital Signs: Last Vital Signs Temp 97.3 F 11/14/24 10:51 Pulse 103 H 11/14/24 10:51 Resp 18 11/14/24 10:51 BP 158/110 H 11/14/24 10:51 Pulse Ox 94 11/14/24 10:51 Oxygen Delivery Method Room Air 11/14/24 10:51 BMI result Body Mass Index 38.5 Tobacco/Smoking Status: Tobacco use Status Tobacco use date assessed 11/14/24 11/14/24 10:56 Patient Tobacco Use Status Former Tobacco user 11/14/24 10:56 Tobacco use type Cigarette 11/14/24 10:56 e-Cigarette/Vaping Use Never Used 11/14/24 10:56 PHQ-9: PHQ-9 Score PHQ-9: Total score 0 11/14/24 11:40 Thrive Assessment: Date of Thrive Assessment Date Thrive assessed 07/30/24 11/14/24 10:56 Currently or been in a relationship where the following occur: No concerns reported Const General: alert; No acute distress Eyes Conjunctivae: conjunctivae normal Resp Auscultation: clear to auscultation bilaterally Cardio Rate: regular rate Rhythm: regular rhythm GI Inspection: Yes normal to inspection Extrem General: Yes normal to inspection and No edema Coding Level of Care Code Est Pt Level 4 (44962) Complex EM visit Add On G2211 Diagnoses Primary hypertension I10 Hypertension type: primary hypertension Nonrheumatic aortic valve stenosis I35.0 Cardiac valve disease etiology: nonrheumatic Hypercholesteremia E78.00 Impaired glucose tolerance R73.02 Osteopenia M85.80 Obesity (BMI 30-39.9) E66.9 Obstructive sleep apnea G47.33 Degenerative disc disease (DDD) of lumbar region with discogenic back pain and leg pain M51.362 Shoulder pain, right M25.511 Thyroid cancer C73 Breast cancer screening by mammogram Z12.31 Assessment & Plan Assessment & Plan (1) Hypertension: Code(s): I10 - Essential (primary) hypertension Category: Medical Qualifiers: Hypertension type: primary hypertension Qualified Code(s): I10 - Essential (primary) hypertension Plan: Continue with blood pressure medication. Decrease salt intake and exercise patient has seen Nephrology and has continued on the hydrochlorothiazide. But patient did not take and the BP is good at home (2) Aortic stenosis: Comment: August 2023 moderate aortic stenosis 1.2 cm Code(s): I35.0 - Nonrheumatic aortic (valve) stenosis Category: Medical Qualifiers: Cardiac valve disease etiology: nonrheumatic Qualified Code(s): I35.0 - Nonrheumatic aortic (valve) stenosis Plan: Advised to continue to monitor this valve (3) Hypercholesteremia: Code(s): E78.00 - Pure hypercholesterolemia, unspecified Category: Medical Plan: Avoid fried foods, chicken skin, eggs, butter margarine, pastries and meat. Be it pork or beef they have a lot of cholesterol LDL goal of less than 70 and triglyceride of less than 150 on rosuvastatin (4) Impaired glucose tolerance: Code(s): R73.02 - Impaired glucose tolerance (oral) Category: Medical Plan: Decrease the amount of carbohydrate intake, pasta, bread, rice and potatoes are all sugar and that is aside from all the sweet stuff, remember that fruits are good but they are Sweet also. (5) Osteopenia: Code(s): M85.80 - Other specified disorders of bone density and structure, unspecified site Category: Medical Plan: Continue to follow-up with bone density and discussed about calcium and vitamin-D (6) Obesity (BMI 30-39.9): Code(s): E66.9 - Obesity, unspecified Category: Medical Plan: Diet and exercise continue with [place] (7) Obstructive sleep apnea: Comment: mild and no need for CPAP Code(s): G47.33 - Obstructive sleep apnea (adult) (pediatric) Category: Medical Plan: Patient was advised to get in-lab polysomnography due to hypoxemic episodes (8) Degenerative disc disease (DDD) of lumbar region with discogenic back pain and leg pain: Code(s): M51.362 - Other intervertebral disc degeneration, lumbar region with discogenic back pain and lower extremity pain Category: Medical Plan: Patient has met with neurosurgeon and planned procedure. 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 She has a history of aortic stenosis diagnosed in mid-2023, glucose intolerance, hypercholesterolemia, generalized anxiety disorder, gastroesophageal reflux disease, and osteopenia with the last bone density performed in June 2023. The patient also has mild obstructive sleep apnea, hypertension, and a history of thyroid cancer for which she underwent partial thyroidectomy in November 2022. She has lumbar degenerative disc disease and spinal stenosis, with a history of L4-S1 lumbar fusion in 2021. The patient was advised to seek cardiology clearance for a planned extended fusion from L2 to L3 due to progressive disease. She has been advised to continue treatment for osteopenia with calcium and vitamin D. The patient also has arthritis of the right acromioclavicular joint and dyskinesis of the right scapula, for which she has been advised physical therapy and prescribed Celebrex and diclofenac cream. She reported a reaction to Celebrex, leading to elevated blood pressure, and has since discontinued its use. The patient has atherosclerotic disease and has been advised to maintain an LDL cholesterol goal of less than 70 mg/dL, with current levels at 95 mg/dL. She is on rosuvastatin and has been advised to increase the dose to 10 mg. Preventative care measures include a colonoscopy due by April 2022 and a mammogram that is also due. Health Maintenance - Colonoscopy due by April 2022 - Mammogram due - Bone density follow-up with calcium and vitamin D supplementation - LDL cholesterol management with rosuvastatin, goal less than 70 mg/dL Social History Review of Systems - Cardiovascular: Reports elevated blood pressure with Celebrex use. Denies chest pain. - Musculoskeletal: Reports right shoulder pain. Denies other joint pain. - Respiratory: Denies dyspnea. - Neurological: Denies headaches or dizziness. Physical Exam Results - Labs: Normal blood count, normal electrolytes, normal renal function, elevated blood sugar, normal hemoglobin A1c, normal liver function, LDL cholesterol 95 mg/dL, normal vitamin D, B12, and folic acid levels. - Imaging: X-ray of lumbar spine showed multilevel thoracolumbar spondylosis with status post posterior fusion L4-S1. - Imaging: CT scan of lower back showed nonunion fracture, anterior superior left sacral iliac, multilevel spondylosis L2 to S1, anterior listhesis. Plan The patient will continue management of her aortic stenosis and glucose intolerance with regular monitoring and follow-up appointments. For hypercholesterolemia, the patient is advised to increase the dose of rosuvastatin to 10 mg to achieve an LDL goal of less than 70 mg/dL. She will continue treatment for osteopenia with calcium and vitamin D supplementation and follow up with bone density assessments. The patient is advised to seek cardiology clearance for the planned extended lumbar fusion surgery due to progressive spinal stenosis. She will continue physical therapy for the right shoulder arthritis and dyskinesis of the right scapula, and has been advised to avoid Celebrex due to previous adverse reactions. Preventative care measures include scheduling a colonoscopy by April 2022 and a mammogram, as both are due. Patient was informed and verbally consented to the use of an ambient scribe for clinic note documentation during this visit. Discussion Notes During the visit, I discussed with the patient the importance of managing her hypercholesterolemia by increasing her rosuvastatin dose to achieve an LDL goal of less than 70 mg/dL. We also reviewed the need for cardiology clearance for her planned lumbar fusion surgery due to progressive spinal stenosis. I advised her to continue physical therapy for her shoulder issues and to avoid Celebrex due to previous adverse reactions. Preventative care measures, including scheduling a colonoscopy and mammogram, were emphasized as both are due. Patient Instructions - Increase rosuvastatin dose to 10 mg as prescribed. - Continue calcium and vitamin D supplementation for osteopenia. - Schedule cardiology clearance for planned lumbar fusion surgery. - Continue physical therapy for shoulder issues and avoid Celebrex. - Schedule colonoscopy and mammogram as both are due. Orders: Orders Lipid Panel Today E78.00 - Pure hypercholesterolemia, unspecified CA echo transthoracic complete Today I35.0 - Nonrheumatic aortic (valve) stenosis MM tomosynthesis screening BI Today Z12.31 - Encounter for screening mammogram for malignant neoplasm of breast Comprehensive Met. Panel Today E78.00 - Pure hypercholesterolemia, unspecified Referrals Sleep Medicine Referral G47.33 - Obstructive sleep apnea (adult) (pediatric) Medications: New rosuvastatin 10 mg PO DAILY 30 tabs 2RF E78.00 - Pure hypercholesterolemia, unspecified
--- OUTSIDE RECORDS SUMMARY | 2024-11-14 11:47 | XMS_ITS | Encounter Summary ---
Author Organization [facility] Address [address] [place] [address] [place] [phone] Phone Care Team Providers Care Journeyman Glazier Name Role Phone Amaya Rodriguez MD Primary Care Provider + Amaya Rodriguez MD Unavailable [phone] Husam Carmona SHOTGUN SHELL ASSEMBLY MACHINE OPERATOR Unavailable [phone] Cortez Powell DO Unavailable [phone] Remington Post MD Unavailable [phone] Concepcion Hooper PA-C Unavailable [phone] Armond Marcano MD Unavailable [phone] Immanuel Jaimes DO Unavailable [phone] Camron Pedraza SHOTGUN SHELL ASSEMBLY MACHINE OPERATOR Unavailable Travis Smith MD Unavailable [phone] Husam Carmona SHOTGUN SHELL ASSEMBLY MACHINE OPERATOR Primary Care Provider + Amaya Rodriguez MD Unavailable [phone] Sobia White MD Primary Care Provid er + Cindy Mc STOCK HANGER Unavailable [phone] Sobia Whtie MD Unavailable + Unknown, Unknown Primary Care Provider Eder Lloyd DO Primary Care Provider [phone] Amaya Rodriguez MD Unavailable [phone] Edward Maddox MD Primary Care Provider [phone] Encounter Details Date Type Department Care Team (Late Contact Info) Description 06/03/2017 Ancillary Orders [facility] - [address] [address] Concepcion Hooper PA-C [address] [place] [address] Orthopedics & Sports Medicine, [place] [address] [email or web address] Right knee pain, unspecified chronicity Social History Tobacco Use Types Packs/Day Years Used Date Smoking Tobacco: Never Smokeless Tobacco: Never Alcohol Use Standard Drinks/Week Comments Yes 0 (1 standard drink = 0.6 oz pur e alcohol) social Comments Unknown Sex and Gender Information Value Date Recorded Sex Assigned at Female 12/18/2019 11:43 AM EDT Legal Sex Female 9:59 PM EDT Gender Identity Female 12/18/2019 11:43 AM EDT Sexual Orientation Straight 12/18/2019 11 :43 AM EDT documented as of this encounter Plan of Treatment Upcoming Encounters Date Type Department Care Team (Late Contact Info) Description 04/26/2025 8:00 AM EST Office Visit [facility] [address] [place] [address] 3rd [facility], [address] [place] [phone] Leon Osman MD [address] [place] [phone] [email or web address] documented as of this encounter Results * XR KNEE 3 VIEW (RIGHT) (06/07/2017 2:12 PM EST) Narrative YasminMary Kate tenorio - 06/07/2017 2:12 PM EST This image report has been auto-finalized and has not been read by a Radiologist. Interpretation has been included in the provider encounter note for this date of service. Concepcion Hooper PA-C IMG XR LOWER EXTREMITY Fin al Result documented in this encounter Visit Diagnoses Diagnosis Right knee pain, unspecified chronicity Right knee pain, unspecified chronicity documented in this encounter Additional Health Concerns Infection Onset Date Last Indicated Resolved Time CoV-Exposed Comment:Recent close contact 11/29/2019 11/29/2019 12/13/2019 1:23 AM EDT CoV-Risk 12/18/2019 12/18/2019 01/01/2020 1:23 AM EDT CoV-Risk 07/10/2022 07/10/2022 07/21/2022 1:21 AM EDT documented as of this encounter Care Teams Journeyman Glazier Relationship Specialty Start Date End Date Amaya Rodriguez MD 22 [facility], [address] [address] PCP - General 02/10/17 06/06/17 Husam Carmona, SHOTGUN SHELL ASSEMBLY MACHINE OPERATOR 22 [facility], [address] [address] [email or web address] PCP - General 06/07/17 04/07/21 Sobia White MD [address] [address] [email or web address] PCP - General Family Medicine 04/08/21 04/12/22 Unknown, Jian, PCP - General 04/13/22 07/09/22 Eder Mansfield DO 22 [place] [address] mary PCP - General Endocrinology 07/10/22 08/04/23 Edward Maddox MD [address] [place] [phone] PCP - General Internal Medicine 08/05/23 Amaya Rodriguez MD [address] [place] [address], [address] [place] [address] [email or web address] Historical LMR Provider 02/10/17 2 Husam Carmona CNP [address] [place] [address], [address] [place] [address] Historical LMR Provider 02/10/17 Cortez Powell DO [address] [place] [address] Orthopedics Sports [facility], [place] [address] [email or web address] Historical LMR Provider 02/10/17 05/02/21 Remington Post MD [address] [place] [address], [address] [place] [address] [email or web address] Historical LMR Provider 02/10/17 Concepcion Hooper PA-C [address] [place] [address] [facility] [place] [address] [email or web address] Historical LMR Provider 02/10/17 05/02/21 Armond Marcano MD 22 [facility] Floor 1 [place] [address] [email or web address] Historical LMR Provider 02/10/17 05/02/21 Immanuel Jaimes DO [address] [place] [address] [email or web address] Historical LMR Provider 02/10/17 MiloCamron CNP [address] [place] [address], [address] [place] [phone] Historical LMR Provider 02/10/17 Travis Smith MD [address] [place] [address] Historical LMR Provider 02/10/17 2 Amaya Rodriguez MD [address] [place] [address] Insurance Assigned Provider 06/29/19 08/01/21 Cindy Mc FNP [address] [place] [address] [email or web address] Nurse Practitioner Hematology and Oncology 05/25/21 Sobia White MD [address] [place] [phone] [email or web address] Insurance Assigned Provider 08/01/21 07/31/22 Amaya Rodriguez MD [address] [place] [address] [place] [phone] [email or web address] Insurance Assigned Provider 07/31/22 04/30/23 documented as of this encounter Additional Source Comments The information contained in this document represents components of the legal health record. It is not the complete legal health record.[facility]
--- OUTSIDE RECORDS SUMMARY | 2024-11-14 11:48 | XMS_ITS | Patient Health Record ---
Author [facility] Address [address] [place] [address] Care Team Providers Care Software Engineering Manager Name Role Phone EdithmyrnaSobia Primary Care Provider Harriett Glover Unavailable [phone] Reason For Referral No Information Medications Medication [...] Problem Acquired hammer toe of right foot (53683170992 ) Hammer toe of right foot (M20.41) Active confirmed Problem Acquired hammer toe of left foot ([id number] [address]) Hammer toe of left foot (M20.42) Active confirmed Problem Acquired hallux valgus (95681095) 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) Active confirmed Plan Of Treatment Pending Test Test Name Order Date X ray : Foot, left 3V 12/09/2021 X ray : Foot, right 3V 12/09/2021 Insurance Providers Payer Name Payer Address Payer Phone Subscriber Number Group Number Insured Name Patient Relationship to Insured Coverage Start Date Coverage End Date Medicare National Govt S[employer] [address] [facility] [phone] [id number] Christianne Yoder Self - patient is the insured [employer] ([employer] [address]) [address] [place] [address] [id number] Christianne Yoder Self - patient is the insured Medical (General) History Medical History History ICD Code Arthritis Back,Hip,and Knee pain Cancer Reflux ( GERD) Measles Mumps Chicken pox Joint implants/screws Surgical History Surgery Date(Month/Year) knee replacement 11/2015, 05/2016 hysterectomy 03/2013 trapezoid bone 10/2019
--- OUTSIDE RECORDS SUMMARY | 2024-11-14 11:48 | XMS_ITS | Continuity of Care Document ---
Author Organization [facility] [address] [facility] [address] [place] [address] Phone [phone] Care Team Providers Care Utility Operator Yarn Name Role Phone Edward Maddox Care Team Information Sewing Machine Operator Semiautomatic [phone] Problems Active Problems Provider Date H/O: depression [...] Medications SIG Qnty Indications Ordering Provider Date Mounjaro7.5mg/0.5ML Solution Auto-Inject inject 5 mg every week 4ml Yosef Barrientos M.D. 11/13/2024 Cyclobenzaprine GIF51sm Tablets Take 1 Tablet By Mouth Three Times Daily as Needed Noe Ordoñez MD Fxvennmogeyimudnxth55.5m g Capsules Take 1 Capsule By Mouth Daily Unknown History Medications Cgyryjxl4nu/0.5ML Solution Auto-Inject inject 5 mg every week 2ml Yosef Barrientos M.D. 09/12/2024 - 11/13/2024 Wegovy0.25mg/0.5ML Solution Auto-Inject inject 0.5 ml weekly [...] 1.4-7.0 Lymphs (Absolute) 1.7 x10E3/uL 0.7-3.1 Monocytes(Absol [place] band ) 0.7 x10E3/uL 0.1-0.9 Eos (Absolute) 0.2 [...] <7.0 2 Thyroglobulin Antibo dy measured by [employer] Methodology It should be noted that the presence of thyroglobulin antibodies may not be pathogenic nor diagnostic, especially at very low levels. The assay clinical team manager has found that four percent of individuals without evidence of thyroid disease or autoimmunity will have positive TgAb levels up to 4 IU/mL. 3 According to the [employer], the reference interval for Thyroglobulin (TG) should be related to euthyroid patients and not for patients who underwent thyroidectomy. TG reference intervals for these patients depend on the residual mass of the thyroid tissue left after surgery. Establishing a post-operative baseline is recommended. The assay limit of quantitation is 0.1 ng/mL Thyroglobulin measured by [employer] Immunometric Assay Medical Devices Description No Information [...]
--- OUTSIDE RECORDS SUMMARY | 2024-11-14 11:48 | XMS_ITS | Patient Health Record ---
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 Problem [id number] 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
--- OUTSIDE RECORDS SUMMARY | 2024-11-14 11:48 | XMS_ITS | Clinical Summary ---
Author Organization [address] Address [address] [place] [address] Phone Care Team Providers Care Account Assistant Name Role Phone Edward Maddox MD Primary Care Provider [phone] Social History Tobacco Use Types Packs/Day Years [...] 07/24/2020 06/26/2020 Colorectal Cancer Screening: Colonoscopy 05/24/2023 Falls Risk Assessment 05/24/2023 Medicare Annual Wellness Visit 05/24/2023 Social Influencers of Health Screening 05/24/2023 Hypertension/CHF/CAD Annual BMP Blood Test 03/27/2024 08/16/2022, 04/13/2022, 05/27/2021, Additional history exists Depression Screening 04/25/2024 Influenza Vaccine (#1) 2024 , 02/21/2019, 01/09/2018, [...] age to complete this topic Insurance MEDICARE [facility] Care Teams Account Assistant Relationship Specialty Start Date End Date Edward Maddox MD [address] [place] [address] [address] [facility] [place] [address] PCP - General Internal Medicine 04/20/24
== END 2024-11-14 11:46 | disposition home or self-care (01) ==
LOC: HO.HMCH 10:47
PROVIDERS: PCP Internal Medicine; Visit Provider Internal Medicine
DX: I10 Essential (primary) hypertension (principal); C73 Malignant neoplasm of thyroid gland; E66.9 Obesity, unspecified; Z68.38 Body mass index [BMI] 38.0-38.9, adult; I35.0 Nonrheumatic aortic (valve) stenosis; E78.00 Pure hypercholesterolemia, unspecified; R73.02 Impaired glucose tolerance (oral); M85.80 Other specified disorders of bone density and structure, unspecified site; G47.33 Obstructive sleep apnea (adult) (pediatric); M51.362 Other intervertebral disc degeneration, lumbar region with discogenic back pain and lower extremity pain; M25.511 Pain in right shoulder; Z12.31 Encounter for screening mammogram for malignant neoplasm of breast

== ENCOUNTER → 2024-11-14 10:46 | Outpatient (BNVA) | payer MEDICARE, OTHER, SELFPAY | PROVIDERS: PCP Internal Medicine; Visit Provider Internal Medicine | DX: I10 Essential (primary) hypertension (principal); I35.0 Nonrheumatic aortic (valve) stenosis; E78.00 Pure hypercholesterolemia, unspecified; R73.02 Impaired glucose tolerance (oral); M85.80 Other specified disorders of bone density and structure, unspecified site; E66.9 Obesity, unspecified; G47.33 Obstructive sleep apnea (adult) (pediatric); M51.362 Other intervertebral disc degeneration, lumbar region with discogenic back pain and lower extremity pain; M25.511 Pain in right shoulder; C73 Malignant neoplasm of thyroid gland | CPT/HCPCS: 99212 ==

== ENCOUNTER 2024-11-20 08:00 | Outpatient (AMB) | payer MEDICARE, OTHER, SELFPAY ==
[2024-11-20 08:01] VITALS: BP 140/86; PULSE 92; O2SAT 96; BMI 38.2
--- NOTE | 2024-11-20 08:01 | A.OFFVIS_ITS ---
Vital Signs 11/20/24 08:01 Height 5 ft 6 in Weight 237 lb BMI 38.2 BP 140/86 H Blood Pressure Location Lt brachial Pulse 92 Pulse Source Pulse Oximeter Pulse Oximetry (%) 96 Oxygen Delivery Method Room Air Intake Visit Reasons: INP - STEFANIE Intake Note: Patient presents ART APPRAISER STEFANIE. Mild and no need for CPAP. Patient was advised to get in-lab polysomnography due to hypoxemic episodes. HST done 06/2023(AHI 8.1, SONAL 77%). States hard time sleeping. Conteplating another back surgery Allergies celecoxib (Celebrex) Adverse Reaction (Intermediate, Verified 11/20/24 08:06) hypertension HPI Comments Details: 74 year old female presents for a new patient evaluation for sleep apnea, she is referred to us by her pcp. June 2023 HST c/w mild stefanie AHI is 8.1 and oxygen Nadirs to 77%. PMH ovarian cancer and chemotherapy with a partial thyroidectomy. She is a light sleeper and wakes up with pain or even the slightest sound disturbance. She was seen by her pcp, and has hypoxemia with apneic episodes on HST, will send her for PSG. She had spinal fusion and retrolistehes, anterolisthesis, arthrodesis, with L5/S1, R. leg paresthesias, when she walks especially with weather pressure changes. She takes flexiril 5mg po TID and this helps her with pain and sleep as she uses a wedge pillow to sleep. She is edentulous, would like to follow up with sleep dentistry to explore somno guard option. Denies RLS, however has sharp radiating pain down the r. side of her hip. Mood is stable. Memory is good at baseline, will forget words at time, and has has difficulty with recall. Diet is well managed. She started walking on her treadmill recently. [facility] Medical History Blood pressure elevated without history of HTN Tubular adenoma Melanoma Ovarian cancer Thyroid cancer Aortic stenosis Surgical History S/P lumbar spinal fusion History of carpal tunnel surgery History of knee surgery History of thyroidectomy Family History Mother No problems noted. Father COPD (chronic obstructive pulmonary disease) Social History Housing: House Alcohol intake: current Alcohol intake frequency: holidays/special occasions only Comment: 2-3 xa year 2 bottles beer Patient Tobacco Use Status: Former Tobacco user Tobacco use type: Cigarette Years Smoked: quit 30yrs ago 42 years old e-Cigarette/Vaping Use: Never Used Second Hand Smoke Exposure: Yes service: No Current occupational status: retired Cognitive needs: Yes (cane) Hearing needs: No Vision needs: Yes (glasses) Physical Exam Vital Signs: Last Vital Signs Pulse 92 11/20/24 08:01 BP 140/86 H 11/20/24 08:01 Pulse Ox 96 11/20/24 08:01 Oxygen Delivery Method Room Air 11/20/24 08:01 BMI result Body Mass Index 38.2 Const General: cooperative, comfortable and no acute distress Nutritional Appearance: obese Orientation/consciousness: patient oriented x3 Limitations: ambulation with cane HEENT Face and sinus: Yes face symmetric Teeth and gingiva: other (mallampti score 3) Eyes Pupils: Equal, round and reactive pupils present Neck Neck: Yes full ROM Resp Effort & Inspection: normal respiratory effort and able to speak in complete sentences Neuro Other: c/o hyper hydrosis, wide based gate uses a cane to ambulate. General: patient oriented x3 and moves all extremities Cranial nerves: Yes Equal, round and reactive pupils present, Yes Normal accommodation reflex present, Yes Normal facial strength present, Yes Midline tongue present, Yes Ability to bilaterally rotate head present and Yes Ability to bilaterally elevate shoulders present Cognition (Neuro): normal cognition Gait exam (Neuro): Wide-based gait present Motor exam (neuro): Abnormal motor strength present and Abnormal muscle tone present Deep tendon reflexes (DTR's): Right triceps reflex intensity grade: 1+, Left triceps reflex intensity grade: 1+, Rt Biceps (C5, C6): 1+, Left biceps reflex intensity grade: 1+, Right brachioradialis reflex intensity grade: 1+, Left brachioradialis reflex intensity grade: 1+, Right patellar reflex intensity grade: 1+, Left patellar reflex intensity grade: 1+, Right ankle reflex intensity grade: 1+ and Left ankle reflex intensity grade: 1+ Coordination: piyydj-lb-nymh test normal Psych Appearance: grossly normal Mental Status: mental status grossly normal Attitude: cooperative Thought process: Normal thought process present Thought content: Normal thought content present Results Reviewed Results Reviewed: CT September 2024 CT/CT lumbar spine wo IV con IMPRESSION: Nonunion fracture, anterior superior left sacral alar. Multilevel spondylosis and levoconvex curvature/scoliosis from L2 to S1. Grade 1 anterolisthesis L4-5. Grade 1 retrolisthesis L2-3. Atherosclerosis disease.. HST C/w mild stefanie AHI is 8 and o2 nadirs to 77% start apap [id number]. Assessment & Plan Assessment & Plan (1) Obstructive sleep apnea: Comment: patient is under 88% for 19 min Code(s): G47.33 - Obstructive sleep apnea (adult) (pediatric) Category: Medical (2) Generalized anxiety disorder: Comment: can be irritable, emotional, labile mood declines ssri today Code(s): F41.1 - Generalized anxiety disorder Category: Medical Plan HST with mild stefanie, AHI is 8 and Oxygen nadirs to 77%, and <88% for 19 min. Start cpap therapy APAP [id number], she is post chemotherapy for ovarian cancer has poor sleep quality and fragmented sleep. Will refer her to Sleep dentistry if pap is not tolerable, however will try cpap therapy first. labs reviewed with patient. f/u in 3 months for compliance and will re-evaluation for psg Patient Instructions: Sleep Hygiene provided: set a scheduled bedtime and wake time to help regulate the circadian rhythm and balance the release of pituitary hormones. Sleep in a dark room, temperatures below 68 degrees, and no devices n bed. Limit caffeinated products 6 hours prior to bed, and limit fluids 2-4 hours prior to bed. Gentle night yoga, diffusing essential oils, and playing soft music can be relaxing. Coding Level of Care Code New Pt Level 4 (00020) Diagnoses Obstructive sleep apnea G47.33 Generalized anxiety disorder F41.1 Sleep Questionnaire Difficulty falling asleep: No (takes flexiril ) Difficulty staying asleep?: No Number of arousals: 1-2x Snoring: Yes Witnessed apneas: No Gasping arousals: No Nocturia: No GERD: No Vivid dreams: No Acting out dreams: No Abnormal behavior in sleep: No Abnormal movements in sleep: No Morning headaches: No Excessive daytime sleepiness: No Daytime naps: Yes (2pm 10-15min daily) Restless legs: No Hallucinations: No Sleep paralysis: No Drop attacks: No Sleep Study: Yes (T June 2023) CPAP: No
--- OUTSIDE RECORDS SUMMARY | 2024-11-20 08:02 | XMS_ITS | Encounter Summary ---
Author Organization [facility] Address [address] [place] [address] [place] [address] Phone Care Team Providers Care Diesel Retrofit Installer Name Role Phone Amaya Rodriguez MD Primary Care Provider + Amaya Rodriguez MD Unavailable [phone] Husam Carmona MEDICAL DETAILIST Unavailable [phone] Cortez Powell DO Unavailable [phone] Remington Post MD Unavailable [phone] Concepcion Hooper PA-C Unavailable [phone] Armond Marcano MD Unavailable [phone] Immanuel Jaimes DO Unavailable [phone] Camron Pedraza MEDICAL DETAILIST Unavailable Travis Smith MD Unavailable [phone] Husam Carmona MEDICAL DETAILIST Primary Care Provider + Amaya Rodriguez MD Unavailable [phone] Sobia White MD Primary Care Provid er + Cindy Mc LIQUID SUGAR FORTIFIER Unavailable [phone] Sobia White MD Unavailable + Unknown, Unknown Primary Care Provider Eder Lloyd DO Primary Care Provider [phone] Amaya Rodriguez MD Unavailable [phone] Edward Maddox MD Primary Care Provider [phone] Encounter Details Date Type Department Care Team (Late Contact Info) Description 06/03/2017 Ancillary Orders [facility] - [address] [address] Concepcion Hooper PA-C [address] [place] [address] Orthopedics & Sports Medicine, [place] [address] [email or web address] Right knee pain, unspecified chronicity Social History [...] Description 04/26/2025 8:00 AM EST Office Visit [facility] [address] [place] [address] 3rd [facility], [address] [place] [address] Leon Osman MD [address] [place] [address] [email or web address] documented as of this encounter Results * [...] documented as of this encounter Care Teams Diesel Retrofit Installer Relationship Specialty Start Date End Date Amaya Rodriguez MD [address] [facility], [address] [address] PCP - General 02/10/17 06/06/17 Husam Carmona, MEDICAL DETAILIST [address] [facility], [address] [address] [email or web address] PCP - General 06/07/17 04/07/21 Sobia White MD [address] [address] [email or web address] PCP - General Family Medicine 04/08/21 04/12/22 Unknown, Jian, PCP - General 04/13/22 07/09/22 Eder Mansfield DO 22 [place] [address] mary PCP - General Endocrinology 07/10/22 08/04/23 Edward Maddox MD [address] [place] [phone] PCP - General Internal Medicine 08/05/23 Amaya Rodriguez MD [address] [place] [address], [address] [place] [address] [email or web address] Historical LMR Provider 02/10/17 2 Husam Carmona CNP [address] [place] [address], [address] [place] [address] Historical LMR Provider 02/10/17 Cortez Powell DO [address] [place] [address] [facility], [place] [address] [email or web address] Historical LMR Provider 02/10/17 05/02/21 Remington Post MD [address] [place] [address], [address] [place] [address] [email or web address] Historical LMR Provider 02/10/17 Concepcion Hooper PA-C [address] [place] [address] [facility] [place] [address] [email or web address] Historical LMR Provider 02/10/17 05/02/21 Armond Marcano MD [address] [facility] Floor 1 [place] [address] [email or web address] Historical LMR Provider 02/10/17 05/02/21 Immanuel Jaimes DO [address] [place] [address] [email or web address] Historical LMR Provider 02/10/17 MiloCamron CNP [address] [place] [address], [address] [place] [address] Historical LMR Provider 02/10/17 Travis Smith MD [address] [place] [address] Historical LMR Provider 02/10/17 2 Amaya Rodriguez MD [address] [place] [address] Insurance Assigned Provider 06/29/19 08/01/21 Cindy Mc FNP [address] [place] [address] [email or web address] Nurse Practitioner Hematology and Oncology 05/25/21 Sobia White MD [address] [place] [address] [email or web address] Insurance Assigned Provider 08/01/21 07/31/22 Amaya Rodriguez MD [address] [place] [address] [place] [address] [email or web address] Insurance Assigned Provider 07/31/22 04/30/23 documented as of this encounter Additional Source Comments The information contained in this document represents components of the legal health record. It is not the complete legal health record.[facility]
--- OUTSIDE RECORDS SUMMARY | 2024-11-20 08:03 | XMS_ITS | Patient Health Record ---
Author [facility] Address [address] [place] [address] Care Team Providers Care Top Steep Tender Name Role Phone EdithmyrnaSobia Primary Care Provider Harriett Glover Unavailable [phone] Reason For Referral No Information Medications Medication [...] Problem Acquired hammer toe of right foot (47306859690 ) Hammer toe of right foot (M20.41) Active confirmed Problem Acquired hammer toe of left foot (66475497341 21727) Hammer toe of left foot (M20.42) Active confirmed Problem Acquired hallux valgus (15826734) 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) Active confirmed Plan Of Treatment Pending Test Test Name Order Date X ray : Foot, left 3V 12/09/2021 X ray : Foot, right 3V 12/09/2021 Insurance Providers Payer Name Payer Address Payer Phone Subscriber Number Group Number Insured Name Patient Relationship to Insured Coverage Start Date Coverage End Date Medicare National [employer] [address] [facility] [place] [phone] [id number] Christianne Yoder Self - patient is the insured [employer] [address] [place] [address] [id number] Christianne Yoder Self - patient is the insured Medical (General) History Medical History History ICD Code Arthritis Back,Hip,and Knee pain Cancer Reflux ( GERD) Measles Mumps Chicken pox Joint implants/screws Surgical History Surgery Date(Month/Year) knee replacement 11/2015, 05/2016 hysterectomy 03/2013 trapezoid bone 10/2019
--- OUTSIDE RECORDS SUMMARY | 2024-11-20 08:03 | XMS_ITS | Patient Health Record ---
Author Organization [facility] Address [address] 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 Problem Osteoarthritis of right subtalar joint (5112899297695279 1) 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 Problem Osteoarthritis of left subtalar joint (4294249759328850 6) 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) Active confirmed Plan Of Treatment Pending Test Test Name Order Date X ray : Foot, left 3v 09/30/2020 X ray : Foot, right 3v 09/30/2020 Insurance Providers Payer Name Payer Address Payer Phone Subscriber Number Group Number Insured Name Patient Relationship to Insured Coverage Start Date Coverage End Date [place] [address] [place] [phone] [id number] Beba Christianne Self - patient is the insured [facility] [address] [place] [address] [id number] Christianne Yoder Self - patient is the insured Medical (General) History Medical History History ICD Code History of Ovarian Cancer: chemotherapy History of Melanoma Mixed hyperlipidemia Primary insomnia Surgical History Surgery Date(Month/Year) B/L knee surgeries
--- OUTSIDE RECORDS SUMMARY | 2024-11-20 08:03 | XMS_ITS | Clinical Summary ---
Author Organization [address] Address [address] [place] [address] Phone Care Team Providers Care Toolmaker Grade Three Name Role Phone Edward Maddox MD Primary Care Provider [phone] Social History Tobacco Use Types Packs/Day Years [...] age to complete this topic Insurance [facility] Care Teams Toolmaker Grade Three Relationship Specialty Start Date End Date Edward Maddox MD [address] [place] [address] [address] [facility] [place] [address] PCP - General Internal Medicine 04/20/24
--- OUTSIDE RECORDS SUMMARY | 2024-11-20 08:03 | XMS_ITS | Continuity of Care Document ---
Author Organization [facility] [address] [address] [address] [place] [address] Phone [phone] Care Team Providers Care Airbrush Artist Name Role Phone Edward Maddox Care Team Information Metallurgy Teacher + [phone] Problems Active Problems Provider Date H/O: depression [...] Ordering Provider Date Mounjaro7.5mg/0.5ML Solution Auto-Inject inject 7.5 mg every week 4ml Yosef Barrientos M.D. 11/13/2024 Cyclobenzaprine XDQ72vr Tablets Take 1 Tablet By Mouth Three Times Daily as Needed Noe Ordoñez MD Ruarvrplwlkcpbpwbsz69.5m g Capsules Take 1 Capsule By Mouth Daily Unknown History Medications Encjfgto9gq/0.5ML Solution Auto-Inject inject 5 mg every week [...] 1.4-7.0 Lymphs (Absolute) 1.7 x10E3/uL 0.7-3.1 Monocytes(Absol [place] ) 0.7 x10E3/uL 0.1-0.9 Eos (Absolute) 0.2 [...] <7.0 2 Thyroglobulin Antibo dy measured by Edgar Methodology It should be noted that the presence of thyroglobulin antibodies may not be pathogenic nor diagnostic, especially at very low levels. The assay bonsai tender has found that four percent of individuals without evidence of thyroid disease or autoimmunity will have positive TgAb levels up to 4 IU/mL. 3 According to the [place] [facility] [place], the reference interval [...]
== END 2024-11-20 09:12 | disposition home or self-care (01) ==
LOC: HO.HSMS 08:00
PROVIDERS: PCP Internal Medicine; Visit Provider Physician Assistant Medical
DX: G47.33 Obstructive sleep apnea (adult) (pediatric) (principal); F41.1 Generalized anxiety disorder
CPT/HCPCS: 99204

== ENCOUNTER → 2024-11-20 08:00 | Outpatient (BNVA) | payer MEDICARE, OTHER, SELFPAY | PROVIDERS: PCP Internal Medicine; Visit Provider Physician Assistant Medical | DX: G47.33 Obstructive sleep apnea (adult) (pediatric) (principal); F41.1 Generalized anxiety disorder; G47.9 Sleep disorder, unspecified; R09.02 Hypoxemia; Z98.1 Arthrodesis status; Z85.43 Personal history of malignant neoplasm of ovary; Z92.21 Personal history of antineoplastic chemotherapy; Z79.899 Other long term (current) drug therapy | CPT/HCPCS: 99202 ==

== ENCOUNTER 2025-01-08 12:31 | Outpatient (REF) | payer MEDICARE, OTHER, SELFPAY ==
--- OUTSIDE RECORDS SUMMARY | 2022-07-10 11:47 | XMS_ITS | Encounter Summary ---
Author Organization [facility] Address [address] [place] [address] [place] [address] Phone Care Team Providers Care Pillowcase Sewer Name Role Phone Husam Carmona Debby LEAD HANDLER Unavailable Remington Post MD Unavailable [phone] Immanuel Jaimes DO Unavailable [phone] Cindy Mc SCANNER OPERATOR Unavailable [phone] Sobia White MD Unavailable [phone] Eder Mansfield DO Primary Care Provider [phone] Encounter Details Date Type Department Care Team (Late st Contact Info) Description 07/10/2022 11:47 AM EDT Hospital Encounter [facility] [address] [place] [address] Celestina Guzman CNP [address] [place] [address] [email or web address] Social History Tobacco Use Types Packs/Day [...] Care Team (Late st Contact Info) Description 04/26/2025 8:00 AM EST Office Visit [facility] [address], [address] [place] [address] Leon Osman MD [address] [place] [address], [address] [place] [address] [email or web address] documented as of this encounter Procedures Procedure [...] no focal consolidative process or overtpulmonary edema. Celestina Guzman LEAD HANDLER IMG XR CHEST Final Resul t documented in this encounter Visit Diagnoses Not on filedocumented in this encounter Additional Health Concerns Infection Onset Date Last Indicated Resolved Time CoV-Risk 07/10/2022 07/10/2022 07/21/2022 1:21 AM EDT Assessment Noted Time PHQ-2 Depression Total Score: 0 01/19/20 20 5:25 PM EDT documented as of this encounter Care Teams Pillowcase Sewer Relationship Specialty Start Date End Date Eder Mansfield DO [address] [place] [address] [email or web address] PCP - General Endocrinology 07/10/22 08/04/23 Husam Carmona CNP [address] [place] [address], [address] [address] Historical LMR Provider 02/10/17 Remington Post MD [address] [place] [address], [address] [address] [email or web address] Historical LMR Provider 02/10/17 Immanuel Jaimes DO [address] [place] [address] [email or web address] Historical LMR Provider 02/10/17 Cindy Mc FNP [address] [place] [address] [email or web address] Nurse Practitioner Hematology and Oncology 05/25/21 Sobia White MD [address] [place] [address] [email or web address] Insurance Assigned Provider 08/01/21 07/31/22 documented as of this encounter Additional Source Comments The information contained in this document represents components of the legal health record. It is not the complete legal health record.[facility]
--- OUTSIDE RECORDS SUMMARY | 2023-08-05 12:39 | XMS_ITS | Encounter Summary ---
Author Organization [facility] Address [address] [facility] [address] [place] [address] Phone Care Team Providers Care Manager Hiv Name Role Phone Husam Carmona HUMAN ANATOMY TEACHER Unavailable Remington Post MD Unavailable [phone] Immanuel Jaimes DO Unavailable Cindy Mc PERSONAL LINES ACCOUNT EXECUTIVE Unavailable Edward Maddox MD Primary Care Provider Encounter Details Date Type Department Care Team (Late st Contact Info) Description 08/05/2023 12:39 PM EDT Hospital Encounter [facility] [address] [place] [address] Charlene Barrientos, EXPORT FREIGHT SPECIALIST [address] [place] [address] [email or web address] Social History Tobacco Use Types Packs/Day Years [...] Description 04/26/2025 8:00 AM EST Office Visit [facility] [address] [place] [address] 3rd Floor, [address] [place], [place] [phone] Leon Osman MD [address] [place] [address], [address] [place] [address] [email or web address] documented as of this encounter Procedures Procedure [...] clinician's provided indication for this examination in [facility]: Cough; cough x 1.5 weeks, hx of pneumonia COMPARISON: July 10, 2022 FINDINGS: Devices/Tubes/Lines: None. Lungs: No focal consolidation or pulmonary edema. Pleura: No pleural effusions or pneumothorax. Heart/Mediastinum: Normal cardiomediastinal silhouette. Bones/Soft Tissues: No significant abnormality. Procedure Note Chanell Patino MD - 08/05/2023 XR CHEST PA AND LATERAL 2 VIEWS Referring clinician's provided indication for this examination in [facility]:Cough; cough x 1.5 weeks, hx of pneumonia COMPARISON: July 10, 2022 FINDINGS: Devices/Tubes/Lines: None. Lungs: No focal consolidation or pulmonary edema. Pleura: No pleural effusions or pneumothorax. Heart/Mediastinum: Normal cardiomediastinal silhouette. Bones/Soft Tissues: No significant abnormality. IMPRESSION: No acute abnormality. us Charlene Barrientos EXPORT FREIGHT SPECIALIST IMG XR CHEST Final Resul t documented in this encounter Visit Diagnoses Not on filedocumented in this encounter Additional Health Concerns Assessment Noted Time PHQ-2 Depression Total Score: 0 01/18/ 20 5:25 PM EDT documented as of this encounter Care Teams Manager Hiv Relationship Specialty Start Date End Date Tan Edward Ortiz MD [address] [place] [address] Drive [address] [place] [phone] PCP - General Internal Medicine 08/05/23 Husam Carmona CNP [address] [place] [address], [address] [place] [address] Historical LMR Provider 02/10/17 Remington Post MD [address] [place] [address], [address] [place] [address] [email or web address] Historical LMR Provider 02/10/17 Immanuel Jaimes DO [address] [place] [address] [email or web address] Historical LMR Provider 02/10/17 Cindy Mc FNP [address] [place] [address] Nurse Practitioner Hematology and Oncology 05/25/21 documented as of this encounter Additional Source Comments The information contained in this document represents components of the legal health record. It is not the complete legal health record.[facility]
--- OUTSIDE RECORDS SUMMARY | 2025-01-08 16:34 | XMS_ITS | Encounter Summary ---
Author Organization [facility] Address [address] [place] [address] [place] [address] Phone Care Team Providers Care Control Systems Eng Name Role Phone Amaya Rodriguez MD Primary Care Provider + Amaya Rodriguez MD Unavailable +-[phone] Husam Carmona WIRE WEB WORKER Unavailable +[phone] Cortez Powell DO Unavailable +[phone] Remington Post MD Unavailable +-[phone] Concepcion Hooper PA-C Unavailable +[phone] Armond Marcano MD Unavailable +[phone] Immanuel Jaimes DO Unavailable +-[phone] Camron Pedraza WIRE WEB WORKER Unavailable +[phone] Travis Smith MD Unavailable +[phone] Husam Carmona WIRE WEB WORKER Primary Care Provider + Amaya Rodriguez MD Unavailable +[phone] Sobia White MD Primary Care Provid er + Cindy Mc RENAL DIALYSIS TECHNICIAN Unavailable +[phone] Sobia White MD Unavailable + Unknown, Unknown Primary Care Provider Eder Lloyd DO Primary Care Provider +-58 Amaya Rodriguez MD Unavailable +-58 Edward Maddox MD Primary Care Provider [phone] Encounter Details Date Type Department Care Team (Late Contact Info) Description 06/03/2017 Ancillary Orders [facility] - [address] [address] Concepcion Hooper PA-C [address] [place] [address] Orthopedics & Sports Medicine, [place] [address] [email or web address] Right knee pain, unspecified chronicity Social History [...] Description 04/26/2025 8:00 AM EST Office Visit [facility] [address] [place] [address], [address] [place] [address] Leon Osman MD [address] [place] [address] [email or web address] documented as of this encounter Results * XR KNEE 3 VIEW (RIGHT) (06/07/2017 2:12 PM EST) Narrative Mary Kate Bolivar - 06/07/2017 2:12 PM EST This image report has been auto-finalized and has not been read by a Radiologist. Interpretation has been included in the provider encounter note for this date of service. us Concepcion Hooper PA-C IMG XR LOWER EXTREMITY F inal Result documented in this encounter Visit Diagnoses Diagnosis Right knee pain, unspecified chronicity Right knee pain, unspecified chronicity documented in this encounter Additional Health Concerns Infection Onset Date Last Indicated Resolved Time CoV-Exposed Comment:Recent close contact 11/29/2019 11/29/2019 12/13/2019 1:23 AM EDT CoV-Risk 12/18/2019 12/18/2019 01/01/2020 1:23 AM EDT CoV-Risk 07/10/2022 07/10/2022 07/21/2022 1:21 AM EDT documented as of this encounter Care Teams Control Systems Eng Relationship Specialty Start Date End Date Amaya Rodriguez MD 22 [facility], [address] [address] [email or web address] PCP - General 02/10/17 06/06/17 Husam Carmona, WIRE WEB WORKER 22 [facility], [address] [place] [address] [email or web address] PCP - General 06/07/17 04/07/21 Sobia White MD [address] [address] [email or web address] PCP - General Family Medicine 04/08/21 04/12/22 Unknown, Jian, PCP - General 04/13/22 07/09/22 Eder Mansfield DO 22 [place] [address] [email or web address] PCP - General Endocrinology 07/10/22 08/04/23 Edward Maddox MD [address] [place] [address] [address] [place] [phone] PCP - General Internal Medicine 08/05/23 Amaya Rodriguez MD [address] [place] [address], [address] [place] [address] [email or web address] Historical LMR Provider 02/10/17 2 Husam Carmona CNP [address] [place] [address], [address] [place] [address] Historical LMR Provider 02/10/17 Cortez Powell DO [address] [place] [address] Orthopedics Sports [facility], [place] [address] [email or web address] Historical LMR Provider 02/10/17 05/02/21 Remington Post MD [address] [place] [address], [address] [place] [address] [email or web address] Historical LMR Provider 02/10/17 Concepcion Hooper PA-C [address] [place] [address] Orthopedics [facility], [place] [address] [email or web address] Historical LMR Provider 02/10/17 05/02/21 Armond Marcano MD 22 [facility] Floor 1 [place] [address] [email or web address] Historical LMR Provider 02/10/17 05/02/21 Immanuel Jaimes DO [address] [place] [address] [email or web address] Historical LMR Provider 02/10/17 Camrno Pedraza CNP [address] [place] [address], [address] [place] [address] Historical LMR Provider 02/10/17 Travis Smith MD [address] [place] [address] Historical LMR Provider 02/10/17 2 Amaya Rodriguez MD [address] [place] [address] [place] [address] Insurance Assigned Provider 06/29/19 08/01/21 Cindy Mc FNP [address] [place] [address] [email or web address] Nurse Practitioner Hematology and Oncology 05/25/21 Sobia White MD [address] [place] [address] [email or web address] Insurance Assigned Provider 08/01/21 07/31/22 Amaya Rodriguez MD [address] [place] [address], [address] [place] [address] Insurance Assigned Provider 07/31/22 04/30/23 documented as of this encounter Additional Source Comments The information contained in this document represents components of the legal health record. It is not the complete legal health record.[facility]
--- OUTSIDE RECORDS SUMMARY | 2025-01-08 16:34 | XMS_ITS | Encounter Summary ---
Author Organization [facility] Address [address] [place] [address] Care Team Providers Care Body Straightener Name Role Phone Edward Maddox MD Primary Care Provider [phone] Encounter Details Date Type Department Care Team (Latest Contact Info) Description 03/29/2024 Lab Requisition [facility] - Main Lab [address] [place] [phone] Andree Yusuf MD [address] [address] Encounter for gynecological examination (general) [...] lesion or malignancy 04/02/2024 3:[address] [facility] General Categorization Negative 04/02/2024 3:[address] [facility] Specimen Adequacy Satisfactory for evaluation 04/02/2024 3:[address] [facility] Pap Methodology Liquid Based Pap Test 04/02/2024 3:[address] [facility] Disclaimer The Pap test is a screening test which carries an inherent false negative rate. These test results should be correlated with the patient's clinical findings and history. This Pap test was processed using an automated screening system. Technical cytopathology services provided by [facility], at [address] [place] [address] (CLIA # [id number]/Deandre Aleman MD, Molecular Geneticist.) 04/02/2024 3:10 PM [facility] Console Pap Interpretation Reported 04/02/2024 3:10 PM [facility] Brushing/Spatula Vaginal structure / Unknown 03/28/2024 03/29/2024 8:25 AM EST us Andree Yusuf MD LAB CYTOLOGY ORDERABLES Final Result [facility] [address] [place] [address], documented in this encounter Visit Diagnoses Diagnosis Encounter for gynecological examination (general) (routine) without abnormal findings documented in this encounter Care Teams Body Straightener Relationship Specialty Start Date End Date Edward Maddox MD [address] [place] [address] [address] [facility] [place] [address] PCP - General Internal Medicine 04/20/24 documented as of this encounter
--- OUTSIDE RECORDS SUMMARY | 2025-01-08 16:34 | XMS_ITS | Encounter Summary ---
Author Organization [facility] Address [address] [place] [address] [place] [address] Phone Care Team Providers Care Manager Bar Name Role Phone Amaya Rodriguez MD Primary Care Provider + Amaya Rodriguez MD Unavailable +[phone] Husam Carmona MANUFACTURING ENGINEERING INTERN Unavailable +[phone] Cortez Powell DO Unavailable +[phone] Remington Post MD Unavailable +[phone] Concepcion Hooper PA-C Unavailable +[phone] Armond Marcano MD Unavailable +[phone] Immanuel Jaimes DO Unavailable +[phone] Camron Pedraza MANUFACTURING ENGINEERING INTERN Unavailable [phone] Travis Smith MD Unavailable +[phone] Husam Carmona MANUFACTURING ENGINEERING INTERN Primary Care Provider + Amaya Rodriguez MD Unavailable +[phone] Sobia White MD Primary Care Provid er + Cindy Mc FLOORHAND Unavailable +[phone] Sobia White MD Unavailable + Unknown, Unknown Primary Care Provider Eder Lloyd DO Primary Care Provider +-58 Amaya Rodriguez MD Unavailable +-00 Edward Maddox MD Primary Care Provider [phone] Encounter Details Date Type Department Care Team (Latest Contact Info) Description 04/13/2017 Transcribe Orders [facility] [address] [place] [address] Immanuel Jaimes, DO [address] [place] [address] [email or web address] Malignant neoplasm of ovary, unspecified laterality (Primary Dx) Social History Tobacco Use Types Packs/Day Years [...] Description 04/26/2025 8:00 AM EST Office Visit [facility] [address] [place] [address] 3rd [facility], [address] [place] [address] Leon Osman MD [address] [place] [address], [address] [place] [address] [email or web address] documented as of this encounter Results * (ABNORMAL) Comprehensive metabolic panel (04/13/2017 2:46 PM EST) SODIUM 145 133 - 146 mmol/L [facility] POTASSIUM 4.1 3.3 - 5.1 mmol/L [facility] CHLORIDE 106 96 - 108 mmol/L [facility] CO2 27 21 - 35 mmol/L [facility] BUN 11 6 - 19 mg/dL [facility] CREATININE 0.80 0.5 - 1.5 mg/dL [facility] GLUCOSE 118(H) 70 - 99 mg/dL [facility] ALBUMIN 3.9 3.9 - 4.8 g/dL [facility] TOTAL PROTEIN 6.7 6.5 - 8.0 g/dL [facility] CALCIUM 9.2 8.4 - 10.3 mg/dL [facility] ALKALINE PHOSPHATASE 69 39 - 117 U/L [facility] TOTAL BILIRUBIN 0.3 0 - 1.2 mg/dL [facility] AST 20 0 - 37 U/L [facility] ALT 17 0 - 40 U/L [facility] GLOBULIN 2.8 1 - 4.8 g/dL [facility] EGFR >60 >60 mL/min/1.7 3m2 [facility] Comment:Abnormal if <60. If patient is -Tajik, multiply the result by 1.21. ANION GAP 16 10 - 20 mmol/L [facility] Blood 04/13/2017 2:46 PM EST 04/13/2017 2:47 PM EST Immanuel Jaimes DO LAB BLOOD ORDERABLES Final Result Performing Organization Address City/State/[facility] Co de Phone Number [facility] [address] [place] [address] documented in this encounter Visit Diagnoses Diagnosis Malignant neoplasm of ovary, unspecified laterality- Primary documented in this encounter Additional Health Concerns Infection Onset Date Last Indicated Resolved Time CoV-Exposed Comment:Recent close contact 11/29/2019 11/29/2019 12/13/2019 1:23 AM EDT CoV-Risk 12/18/2019 12/18/2019 01/01/2020 1:23 AM EDT CoV-Risk 07/10/2022 07/10/2022 07/21/2022 1:21 AM EDT documented as of this encounter Care Teams Manager Bar Relationship Specialty Start Date End Date Amaya Rodriguez MD 22 [facility], [address] [place] [address] PCP - General 02/10/17 06/06/17 Husam Carmona, MANUFACTURING ENGINEERING INTERN 22 [facility], [address] [place] [address] [email or web address] PCP - General 06/07/17 04/07/21 Sobia White MD 22 [facility] [address] [place] [address] [email or web address] PCP - General Family Medicine 04/08/21 04/12/22 Unknown, Jian, PCP - General 04/13/22 07/09/22 Eder Mansfield DO 22 [place] [address] mary PCP - General Endocrinology 07/10/22 08/04/23 Edward Maddox MD [address] [place] [address] Drive [address] [place] [phone] PCP - General Internal Medicine 08/05/23 Amaya Rodriguez MD 22 [facility], [address] [place] [address] Historical LMR Provider 02/10/17 2 Husam Carmona CNP [address] [place] [address], [address] [place] [address] Historical LMR Provider 02/10/17 Cortez Powell DO [address] [place] [address] Orthopedics & Sports Medicine, [facility] [place] [address] Historical LMR Provider 02/10/17 05/02/21 Remington Post MD 22 [facility], [address] [place] [address] [email or web address] Historical LMR Provider 02/10/17 Concepcion Hooper PA-C [address] [place] [address] Orthopedics & Sports Medicine, [place] [address] [email or web address] Historical LMR Provider 02/10/17 05/02/21 Armond Marcano MD 22 [facility] Floor 1 [place] [address] [email or web address] Historical LMR Provider 02/10/17 05/02/21 Immanuel Jaimes DO [address] [place] [address] [email or web address] Historical LMR Provider 02/10/17 Camron Pedraza CNP [address] [place] [address], [address] [place] [address] [email or web address] Historical LMR Provider 02/10/17 Travis Smith MD [address] [place] [address] Historical LMR Provider 02/10/17 Amaya Jarrett MD [address] [place] [address], [address] [place] [address] [email or web address] Insurance Assigned Provider 06/29/19 08/01/21 Cindy Mc FNP [address] [place] [address] [email or web address] Nurse Practitioner Hematology and Oncology 05/25/21 Sobia White MD [address] [place] [address] [place] [address] [email or web address] Insurance Assigned Provider 08/01/21 07/31/22 Amaya Rodriguez MD [address] [place] [address], [address] [address] [email or web address] Insurance Assigned Provider 07/31/22 04/30/23 documented as of this encounter Additional Source Comments The information contained in this document represents components of the legal health record. It is not the complete legal health record.[facility]
--- OUTSIDE RECORDS SUMMARY | 2025-01-08 16:34 | XMS_ITS | Encounter Summary ---
Author Organization [facility] Address [address] [place] [address] [place] [address] Phone Care Team Providers Care Database Developer Name Role Phone Amaya Rodriguez MD Primary Care Provider + Amaya Rodriguez MD Unavailable +-[phone] Husam Carmona STUDIO COORDINATOR Unavailable +[phone] Cortez Powell DO Unavailable +[phone] Remington Post MD Unavailable +[phone] Concepcion Hooper PA-C Unavailable +[phone] Armond Marcano MD Unavailable +[phone] Immanuel Jaimes DO Unavailable +[phone] Camron Pedraza STUDIO COORDINATOR Unavailable +[phone] Travis Smith MD Unavailable +[phone] Husam Carmona STUDIO COORDINATOR Primary Care Provider + Amaya Rodriguez MD Unavailable +[phone] Sobia White MD Primary Care Provid er + Cindy Mc MDS MANAGER Unavailable +[phone] Sobia White MD Unavailable + Unknown, Unknown Primary Care Provider Eder Lloyd DO Primary Care Provider +[phone] Amaya Rodriguez MD Unavailable +-[phone] Edward Maddox MD Primary Care Provider [phone] Encounter Details Date Type Department Care Team (Late st Contact Info) Description 06/03/2017 Ancillary Orders [facility] Orthopedics & Sports Medicine [address] [place] [address] Concepcion Hooper PA-C [address] [place] [address] Orthopedics & Sports Medicine, [place] [address] [email or web address] Social History Tobacco Use Types Packs/Day Years [...] Description 04/26/2025 8:00 AM EST Office Visit [facility] [address] [place] [address] 3rd [facility], [address] [place] [address] Leon Osman MD [address] [place] [address], [address] [address] [email or web address] documented as of this encounter Visit Diagnoses Not on filedocumented in this encounter Additional Health Concerns Infection Onset Date Last Indicated Resolved Time CoV-Exposed Comment:Recent close contact 11/29/2019 11/29/2019 12/13/2019 1:23 AM EDT CoV-Risk 12/18/2019 12/18/2019 01/01/2020 1:23 AM EDT CoV-Risk 07/10/2022 07/10/2022 07/21/2022 1:21 AM EDT documented as of this encounter Care Teams Database Developer Relationship Specialty Start Date End Date Jennifer, Amaya M, MD 22 [facility], [address] [place] [address] PCP - General 02/10/17 06/06/17 Husam Carmona, STUDIO COORDINATOR [address] [place] [address], [address] [place] [address] PCP - General 06/07/17 04/07/21 Sobia White MD [address] [place] [address] [email or web address] PCP - General Family Medicine 04/08/21 04/12/22 Unknown, Jian, PCP - General 04/13/22 07/09/22 Eder [place] DO [address] [place] [address] [email or web address] PCP - General Endocrinology 07/10/22 08/04/23 Edward Maddox MD [address] [place] [address] [phone] PCP - General Internal Medicine 08/05/23 Amaya Rodriguez MD [address] [place] [address], [address] [place] [address] [email or web address] Historical LMR Provider 02/10/17 2 Husam Carmona, STUDIO COORDINATOR [address] [place] [address], [address] [place] [address] [email or web address] Historical LMR Provider 02/10/17 Cortez Powell DO [address] [place] [address] Orthopedics & Sports [facility], [place] [address] [email or web address] Historical LMR Provider 02/10/17 05/02/21 Remington Post MD 22 [facility], [address] [place] [address] [email or web address] Historical LMR Provider 02/10/17 Concepcion Hooper PA-C [address] [place] [address] Orthopedics Sports [facility], [place] [address] [email or web address] Historical LMR Provider 02/10/17 05/02/21 Armond Marcano MD 22 [facility] Floor 1 [place] [address] [email or web address] Historical LMR Provider 02/10/17 05/02/21 Immanuel Jaimes DO [address] [place] [address] [email or web address] Historical LMR Provider 02/10/17 Camron Pedraza CNP 22 [facility], [address] [place] [address] [email or web address] Historical LMR Provider 02/10/17 Travis Smith MD [address] [place] [address] Historical LMR Provider 02/10/17 2 Amaya Rodriguez MD [address] [place] [address], [address] [address] [email or web address] Insurance Assigned Provider 06/29/19 08/01/21 Cindy Mc, [facility] [address] [place] [address] [email or web address] Nurse Practitioner Hematology and Oncology 05/25/21 Sobia White MD [address] [place] [address] [email or web address] Insurance Assigned Provider 08/01/21 07/31/22 Amaya Rodriguez MD [address] [place] [address], [address] [address] [email or web address] Insurance Assigned Provider 07/31/22 04/30/23 documented as of this encounter Additional Source Comments The information contained in this document represents components of the legal health record. It is not the complete legal health record.[facility]
--- OUTSIDE RECORDS SUMMARY | 2025-01-08 16:34 | XMS_ITS | Encounter Summary ---
Author Organization [facility] Address [address] [place] [address] [place] [address] Phone Care Team Providers Care Intelligence Operations Specialist Name Role Phone Husam Carmona BEAM DYER RECESSED VAT Unavailable [phone] Remington Post MD Unavailable Immanuel Jaimes DO Unavailable [phone] Amaya Rodriguez MD Unavailable [phone] Sobia White MD Primary Care Provid er Cindy Mc DETONATOR ASSEMBLER Unavailable [phone] Sobia White MD Unavailable [phone] Unknown, Unknown Primary Care Provider Eder Lloyd DO Primary Care Provider [phone] Amaya Rodriguez MD Unavailable [phone] Edward Maddox MD Primary Care Provider [phone] Encounter Details Date Type Department Care Team (Late st Contact Info) Description 05/08/2021 Procedure Pass Echo Lab [place] [address] [place] [address] Social History Tobacco Use Types Packs/Day Years [...] Answer Date Recorded Are you interested in help w ith more adult education (for example, completing high school, GED, job training, learning the Turkish language, technical skills, or developing parenting skills)? No 10/10/2020 Food Answer Date Recorded Within the past [...] basis, and looking for work? Yes 10/10/2020 Comments Unknown Sex and Gender Information Value [...] Description 04/26/2025 8:00 AM EST Office Visit [facility] [address] [place] [address] 3rd Floor, [address] [place] [address] Leon Osman MD [address] [place] [address], [address] [place] [address] [email or web address] documented as of this encounter Visit Diagnoses Not on filedocumented in this encounter Additional Health Concerns Infection Onset Date Last Indicated Resolved Time CoV-Risk 07/10/2022 07/10/2022 07/21/2022 1:21 AM EDT Assessment Noted Time PHQ-2 Depression Total Score: 0 01/19/20 20 5:25 PM EDT documented as of this encounter Care Teams Intelligence Operations Specialist Relationship Specialty Start Date End Date Sobia White MD [address] [place] [address] [place] [address] [email or web address] PCP - General Family Medicine 04/08/21 04/12/22 Unknown, Jian, PCP - General 04/13/22 07/09/22 Eder Mansfield DO [address] [place] [address] mary PCP - General Endocrinology 07/10/22 08/04/23 Edward Maddox MD [address] [place] [address] [place] [phone] PCP - General Internal Medicine 08/05/23 Husam Carmona, EFRAIN [address] [place] [address], [address] [address] Historical LMR Provider 02/10/17 Remington Post MD [address] [place] [address], [address] [address] Historical LMR Provider 02/10/17 Immanuel Jaimes DO [address] [place] [address] [email or web address] Historical LMR Provider 02/10/17 Amaya Rodriguez MD [address] [place] [address], [address] [place] [address] [email or web address] Insurance Assigned Provider 06/29/19 08/01/21 Cindy Mc, DETONATOR ASSEMBLER [address] [place] [address] [email or web address] Nurse Practitioner Hematology and Oncology 05/25/21 Sobia White MD [address] [place] [address] [place] [address] [email or web address] Insurance Assigned Provider 08/01/21 07/31/22 Amaya Rodriguez MD [address] [place] [address], [address] [place] [address] [email or web address] Insurance Assigned Provider 07/31/22 04/30/23 documented as of this encounter Additional Source Comments The information contained in this document represents components of the legal health record. It is not the complete legal health record.[facility]
--- OUTSIDE RECORDS SUMMARY | 2025-01-08 16:34 | XMS_ITS | Patient Health Record ---
[facility] Organization [facility] Address [address] [place] [address] Care Team Providers Care Senior Telecommunications Engineer Name Role Phone EdithmyrnaSobia Primary Care Provider Harriett Glover Unavailable [phone] Reason For Referral No Information Medications Medication [...] Problem Acquired hammer toe of right foot (12290464425 ) Hammer toe of right foot (M20.41) Active confirmed Problem Acquired hammer toe of left foot (66154806985 18611) Hammer toe of left foot (M20.42) Active confirmed Problem Acquired hallux valgus (10404702) 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) Active confirmed Plan Of Treatment Pending Test Test Name Order Date X ray : Foot, left 3V 12/09/2021 X ray : Foot, right 3V 12/09/2021 Insurance Providers Payer Name Payer Address Payer Phone Subscriber Number Group Number Insured Name Patient Relationship to Insured Coverage Start Date Coverage End Date Medicare National Govt Svcs Inc [address] [facility] [place] [address] [id number] Christianne Yoder Self - patient is the insured [employer] [address] [place] [address] [id number] Christianne Yoder Self - patient is the insured Medical (General) History Medical History History ICD Code Arthritis Back,Hip,and Knee pain Cancer Reflux ( GERD) Measles Mumps Chicken pox Joint implants/screws Surgical History Surgery Date(Month/Year) knee replacement 11/2015, 05/2016 hysterectomy 03/2013 trapezoid bone 10/2019
--- OUTSIDE RECORDS SUMMARY | 2025-01-08 16:34 | XMS_ITS | Clinical Summary ---
Author Organization [address] Address [address] [place] [address] Phone Care Team Providers Care Rn Pacu Name Role Phone Edward Maddox MD Primary Care Provider [phone] Social History Tobacco Use Types Packs/Day Years [...] age to complete this topic Insurance MEDICARE [facility] Care Teams Rn Pacu Relationship Specialty Start Date End Date Edward Maddox MD [address] [place] [address] [address] [facility] [place] [address] PCP - General Internal Medicine 04/20/24
--- OUTSIDE RECORDS SUMMARY | 2025-01-08 16:35 | XMS_ITS | Encounter Summary ---
Author Organization [facility] Address [address] [place] [address] [place] [address] Phone Care Team Providers Care Pump Oiler Name Role Phone Husam Carmona WAREHOUSE DISTRIBUTION SPECIALIST Unavailable [phone] Remington Post MD Unavailable [phone] Immanuel Jaimes DO Unavailable [phone] Sobia White MD Primary Care Provid er Cindy Mc SPRAY UNIT FEEDER Unavailable [phone] Sobia White MD Unavailable + [phone] Unknown, Unknown Primary Care Provider Eder Lloyd DO Primary Care Provider [phone] Amaya Rodriguez MD Unavailable [phone] Edward Maddox MD Primary Care Provider [phone] Encounter Details Date Type Department Care Team (Late st Contact Info) Description 04/12/2022 Procedure Pass [facility] [address] [place] [address] Social History Tobacco Use Types Packs/Day Years [...] high school, GED, job training, learning the Albanian language, technical skills, or developing parenting skills)? [...] Description 04/26/2025 8:00 AM EST Office Visit [facility] [address] [place] [address] 3rd Floor, [address] [place] [address] Leon Osman MD [address] [facility], [address] [place] [address] [email or web address] documented as of this encounter Visit Diagnoses Not on filedocumented in this encounter Additional Health Concerns Infection Onset Date Last Indicated Resolved Time CoV-Risk 07/10/2022 07/10/2022 07/21/2022 1:21 AM EDT Assessment Noted Time PHQ-2 Depression Total Score: 0 01/19/20 5:25 PM EDT documented as of this encounter Care Teams Pump Oiler Relationship Specialty Start Date End Date Sobia White MD [address] [place] [address] [place] [address] [email or web address] PCP - General Family Medicine 04/08/21 04/12/22 Unknown, Jian, PCP - General 04/13/22 07/09/22 Eder Mansfield DO [address] [place] [address] mary PCP - General Endocrinology 07/10/22 08/04/23 Edward Maddox MD [address] [place] [address] [place] [phone] PCP - General Internal Medicine 08/05/23 Husam Carmona, EFRAIN [address] [place] [address], [address] [address] Historical LMR Provider 02/10/17 Remington Post MD [address] [place] [address], [address] [address] Historical LMR Provider 02/10/17 Immanuel Jaimes DO [address] [place] [address] [email or web address] Historical LMR Provider 02/10/17 Cindy Mc FNP [address] [place] [address] [email or web address] Nurse Practitioner Hematology and Oncology 05/25/21 Sobia White MD [address] [place] [address] [email or web address] Insurance Assigned Provider 08/01/21 07/31/22 Amaya Rodriguez MD [address] [place] [address], [address] [place] [address] [email or web address] Insurance Assigned Provider 07/31/22 04/30/23 documented as of this encounter Additional Source Comments The information contained in this document represents components of the legal health record. It is not the complete legal health record.[facility]
--- OUTSIDE RECORDS SUMMARY | 2025-01-08 16:36 | XMS_ITS | Encounter Summary ---
Author Organization [facility] Address [address] [facility] [address] [place] [address] Phone Care Team Providers Care Cant Hooker Name Role Phone Husam Carmona CYANIDE CASE HARDENER Unavailable Remington Post MD Unavailable [phone] Immanuel Jaimes DO Unavailable [phone] Cindy Mc STARBUCKS CLERK Unavailable [phone] Edward Maddox MD Primary Care Provider [phone] Encounter Details Date Type Department Care Team (Late st Contact Info) Description 09/08/2023 Procedure Pass Echo Lab [place] [place] [address] Social History Tobacco Use Types Packs/Day Years [...] Description 04/26/2025 8:00 AM EST Office Visit [facility] [address] [place] [address] 3rd Floor, [address] [place] [address] Leon Osman MD [address] [facility], [address] [place], [place] [phone] documented as of this encounter Visit Diagnoses Not on filedocumented in this encounter Additional Health Concerns Assessment Noted Time PHQ-2 Depression Total Score: 0 01/19/20 20 5:25 PM EDT documented as of this encounter Care Teams Cant Hooker Relationship Specialty Start Date End Date Tan, Edward Ortiz MD [address] [place] [address] [address] [place] [phone] PCP - General Internal Medicine 08/05/23 Husam Carmona CNP [address] [place] [address], [address] [place] [address] Historical LMR Provider 02/10/17 Remington Post MD [address] [place] [address], [address] [place] [address] Historical LMR Provider 02/10/17 Immanuel Jaimes DO [address] [place] [address] [email or web address] Historical LMR Provider 02/10/17 Cindy Mc FNP [address] [place] [address] Nurse Practitioner Hematology and Oncology 05/25/21 documented as of this encounter Additional Source Comments The information contained in this document represents components of the legal health record. It is not the complete legal health record.[facility]
--- OUTSIDE RECORDS SUMMARY | 2025-01-08 16:36 | XMS_ITS | Patient Health Record ---
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 Problem Osteoarthritis of right subtalar joint (8804314037761727 1) 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
--- OUTSIDE RECORDS SUMMARY | 2025-01-08 16:36 | XMS_ITS | Encounter Summary ---
Author Organization [facility] Address [address] [place] [address] [place] [address] Phone Care Team Providers Care Apartment Maintenance Worker Name Role Phone Husam Carmona BACCARAT MANAGER Unavailable [phone] Remington Post MD Unavailable [phone] Immanuel Jaimes DO Unavailable [phone] Sobia White MD Primary Care Provid er Cindy Mc STUNNER Unavailable [phone] Sobia White MD Unavailable [phone] Unknown, Unknown Primary Care Provider Eder Lloyd DO Primary Care Provider [phone] Amaya Rodriguez MD Unavailable [phone] Edward Maddox MD Primary Care Provider [phone] Encounter Details Date Type Department Care Team (Late st Contact Info) Description 08/31/2021 Procedure Pass Echo Lab [place] [place] [address] Social History Tobacco Use Types Packs/Day [...] high school, GED, job training, learning the Tongan language, technical skills, or developing parenting skills)? [...] Description 04/26/2025 8:00 AM EST Office Visit [facility] [address] [place] [address] 3rd Floor, [address] [place] [address] Leon Osman MD [address] [facility], [address] [place] [address] [email or web address] documented as of this encounter Visit Diagnoses Not on filedocumented in this encounter Additional Health Concerns Infection Onset Date Last Indicated Resolved Time CoV-Risk 07/10/2022 07/10/2022 07/21/2022 1:21 AM EDT Assessment Noted Time PHQ-2 Depression Total Score: 0 01/19/20 5:25 PM EDT documented as of this encounter Care Teams Apartment Maintenance Worker Relationship Specialty Start Date End Date Sobia White MD [address] [facility] [address] [place] [address] [email or web address] PCP - General Family Medicine 04/08/21 04/12/22 Unknown, Jian, PCP - General 04/13/22 07/09/22 Eder Mansfield DO [address] [place] [address] mary PCP - General Endocrinology 07/10/22 08/04/23 Edward Maddox MD [address] [place] [address] Drive [address] [place] [phone] PCP - General Internal Medicine 08/05/23 Husam Carmona, EFRAIN [address] [place] [address], [address] [address] Historical LMR Provider 02/10/17 Remington Post MD [address] [place] [address], [address] [address] Historical LMR Provider 02/10/17 Immanuel Jaimes DO [address] [place] [address] [email or web address] Historical LMR Provider 02/10/17 Cindy Mc FNP [address] [place] [address] [email or web address] Nurse Practitioner Hematology and Oncology 05/25/21 Sobia White MD [address] [place] [address] [email or web address] Insurance Assigned Provider 08/01/21 07/31/22 Amaya Rodriguez MD [address] [place] [address] [email or web address] Insurance Assigned Provider 07/31/22 04/30/23 documented as of this encounter Additional Source Comments The information contained in this document represents components of the legal health record. It is not the complete legal health record.[facility]
--- OUTSIDE RECORDS SUMMARY | 2025-01-08 16:37 | XMS_ITS | Continuity of Care Document ---
Author Organization [facility] [address] [facility] [address] [place] [address] Phone [phone] Care Team Providers Care Mechanical Commissioning Engineer Name Role Phone Edward Maddox Care Team Information Speech And Hearing Clinic Director [phone] Problems Active Problems Provider Date H/O: depression [...] week 4ml Yosef Barrientos M.D. 11/13/2024 Cyclobenzaprine OGH48ju Tablets Take 1 Tablet By Mouth Three Times Daily as Needed Noe Ordoñez MD Kuufnzmlvonppmszqwc41.5m g Capsules Take 1 Capsule By Mouth Daily Unknown History Medications Fpryctfj0uo/0.5ML Solution Auto-Inject inject 5 mg every week [...] <7.0 2 Thyroglobulin Antibo dy measured by [employer] It should be noted that the presence of thyroglobulin antibodies may not be pathogenic nor diagnostic, especially at very low levels. The assay mechanical design technician has found that four percent of individuals without evidence of thyroid disease or autoimmunity will have positive TgAb levels up to 4 IU/mL. 3 According to the [place] [facility] [employer], the reference interval [...]
== END 2025-01-08 12:32 | disposition home or self-care (01) ==
LOC: HO.MAMMO 12:31
PROVIDERS: PCP Internal Medicine; Visit Provider Internal Medicine
DX: Z12.31 Encounter for screening mammogram for malignant neoplasm of breast (principal)
CPT/HCPCS: 77063; 77067

== ENCOUNTER → 2025-01-08 12:45 | Outpatient (BNV) | payer MEDICARE, OTHER, SELFPAY | PROVIDERS: PCP Internal Medicine; Visit Provider Internal Medicine | DX: Z12.31 Encounter for screening mammogram for malignant neoplasm of breast (principal) | CPT/HCPCS: 77063; 77067 ==

== ENCOUNTER → 2025-01-09 11:16 | Outpatient (BNV) | payer MEDICARE, OTHER, SELFPAY | PROVIDERS: Admitting Provider Neurological Surgery; Visit Provider Internal Medicine | DX: R94.31 Abnormal electrocardiogram [ECG] [EKG] (principal); Z01.810 Encounter for preprocedural cardiovascular examination | CPT/HCPCS: 93010 ==

== ENCOUNTER → 2025-01-18 07:52 | Outpatient (REF) | payer MEDICARE, OTHER, SELFPAY ==
--- OUTSIDE RECORDS SUMMARY | 2022-07-10 11:47 | XMS_ITS | Encounter Summary ---
Author Organization [facility] Address [address] [place] [address] [place] [address] Phone Care Team Providers Care Chucking Lathe Operator Name Role Phone CarmonaHusam scherer Debby PROFESSOR CRIMINAL JUSTICE Unavailable Remington Post MD Unavailable Immanuel Jaimes DO Unavailable [phone] Cindy Mc FIRE BOAT ENGINEER Unavailable [phone] Sobia White MD Unavailable [phone] Eder Mansfield DO Primary Care Provider [phone] Encounter Details Date Type Department Care Team (Late st Contact Info) Description 07/10/2022 11:47 AM EDT Hospital Encounter [facility] [address] [place] [address] Celestina Guzman CNP [address] [place] [address] Social History Tobacco Use Types Packs/Day Years [...] Description 04/26/2025 8:00 AM EST Office Visit [facility] [address], [address] [place] [address] Leon Osman MD [address] [place] [address], [address] [place] [address] [email or web address] documented as of this encounter Procedures Procedure [...] consolidative process or overtpulmonary edema. Celestina Guzman PROFESSOR CRIMINAL JUSTICE IMG XR CHEST Final Resul t documented in this encounter Visit Diagnoses Not on filedocumented in this encounter Additional Health Concerns Infection Onset Date Last Indicated Resolved Time CoV-Risk 07/10/2022 07/10/2022 07/21/2022 1:21 AM EDT Assessment Noted Time PHQ-2 Depression Total Score: 0 01/19/20 20 5:25 PM EDT documented as of this encounter Care Teams Chucking Lathe Operator Relationship Specialty Start Date End Date Eder Mansfield DO [address] [place] [address] [email or web address] PCP - General Endocrinology 07/10/22 08/04/23 Husam Carmona CNP [address] [place] [address], [address] [address] Historical LMR Provider 02/10/17 Remington Post MD [address] [place] [address], [address] [address] [email or web address] Historical LMR Provider 02/10/17 Immanuel Jaimes DO [address] [place] [address] [email or web address] Historical LMR Provider 02/10/17 Cindy Mc FNP [address] [place] [address] [email or web address] Nurse Practitioner Hematology and Oncology 05/25/21 Sobia White MD [address] [place] [address] [email or web address] Insurance Assigned Provider 08/01/21 07/31/22 documented as of this encounter Additional Source Comments The information contained in this document represents components of the legal health record. It is not the complete legal health record.[facility]
--- OUTSIDE RECORDS SUMMARY | 2023-08-05 12:39 | XMS_ITS | Encounter Summary ---
Author Organization [facility] Address [address] [facility] [address] [place] [address] Phone Care Team Providers Care Freezer Unloader Name Role Phone Husam Carmona COPIER REPAIR TECHNICIAN Unavailable [phone] Remington Post MD Unavailable [phone] Immanuel Jaimes DO Unavailable [phone] Cindy Mc HAT LACER Unavailable Edward Maddox MD Primary Care Provider Encounter Details Date Type Department Care Team (Late st Contact Info) Description 08/05/2023 12:39 PM EDT Hospital Encounter [facility] [address] [place] [address] Charlene Barrientos, REAMING PRESS OPERATOR [address] [place] [address] [email or web address] Social History Tobacco Use Types Packs/Day Years [...] Description 04/26/2025 8:00 AM EST Office Visit [facility] [address] [place] [address] [address]rd Floor, [address] [place], [place] [phone] Leon Osman MD [address] [place] [address], [address] [place] [address] [email or web address] documented as of this encounter Procedures Procedure [...] clinician's provided indication for this examination in [facility]: Cough; cough x 1.5 weeks, hx of pneumonia COMPARISON: July 10, 2022 FINDINGS: Devices/Tubes/Lines: None. Lungs: No focal consolidation or pulmonary edema. Pleura: No pleural effusions or pneumothorax. Heart/Mediastinum: Normal cardiomediastinal silhouette. Bones/Soft Tissues: No significant abnormality. Procedure Note Chanell Patino MD - 08/05/2023 XR CHEST PA AND LATERAL 2 VIEWS Referring clinician's provided indication for this examination in [facility]:Cough; cough x 1.5 weeks, hx of pneumonia COMPARISON: July 10, 2022 FINDINGS: Devices/Tubes/Lines: None. Lungs: No focal consolidation or pulmonary edema. Pleura: No pleural effusions or pneumothorax. Heart/Mediastinum: Normal cardiomediastinal silhouette. Bones/Soft Tissues: No significant abnormality. IMPRESSION: No acute abnormality. us Charlene Barrientos REAMING PRESS OPERATOR IMG XR CHEST Final Resul t documented in this encounter Visit Diagnoses Not on filedocumented in this encounter Additional Health Concerns Assessment Noted Time PHQ-2 Depression Total Score: 0 01/18/ 20 5:25 PM EDT documented as of this encounter Care Teams Freezer Unloader Relationship Specialty Start Date End Date Tan Edward Ortiz MD [address] [place] [address] Drive [address] [place] [phone] PCP - General Internal Medicine 08/05/23 Husam Carmona CNP [address] [place] [address], [address] [place] [address] Historical LMR Provider 02/10/17 Remington Post MD [address] [place] [address], [address] [place] [address] [email or web address] Historical LMR Provider 02/10/17 Immanuel Jaimes DO [address] [place] [address] [email or web address] .[email or web address] Historical LMR Provider 02/10/17 Cindy Mc FNP [address] [place] [address] Nurse Practitioner Hematology and Oncology 05/25/21 documented as of this encounter Additional Source Comments The information contained in this document represents components of the legal health record. It is not the complete legal health record.[facility]
--- NOTE | 2025-01-18 07:56 | CA_ITS ---
Transthoracic Echocardiogram Patient (Last, First, Middle): Christianne Yoder, Gender: F Date of : 1950 Age: 74 Procedure Date: 01/18/2025 Procedure Type: Transthoracic Echocardiogram Location: OP Height: 167.64 cm Weight: 99.79 kg BSA: 2.08 m2 Heart Rate: bpm BP: 134 / 82 mmHg Hoisting Engineer: TO Referring MD: Ravi Mcdonnell MD PhD Symptoms: I35.0 - Nonrheumatic aortic (valve) stenosis Study Quality: Fair ECG Rhythm: Sinus Conclusions: - The left ventricular systolic function is normal. The calculated ejection fraction is 60% by biplane method. - There is moderate septal asymmetric hypertrophy. - There is moderate to severe aortic valve stenosis. - There is moderate mitral annular calcification. Findings Left Ventricle Normal left ventricular cavity size. There is mildly increased left ventricular wall thickness. The left ventricular systolic function is normal. The calculated ejection fraction is 60% by biplane method. There is no evidence of regional wall motion abnormalities. Evidence suggests grade I (mild) diastolic dysfunction. There is moderate septal asymmetric hypertrophy. Right Ventricle Normal right ventricular cavity size and systolic function. Atria The left atrium is moderately dilated. The right atrium is normal in size. Aortic Valve There is severe calcification of the aortic valve. There is moderate to severe aortic valve stenosis. The peak aortic velocity is 3.60 m/s with a calculated peak gradient of 52 mmHg. The mean gradient is 31 mmHg. The aortic valve area is 0.98 cm2. There is no aortic valve regurgitation. Dimensionless index 0.27. Mitral Valve There is moderate mitral annular calcification. There is no mitral valve regurgitation. There is no mitral valve stenosis. Pulmonic Valve The pulmonic valve is likely normal. Tricuspid Valve There is trace tricuspid valve regurgitation. Tricuspid regurgitation envelope is inadequate for calculation of right ventricular systolic pressure. Great Vessels The asc aorta is normal in size. Venous The inferior vena cava is normal in size and collapses greater than 50% with inspiration. Pericardium/Pleural There is no evidence of pericardial effusion. Prior Study Comparison Changes noted compared to prior study dated: 07/28/2018. Progression of aortic valve stenosis. Measurements 2D Linear Measurements IVSd: 1.55 0.6-0.9/0.6-1.0 cm LVIDd: 3.78 3.9-5.3/4.2-5.9 cm LVIDd Index: 1.82 2.4-3.2/2.2-3.1 cm/m2 LVIDs: 2.41 2.0-3.6 cm LVPWd: 1.14 0.7-1.1 cm LV Mass: 225.50 67-162/88-224 g LV Mass Index: 108.41 43-95/49-115 g/m2 LVOT Diam: 2.10 3.0+(-)1.3 cm 2D Systolic Function EF 4C: 59.60 >55% EF 2C: 58.10 >55% EF BiP: 60.00 >55% Mitral Valve MV VTI: 0.22 MV Pk Jeovanny: 1.08 MV Mn Jeovanny: 0.73 MV Pk Grad: 5.00 MV Mn Grad: 2.00 MV Pk E: 0.63 MV PK A: 0.88 MV Decel Time: 151.00 E/A: 0.70 E'Lateral: 6.53 E'Medial: 4.35 E/E' Med: 14.50 E/E' Lat: 9.60 PHT: 44.00 MVA PHT: 5.00 MVA Continuity: 3.08 Decel Kershaw: 4.18 Aortic Valve AoV Pk Jeovanny: 3.60 AoV Mn Jeovanny: 2.64 AoV VTI: 0.69 AoV Pk Grad: 52.00 Aov Mn Grad: 31.00 SILVANO Cont.VTI: 0.98 LVOT LVOT Pk Jeovanny: 0.96 LVOT Mn Jeovanny: 0.63 LVOT VTI: 0.20 LVOT Pk Grad: 4.00 LVOT Mn Grad: 2.00 LVOT Diam: 2.10 LVOT Area: 3.46 Diastolic Function MV Pk E: 0.63 MV Pk A: 0.88 E/A: 0.70 E'Medial: 4.35 E/E' Med: 14.50 E' Laterial: 6.53 E/E' Lat: 9.60 Right Ventricle TAPSE (mm): 24.30 TVS' Jeovanny: 14.30 Tricuspid Valve RA Press: 3.00 Great Vessels Aorta Sinus of Valsalva: 3.14 2.0-3.5 cm Ao Asc: 3.50 2.1-3.4 cm Updated in Other Vendor System with Status of Final Johnathan Meier MD electronically signed on 01/21/2025 10:35:36 AM with status of Final
--- OUTSIDE RECORDS SUMMARY | 2025-01-18 07:56 | XMS_ITS | Encounter Summary ---
Author Organization [facility] Address [address] [place] [address] [place] [address] Phone Care Team Providers Care Prop Sawyer Name Role Phone Husam Carmona FEATHER BONER Unavailable [phone] Remington Post MD Unavailable [phone] Immanuel Jaimes DO Unavailable [phone] Sobia White MD Primary Care Provid er Cindy Mc ANALOG IC DESIGN ENGINEER Unavailable [phone] Sobia White MD Unavailable [phone] Unknown, Unknown Primary Care Provider Eder Lloyd DO Primary Care Provider [phone] Amaya Rodriguez MD Unavailable [phone] Edward Maddox MD Primary Care Provider [phone] Encounter Details Date Type Department Care Team (Late st Contact Info) Description 08/31/2021 Procedure Pass Echo Lab [place] [place] [address] Social History Tobacco Use Types Packs/Day [...] high school, GED, job training, learning the Austrian language, technical skills, or developing parenting skills)? [...] Description 04/26/2025 8:00 AM EST Office Visit [facility] [address] [place] [address] 3rd Floor, [address] [place] [address] Leon Osman MD [address] [facility], [address] [place] [address] documented as of this encounter Visit Diagnoses Not on filedocumented in this encounter Additional Health Concerns Infection Onset Date Last Indicated Resolved Time CoV-Risk 07/10/2022 07/10/2022 07/21/2022 1:21 AM EDT Assessment Noted Time PHQ-2 Depression Total Score: 0 01/19/20 5:25 PM EDT documented as of this encounter Care Teams Prop Sawyer Relationship Specialty Start Date End Date Sobia White MD [address] [facility] [address] [place] [address] [email or web address] PCP - General Family Medicine 04/08/21 04/12/22 Unknown, Jian, PCP - General 04/13/22 07/09/22 Eder Mansfield DO [address] [place] [address] mary PCP - General Endocrinology 07/10/22 08/04/23 Edward Maddox MD [address] [place] [address] Drive [address] [place] [phone] PCP - General Internal Medicine 08/05/23 Husam Carmona, EFRAIN [address] [place] [address], [address] [address] Historical LMR Provider 02/10/17 Remington Post MD [address] [place] [address], [address] [address] Historical LMR Provider 02/10/17 Immanuel Jaimes DO [address] [place] [address] [email or web address] Historical LMR Provider 02/10/17 Cindy Mc FNP [address] [place] [address] [email or web address] Nurse Practitioner Hematology and Oncology 05/25/21 Sobia White MD [address] [place] [address] [email or web address] Insurance Assigned Provider 08/01/21 07/31/22 Amaya Rodriguez MD [address] [place] [address] [email or web address] Insurance Assigned Provider 07/31/22 04/30/23 documented as of this encounter Additional Source Comments The information contained in this document represents components of the legal health record. It is not the complete legal health record.[facility]
--- OUTSIDE RECORDS SUMMARY | 2025-01-18 07:56 | XMS_ITS | Encounter Summary ---
Author Organization [facility] Address [address] [place] [address] [place] [address] Phone Care Team Providers Care Inspector Wreath Name Role Phone Amaya Rodriguez MD Primary Care Provider + Amaya Rodriguez MD Unavailable +[phone] Husam Carmona REO ASSET MANAGER Unavailable [phone] Cortez Powell DO Unavailable [phone] Remington Post MD Unavailable +[phone] Concepcion Hooper PA-C Unavailable +[phone] Armond Marcano MD Unavailable +[phone] Immanuel Jaimes DO Unavailable +[phone] Camron Pedraza REO ASSET MANAGER Unavailable [phone] Travis Smith MD Unavailable +[phone] Husam Carmona REO ASSET MANAGER Primary Care Provider + Amaya Rodriguez MD Unavailable +[phone] Sobia White MD Primary Care Provid er + Cindy Mc AGRICULTURAL PRODUCE COMMISSION AGENT Unavailable [phone] Sobia White MD Unavailable + Unknown, Unknown Primary Care Provider Eder Lloyd DO Primary Care Provider +[phone] Amaya Rodriguez MD Unavailable +[phone] Edward Maddox MD Primary Care Provider [phone] Encounter Details Date Type Department Care Team (Latest Contact Info) Description 04/13/2017 Transcribe Orders [facility] [address] [place] [address] Immanuel Jaimes, DO [address] [place] [address] [email or web address] Malignant neoplasm of ovary, unspecified laterality (Primary [...] Description 04/26/2025 8:00 AM EST Office Visit [facility] [address] [place] [address] 3rd [facility], [address] [place] [address] Leon Osman MD [address] [place] [address], [address] [place] [address] [email or web address] documented as of this encounter Results * (ABNORMAL) Comprehensive metabolic panel (04/13/2017 2:46 PM EST) SODIUM 145 133 - 146 mmol/L [facility] POTASSIUM 4.1 3.3 - 5.1 mmol/L [facility] CHLORIDE 106 96 - 108 mmol/L [facility] CO2 27 21 - 35 mmol/L [facility] BUN 11 6 - 19 mg/dL [facility] CREATININE 0.80 0.5 - 1.5 mg/dL [facility] GLUCOSE 118(H) 70 - 99 mg/dL [facility] ALBUMIN 3.9 3.9 - 4.8 g/dL [facility] TOTAL PROTEIN 6.7 6.5 - 8.0 g/dL [facility] CALCIUM 9.2 8.4 - 10.3 mg/dL [facility] ALKALINE PHOSPHATASE 69 39 - 117 U/L [facility] TOTAL BILIRUBIN 0.3 0 - 1.2 mg/dL [facility] AST 20 0 - 37 U/L [facility] ALT 17 0 - 40 U/L [facility] GLOBULIN 2.8 1 - 4.8 g/dL [facility] EGFR >60 >60 mL/min/1.7 3m2 [facility] Comment:Abnormal if <60. If patient is -Equatorial [place], multiply the result by 1.21. ANION GAP 16 10 - 20 mmol/L [facility] Blood 04/13/2017 2:46 PM EST 04/13/2017 2:47 PM EST Immanuel Jaimes DO LAB BLOOD ORDERABLES Final Result Performing Organization Address City/State/[facility] Co de Phone Number [facility] [address] [place] [address] documented in this encounter Visit Diagnoses Diagnosis Malignant neoplasm of ovary, unspecified laterality- Primary documented in this encounter Additional Health Concerns Infection Onset Date Last Indicated Resolved Time CoV-Exposed Comment:Recent close contact 11/29/2019 11/29/2019 12/13/2019 1:23 AM EDT CoV-Risk 12/18/2019 12/18/2019 01/01/2020 1:23 AM EDT CoV-Risk 07/10/2022 07/10/2022 07/21/2022 1:21 AM EDT documented as of this encounter Care Teams Inspector Wreath Relationship Specialty Start Date End Date Amaya Rodriguez MD [address] [facility], [address] [place] [address] PCP - General 02/10/17 06/06/17 Husam Carmona, REO ASSET MANAGER [facility], [address] [place] [address] [email or web address] PCP - General 06/07/17 04/07/21 Sobia White MD 22 [facility] [address] [place] [address] [email or web address] PCP - General Family Medicine 04/08/21 04/12/22 Unknown, Jian, PCP - General 04/13/22 07/09/22 Eder Mansfield DO 22 [place] [address] mary PCP - General Endocrinology 07/10/22 08/04/23 Edward Maddox MD [address] [place] [address] [address] [place] [phone] PCP - General Internal Medicine 08/05/23 Amaya Rodriguez MD 22 [facility], [address] [place] [address] Historical LMR Provider 02/10/17 2 Husam Carmona CNP [address] [place] [address], [address] [place] [address] Historical LMR Provider 02/10/17 Cortez Powell DO [address] [place] [address] Orthopedics & Sports Medicine, [facility] [place] [place] [address] Historical LMR Provider 02/10/17 05/02/21 Remington Post MD [address] [facility], [address] [place] [address] [email or web address] Historical LMR Provider 02/10/17 Concepcion Hooper PA-C [address] [place] [address] Orth[facility] Medicine, [place] [address] [email or web address] Historical LMR Provider 02/10/17 05/02/21 Armond Marcano MD 22 [facility] Floor 1 [place] [address] [email or web address] Historical LMR Provider 02/10/17 05/02/21 Immanuel Jaimes DO [address] [place] [address] [email or web address] Historical LMR Provider 02/10/17 Camron Pedraza CNP [address] [place] [address], [address] [place] [address] [email or web address] Historical LMR Provider 02/10/17 Travis Smith MD [address] [place] [address] Historical LMR Provider 02/10/17 Amaya Jarrett MD [address] [place] [address], [address] [place] [address] [email or web address] Insurance Assigned Provider 06/29/19 08/01/21 Cindy cM FNP [address] [place] [address] [email or web address] Nurse Practitioner Hematology and Oncology 05/25/21 Sobia White MD [address] [place] [address] [place] [address] [email or web address] Insurance Assigned Provider 08/01/21 07/31/22 Amaya Rodriguez MD [address] [place] [address], [address] [address] [email or web address] Insurance Assigned Provider 07/31/22 04/30/23 documented as of this encounter Additional Source Comments The information contained in this document represents components of the legal health record. It is not the complete legal health record.[facility]
--- OUTSIDE RECORDS SUMMARY | 2025-01-18 07:56 | XMS_ITS | Encounter Summary ---
Author Organization [facility] Address [address] [place] [address] [place] [address] Phone Care Team Providers Care Complaint Evaluation Officer Name Role Phone Husam Carmona AREA FIELD PERSON Unavailable [phone] Remington Post MD Unavailable [phone] Immanuel Jaimes DO Unavailable [phone] Sobia White MD Primary Care Provid er Cindy Mc FUSION JUNCTURE GRINDER Unavailable [phone] Sobia White MD Unavailable + [phone] Unknown, Unknown Primary Care Provider Eder Lloyd DO Primary Care Provider [phone] Amaya Rodriguez MD Unavailable [phone] Edward Maddox MD Primary Care Provider [phone] Encounter Details Date Type Department Care Team (Late st Contact Info) Description 04/12/2022 Procedure Pass [facility] [address] [place] [address] Social History Tobacco Use Types Packs/Day Years [...] high school, GED, job training, learning the Qatari language, technical skills, or developing parenting skills)? [...] Description 04/26/2025 8:00 AM EST Office Visit [facility] [address] [place] [address] 3rd Floor, [address] [place] [address] Leon Osman MD 22 [facility], [address] [place] [address] [email or web address] documented as of this encounter Visit Diagnoses Not on filedocumented in this encounter Additional Health Concerns Infection Onset Date Last Indicated Resolved Time CoV-Risk 07/10/2022 07/10/2022 07/21/2022 1:21 AM EDT Assessment Noted Time PHQ-2 Depression Total Score: 0 01/19/20 5:25 PM EDT documented as of this encounter Care Teams Complaint Evaluation Officer Relationship Specialty Start Date End Date Sobia White MD 22 [facility] [address] [place] [address] [email or web address] PCP - General Family Medicine 04/08/21 04/12/22 Unknown, Jian, PCP - General 04/13/22 07/09/22 Eder Mansfield DO [address] [place] [address] mary PCP - General Endocrinology 07/10/22 08/04/23 Edward Maddox MD [address] [place] [address] [place] [phone] PCP - General Internal Medicine 08/05/23 Husam Carmona, EFRAIN [address] [place] [address], [address] [address] Historical LMR Provider 02/10/17 Remington Post MD [address] [place] [address], [address] [address] Historical LMR Provider 02/10/17 Immanuel Jaimes DO 30 [place] [address] [email or web address] Historical LMR Provider 02/10/17 Cindy Mc FNP [address] [place] [address] [email or web address] Nurse Practitioner Hematology and Oncology 05/25/21 Sobia White MD [address] [place] [address] [email or web address] Insurance Assigned Provider 08/01/21 07/31/22 Amaya Rodriguez MD [address] [place] [address], [address] [place] [address] [email or web address] Insurance Assigned Provider 07/31/22 04/30/23 documented as of this encounter Additional Source Comments The information contained in this document represents components of the legal health record. It is not the complete legal health record.[facility]
--- OUTSIDE RECORDS SUMMARY | 2025-01-18 07:56 | XMS_ITS | Clinical Summary ---
Author Organization [address] Address [address] [place] [address] Phone Care Team Providers Care Duct Installer Name Role Phone Edward Maddox MD Primary [...] Screening) 04/21/2028 04/21/2018 Cholesterol Screening (Lipid Panel) 09/11/2029 09/11/2024, 02/25/2024 Zoster Vaccines Completed 05/24/2019, 09/2018, 09/04/2015 [...] age to complete this topic Insurance MEDICARE [facility] [place] [id number] Care Teams Duct Installer Relationship Specialty Start Date End Date Edward Maddox MD [address] [place] [address] Dr [address] [facility] [place] [address] PCP - General Internal Medicine 04/20/24
--- OUTSIDE RECORDS SUMMARY | 2025-01-18 07:56 | XMS_ITS | Encounter Summary ---
Author Organization [facility] Address [address] [place] [address] [place] [address] Phone Care Team Providers Care Pressurizer Name Role Phone Amaya Rodriguez MD Primary Care Provider + Amaya Rodriguez MD Unavailable +[phone] Husam Carmona FILTER CHANGING TECHNICIAN Unavailable [phone] Cortez Powell DO Unavailable [phone] Remington Post MD Unavailable [phone] Concepcion Hooper PA-C Unavailable [phone] Armond Marcano MD Unavailable [phone] Immanuel Jaimes DO Unavailable [phone] Camron Pedraza FILTER CHANGING TECHNICIAN Unavailable [phone] Travis Smith MD Unavailable [phone] Husam Carmona FILTER CHANGING TECHNICIAN Primary Care Provider + Amaya Rodriguez MD Unavailable +[phone] Sobia White MD Primary Care Provid er + Cindy Mc AUTOMOTIVE GENERAL MANAGER Unavailable [phone] Sobia White MD Unavailable + Unknown, Unknown Primary Care Provider Eder Lloyd DO Primary Care Provider [phone] Amaya Rodriguez MD Unavailable +[phone] Edward Maddox MD Primary Care Provider [phone] Encounter Details Date Type Department Care Team (Late st Contact Info) Description 06/03/2017 Ancillary Orders [facility]ics [facility] Sports Medicine [address] [place] [address] Concepcion Hooper PA-C [address] [place] [address] Orthopedics & Sports Medicine, [place] [address] [email or web address] Social History Tobacco Use Types Packs/Day Years [...] Description 04/26/2025 8:00 AM EST Office Visit [facility] [address] [place] [address] 3rd [facility], [address] [place] [address] Leon Osman MD [address] [place] [address], [address] [address] [email or web address] documented as of this encounter Visit Diagnoses Not on filedocumented in this encounter Additional Health Concerns Infection Onset Date Last Indicated Resolved Time CoV-Exposed Comment:Recent close contact 11/29/2019 11/29/2019 12/13/2019 1:23 AM EDT CoV-Risk 12/18/2019 12/18/2019 01/01/2020 1:23 AM EDT CoV-Risk 07/10/2022 07/10/2022 07/21/2022 1:21 AM EDT documented as of this encounter Care Teams Pressurizer Relationship Specialty Start Date End Date Jennifer, Amaya M, MD [facility], [address] [place] [address] PCP - General 02/10/17 06/06/17 Husam Carmona, FILTER CHANGING TECHNICIAN [address] [place] [address], [address] [place] [address] PCP - General 06/07/17 04/07/21 Sobia White MD [address] [place] [address] [email or web address] PCP - General Family Medicine 04/08/21 04/12/22 Unknown, Jian, PCP - General 04/13/22 07/09/22 Eder Mansfield DO [address] [place] [address] [email or web address] PCP - General Endocrinology 07/10/22 08/04/23 Edward Maddox MD [address] [place] [address] [phone] PCP - General Internal Medicine 08/05/23 Amaya Rodriguez MD [address] [place] [address], [address] [place] [address] [email or web address] Historical LMR Provider 02/10/17 2 Husam Carmona, FILTER CHANGING TECHNICIAN [address] [place] [address], [address] [place] [address] [email or web address] Historical LMR Provider 02/10/17 Cortez Powell DO [address] [place] [address] Orthopedics & Sports [facility], [place] [address] [email or web address] Historical LMR Provider 02/10/17 05/02/21 Remington Post MD [facility], [address] [place] [address] [email or web address] Historical LMR Provider 02/10/17 Concepcion Hooper PA-C [address] [place] [address] Orthopedics Sports [facility], [place] [address] [email or web address] Historical LMR Provider 02/10/17 05/02/21 Armond Marcano MD [facility] Floor 1 [place] [address] [email or web address] Historical LMR Provider 02/10/17 05/02/21 Immanuel Jaimes DO [address] [place] [address] [email or web address] Historical LMR Provider 02/10/17 Camron Pedraza CNP [address] [facility], [address] [place] [address] [email or web address] Historical LMR Provider 02/10/17 Travis Smith MD [address] [place] [address] Historical LMR Provider 02/10/17 2 Amaya Rodriguez MD [address] [place] [address], [address] [address] [email or web address] Insurance Assigned Provider 06/29/19 08/01/21 Cindy Mc, [facility] [address] [place] [address] [email or web address] Nurse Practitioner Hematology and Oncology 05/25/21 Sobia White MD [address] [place] [address] [email or web address] Insurance Assigned Provider 08/01/21 07/31/22 Amaya Rodriguez MD [address] [place] [address], [address] [address] [email or web address] Insurance Assigned Provider 07/31/22 04/30/23 documented as of this encounter Additional Source Comments The information contained in this document represents components of the legal health record. It is not the complete legal health record.[facility]
--- OUTSIDE RECORDS SUMMARY | 2025-01-18 07:56 | XMS_ITS | Encounter Summary ---
Author Organization [facility] Address [address] [place] [address] [place] [address] Phone Care Team Providers Care Metal Ceiling Hanger Name Role Phone Husam Carmona HEAD WAITRESS Unavailable [phone] Remington Post MD Unavailable [phone] Immanuel Jaimes DO Unavailable [phone] Amaya Rodriguez MD Unavailable +[phone] Sobia White MD Primary Care Provid er Cindy Mc REEL CART OPERATOR Unavailable [phone] Sobia White MD Unavailable [phone] Unknown, Unknown Primary Care Provider Eder Lloyd DO Primary Care Provider +[phone] Amaya Rodriguez MD Unavailable +[phone] Edward Maddox MD Primary Care Provider [phone] Encounter Details Date Type Department Care Team (Late st Contact Info) Description 05/08/2021 Procedure Pass [facility] [place] [address] [place] [address] Social History Tobacco Use Types Packs/Day [...] high school, GED, job training, learning the Belarusian language, technical skills, or developing parenting skills)? [...] Description 04/26/2025 8:00 AM EST Office Visit [facility] [address] [place] [address] 3rd Floor, [address] [place] [address] Leon Osman MD [address] [place] [address], [address] [place] [address] [email or web address] documented as of this encounter Visit Diagnoses Not on filedocumented in this encounter Additional Health Concerns Infection Onset Date Last Indicated Resolved Time CoV-Risk 07/10/2022 07/10/2022 07/21/2022 1:21 AM EDT Assessment Noted Time PHQ-2 Depression Total Score: 0 01/19/20 20 5:25 PM EDT documented as of this encounter Care Teams Metal Ceiling Hanger Relationship Specialty Start Date End Date Sobia White MD [address] [place] [address] [place] [address] [email or web address] PCP - General Family Medicine 04/08/21 04/12/22 Unknown, Jian, PCP - General 04/13/22 07/09/22 Eder Mansfield DO [address] [place] [address] mary PCP - General Endocrinology 07/10/22 08/04/23 Edward Maddox MD [address] [place] [address] [place] [phone] PCP - General Internal Medicine 08/05/23 Husam Carmona, EFRAIN [address] [place] [address], [address] [address] Historical LMR Provider 02/10/17 Remington Post MD [address] [place] [address], [address] [address] Historical LMR Provider 02/10/17 Immanuel Jaimes DO [address] [place] [address] [email or web address] Historical LMR Provider 02/10/17 Amaya Rodriguez MD [address] [place] [address], [address] [place] [address] [email or web address] Insurance Assigned Provider 06/29/19 08/01/21 Cindy Mc, REEL CART OPERATOR [address] [place] [address] [email or web address] Nurse Practitioner Hematology and Oncology 05/25/21 Sobia White MD [address] [place] [address] [place] [address] [email or web address] Insurance Assigned Provider 08/01/21 07/31/22 Amaya Rodriguez MD [address] [place] [address], [address] [place] [address] [email or web address] Insurance Assigned Provider 07/31/22 04/30/23 documented as of this encounter Additional Source Comments The information contained in this document represents components of the legal health record. It is not the complete legal health record.[facility]
--- OUTSIDE RECORDS SUMMARY | 2025-01-18 07:56 | XMS_ITS | Encounter Summary ---
Author Organization [facility] Address [address] [place] [address] Care Team Providers Care Design Architect Name Role Phone Edward Maddox MD Primary Care Provider [phone] Encounter Details Date Type Department Care Team (Latest Contact Info) Description 03/29/[address] [facility] [address] [place] [phone] Andree Yusuf MD [address] [address] Encounter for gynecological examination (general) [...] lesion or malignancy 04/02/2024 3:10 PM EST [facility] General Categorization Negative 04/02/2024 3:10 PM EST [facility] Specimen Adequacy Satisfactory for evaluation 04/02/2024 3:10 PM EST [facility] Pap Methodology Liquid Based Pap Test 04/02/2024 3:10 PM EST [facility] Disclaimer The Pap test is a screening test which carries an inherent false negative rate. These test results should be correlated with the patient's clinical findings and history. This Pap test was processed using an automated screening system. Technical cytopathology services provided by [facility], at [address] [place] [address] (CLIA # [id number]/Deandre Aleman MD, Aerobics Instructor.) 04/02/2024 3:10 PM [facility] Console Pap Interpretation Reported 04/02/2024 3:10 PM [facility] Brushing/Spatula Vaginal structure / Unknown 03/28/2024 03/29/2024 8:25 AM EST us Andree Yusuf MD LAB CYTOLOGY ORDERABLES Final Result [facility] [address] [place] [address], documented in this encounter Visit Diagnoses Diagnosis Encounter for gynecological examination (general) (routine) without abnormal findings documented in this encounter Care Teams Design Architect Relationship Specialty Start Date End Date Edward Maddox MD [address] [place] [address] Dr [address] [facility] [place] [address] PCP - General Internal Medicine 04/20/24 documented as of this encounter
--- OUTSIDE RECORDS SUMMARY | 2025-01-18 07:56 | XMS_ITS | Encounter Summary ---
Author Organization [facility] Address [address] [place] [address] [place] [address] Phone Care Team Providers Care Supervisor Dehydrogenation Name Role Phone Amaya Rodriguez MD Primary Care Provider + Amaya Rodriguez MD Unavailable [phone] Husam Carmona APPRAISER ART Unavailable [phone] Cortez Powell DO Unavailable [phone] Remington Post MD Unavailable [phone] Concepcion Hooper PA-C Unavailable [phone] Armond Marcano MD Unavailable [phone] Immanuel Jaimes DO Unavailable [phone] Camron Pedraza APPRAISER ART Unavailable [phone] Travis Smith MD Unavailable [phone] Husam Carmona APPRAISER ART Primary Care Provider + Amaya Rodriguez MD Unavailable +[phone] Sobia White MD Primary Care Provid er + Cindy Mc PHYSICAL EDUCATION PROFESSOR Unavailable [phone] Sobia White MD Unavailable + Unknown, Unknown Primary Care Provider Eder Lloyd DO Primary Care Provider +[phone] Amaya Rodriguez MD Unavailable [phone] Edward Maddox MD Primary Care Provider [phone] Encounter Details Date Type Department Care Team (Late Contact Info) Description 06/03/2017 Ancillary Orders [facility] - [address] [address] Concepcion Hooper PA-C [address] [place] [address] Orthopedics & Sports [place], [place] [address] [email or web address] Right knee pain, unspecified chronicity Social History [...] Description 04/26/2025 8:00 AM EST Office Visit [facility] [address] [place] [address], [address] [place] [address] Leon Osman MD [address] [place] [address] [email or web address] documented as of this encounter Results * [...] documented as of this encounter Care Teams Supervisor Dehydrogenation Relationship Specialty Start Date End Date Amaya Rodriguez MD 22 [facility], [address] [address] [email or web address] PCP - General 02/10/17 06/06/17 Husam Carmona, APPRAISER ART 22 [facility], [address] [place] [address] [email or web address] PCP - General 06/07/17 04/07/21 Sobia White MD [address] [address] [email or web address] PCP - General Family Medicine 04/08/21 04/12/22 Unknown, Jian, PCP - General 04/13/22 07/09/22 Eder Mansfield DO 22 [place] [address] [email or web address] PCP - General Endocrinology 07/10/22 08/04/23 Edward Maddox MD [address] [place] [address] [address] [place] [phone] PCP - General Internal Medicine 08/05/23 Amaya Rodriguez MD [address] [place] [address], [address] [place] [address] [email or web address] Historical LMR Provider 02/10/17 2 Husam Carmona CNP [address] [place] [address], [address] [place] [address] Historical LMR Provider 02/10/17 Cortez Powell DO [address] [place] [address] [address]ics Sports [facility], [place] [address] [email or web address] Historical LMR Provider 02/10/17 05/02/21 Remington Post MD [address] [place] [address], [address] [place] [address] [email or web address] Historical LMR Provider 02/10/17 Concepcion Hooper PA-C [address] [place] [address] Orthopedics [facility], [place] [address] [email or web address] Historical LMR Provider 02/10/17 05/02/21 Armond Marcano MD 22 [facility] Floor 1 [place] [address] [email or web address] Historical LMR Provider 02/10/17 05/02/21 Immanuel Jaimes DO [address] [place] [address] [email or web address] Historical LMR Provider 02/10/17 Camron Pedraza CNP [address] [place] [address], [address] [place] [address] Historical LMR Provider 02/10/17 Travis Smith MD [address] [place] [address] Historical LMR Provider 02/10/17 2 Amaya Rodriguez MD [address] [place] [address] [address] [place] [address] Insurance Assigned Provider 06/29/19 08/01/21 Cindy Mc FNP [address] [place] [address] [email or web address] Nurse Practitioner Hematology and Oncology 05/25/21 Sobia White MD [address] [place] [address] [email or web address] Insurance Assigned Provider 08/01/21 07/31/22 Amaya Rodriguez MD [address] [place] [address], [address] [place] [address] Insurance Assigned Provider 07/31/22 04/30/23 documented as of this encounter Additional Source Comments The information contained in this document represents components of the legal health record. It is not the complete legal health record.[facility]
--- OUTSIDE RECORDS SUMMARY | 2025-01-18 07:56 | XMS_ITS | Patient Health Record ---
Author [facility] Address [address] [place] [address] Care Team Providers Care Rn Patient Care Name Role Phone EdithmyrnaSobia Primary Care Provider Harriett Glover Unavailable [phone] Reason For Referral No Information Medications Medication [...] Problem Acquired hammer toe of right foot (50245452202 ) Hammer toe of right foot (M20.41) Active confirmed Problem Acquired hammer toe of left foot (80260416748 93709) Hammer toe of left foot (M20.42) Active confirmed Problem Acquired hallux valgus (96452279) 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) Active confirmed Plan Of Treatment Pending Test Test Name Order Date X ray : Foot, left 3V 12/09/2021 X ray : Foot, right 3V 12/09/2021 Insurance Providers Payer Name Payer Address Payer Phone Subscriber Number Group Number Insured Name Patient Relationship to Insured Coverage Start Date Coverage End Date Medicare National [employer] [address] [facility] [place] [phone] [id number] Christianne Yoder Self - patient is the insured [employer] [address] [place] [address] [id number] Christianne Yoder Self - patient is the insured Medical (General) History Medical History History ICD Code Arthritis Back,Hip,and Knee pain Cancer Reflux ( GERD) Measles Mumps Chicken pox Joint implants/screws Surgical History Surgery Date(Month/Year) knee replacement 11/2015, 05/2016 hysterectomy 03/2013 trapezoid bone 10/2019
--- OUTSIDE RECORDS SUMMARY | 2025-01-18 07:57 | XMS_ITS | Patient Health Record ---
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 Problem Osteoarthritis of right subtalar joint (6503345611429165 1) 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
--- OUTSIDE RECORDS SUMMARY | 2025-01-18 07:57 | XMS_ITS | Encounter Summary ---
Author Organization [facility] Address [address] [facility] [address] [place] [address] Phone Care Team Providers Care Insulator Apprentice Name Role Phone Husam Carmona ROLL DOUGH DIVIDER Unavailable Remington Post MD Unavailable [phone] Immanuel Jaimes DO Unavailable [phone] Cindy Mc CLIENT EVALUATOR Unavailable [phone] Edward Maddox MD Primary Care Provider [phone] Encounter Details Date Type Department Care Team (Late st Contact Info) Description 09/08/2023 Procedure Pass [facility] [address] [place] [address] Social History Tobacco Use Types Packs/Day Years [...] Description 04/26/2025 8:00 AM EST Office Visit [facility] [address] [place] [address] [address]rd Floor, [address] [place] [address] Leon Osman MD [address] [facility], [address] [place], [place] [phone] documented as of this encounter Visit Diagnoses Not on filedocumented in this encounter Additional Health Concerns Assessment Noted Time PHQ-2 Depression Total Score: 0 01/19/20 20 5:25 PM EDT documented as of this encounter Care Teams Insulator Apprentice Relationship Specialty Start Date End Date Tan, Edward Ortiz MD [address] [place] [address] Drive [address] [place] [phone] PCP - General Internal Medicine 08/05/23 Husam Carmona CNP [address] [place] [address], [address] [place] [address] Historical LMR Provider 02/10/17 Remington Post MD [address] [place] [address], [address] [place] [address] Historical LMR Provider 02/10/17 Immanuel Jaimes DO [address] [place] [address] [email or web address] Historical LMR Provider 02/10/17 Cindy Mc FNP [address] [place] [address] Nurse Practitioner Hematology and Oncology 05/25/21 documented as of this encounter Additional Source Comments The information contained in this document represents components of the legal health record. It is not the complete legal health record.[facility]
--- OUTSIDE RECORDS SUMMARY | 2025-01-18 07:57 | XMS_ITS | Clinical Summary ---
Author Organization [facility] Address [address] [facility] [address] [place] [address] Phone Care Team Providers Care Breeding Manager Name Role Phone Husam Carmona PET STYLIST Unavailable Remington Post MD Unavailable [phone] Immanuel Jaimes W DO Unavailable Cindy Mc SILK SCREEN ETCHER Unavailable [phone] Po, Edward Ortiz MD Primary Care Provider [phone] Allergies No known active allergies Medications cyclobenzaprine (FLEXERIL) 5 MG tablet Active multivitamins-min erals-folic urep-eafstiq-hkiq in (COMPLETE SENIOR) 0.4 mg-300 mcg- 250 mcg Tab Take 1 tablet by mouth daily. Active rosuvastatin (CRESTOR) 5 MG tablet Take 1 tablet (5 mg total) by mouth daily. 90 tablet 3 04/20/2024 Active MOUNJARO 5 mg/0.5 mL PnIj subcutaneous pen Inject 5 mg under the skin once a week. 09/12/2024 Active Active Problems Patient Care Coordination No te Formatting of this note migh t be different from the original. Height 167.5cm No shoes Problem Noted Date Diagnosed Date Ankle edema 10/19/2024 Assessment & Plan (10/19/2024 9:42 AM EDT): On exam today trace ankle edema bilaterally. I have encouraged patient to participate in conservative measures hydrate well exercise compression stockings and elevation. Also encouraged patient that she could go back on hydrochlorothiazide for her trace ankle edema and high blood pressure readings as it looks like nephrology attempted to put the patient on this medication however patient continues to want to stay off this medication. 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 Thyroid function studies are in the reference range so she does not require thyroxine hormone supplementation. There was an evident rise in TSH to stimulate the left lobe to produce more thyroxine hormone. 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 She does not require radioactive iodine ablation. Will monitor with serial ultrasounds periodically to ensure that there is no new development tumors in the remainder of the gland. 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 Thyroid function studies are in the reference range so she does not require thyroxine hormone supplementation. There was an evident rise in TSH to stimulate the left lobe to produce more thyroxine hormone. Assessment & Plan (01/11/2023 9:25 AM EDT): In addition to oncocytic carcinoma that measures 0.9 x 0.8 cm she was found to have micropapillary carcinoma measuring 0.15 cm. She does not require radioactive iodine ablation or completion thyroidectomy. Will monitor with serial ultrasounds periodically to ensure that there is no new development tumors in the remainder of the gland. We do have to monitor thyroid function studies to see if she is developed hypothyroidism. Previous TSH was 1.23 IU/mL. Depressive disorder 07/10/2022 Obstructive sleep apnea syndrome 07/10/2022 Osteoarthritis of knee 07/10/2022 Overactive bladder 07/10/2022 Prediabetes 05/28/2022 Assessment & Plan (04/14/2023 9:15 AM EST): Metformin was stopped she is willing to take the medication again so I prescribed it for 1 year. Assessment & Plan (01/11/2023 9:33 AM EDT): She is on metformin extended release 500 mg/dL but the hemoglobin A1c increased from 5.9 to 6.0% possibly due to corticosteroid administration. LDL also increased I will say that she needs to maintain this below 160 mg/dL because she has 1 risk factor and is technically not diabetic. But the steroids did to increase the elevation of LDL so she will repeat the lipid panel in 3 months. If is not below 160 mg/dL she may benefit from a statin. Currently she is using Zetia 10 mg daily Assessment & Plan (09/02/2022 8:48 AM EDT): Based on glucose tolerance test she does not have diabetes but she does have prediabetes based on fasting glucose and also based on hemoglobin A1c of 5.9%. She is not able to exercise much but she can monitor her diet. At this point since she is not able to exercise much I discussed with her the use of metformin extended release she is willing to try it so I prescribed 500 mg once a day she should try to take it with food because this medication can be associated with GI symptoms. Assessment & Plan (05/28/2022 9:07 AM EST): The patient was found to have elevated fasting glucose C-peptide and insulin levels. I will check hemoglobin A1c and request glucose tolerance test. She can do this anytime but she needs to be fasting and must go to any [facility] laboratory for this study. She does not need to schedule an appointment. However it will probably be more accurate if she went to the main campus at the hospital because the specimens will not sit around for long period of time. 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 On pathology we will know if this is malignant or not. The cytology report is not consistent with medullary thyroid carcinoma which was the reason why initially was evaluating thyroid for nodules. I will refer the patient to endocrine surgeon at [facility] Dr. Rhiannon Boyd. Assessment & Plan (04/12/2022 11:22 AM EST): The patient has a nontoxic uninodular goiter with a TI-RADS 4 nodule measuring 2.3 x 1.8 x 2.0 cm. She requires ultrasound-guided fine-needle aspiration which will be done on 05/26/2022 she will return to follow-up on 05/28/2022 for review of cytology report. I did inform the patient that 95% of all nodules are benign. Elevated blood pressure read ing in office with white coat syndrome, without diagnosis of hypertension 02/09/2022 Exertional dyspnea 02/09/2022 Aortic stenosis 07/20/2021 Assessment & Plan (10/19/2024 9:39 AM EDT): Updated echo shows that aortic stenosis has progressed to moderate. Patient asymptomatic. We will continue with routine echoes. Assessment & Plan (04/20/2024 1:48 PM EST): Recent echocardiogram showed that the degree of aortic stenosis has increased from mild to moderate. Patient remains asymptomatic. Patient already has yearly echo scheduled on August/2024. Advised patient to continue to monitor for symptoms and if any changes call the office. Assessment & Plan (09/08/2023 10:35 AM EDT): Her aortic started gnosis has progressed mild to moderate. Would recommend better blood pressure control as well as weight loss. She denies any symptoms at this time. Will continue to monitor her echocardiogram on a yearly basis. Assessment & Plan (02/11/2022 4:00 PM EDT): Mild on echocardiogram in June, unlikely to cause any symptoms at present. Will recheck this every 2 years (or sooner if symptoms warrant). Hyperhidrosis 05/08/2021 Hypertension 05/08/2021 Assessment & Plan (10/19/2024 9:38 AM EDT): Blood pressure today mildly elevated at 142/86. Patient tells me she follows up with nephrology in regards to her blood pressure nephrology advised starting on antihypertensives however patient declines. She declines today in office again as patient tells me her home blood pressure readings are well below 130/80. Patient educated on HTN pathophysiology, htn medication, importance of low salt DASH heart healthy diet, exercise and home B/P monitoring. Advised if home blood pressure readings are higher than 130/80 to call the office. Assessment & Plan (04/20/2024 1:50 PM EST): Repeat blood pressure today 140/90. Patient reports she is being followed by nephrology and next week she has a planned 24-hour blood pressure monitoring and will follow-up Tuesday with nephrology regarding blood pressure results. Patient reports when she does monitor her blood pressure at home it is usually in the 130s over 80s. Patient is not currently on any antihypertensives. Patient educated on HTN pathophysiology, htn medication, importance of low salt DASH heart healthy diet, exercise and home B/P monitoring. Advised patient to follow-up with me regarding results on Tuesday regarding her blood pressure. Assessment & Plan (09/08/2023 10:34 AM EDT): Her blood pressure is quite elevated here at 170/88. She reports being a lot of pain today and was rushing to get here and that is why the elevation in her blood pressure is present today. She has gone to the doctor's office last week and during his echocardiogram her blood pressure was normal. She is on no antihypertensives at this time. She is encouraged to follow heart healthy diet including low sodium and to start exercising. Exercise is limited due to back pain. It is also strongly encouraged that she lose weight given her high blood pressure. SBP goal less than 130/80. Weight loss would help with this. A GLP-1 may be helpful for her to help lose weight however it appears she has a history for thyroid cancer which does not appear to be medullary thyroid and she does not have a family history for medullary thyroid cancer. Would like her to work on losing at least 20 pounds prior to her next visit with me. Assessment & Plan (01/11/2023 8:15 AM EDT): Blood pressure is quite elevated here in the office of 180/80. She claims she has whitecoat syndrome and her blood pressures are always high in the doctor's office. She tells me her blood pressures at home run about 130/80. She did not bring her blood pressure log for review today. She is not on any antihypertensives. She states she already follows a low-sodium diet however she blames her thyroid and her being overweight on her blood pressure. She does not want to take any blood pressure medications at this time. She only wants to take natural herbs. We did discuss that she will need to bring her blood pressure log to next visit so that we can review this and she may need to be on something for blood pressure at that time if her blood pressures remain elevated. SBP goal less than 130/80. Assessment & Plan (08/30/2022 12:56 PM EDT): BP is elevated in office today at 162/92. She tells me that she has a history of white coat hypertension and in the past was checking her BP at home and it was much more normal . She has not been doing this lately. We discussed management options going forward- starting a low dose of an antihypertensive versus having her keep an eye on her BP readings daily at home. She would like to avoid taking any medications if at all possible because she has a lot of adverse effects to medications ( if a medication says there's a 2% chance of a side effect, I'm that 2%). She is going to start checking her BP daily at home and keep a log of these values. We will readdress this at her next follow up visit. Assessment & Plan (02/11/2022 3:53 PM EDT): BP elevated today but she is quite anxious regarding her upcoming back surgery. States that blood pressures have been under good control at home. She admits to a fair amount of weight gain over the past two years and is looking forward to becoming more active after her back surgery (currently experiencing a lot of back/leg discomfort that should improve following surgery). Aware of the importance of weight loss in regard to cardiovascular health. Assessment & Plan (05/18/2021 8:29 AM EST): She may have white coat hypertension as her home readings are stable. NSAIDs could be contributory. Encourage bringing in BP cuff to calibrate against the in-office monitor. Check BP again at next office visit- consider antihypertensives. Right shoulder pain 12/18/2020 Assessment & Plan (12/18/2020 12:33 PM EDT): Likely has subacromial bursitis, or possibly osteoarthritis. Either way she may benefit from a steroid injection. We have arranged an urgent referral to rheumatology for evaluation today. Rotator cuff impingement syndrome of right shoul yobany 12/18/2020 Assessment & Plan (12/18/2020 1:48 PM EDT): Patient is referred to me for evaluation and treatment of acute pain in the right shoulder. No trauma. Anatomy suggest rotator cuff tear. Also suggestive of underlying acromioclavicular if not glenohumeral osteoarthritis. An x-ray will be done. Attempted aspiration and cortisone injection followed by pendulum and wall walking motion exercises and then referral to physical therapy for strengthening of the rotator cuff. She is to call me within 10 days and if there is no sustained improvement we should do an MRI scan to rule out a significant rotator cuff tear. 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 Assessment & Plan (04/12/2022 11:21 AM EST): The patient has diaphoresis cortisol level was low which could imply adrenal insufficiency this is unlikely she is not hypotensive glucose in the normal reference range electrolytes in the reference range. I think the cortisol level was low because it was drawn approximately 6 hours after she wakes up is just too long to wait. She still has to wait approximately 3 hours because she gets up early in the lab does not open until 7 or 8 AM. I am repeating the lab work and her proinsulin was elevated so I am checking that again but insulin was in the reference range and again glucose in the reference range. Lastly she was found to have a tumor of the thyroid gland medullary thyroid carcinoma can be associated with diaphoresis this is again extremely rare type of cancer so it seems unlikely that this is the case but we still have to proceed with ultrasound-guided fine-needle aspiration. Assessment & Plan (12/17/2021 9:34 AM EDT): The patient is having focal hyperhidrosis. Mostly evaluating endocrine etiologies but based on her history it does not appear to be any of the endocrine condition. She is not hyperthyroid TSH is in the normal reference range. Medullary thyroid carcinoma can be associated with diaphoresis. I did not palpate any thyroid nodules. I will refer the patient for an ultrasound of the thyroid gland for further evaluation. The patient is not hypertensive so pheochromocytoma seems unlikely but I will check plasma metanephrines. She has not had gastric bypass surgery so dumping syndrome and hyperinsulinemia does not appear to be likely. I will check for insulinoma although she is not complaining of fasting hypoglycemia. I will check fasting glucose levels, insulin levels and proinsulin levels but again this seems unlikely. She does not have any acromegalic features, nevertheless I will check for IGF-I levels. She does not complain of flushing or diarrhea. I will check 5-HIAA for carcinoid syndrome which I believe has already been done. I will check a cortisol level fasting to screen for adrenal insufficiency but she does not have any electrolyte abnormalities, hypoglycemia or low blood pressure. This also seems unlikely. She is not on any medications that are associated with diaphoresis. I will check 1, 25 dihydroxy vitamin D given that she is not having any fevers or weight loss. Lymphoma can be associated with marked sweats. This seems unlikely but I will check to 125 dihydroxy vitamin D. Finally I will check for mastocytosis with a tryptase level. The latter on that endocrine etiologies but could potentially be the etiology. Mixed hyperlipidemia 01/11/2019 Assessment & Plan (10/19/2024 9:40 AM EDT): Updated LDL 81. Patient will continue on rosuvastatin 5 mg daily. Patient recently lost 20 pounds since starting on Mounjaro. She will continue with PCP follow-ups to monitor her on Mounjaro. Assessment & Plan (04/20/2024 1:51 PM EST): Patient reports she stopped taking Zetia as it was not working. She reports she currently takes red yeast rice. Her last lipid panel on 02/25/2024 showed an LDL of 174. I will start her on a rosuvastatin today. Advised her to stop the red yeast rice as it is not FDA approved. She will repeat fasting lipid and liver function in 3 months. Assessment & Plan (09/08/2023 10:35 AM EDT): PCP is monitoring hyperlipidemia. She is on Zetia 10 mg daily. Assessment & Plan (04/14/2023 9:15 AM EST): LDL 136 mg/dL should be maintained below 160 mg/dL she is doing well. Assessment & Plan (01/11/2023 8:17 AM EDT): Her most recent lipid panel completed in December/2022 showed cholesterol 275, HDL 49, LDL 196, triglycerides 151.She stopped taking her Zetia as she only took this for 3 weeks but she denies having any side effects to this. She did stop taking her medication because she did not take any medications other than having natural herbs. She also was taking red rice tablets but she also stopped taking this. We came to the agreement today that she will restart her Zetia in addition to her red rice to see if this will improve her cholesterol. She also speak with Dr. Marks regarding her thyroid issues contributing to her cholesterol however we discussed today that is most likely her diet and offered her to try intermittent fasting with clean eating during this period. Assessment & Plan (08/30/2022 12:59 PM EDT): Repeat fasting lipids done last month show further increase in LDL and total cholesterol. She understands the importance of getting her lipids under control but does not want to take any form of statin due to fear of side effects. She has a friend who tolerates ezetimibe and is willing to give this a try. I did advise her that I have doubts that Zetia alone will get her lipids to goal, but she would prefer to at least try this for 3 months and repeat fasting lipids at that point. Assessment & Plan (02/11/2022 3:54 PM EDT): Again, reports lipids have been elevated recently in light of weight gain. Looking forward to increasing exercise after her back surgery. I have placed an order for fasting lipids to be drawn prior to his next follow up visit. Flat feet, bilateral 08/28/2018 History of bilateral knee replacement 08/28/2018 Overview (08/28/2018): Left [address] Smith Age-related cataract of right eye 08/28/2018 Overview (08/28/2018): Stable, cleared for surgery with Dr Clark Primary insomnia 12/22/2017 History of ovarian cancer 09/15/2017 History of melanoma 09/15/2017 Overview (08/28/2018): 2014, nl margins and neg lymph nodes on biopsy. 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 Status post adjuvant carboplatin and paclitaxel completed July 27, [address] Son[facility] staging not available sentinel lymph node biopsy negative ____ history of ovarian cancer in 07/2013 and melanoma status post excision by Dr. Rogers who is now on active surveillance and follows with oncology once a year with CA- 125, CMP, CBC monitoring. Follow up scheduled with Dr. Jaimes 05/2021 Assessment & Plan (05/18/2021 8:34 AM EST): history of ovarian cancer in 07/2013 and melanoma status post excision by Dr. Rogers who is now on active surveillance and follows with oncology once a year with CA- 125, CMP, CBC monitoring. Follow up scheduled with Dr. Jaimes 05/2021 Pain and swelling of left knee 03/15/2017 Resolved Problems Problem Noted Date Diagnosed Date Resolved Date Melanoma 08/28/2018 08/28/2018 Overview (08/28/2018): New Eng. Derm Encounters Date Type Department Care Team Description 10/19/2024 8:00 AM EDT Office Visit [facility] [address] [place] [address] [address], [address] [place] [address] Soumya Cm, MAURICIO Primary hypertension (Primary Dx); Nonrheumatic aortic valve stenosis; Mixed hyperlipidemia; Ankle edema from Last 3 Months Immunizations Immunization Administration Dates Next Due COVID-19 (Pre-02/14) Abram Vaccine, [id number], PF 06/26/2020 DT 04/01/2008 [id number] FORMULATION 04/30/2009 INFLUENZA, SPLIT VIRUS, TRIVALENT PF 01/24/2017 INFLUENZA, SPLIT VIRUS, TRIV ALENT W/ PRESERVATIVE IM 01/23/2014,02/20/2013,12/20/2011,02/10,04/13/2010 Influenza High-Dose Quadriva lent Preservative Free IM 01/22/2020 Influenza High-Dose Trivalen t Preservative Free IM 02/21/2019,01/09/2018 Influenza, Unspecified Formulation 02/21/2019, Pneumococcal conjugate PCV13 05/11/2016 Pneumococcal polysaccharide PPSV23 01/22/2020, Td (adult),2 Lf Tetanus Toxo id, PF, Adsorbed 11/08/1998 Tdap 12/23/2017,04/01/2008 Zoster live 09/04/2015 Zoster recombinant 05/24/2019,02/28/2019 Family History Medical History Relation Comments Heart disease Father [place]'s disease Mother Heart murmur Mother Infl. arthritis Mother Osteoporosis Mother Thyroid disease Unspecified Relation Status Comments Father Mother Unspecified Social History Tobacco Use Types Packs/Day Years Used Date Smoking Tobacco: Former Cigarettes Q uit: 1989 Smokeless Tobacco: Never Tobacco Cessation:Counseling Given: Not Answered Alcohol Use Standard Drinks/Week Comments Not Currently [...] Not on file Not on fi le Last Filed Vital Signs Vital Sign Reading Time Taken Comments Blood Pressure 142/86 10/19/2024 7:57 AM EDT Pulse 86 10/19/2024 7:57 AM EDT Temperature 36.8 C (98.3 F) 08/05/2023 12:25 PM EDT Respiratory Rate 18 08/05/2023 12:25 PM EDT Oxygen Saturation 96% 10/19/2024 7:57 AM EDT Inhaled Oxygen Concentration - - Weight 111.1 kg (245 lb) 10/19/2024 7:57 AM EDT Height 172.1 cm (5' 7.75 ) 10/19/2024 7:57 AM ED T Body Mass Index 37.53 10/19/2024 7:57 AM EDT Plan of Treatment Upcoming Encounters Date Type Department Care Team (Late st Contact Info) Description 04/26/2025 8:00 AM EST Office Visit [facility] [address] [place] [address] [address] Floor, [address] [place] [address] Leon Osman MD [address] [facility], [address] [place] [address] [email or web address] Maintenance Due Date Last Done Comments COLOGUARD 1997 FIT TEST 1997 FOBT 1997 SIGMOIDOSCOPY 1997 VIRTUAL COLONOSCOPY 1997 RSV VACCINE (1 - Risk 60-74 years 1-dose series) 2012 DEPRESSION SCREENING 01/18/2021 01/19/2020 MAMMOGRAM 10/30/2024 10/30/2022, 09/24, 10/19/2019, Additional history exists INFLUENZA VACCINE (#1) 2024 , 01/22/2020, 02/21/2019, Additional history exists COVID-19 VACCINE (2 - season) 2024 06/26/2020 BLOOD PRESSURE 04/20/2025 10/19/2024 SMOKING Hx and SMOKELESS TOBACCO SCREENING 10/19/2025 10/19/2024 COLONOSCOPY 05/13/2026 05/13/2016 COLORECTAL CANCER SCREENING 05/13/2026 Adult Td,Tdap Booster 12/24/2027 12/23/2017 , 04/01/2008, 11/08/1998 LIPID PANEL 09/11/2029 09/11/2024, 110 05/2023, 04/09/2023, Additional history exists OSTEOPOROSIS SCREENING INITIAL (ONE-TIME) Completed 04/21/2018 ZOSTER VACCINES Completed 05/24/2019, 11/0 09/2018, 09/04/2015 PNEUMOCOCCAL VACCINES (50+ years) Completed 01/22/2020, 05/11/2016, 04/30/2009 HEPATITIS C SCREENING Completed 01/23/2020, 020 HEPATITIS A VACCINES Aged Out No long er eligible based on patient's age to complete this topic HIB VACCINES Aged Out No longer eligi ble based on patient's age to complete this topic MENINGOCOCCAL VACCINES (ACWY) Aged Out No longer eligible based on patient's age to complete this topic MENINGOCOCCAL VACCINES (B) Aged Out N o longer eligible based on patient's age to complete this topic Medical Devices Not on file Procedures Procedure Name Priority Date/Time Associated Diagnosis Comments LIPID PANEL Routine 09/11/2024 9:33 AM EDT Mixed hyperlipidemia HM MAMMOGRAPHY Routine 10/30/2022 HEPATITIS C ANTIBODY, QUALITATIVE Routine 01/23/2020 9:51 AM EDT Encounter for hepatitis C screening test for low risk patient BD DXA SPINE AND HIP WITH FOREARM Routine 04/21/2018 8:40 AM EST Estrogen deficiency from Last 3 Months or Most Recently Relevant to Health Maintenance Results * (ABNORMAL) Lipid panel (09/11/2024 9:33 AM EDT) HDL 45 mg/dL [facility] Comment: Interpretation <40 mg/dL: Low HDL cholesterol (major risk factor for CHD) Greater than or equal to 60 mg/dL: High HDL cholesterol ( negative risk factor for CHD) HDL - cholesterol is affected by a number of factors, e.g. smoking, excerise, hormones, sex and age. CHOLESTEROL 158 0 - 240 mg/dL [facility] TRIGLYCERIDES 161(H) 30 - 160 mg/dL [facility] LDL 81 50 - 129 mg/dL [facility] Comment: LDL levels in terms of risk for coronary heart disease: <100 mg/dL: Optimal 100-129 mg/dL: Near or above optimal 130-159 mg/dL: Borderline high 160-189 mg/dL: High >190 mg/dL: Very High CARDIAC RISK RATIO 3.5 3.3 - 4.4 [facility] Blood 09/11/2024 9:33 AM EDT 09/11/2024 9:46 AM EDT us Soumya Cm DNP LAB BLOOD ORDERABLES Fin al Result Performing Organization Address City/[facility]/ZIP Co de Phone Number [address] [phone] * HM MAMMOGRAPHY FOR RESULT ENTRY ONLY (10/30/2022) us Historical Provider HEALTH MAINTENANCE Final Result * Hepatitis C antibody, qualitative (01/23/2020 9:51 AM EDT) HCV NON-REACTIV E NON-REACTI VE [facility] Blood 01/23/2020 9:51 AM EDT 01/23/2020 9:58 AM EDT us Husam Carmona PET STYLIST LAB BLOOD ORDERABLES F inal Result [facility] [address] [place] [address] * BD DXA SPINE AND HIP WITH FOREARM (04/21/2018 8:40 AM EST) Anatomical Region Laterality Modality Bone Density Bone Density 04/21/2018 1:47 PM EST Impressions 04/21/2018 1:50 PM EST Normal bone mineral density at all 4 sites assessed. S/S: Estrogen deficiency, bone density screening, family history of osteoporosis POS - [id number] Narrative 04/21/2018 1:50 PM EST This is a 68-year-old postmenopausal patient with a family history of osteoporosis. Evaluation of the lumbar spine and both hips is obtained and appears appropriate. The lumbar spine including L1 and L4 discloses a total bone mineral density of 1.135 g/cm2 with a T-score of 0.9. This is in the normal range. The right hip has a total bone mineral density of 0.927 g/cm2 with a T-score of -0.1 this is in the normal range. The left hip has a total bone mineral density of 0.909 g/cm2 for a T-score of -0.3. This is in the normal range. The left forearm has a total bone mineral density of 0.535 g/cm2 for a T-score of -0.6. This is in the normal range. Procedure Note Raymundo Waite MD - 04/21/2018 This is a 68-year-old postmenopausal patient with a family history ofosteoporosis. Evaluation of the lumbar spine and both hips is obtained and appearsappropriate. The lumbar spine including L1 and L4 discloses a total bone mineraldensity of 1.135 g/cm2 with a T-score of 0.9. This is in the normalrange. The right hip has a total bone mineral density of 0.927 g/cm2 with aT-score of - 0.1 this is in the normal range. The left hip has a total bone mineral density of 0.909 g/cm2 for a T-scoreof - 0.3. This is in the normal range. The left forearm has a total bone mineral density of 0.535 g/cm2 for aT-score of -0.6. This is in the normal range. IMPRESSION: Normal bone mineral density at all 4 sites assessed. S/S: Estrogen deficiency, bone density screening, family history ofosteoporosis POS - [id number] Eder Moser MD IMG BD BONE DENSITY DEXA Final Result from Last 3 Months or Most Recently Relevant to Health Maintenance Insurance MEDICARE PART A & B [facility] MEDICARE SUPPLEMENT MEDICARE PART A & B [employer] MEDICARE SUPPLEMENT MEDICARE PART A & B MEDICARE SUPPLEMENT MEDICARE PART A & B [employer] MEDICARE SUPPLEMENT MEDICARE PART A & B [employer] MEDICARE SUPPLEMENT MEDICARE PART A & B [employer] MEDICARE SUPPLEMENT MEDICARE PART A & B [employer] MEDICARE SUPPLEMENT MEDICARE PART A & B [employer] MEDICARE SUPPLEMENT MEDICARE PART A & B [facility] [employer] MEDICARE SUPPLEMENT Care Teams Breeding Manager Relationship Specialty Start Date End Date PoEdward MD [address] [place] [address] Drive [address] [place] [phone] PCP - General Internal Medicine 08/05/23 Husam Carmona, EFRAIN [address] [place] [address], [address] [id number] [email or web address] Historical LMR Provider 02/10/17 Remington Post MD [address] [place] [address], [address] [id number] [email or web address] Historical LMR Provider 02/10/17 Immanuel Jaimes DO [address] [place] [id number] [email or web address] Historical LMR Provider 02/10/17 Cindy Mc FNP [address] [place] [phone] [email or web address] Nurse Practitioner Hematology and Oncology 05/25/21 Additional Source Comments The information contained in this document represents components of the legal health record. It is not the complete legal health record.[facility]
== END ==
LOC: HO.CARD 07:52
PROVIDERS: PCP Internal Medicine; Visit Provider Neurological Surgery
DX: I35.0 Nonrheumatic aortic (valve) stenosis (principal)
CPT/HCPCS: 93306

== ENCOUNTER → 2025-01-18 07:56 | Outpatient (BNV) | payer MEDICARE, OTHER, SELFPAY | PROVIDERS: PCP Internal Medicine; Visit Provider Internal Medicine | DX: I42.2 Other hypertrophic cardiomyopathy (principal); I35.0 Nonrheumatic aortic (valve) stenosis; I34.81 Nonrheumatic mitral (valve) annulus calcification | CPT/HCPCS: 93306 ==

== ENCOUNTER → 2025-03-05 11:09 | Outpatient (BNV) | payer MEDICARE, OTHER, SELFPAY | PROVIDERS: Admitting Provider Neurological Surgery; PCP Internal Medicine; Visit Provider Radiology Diagnostic Radiology | DX: Z98.890 Other specified postprocedural states (principal) | CPT/HCPCS: 74018 ==

== ENCOUNTER 2025-03-05 11:42 | Inpatient (IN) | payer MEDICARE, OTHER, SELFPAY ==
[2025-02-26 15:26] VITALS: BMI 35.0
--- NOTE | 2025-02-28 09:14 | HO.ANESPROP2 ---
Documented by User: Bharti Ventura NP 02/28/25 09:16 HPI - Anesthesia Eval Consult details Narrative: 74yo F for L2-3,L3-4 Oblique Lumbar Interbody Fusion (extending previous L4-S1 fusion) PAT prior to previously scheduled (01/2025) No recent illness No CP/SOB with work around the house Aortic stenosis: Moderate to severe. Follows with [facility]. Stable at 09/2024 without symptoms. Echo updated at [facility] 01/18/25 showing mean gradient of 31 mmHg, AV area 0.98 cm2. 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 States home BP log is well within goal. Will bring DOS. Mild STEFANIE, significant noctural hypoxemia on sleep study: CPAP was recommended Case reviewed with LM Anesthesia Pre-Procedure Meds Is the patient on any of the following meds?: GLP1/DPP4 PMFSH Active Problems Active Problems: All Active Problems Breast cancer screening by mammogram (Acute) Obesity (BMI 30-39.9) (Acute) Degenerative disc disease (DDD) of lumbar region with discogenic back pain and leg pain (Acute) Dyskinesis of right scapula (Acute) Arthritis of right acromioclavicular joint (Acute) Degenerative scoliosis (Acute) Lumbago (Acute) Shoulder pain, right (Acute) Morbid obesity due to excess calories (Acute) Hypertension (Acute) Hyperhidrosis (Acute) Fracture of right great toe (Acute) Occipital headache (Acute) Obstructive sleep apnea (Acute) Obesities, morbid (Acute) Osteopenia (Acute) GERD (gastroesophageal reflux disease) (Acute) Generalized anxiety disorder (Acute) Thyroid nodule (Acute) Annual physical exam (Acute) Hypercholesteremia (Acute) Lumbar back pain (Acute) Impaired glucose tolerance (Acute) Thyroid cancer (Acute) Aortic stenosis (Acute) Past Medical History Medical History Onychomycosis OAB (overactive bladder) Fracture of one rib Callosity Ankle fracture Osteoarthritis Arthritis Hiatal hernia Numbness Murmur History of chemotherapy Blood pressure elevated without history of HTN Tubular adenoma Melanoma Ovarian cancer Thyroid cancer Aortic stenosis Family History Family History Mother No problems noted. Father COPD (chronic obstructive pulmonary disease) Surgical History Surgical History History of ankle surgery Hx of laparoscopic gastric banding Hx of appendectomy Hx of cholecystectomy Hx of total hysterectomy (~2012) History of total bilateral knee replacement Hx of partial thyroidectomy (~11/24/22) History of hand surgery History of esophagogastroduodenoscopy (EGD) H/O colonoscopy S/P lumbar spinal fusion (~02/22/22) History of carpal tunnel surgery Social History Social History Housing: House Are you a primary foster care worker to a significant other at home: No Do you presently have visiting nurse or other home services: No Alcohol intake: current Alcohol intake frequency: holidays/special occasions only Comment: 2-3 xa year 2 bottles beer Patient Tobacco Use Status: Former Tobacco user Tobacco use type: Cigarette Years Smoked: quit 30yrs ago 42 years old e-Cigarette/Vaping Use: Never Used Second Hand Smoke Exposure: Yes Use of substances other than those prescribed or required for medical reasons: No Have you been hit, kicked, punched, or otherwise hurt by someone within the past year? If so, by whom?: No Are you DNR?: No Advance Directives: No Advance Directives Information Provided: Yes Advance Directives on File: No Patient : No : No Poor oral hygiene: Yes service: No Current occupational status: retired Cognitive needs: Yes (cane) Hearing needs: No Vision needs: Yes (glasses) Meds Allergies Allergy/AdvReac Type Severity Reaction Status Date / Time celecoxib (Celebrex) AdvReac Intermediate hypertensio Verified 11/20/24 08:06 n Home Medications ?Medication ?Instructions ?Recorded ?Confirmed ?Last Taken ?Type multivitamin 1 tab PO DAILY 06/02/23 03/05/25 03/02/25 History ascorbic acid 30 mg-collagen, 1 tab PO DAILY 01/09/25 03/05/25 03/02/25 History hydrolyzed 833.3 mg tablet (Collagen Skin Renewal) cyclobenzaprine 5 mg tablet 10 mg PO TID PRN muscle spasm 01/09/25 03/05/25 03/02/25 History magnesium oxide 150 mg-herbal 2 tab PO DAILY 01/09/25 03/05/25 03/02/25 History drugs tablet (Beet Root-Magnesium) naproxen sodium 220 mg capsule 220 mg PO BID PRN Pain 01/09/25 03/05/25 02/28/25 History (Aleve) vitamin D3 1,250 mcg (50,000 1 cap PO DAILY 01/09/25 03/05/25 03/02/25 History unit)-vitamin K2 200 mcg capsule vitamin E 180 mg/2 mL oral drops 180 mg PO DAILY 01/09/25 03/05/25 03/02/25 History tirzepatide 7.5 mg/0.5 mL 7.5 mg subcut MO 03/05/25 03/05/25 02/25/25 History subcutaneous pen injector (Mounjaro) Exam Height,Weight and Vital Signs: Height 5 ft 6 in Weight 98.43 kg Pertinent Lab Results Pertinent Lab Results: Laboratory Tests 11/08/24 08:18 WBC 6.6 Hgb 13.8 Hct 41.2 Plt Count 189 Sodium 143 Potassium 3.7 Chloride 113 H Carbon Dioxide 22 BUN 13 Creatinine 0.65 Narrative Narrative: ECHO 01/18/25 Conclusions: - The left ventricular systolic function is normal. The calculated ejection fraction is 60% by biplane method. - There is moderate septal asymmetric hypertrophy. - There is moderate to severe aortic valve stenosis. - There is moderate mitral annular calcification. EKG 12/2024 Vent. Rate : 99 BPM Atrial Rate : 99 BPM P-R Int : 164 ms QRS Dur : 86 ms QT Int : 370 ms P-R-T Axes : 86 68 40 degrees QTcB Int : 474 ms Normal sinus rhythm Nonspecific ST abnormality Borderline ECG When compared with ECG of 30-Apr-2024 07:41, No significant change was found Airway Mallampati Class: II TM Dist: >3cm Neck ROM: Full Denture: Upper (No bottom teeth) Heart: RRR + M Lungs: CTAB Assessment and Plan Assessment Anesthesia Assessment: Chart Reviewed Documented by User: Berkley Castillo MD 03/05/25 08:25 PMFSH Past Medical History Medical History Onychomycosis OAB (overactive bladder) Fracture of one rib Callosity Ankle fracture Osteoarthritis Arthritis Hiatal hernia Numbness Murmur History of chemotherapy Blood pressure elevated without history of HTN Tubular adenoma Melanoma Ovarian cancer Thyroid cancer Aortic stenosis Family History Family History Mother No problems noted. Father COPD (chronic obstructive pulmonary disease) Surgical History Surgical History History of ankle surgery Hx of laparoscopic gastric banding Hx of appendectomy Hx of cholecystectomy Hx of total hysterectomy (~2012) History of total bilateral knee replacement Hx of partial thyroidectomy (~11/24/22) History of hand surgery History of esophagogastroduodenoscopy (EGD) H/O colonoscopy S/P lumbar spinal fusion (~02/22/22) History of carpal tunnel surgery History of Problems with Anesthesia: No Social History Social History Housing: House Are you a primary foster care worker to a significant other at home: No Do you presently have visiting nurse or other home services: No Alcohol intake: current Alcohol intake frequency: holidays/special occasions only Comment: 2-3 xa year 2 bottles beer Patient Tobacco Use Status: Former Tobacco user Tobacco use type: Cigarette Years Smoked: quit 30yrs ago 42 years old e-Cigarette/Vaping Use: Never Used Second Hand Smoke Exposure: Yes Use of substances other than those prescribed or required for medical reasons: No Have you been hit, kicked, punched, or otherwise hurt by someone within the past year? If so, by whom?: No Are you DNR?: No Advance Directives: No Advance Directives Information Provided: Yes Advance Directives on File: No Patient : No : No Poor oral hygiene: Yes service: No Current occupational status: retired Cognitive needs: Yes (cane) Hearing needs: No Vision needs: Yes (glasses) Meds Allergies Allergy/AdvReac Type Severity Reaction Status Date / Time celecoxib (Celebrex) AdvReac Intermediate hypertensio Verified 11/20/24 08:06 n Home Medications ?Medication ?Instructions ?Recorded ?Confirmed ?Last Taken ?Type multivitamin 1 tab PO DAILY 06/02/23 03/05/25 03/02/25 History ascorbic acid 30 mg-collagen, 1 tab PO DAILY 01/09/25 03/05/25 03/02/25 History hydrolyzed 833.3 mg tablet (Collagen Skin Renewal) cyclobenzaprine 5 mg tablet 10 mg PO TID PRN muscle spasm 01/09/25 03/05/25 03/02/25 History magnesium oxide 150 mg-herbal 2 tab PO DAILY 01/09/25 03/05/25 03/02/25 History drugs tablet (Beet Root-Magnesium) naproxen sodium 220 mg capsule 220 mg PO BID PRN Pain 01/09/25 03/05/25 02/28/25 History (Aleve) vitamin D3 1,250 mcg (50,000 1 cap PO DAILY 01/09/25 03/05/25 03/02/25 History unit)-vitamin K2 200 mcg capsule vitamin E 180 mg/2 mL oral drops 180 mg PO DAILY 01/09/25 03/05/25 03/02/25 History tirzepatide 7.5 mg/0.5 mL 7.5 mg subcut MO 03/05/25 03/05/25 02/25/25 History subcutaneous pen injector ([place]) Exam Airway Loose/Missing/Broken Teeth: Yes, Upper and Lower Assessment and Plan Assessment Anesthesia Assessment: Anesthesia Plan Discussed Final Anesthetic Review History of Problems with Anesthesia: No NPO: Yes ASA Class: III Final Preanesthetic Review: Meds/Allgs Chart Reviewed, Consent Obtained/Reviewed and Anes Risks/Benef Reviewed Patient Risk: Intermediate Procedure Risk: Intermediate Anesthetic Plan Anesthetic Plan: GA Disposition: Standard PACU
[2025-03-05] VITALS (16 sets, daily range): BP systolic 129–153; BP diastolic 60–86; PULSE 73–97; RESP 8–18; TEMP 36.1–36.8; O2SAT 79–100; BMI 37.2
--- NOTE | ~2025-03-05 | FL_ITS ---
EXAMINATION: FLUOROSCOPY GUIDANCE FOR NEEDLE PLACEMENT CLINICAL INFORMATION: L2-3, L3-4 OLIF with revision COMPARISON: Previous lumbar spine x-ray October 2024 TECHNIQUE: Intraoperative fluoroscopy guidance. FINDINGS: Images demonstrate removal of posterior fusion hardware at L4-5 and L5-S1 and placement of new posterior fusion hardware with posterior rods, bilateral interpedicular screws and disc interspacers at L2-3 and L3-4. See procedure note for detailed findings. FLUOROSCOPY TIME: 2.273 minutes DOSE AREA PRODUCT: 508 uGy-m2 (microgray-cm squared) FL/FL guidance in OR IMPRESSION: Fluoroscopy guidance for lumbar spine surgery. Electronically signed by: Berkley Robledo MD 03/06/2025 09:26 AM [facility]
--- NOTE | ~2025-03-05 | XR_ITS ---
EXAMINATION: XR ABDOMEN KUB CLINICAL INDICATION: s/p OLIF COMPARISON: None available. TECHNIQUE: AP view of the abdomen. FINDINGS: Surgical hardware is present related to OLIF L3-L5. There are also interbody spacers. Catheter tubing with metal connectors is seen looping across the left abdomen and pelvis. The upper abdomen is excluded from the [id number]. There is moderate stool in the rectum. There is degenerative sclerosis in the pubic symphysis joint. There is moderate degenerative change in the SI joints. XR/XR abdomen 1V IMPRESSION: The upper abdomen is not included on the x-ray limiting evaluation. If clinically relevant, this area can be imaged at no additional charge. Moderate degenerative changes are present in bilateral SI joints and pubic symphysis joint. There is moderate stool in the rectum. Postsurgical changes, as noted above. Electronically signed by: Alli Warren MD 03/05/2025 12:11 PM [facility]
[2025-03-05] MEDS: Lactated Ringers 1,000 ML 100 ML IVCONT (06:17)
--- NOTE | 2025-03-05 06:55 | P.HPSUR_ITS ---
Pre-Procedural Eval Section A - 24 Hr Update-Section A only Date of Service: 03/05/25 Section B - Complete if H&P > 30 days Chief Complaint: Other intervertebral disc degeneration, lumbar Allergies: Allergies Allergy/AdvReac Type Severity Reaction Status Date / Time celecoxib (Celebrex) AdvReac Intermediate hypertensio Verified 11/20/24 08:06 n Review of Systems Sugical H&P ROS: Negative: Constitution, Cardiovascular, Respiratory, Neurological, Psychiatric, Hem-Onc, Allergic/Immunologic, Gastrointestinal, Genitourinary, Musculoskeletal, Integumentary, Endocrine and Eye s/Ears/Nose/Throat Exam Surgical H&P Exam: Not Evaluated: HEENT, Not Evaluated: Heart, Not Evaluated: Lungs, Not Evaluated: Extremities, Not Evaluated: Abdomen, Not Evaluated: Skin and Not Evaluated: Neurological Exam Comment: The patient is awake, alert, in no acute distress. Proposed surgical incision site is clean, dry, with no signs of recent trauma. Plan Diagnosis/Plan: Unchanged I have reviewed the history and physical and performed a pertinent physical examination on my patient. No changes have occurred unless specified. Plan remains the same, L2-4 OLIF with revision of previous fusion construct Time Spent With Patient Time: Total time managing care of this patient today _7___ minutes.
--- NOTE | 2025-03-05 11:03 | W.PM.OPN ---
Operative Note Operative Note Date of Service: 03/05/25 Narrative: Preop Diagnosis: 1.) Adjacent degenerative disc disease L2-3, L3-4; mild lumbar degenerative scoliosis 2.) Severe low back pain Procedure: 1) L2-3, L3-4 discectomy, arthrodesis and implantation cage through an anterolateral, retroperitoneal approach 2) removal L4-S1 posterior instrumentation 3) L2-L4 posterior instrumented fusion 4) allograft Consent Informed Consent was obtained for this operation. I have explained the nature, purpose and benefits of the operation. I have discussed the risks and benefit of the operation including possible complications or adverse events with patient/family. Alternative(s) were discussed with the patient with their relative benefits and risks as well as the consequences of not accepting the operation were included in obtaining consent. Surgeon: EMILI TREVZIO MD, PHD Procedure Assisted By: ELROY Gillis Description of Procedure This 74-year-old female is suffering from intractable low back pain. Her past medical history is positive for an L4-S1 lumbar fusion. Imaging reviews adjacent degenerative disc disease L2-3 and L3-4. The patient was offered an oblique lumbar interbody fusion L2-3, L3-4 my removal of the L4-S1 posterior instrumentation followed by an L2-L4 posterior instrumented fusion. The procedure and complications were explained. Patient is higher surgical risk due to the presence of aortic stenosis. The patient was consented. The patient was brought to the operating room and endotracheally intubated. An A-line and Mills catheter were inserted for perioperative monitoring. The patient was turned in a lateral position with the left side up. Prep and drape was done followed by timeout. A small incision was made in the left lower abdominal quadrant. The muscle fascia was opened after which the 3 muscle layer was split to enter the retroperitoneal space. Dilators were docked in the anterior one third of the L3-4 disc space followed by a retractor. The retractor was opened. The L3-4 disc space was exposed. An annulotomy was done after which an elevator Lizarraga was used to release the disc material from its endplates and to perforate the contralateral side. A partial discectomy was done. An a 8 and 10 mm with 6 degree lordosis height trial implant was inserted. The discectomy was completed. The endplates were prepared. An 10 x 45 mm with 6 degree lordosis 4 web cage filled with allograft was inserted into the disc space under fluoroscopic guidance. Then attention was turned to the L2-3 level. Sequential dilators were placed followed by placement of a retractor over the anterior 1/3 of the L2-3 disc space. An annulotomy was done. An 8 mm trial implant was inserted which showed correction of the degenerative scoliosis. The diskectomy was completed in the endplates were prepared. A 8 mm x 45 mm and 0 degree lordosis 4 web cage was inserted filled with allograft under fluoroscopic guidance. This resulted in protestant of the disc space heights and alignment of the lumbar spine. The retractor was removed. Hemostasis was done. The incision was closed in 2 layers. Steri-Strips used to approximate incision. An OpSite with Tegaderm was used to cover the incision. This marked first part of the procedure. The patient was turned prone on the Dom spine table. 2C arms were installed for fluoroscopy. Prep and drape was done followed by a second timeout. Two paramedian incisions were made over the L4-S1 instrumentation. The instrumentation was exposed. The locking caps were unlocked after which the rods were removed. Finally the L4-S1 pedicle screws were removed. Then the following steps were taken for the L2 and L3 pedicles. A pediguard tap was used to create a transpedicular trajectory into the vertebral body. A K wire was placed. A specially designed instrument was advanced over the K wire to decorticate the posterolateral gutter in preparation for the posterolateral fusion. A pedicle screw was advanced over the K wire and the K wire was removed. The steps were done for the bilateral L2 and L3 pedicles. A total of 6 screws were placed in the L2, L3 and L4 pedicles with a diameter of 6.5 x 45 mm in the L2 and L3 pedicles and a diameter of 7.5 x 45 mm for the bilateral L4 pedicles. Pedicle screws were connected with 80 mm pelon bilaterally and locked down with locking caps. The extension towers were removed. The posterolateral gutter was filled with allograft to complete the posterolateral L2-L4 fusion. Hemostasis was done and the incision was closed in 2 layers. Steri-Strips were used to approximate the incision. An OpSite with tegaderm was used to cover the incision. All sponge and needle counts were correct. Patient was extubated and transferred in stable is to recovery room. This procedure was done with the aid of physician data analysis assistant, who participated in placement of the pedicle screws, interpretation of x-rays, placement of allograft and closure of the incisions. Anesthesia: General Estimated Blood Loss (ml): 40 mL Duration of Surgery: 3 hours Complications: None Postoperative Plan: Admit to inpatient for clinical observation
--- NOTE | 2025-03-05 11:56 | PHA.MEDREC ---
Pharmacy Consult ? Medication Reconciliation Pharmacy has reviewed the medication reconciliation done by nursing and also spoke to patient to confirm medication list. Per patient, she takes Mounjaro 7.5 mg every tuesday, last dose was on 02/25/25.
[2025-03-05] MEDS: oxyCODONE HCl Immed Release 5 MG TABLET PO (20:43)
[2025-03-06] MEDS: oxyCODONE HCl Immed Release 5 MG TABLET 10 MG PO ×2 (03:12→06:40)
[2025-03-06 04:00] VITALS: BP 101/50; PULSE 84; RESP 18; TEMP 36.6; O2SAT 93
[2025-03-06 07:22] VITALS: BP 97/54; PULSE 94; RESP 18; TEMP 36.8; O2SAT 93
--- NOTE | 2025-03-06 07:36 | HO.NEUROPN_ITS ---
Neurosurgery Operative Note Date of Service: 03/06/25 Narrative: POD: 1 Procedure: L3-4 OLIF with revision of posterior instrumentation Christianne is a pleasant 74-year-old female who underwent the above mentioned procedure with Dr. Mcdonnell yesterday. She was seen sitting upright in bed on 3 [address] this morning. She reports that she is very satisfied with the surgery and feels her pain has very much so improved since her operation. She states that she has been up out of bed and ambulated to the bathroom without any weakness or significant difficulty. She is tolerating her current diet, and voiding normally. She asked us if she is able to go home today. Afebrile, vital signs stable. Full strength of bilateral lower extremities. No sensational deficits reported to light touch during examination. Back and anterolateral dressings have some staining without signs of hematoma. No active sanguineous drainage. Area is dry. Plan: Mike 74-year-old female who underwent the above mentioned procedure with Dr. Mcdonnell yesterday. She is progressing normally as expected. Her pain is well controlled. Patient meets criteria to be medically discharged home. He was seen at bedside with Dr. Mcdonnell. I will send in a prescription for pain medication and a stool softener to the pharmacy here at [facility]. Dylan Mcdonnell MD,PhD [facility]
--- NOTE | 2025-03-06 07:38 | PM.DS ---
DS: Providers Provider Date of Service: 03/06/25 Date of admission: 03/05/25 11:42 Date of discharge: 03/06/25 Primary care physician: Edward Maddox MD DS: Summary Time Attestation Discharge Coordination Time (in mins): 14 Quality: Safe Use of Opioids Does Pt have an Active Cancer Diagnosis on the Problem List?: No Quality: Stroke Does the patient have a stroke diagnosis?: No Physical Exam Vital Signs: Vital Signs: Last Vital Signs Temp 98.2 F 03/06/25 07:22 Pulse 94 03/06/25 07:22 Resp 18 03/06/25 07:22 BP 97/54 L 03/06/25 07:22 Pulse Ox 93 03/06/25 07:22 O2 Del Method Room Air 03/06/25 07:22 O2 Flow Rate 2 03/05/25 19:57 BMI result Body Mass Index 37.2 DS: Data Data Completed and Pending Labs on day of discharge: Laboratory Results - last 24 hr 03/05/25 06:31 Blood Type O Negative Antibody Screen NEGATIVE Discharge Plan Discharge Anticipated Discharge Date/Time: 03/06/25 07:38 Patient Disposition: Home, Self-Care Discharge Diagnosis: s/p L4-5 OLIF w/ revision posterior instrumentation Referrals: Edward Maddox MD [Primary Care Provider, Internal Medicine] - 1 Week Discharge Medications: New oxycodone 5 mg tablet See Rx Instructions .ROUTE .COMPLEX PRN (Reason: pain) Qty: 30 0RF Rx Instructions: Take 1-2 tablets by mouth every 4 hours; Partial Fill upon patient request. docusate sodium 100 mg capsule 100 mg PO BID PRN (Reason: constipation) Qty: 14 0RF Continued rosuvastatin 10 mg tablet 10 mg PO BEDTIME Qty: 90 0RF acetaminophen [Tylenol Extra Strength] 500 mg tablet 500 mg PO Q6H PRN (Reason: pain) Qty: 30 0RF naproxen sodium [Aleve] 220 mg Capsule 220 mg PO BID PRN (Reason: Pain) cyclobenzaprine 5 mg tablet 10 mg PO TID PRN (Reason: muscle spasm) vitamin D3-vitamin K2 1,250-200 mcg Capsule 1 cap PO DAILY Collagen Skin Renewal 30-833.3 mg Tablet 1 tab PO DAILY vitamin E 180 mg/2 mL Drops 180 mg PO DAILY Beet Root-Magnesium 150 mg Tablet 2 tab PO DAILY Mounjaro 7.5 mg/0.5 mL pen injector 7.5 mg subcut MO multivitamin Tablet 1 tab PO DAILY Discharge Orders: Discharge Order (Routine); Ordered 03/06/25 Ordered By: Dylan Smith Diet: Advance to usual diet Activity on Discharge: As tolerated Stand Alone Forms: Patient Portal Discharge page Print Language: Maltese Activity Restrictions/Additional Instructions: After your spinal surgery we ask you to observe the following restrictions/guidelines: Activity: It is normal to feel some discomfort as you increase your activity, but that will improve with time. We ask you avoid heavy lifting or acitivities that cause pain. As a general rule, 8lbs is a safe limit for lifting right after surgery. Walk as much as you feel comfortable but not to exhaustion. You will feel extra tired the first few days after surgery. Stay well hydrated. It is OK to walk up and down stairs You may return to driving when you are off narcotics (such as vicodin, oxycodone, dilaudid, etc), and you are back to normal functional capacity. If you have any concerns please check with office before driving. Return to work is specific to each patient and each surgery, so please speak with your doctor/PA at first follow up. Please bring paperwork such as FMLA at that time if you need it filled out. Medications: We recommend you take 500mg Tylenol every 4 hours for the first week after surgery, if you do not have any liver issues and can tolerate this medication. Do not exceed 4,000mg daily. We also recommend you take Ibuprofen 600mg every 8 hours for the first week after surgery starting on post op day 1, ?if you do not have any kidney or sugar control issues and can tolerate this medication. Do not exceed 2,000mg daily. We will give you a short supply of narcotics after surgery (usually one weeks worth). If you need more please call the office but do not use more than prescribed. You will need to give our office 48 hours notice if you need narcotics refilled and we do not fill narcotics on weekends or evenings. If you are on a narcotic, it is a good idea to take a stool softener such as colace or senna to avoid constipation If you take blood thinner such as aspirin, Plavix, Coumadin, Effient, Eliquis etc for conditions such as Afib, DVT, Pulmonary embolus, coronary disease, stents etc please speak with your surgeon about specific details as to when you can resume these medications. You can resume NSAIDs on post op day 1 (eg: Motrin, Naproxen, etc). Follow up: Please call the office, , after surgery to arrange a 3 week follow up for wound check. Wound Care: You may remove your dressing on the first day after surgery. ?You may ?leave open to air. Please do not remove the steri strips underneath. they will fall off on their own in one week. IT IS NORMAL FOR THE WOUND TO OOZE OR BE BLOODY FOR A FEW DAYS AFTER SURGERY. ?IF THIS HAPPENS JUST PLACE NEW DRESSING OVER IT TO AVOID STAINING CLOTHES. You may shower on post op day # 1 We ask that you do not let the water soak the wound. If it does get wet, just towel dry lightly. Please do not scrub your incision or place any type of chemical/ointment on the wound. No tub baths, pools or jacuzzis for one month. If you have any leaking or redness from your wound, or fevers, please call the office. Care Plan Goals: Return to normal activity as tolerated Health Concerns: None Plan of Treatment: Follow up in clinic in 2-3 weeks Assessment: POD: 1 Procedure: L3-4 OLIF with revision of posterior instrumentation Christianne is a pleasant 74-year-old female who underwent the above mentioned procedure with Dr. Mcdonnell yesterday. She was seen sitting upright in bed on 3 South this morning. She reports that she is very satisfied with the surgery and feels her pain has very much so improved since her operation. She states that she has been up out of bed and ambulated to the bathroom without any weakness or significant difficulty. She is tolerating her current diet, and voiding normally. She asked us if she is able to go home today. Afebrile, vital signs stable. Full strength of bilateral lower extremities. No sensational deficits reported to light touch during examination. Back and anterolateral dressings have some staining without signs of hematoma. No active sanguineous drainage. Area is dry. Plan: Mike 74-year-old female who underwent the above mentioned procedure with Dr. Pennings yesterday. She is progressing normally as expected. Her pain is well controlled. Patient meets criteria to be medically discharged home. He was seen at bedside with Dr. Mcdonnell. I will send in a prescription for pain medication and a stool softener to the pharmacy here at [facility]. Dylan Mcdonnell MD,PhD [facility]
--- NOTE | 2025-03-06 08:10 | HO.POSTANES ---
Post Anesthesia Evaluation Post Anesthesia Evaluation Date of Service: 03/06/25 Vital Signs: Vital Signs Temp Pulse Resp BP Pulse Ox O2 Del Method 03/06/25 07:22 98.2 F 94 18 97/54 L 93 Room Air 03/06/25 04:00 97.8 F 84 18 101/50 L 93 Room Air Anesthesia: General Mental Status: Awake Pain Control: Satisfactory Nausea/Vomiting: None Hydration: Adequate Anesthesia-Related Issues: No Anes. Related Issues
--- NOTE | 2025-03-06 08:43 | MHC.CM.PN ---
IMM DELIVERED. PT LIVES ALONE IN A 2 FAMILY WITH SON LIVING ON SECOND FLOOR. PT IS FUNCTIONALLY INDEPENDENT BUT HAS WALKER, GRAB BARS IN BR, ETC. FROM PAST SURGERY. + COPY OF HCP AT HOME. PCP DR. BARAKAT. DP: PT HAS BEEN MEDICALLY CLEARED FOR DC HOME, NO SERVICES. PT HAS DECLINED ANY REHAB OR HOME SERVICES. PT'S SON WILL TRANSPORT.
== END 2025-03-06 09:32 | disposition home or self-care (01) | DRG 458 ==
LOC: HO.SSSA 11:43 → HO.S3 11:58
PROVIDERS: Admitting Provider Neurological Surgery; PCP Internal Medicine; Visit Provider Neurological Surgery
PROC: 0SG10A0 Fusion of 2 or more Lumbar Vertebral Joints with Interbody Fusion Device, Anterior Approach, Anterior Column, Open Approach (ICD-10-PCS; principal; 2025-03-05 07:30)
DX: M51.362 Other intervertebral disc degeneration, lumbar region with discogenic back pain and lower extremity pain (principal); M41.56 Other secondary scoliosis, lumbar region; Z87.891 Personal history of nicotine dependence; Z79.899 Other long term (current) drug therapy
CPT/HCPCS: 74018; 86850; 86900; 86901; 97162; C1713; C1889; J0131; J0690; J1171; J1630; J2405; L8699

== ENCOUNTER → 2025-03-05 11:42 | Outpatient (BNV) | payer MEDICARE, OTHER, SELFPAY | PROVIDERS: Admitting Provider Neurological Surgery; PCP Internal Medicine; Visit Provider Neurological Surgery | DX: Z48.89 Encounter for other specified surgical aftercare (principal) | CPT/HCPCS: 20930; 22558; 22585; 22612; 22614; 22840; 22853; 99024; 99499 ==

== ENCOUNTER 2025-03-12 07:43 | Emergency (ER) | payer MEDICARE, OTHER, SELFPAY ==
--- NOTE | ~2025-03-12 | XR_ITS ---
EXAMINATION: XR CHEST CLINICAL INFORMATION: Weakness COMPARISON: None available. Correlation made with CT angiography chest 04/30/2024. TECHNIQUE: Frontal view of the chest was obtained. FINDINGS: The cardiac, hilar, and mediastinal contours are normal. Aortic mural calcifications. Lungs demonstrate trace linear atelectasis or scarring left base. Lungs otherwise clear. No pneumothorax or effusion. No focal osseous or soft tissue abnormality. XR/XR chest 1V IMPRESSION: No active pulmonary disease. Electronically signed by: Saúl Carballo MD 03/12/2025 09:10 AM EST
--- NOTE | ~2025-03-12 | CT_ITS ---
EXAMINATION: CT ABDOMEN PELVIS WITH IV CONTRAST HISTORY: Pain, distention recent back surgery retroperitone COMPARISON: There are no prior studies for available comparison. TECHNIQUE: CT scan of the abdomen and pelvis was performed following administration of 85 mL Omnipaque 350 using standard departmental protocol. Coronal and sagittal reformatted images were generated and reviewed. This CT exam was performed with one or more of the following dose reduction techniques: automated exposure control, adjustment of the mA and/or kV according to patient size, use of iterative reconstruction technique. DLP: 788 mGy-cm FINDINGS: LOWER CHEST: Dependent atelectasis. There is no pleural effusion. CARDIOVASCULATURE: The heart is normal in size. There is no pericardial effusion. LIVER: The liver is normal in size and contour. Increased enhancement in the left lobe of the liver segment 2. As measures approximately 1 cm axial image 13 series 3 and appears to communicate with the left hepatic and portal veins and may represent a venovenous shunt. Small 5 mm low-attenuation lesion high in the dome of the right lobe segment 7 axial image 18 series 3, left lobe segment 4A measuring 12 mm axial image 14 and 2 small lesions in segment IVb largest measuring 5 x 6 mm axial image 25 series 3. These are difficult to accurately characterize but may represent small cysts.. The hepatic and portal veins are patent. GALLBLADDER / BILE DUCTS: The gallbladder has been removed.. There is intrahepatic biliary duct limitation, left side greater than right, and extrahepatic biliary duct dilatation, common bile duct measuring 10 mm. SPLEEN: The spleen is normal in size. No focal splenic lesion is identified. PANCREAS: The pancreas is unremarkable in appearance. ADRENAL GLANDS: Within normal limits. KIDNEYS/RETROPERITONEUM: No renal calculi are identified. There is no hydronephrosis. No renal masses are identified. LYMPH NODES: No abdominal or pelvic lymphadenopathy. VASCULATURE: Atherosclerotic disease. No aneurysm. MESENTERY/PERITONEUM: There is a small amount of retroperitoneal air is seen in the left abdomen. No intraperitoneal air. No ascites. STOMACH: Gastric lap band. Lizarraga angle measures 75 degrees questionable for slippage. Small esophageal hernia. SMALL BOWEL: The small bowel is normal in caliber. COLON: Diverticulosis of the colon. No evidence of diverticulitis. APPENDIX: The appendix is not seen, however no inflammatory changes are seen adjacent to the cecum. URINARY BLADDER/PELVIC ORGANS: The urinary bladder is unremarkable. Hysterectomy. No pelvic mass. BONES / SOFT TISSUES: Postsurgical changes following posterior fusion with rods and bilateral intrapedicular screws at from L2 to L4 and interbody hardware at L2-3 and L3-4. Surgical hardware appears intact. No fracture. There is a 5 mm anterior subluxation of L4 with respect to L5. There is severe degenerative disc disease and spondylosis at L5-S1. There is a ghost artifact from removed hardware at L5-S1. There is a small amount of fluid and fat stranding seen in the overlying paraspinal soft tissues. Largest area measures 2.7 x 5 x 6 cm the right of midline. Small amount of air in the cutaneous fat of the left lateral abdominal wall. Mild curvature of the lumbar spine to the left. Mild degenerative spondylosis of the lower thoracic and upper lumbar spine and degenerative changes at the pubic symphysis hips. CT/CT abdomen pelvis w IV con IMPRESSION: Small amount of retroperitoneal air in the left side of the abdomen. Small amount of air in the left lateral abdominal wall. Postsurgical changes to the lumbar spine from L2 to L4. Fat stranding and small amount of fluid in the overlying paraspinal soft tissues and fat. Diverticulosis of the colon. No evidence of diverticulitis. Gastric lap band. Lizarraga angle measures 75 questionable for mild slippage. There also be a small esophageal hernia. Post cholecystectomy. Dilated intra and extrahepatic biliary ductal dilatation, common bile duct measuring 10 mm. This could be better evaluated with MRCP if clinically warranted. Probable venovenous shunt in the left lobe of the liver. Small subcentimeter low-attenuation liver lesions not well characterized but may represent cysts. Electronically signed by: Berkley Robledo MD 03/12/2025 10:57 AM EST
[2025-03-12 07:47] VITALS: BP 168/74; PULSE 89; RESP 18; TEMP 36.6; O2SAT 98; BMI 34.2
[2025-03-12 08:00] VITALS: BP 160/72
--- NOTE | 2025-03-12 08:11 | ED_ITS ---
HPI - Nausea/Vomiting/Diarrhea General Chief complaint: Back Pain/Injury Stated complaint: Nausea Vomiting Diarrhea Time Seen by Provider: 03/12/25 08:01 Source: patient and old records reviewed Mode of arrival: ambulatory Limitations: no limitations History of Present Illness ED Provider: MARQUIS LOZANO Narrative: 74-year-old female with past medical history of arthritis, obesity, anxiety, GERD, aortic stenosis, thyroid cancer, ovarian cancer status post extensive surgery which included removal of uterus/bilateral ovaries/appendix. She is status post L2-L3, L3-L4 diskectomy, arthrodesis and implantation of cage through anterolateral/retroperitoneal approach, removal of her L4-S1 posterior instrumentation on 03/05/[address] Fernandes. She comes in today with complaint of starting with abdominal pain on left lower abdomen that radiates across as well as nausea and vomiting this started on TuesdayMarch 08. She states she did have a bowel movement this morning but does not remember passing any gas. She she urinated frequently but noted it was clear and no odor. She has not had a fever. She denies any cough, chest pain, shortness of breath. She denies any numbness or weakness. She denies any falls or new trauma She has a remote history of laparoscopic band surgery 18 years ago at [facility] with Dr. Yeung but she no longer wants to see him and has been trying to get into our bariatric center MD elicited complaint: nausea, vomiting and abdominal pain Pertinent past history: other Onset (ago): day(s) (Tuesday) Associated nausea: Yes Associated abdominal pain: Yes Location of pain: LLQ and suprapubic Radiation: diffuse Pain consistency: constant Severity: severe Quality: aching, dull and constant Exacerbating factors: vomiting and movement Relieving factors: none Context: recent surgery/procedure Associated symptoms: loss of appetite, malaise, nausea/vomiting, weakness and fatigue Related Data Home Medications ?Medication ?Instructions ?Recorded ?Confirmed multivitamin 1 tab PO DAILY 06/02/2302/23 ascorbic acid 30 mg-collagen, 1 tab PO DAILY 01/09/25 03/07/25 hydrolyzed 833.3 mg tablet (Collagen Skin Renewal) cyclobenzaprine 5 mg tablet 10 mg PO TID PRN muscle sp asm 01/09/25 03/07/25 magnesium oxide 150 mg-herbal 2 tab PO DAILY 01/09/25 03/07/25 drugs tablet (Beet Root-Magnesium) naproxen sodium 220 mg capsule 220 mg PO BID PRN Pain 01/09/25 03/07/25 (Aleve) vitamin D3 1,250 mcg (50,000 1 cap PO DAILY 01/09/25 1 05/07/24 unit)-vitamin K2 200 mcg capsule vitamin E 180 mg/2 mL oral drops 180 mg PO DAILY 01/0903/07/25 tirzepatide 7.5 mg/0.5 mL 7.5 mg subcut MO 03/05/25 subcutaneous pen injector ([place]) Previous Rx's ?Medication ?Instructions ?Recorded acetaminophen 500 mg tablet 500 mg PO Q6H PRN pain #30 tabs 04/30/24 (Tylenol Extra Strength) rosuvastatin 10 mg tablet 10 mg PO BEDTIME #90 tabs docusate sodium 100 mg capsule 100 mg PO BID PRN const ipation #14 03/06/25 caps hydromorphone 2 mg tablet See Rx Instructions PO Q4H P RN 03/12/25 pain #30 tabs ondansetron 4 mg disintegrating 4 mg PO Q8H PRN nausea and 03/12/25 tablet vomiting #20 tabs Allergies Allergy/AdvReac Type Severity Reaction Status Date / Time celecoxib (Celebrex) AdvReac Intermediate hypertensio Verified 03/12/25 07:49 n Review of Systems 2 Review of Systems: Constitutional : No Weight loss, No Fever, No Chills ENT/Mouth : No sore throat, No Rhinorrhea Eyes: No Swelling, No Redness Cardiovascular : No Chest Pain, No SOB, NoEdema Respiratory : No Cough, No Sputum, No Wheezing Gastrointestinal : Positive Nausea, Positive Vomiting, no Diarrhea, positive abdominal Pain, No Hematochezia, No Melena Genitourinary : No Dysuria, No Urinary Frequency, No Hematuria, No Urgency Musculoskeletal : No joint pain, No Myalgias, No Joint Swelling Skin : No Skin Lesions, No rash Neuro : Positive Weakness, No Numbness, No Dizziness, No Headache All other systems reviewed and are negative. Gastrointestinal: Gastrointestinal: Reports nausea PMFSH Past Medical History Attestation statement: The following information was validated with the patient. Source: old records reviewed Medical History Onychomycosis OAB (overactive bladder) Fracture of one rib Callosity Ankle fracture Osteoarthritis Arthritis Hiatal hernia Numbness Murmur History of chemotherapy Blood pressure elevated without history of HTN Tubular adenoma Melanoma Ovarian cancer Thyroid cancer Aortic stenosis Surgical History History of ankle surgery Hx of laparoscopic gastric banding Hx of appendectomy Hx of cholecystectomy Hx of total hysterectomy (~2012) History of total bilateral knee replacement Hx of partial thyroidectomy (~11/24/22) History of hand surgery History of esophagogastroduodenoscopy (EGD) H/O colonoscopy S/P lumbar spinal fusion (~02/22/22) History of carpal tunnel surgery Family History Family History Mother No problems noted. Father COPD (chronic obstructive pulmonary disease) Social History Social History Household Members: None Housing: House Are you a primary family day care worker to a significant other at home: No Do you presently have visiting nurse or other home services: No Alcohol intake: current Alcohol intake frequency: holidays/special occasions only Comment: 2-3 xa year 2 bottles beer Patient Tobacco Use Status: Former Tobacco user Tobacco use type: Cigarette Years Smoked: quit 30yrs ago 42 years old e-Cigarette/Vaping Use: Never Used Second Hand Smoke Exposure: Yes service: No Current occupational status: retired Cognitive needs: Yes (cane) Hearing needs: No Vision needs: Yes (glasses) Physical Exam 2 Vital Signs: Vital Signs: Last Vital Signs Temp 98.5 F 03/12/25 10:27 Pulse 84 03/12/25 10:00 Resp 16 03/12/25 10:00 BP 151/66 H 03/12/25 10:00 Pulse Ox 96 03/12/25 10:00 O2 Del Method Room Air 03/12/25 10:00 BMI result Body Mass Index 34.2 Appearance: Alert. Oriented X3. In pain, dry heaving, mi acute distress. Eyes: Pupils equal, round and reactive to light. ENT: Pharynx dry mucous membranes Neck: Normal inspection. Neck supple. CVS: Normal heart rate and rhythm. Pulses normal. Respiratory: No respiratory distress. Breath sounds normal. Abdomen: Soft but has bruising in the left lower quadrant as well as left flank. She has tenderness to palpation in the area, no rebound Back: Incisions are intact clean and dry no drainage or signs of infection she has bruising up and down the lumbar spine going to the sacral area but no firm hematoma noted Skin: Skin warm and dry. Normal skin color. Normal skin turgor. Extremities: No lower extremity edema. No calf ttp Neuro: Oriented X 3. No motor deficit. No sensory deficit. CN2-12 intact Course Course Course Narrative: 11:22 AM 03/12/2025 (MARQUIS ANDERSON): I spoke to Dylan Smith he states patient is likely having postop flare of pain and inflammation he will prescribe outpatient Dilaudid for her. He does recommend bariatric aches get involved given the lap band though clinically she has no pain in the area. He will book her for 10:30 on Tuesday with Carlos Montoya in the office. Medications Administered Discontinued Medications Generic Name Dose Route Start Last Admin Trade Name Alf PRN Reason Stop Dose Admin Hydromorphone HCl 1 mg 03/12/25 08:26 03/12/25 08:44 Hydromorphone Hcl 1 Mg/Ml Syringe IVPUSH 03/12/25 08:27 1 mg ONCE ONE Administration Protocol Lactated Ringer's 1,000 mls @ 999 mls/hr 03/12/25 08:26 03/12/25 11:30 Lr IV 03/12/25 09:26 Infused .Q1H1M ONE Infusion Iohexol 85 ml 03/12/25 09:56 03/12/25 09:57 Iohexol 350 Mg/Ml 75 Ml Infus..Btl IV 03/12/25 09:57 85 ml ONCE ONE Administration Ondansetron HCl 4 mg 03/12/25 08:26 03/12/25 08:44 Ondansetron Hcl 4 Mg/2 Ml Vial IVPUSH 03/12/25 08:27 4 mg ONCE ONE Administration Prochlorperazine Edisylate 10 mg 03/12/25 12:11 03/12/25 12:18 Prochlorperazine Edisylate 10 Mg/2 Ml Vial IVPUSH 03/12/25 12:12 10 mg ONCE ONE Administration Medical Decision Making Medical Decision Making MDM Narrative: 74-year-old female with past medical history of arthritis, obesity, anxiety, GERD, aortic stenosis, thyroid cancer, ovarian cancer status post extensive surgery which included removal of uterus/bilateral ovaries/appendix, she just underwent diskectomy arthrodesis and implantation of cage through anterior lateral retroperitoneal approach on March 05 she notes on the she developed abdominal pain nausea vomiting and overall not feeling well. She states she has no other pain medications, she has no fever, she has no neurologic changes. At this time given her degree of symptoms we will start on IV fluids, IV pain control, obtain advanced imaging of the abdomen to look for any obstruction/hematoma/acute pathology causing her symptoms. Differential Diagnosis Differential Diagnoses: The differential diagnosis associated with the presentation includes Dehydration, viral syndrome, obstruction, hematoma Admission/Observation Consideration of admission/observation: Escalation of care including admission/observation considered At this time she is able to tolerate p.o., she has seen both specialist her pain is well controlled and she is able to tolerate p.o. She can be discharged home with outpatient follow-up she is agreeable and feels comfortable with discharge Consult Healthcare Provider Management of the patient was discussed with: Digital Producer 11:11 AM 03/12/2025 (MARQUIS ANDERSON): Message sent to Dylan Smith from Neuro spine - outpatient spine aware appointment Tuesday 10:30 as well as prescription for Dilaudid 11:59 AM 03/12/2025 (MARQUIS ANDERSON): I did consult Dr. Padilla I am waiting on recommendations at this time he is still in the OR but is aware of the patient - we will follow up as outpatient Lab Data [facility] Lab Attestation statement: I reviewed the patient's lab results. 03/12/25 08:58 03/12/25 08:58 Labs: Lab Results 03/12/25 03/12/25 Range/Units 08:58 11:22 WBC 7.0 (4.8-10.8) X10*3/uL RBC 3.72 L (4.20-5.50) X10*6/uL Hgb 11.9 L (12.0-16.0) g/dl Hct 35.0 L (37.0-47.0) % MCV 94.1 (80.0-98.0) fL MCH 32.0 (27.0-33.0) pg MCHC 34.0 (31.0-35.0) g/dl RDW 13.2 (11.0-16.0) % Plt Count 247 D (160-400) X10*3/uL MPV 9.1 L (9.4-12.3) fL Immature Gran % (Auto) 0.7 H (0.0-0.4) % Neut % (Auto) 79.3 H (45-73) % Lymph % (Auto) 10.3 L (20-40) % [place] % (Auto) 5.0 (2-11) % Eos % (Auto) 3.6 (0-4) % Baso % (Auto) 1.1 (0-2) % Lymph # (Auto) 0.7 L (1.2-4.9) X10*3/uL [place] # (Auto) 0.4 (0.1-1.2) X10*3/uL Eos # (Auto) 0.3 (0.0-0.4) X10*3/uL Baso # (Auto) 0.1 (0.0-0.2) X10*3/uL Abs Immat Gran (auto) 0.05 H (0.00-0.03) X10*3/uL Absolute Neuts (auto) 5.6 (2.0-8.3) x10*3/uL Absolute Nucleated RBC 0.000 (0.0-0.012) X10*3/uL Nucleated RBC % (auto) 0.0 (0.0-0.2) /100WBC Sodium 140 (135-145) mmol/L Potassium 3.6 (3.3-5.1) mmol/L Chloride 110 H (96-108) mmol/L Carbon Dioxide 21 L (22-29) mmol/L Anion Gap 13 (12-20) BUN 8 L (9-16) mg/dL Creatinine 0.62 (0.5-1.4) mg/dL Estim Creat Clear Calc 95.8 Estimated GFR > 60 Random Glucose 130 H (60-115) mg/dL Calcium 9.3 (8.4-10.2) mg/dL Magnesium 1.7 (1.6-2.6) mg/dL Total Bilirubin 0.8 (0.0-1.0) mg/dL Direct Bilirubin 0.3 (0.0-0.5) mg/dL AST 34 H (5-31) U/L ALT 28 (0-31) U/L Alkaline Phosphatase 91 (39-117) U/L C-Reactive Protein 4.73 H (< or = 0.50) mg/dL Total Protein 6.5 (6.5-8.0) g/dL Albumin 3.7 (3.5-5.0) g/dL Lipase 13 (8-78) U/L Procalcitonin 0.02 ng/mL Urine Color Yellow Urine Appearance Clear Urine pH 8.0 (5.0-9.0) Ur Specific [place] >= 1.030 H (1.005-1.025) Urine Protein Negative (Neg-Trace) mg/dL Urine Glucose (UA) Negative (Negative) mg/dL Urine Ketones Negative (Negative) mg/dL Urine Blood Negative (Negative) Urine Nitrite Negative (Negative) Ur Leukocyte Esterase Negative (Negative) Influenza Type A (PCR) NEGATIVE (Negative) Influenza Type B (PCR) NEGATIVE (Negative) RSV RNA Qual (PCR) NEGATIVE (Negative) SARS-CoV-2 RNA (RT-PCR) NEGATIVE (Negative) Blood Type O Negative Antibody Screen NEGATIVE Independent Interpretation I performed an independent interpretation of an: EKG and CT Scan (Question lap band question normal postoperative change) Interpretation: Rate: 93 Rhythm: Normal sinus rhythm [place]: Normal Normal P waves. Normal OTILIA. Normal QRS complex. ST T wave : No ST-elevation qTC: 467 prior studies: But no acute ischemia The study has been interpreted contemporaneously by me. . Radiology Impression Discussion of test interpretation with radiology: I have reviewed the radiologist's reading. Independent Historian Clinical information obtained from an independent historian. History obtained from or confirmed by: Other (Family) External Record Review External record reviewed: Outpatient record, Prior outpatient labs and Prior outpatient radiology Prescription Management I considered prescription management with: Other Discharge Plan Discharge Clinical Impression: Acute left flank pain, Post-operative pain Patient Disposition: Home, Self-Care Instructions: Narcotic Safety (ED), Flank Pain (ED) Additional Instructions: 10:30 on Tuesday with Carlos Montoya in the office. Bariatric surgery we will also call you at home for your appointment you were seen by Ann from their department At this time your labs and urinary reassuring, there was no acute post operative issue noted on CAT scan Return for any worsening symptoms, fever greater than 100.4 chest pain, trouble breathing, inability to eat or drink, or any other concerns Prescriptions: New ondansetron 4 mg tablet,disintegrating 4 mg PO Q8H PRN (Reason: nausea and vomiting) Qty: 20 0RF No Action rosuvastatin 10 mg tablet 10 mg PO BEDTIME Qty: 90 0RF hydromorphone 2 mg tablet See Rx Instructions PO Q4H PRN (Reason: pain) Qty: 30 0RF Rx Instructions: Take 1-2 tablets by mouth orally every 4 hours PRN; Partial Fill upon patient request. acetaminophen [Tylenol Extra Strength] 500 mg tablet 500 mg PO Q6H PRN (Reason: pain) Qty: 30 0RF naproxen sodium [Aleve] 220 mg Capsule 220 mg PO BID PRN (Reason: Pain) cyclobenzaprine 5 mg tablet 10 mg PO TID PRN (Reason: muscle spasm) vitamin D3-vitamin K2 1,250-200 mcg Capsule 1 cap PO DAILY Collagen Skin Renewal 30-833.3 mg Tablet 1 tab PO DAILY vitamin E 180 mg/2 mL Drops 180 mg PO DAILY Beet Root-Magnesium 150 mg Tablet 2 tab PO DAILY Mounjaro 7.5 mg/0.5 mL pen injector 7.5 mg subcut MO docusate sodium 100 mg capsule 100 mg PO BID PRN (Reason: constipation) Qty: 14 0RF multivitamin Tablet 1 tab PO DAILY Print Language: Sami
--- NOTE | 2025-03-12 08:27 | ECG_ITS ---
Test Reason : Abdominal pain Blood Pressure : */* mmHG Vent. Rate : 93 BPM Atrial Rate : 93 BPM P-R Int : 142 ms QRS Dur : 92 ms QT Int : 376 ms P-R-T Axes : 65 53 60 degrees QTcB Int : 467 ms Poor data quality, interpretation may be adversely affected Normal sinus rhythm Normal ECG When compared with ECG of 09-Jan-2025 11:16, No significant change was found Referred By: Sonya Larios Electronically Signed By: ERIK JUNIOR
[2025-03-12] MEDS: Lactated Ringers 1,000 ML 999 ML IV (08:44)
--- NOTE | 2025-03-12 08:51 | PC.NURSE ---
pt was noted to have large deep purple to yellow heamtoma to r buttocks extending to surgical wouns on lower back, tiny amt of thick sanguineous drainage from the wound on her L side of her lumbar, no other sign of infction rep[orted 10/10 pain and was dry heaving before med administration.
[2025-03-12 09:08] LABS: MANUAL DIFF FLAG NO
[2025-03-12 09:10] LABS: Hematocrit 35.0 % (37.0-47.0); Hemoglobin 11.9 g/dl (12.0-16.0); Imm Gran Abs Auto 0.05 X10*3/uL (0.00-0.03); Imm Gran Pct Auto 0.7 % (0.0-0.4); Lymphocytes Absolute Auto 0.7 X10*3/uL (1.2-4.9); Mean Corpuscular HGB Conc 34.0 g/dl (31.0-35.0); Mean Corpuscular Hemoglobin 32.0 pg (27.0-33.0); Mean Corpuscular Volume 94.1 fL (80.0-98.0); NRBC Abs Auto 0.000 X10*3/uL (0.0-0.012); NRBC Pct Auto 0.0 /100WBC (0.0-0.2); Platelet Count 247 X10*3/uL (160-400); Red Blood Count 3.72 X10*6/uL (4.20-5.50); White Blood Count 7.0 X10*3/uL (4.8-10.8)
[2025-03-12 09:29] LABS: Alanine Aminotransferase 28 U/L (0-31); Albumin Level 3.7 g/dL (3.5-5.0); Alkaline Phosphatase 91 U/L (39-117); Anion Gap 13 (12-20); Aspartate Amino Transferase 34 U/L (5-31); Blood Urea Nitrogen 8 mg/dL (9-16); Calcium 9.3 mg/dL (8.4-10.2); Carbon Dioxide 21 mmol/L (22-29); Chloride 110 mmol/L (96-108); Creatinine Clr Calc Pharmacy 95.8; Estimated Glomerular Filt Rate > 60; Lipase 13 U/L (8-78); Magnesium 1.7 mg/dL (1.6-2.6); Potassium 3.6 mmol/L (3.3-5.1); Sodium 140 mmol/L (135-145); Total Protein 6.5 g/dL (6.5-8.0)
[2025-03-12 09:43] LABS: Procalcitonin 0.02 ng/mL
[2025-03-12 09:50] LABS: Resp Syncy Virus RNA Qual PCR NEGATIVE (Negative); SARS COV2 PCR INHOUSE NEGATIVE (Negative)
[2025-03-12] MEDS: iohexoL 350 MG/ML 75 ML INFUS..BTL 85 ML IV (09:57)
[2025-03-12 10:00] VITALS: BP 151/66; PULSE 84; RESP 16; O2SAT 96
[2025-03-12 10:27] VITALS: TEMP 36.9
--- NOTE | 2025-03-12 10:43 | PC.NURSE ---
pt remains comfortable reports pain is maybe [address]
[2025-03-12 11:44] LABS: Appearance Urine Clear; Glucose Urine UA Negative (Negative); PH 8.0 (5.0-9.0); Specific Gravity - Urine >= 1.030 (1.005-1.025)
[2025-03-12 12:47] VITALS: BP 152/64; PULSE 82; RESP 18; TEMP 36.9; O2SAT 96
== END 2025-03-12 13:02 | disposition home or self-care (01) ==
PROVIDERS: Emergency Provider Emergency Medicine; PCP Internal Medicine
DX: G89.18 Other acute postprocedural pain (principal); R10.A2 Flank pain, left side; Z98.84 Bariatric surgery status; Z03.818 Encounter for observation for suspected exposure to other biological agents ruled out
CPT/HCPCS: 36415; 71045; 74177; 80048; 80076; 81003; 83690; 83735; 84145; 85025; 86140; 86850; 86900; 86901; 87637; 93005; 96361; 96374; 96375; 99284; 99285; J0737; J1171; J2405; J7120; Q9967

== ENCOUNTER → 2025-03-12 08:27 | Outpatient (BNV) | payer MEDICARE, OTHER, SELFPAY | PROVIDERS: Emergency Provider Emergency Medicine; PCP Internal Medicine; Visit Provider Internal Medicine | DX: R10.9 Unspecified abdominal pain (principal) | CPT/HCPCS: 93010 ==

== ENCOUNTER → 2025-03-12 08:27 | Outpatient (BNV) | payer MEDICARE, OTHER, SELFPAY | PROVIDERS: Emergency Provider Emergency Medicine; PCP Internal Medicine; Visit Provider Radiology Diagnostic Radiology | DX: K57.30 Diverticulosis of large intestine without perforation or abscess without bleeding (principal); K44.9 Diaphragmatic hernia without obstruction or gangrene; K91.5 Postcholecystectomy syndrome; R53.1 Weakness | CPT/HCPCS: 71045; 74177 ==

== ENCOUNTER 2025-03-15 08:23 | Outpatient (AMB) | payer MEDICARE, OTHER, SELFPAY ==
--- OUTSIDE RECORDS SUMMARY | 2022-07-10 10:47 | XMS_ITS | Encounter Summary ---
Author Organization [facility] Address [address] [place] [address] [place] [address] Phone Care Team Providers Care Remote Broadcast Technician Name Role Phone Husam Carmona Debby CLIENT RELATIONS SPECIALIST Unavailable Remington Post MD Unavailable [phone] Immanuel Jaimes DO Unavailable [phone] Cindy Mc BOOT AND SHOE LABORER Unavailable [phone] Sobia White MD Unavailable [phone] Eder Mansfield DO Primary Care Provider [phone] Encounter Details Date Type Department Care Team (Late st Contact Info) Description 07/10/2022 11:47 AM EDT Hospital Encounter [facility] [address] [place] [address] Celestina Guzman CLIENT RELATIONS SPECIALIST [address] [place] [address] [email or web address] Social History Tobacco Use Types Packs/Day Years [...] Info) Description 02/01/2025 Procedure Pass Echo Lab [address] [place] [address] 04/26/2025 8:00 AM EST Office Visit [facility] [address] [place] [address] Dr [address] Floor, [address] [place] [address] Leon Osman MD 22 [facility], [address] [place] [address] 08/02/2025 8:15 AM EDT Appointment Echo Lab [address] [place] [address] Isai Mayfield DO 22 [facility] [address] [place] [address] documented as of this encounter Procedures Procedure [...] process or overtpulmonary edema. us Celestina Guzman CLIENT RELATIONS SPECIALIST IMG XR CHEST Final Resul t documented in this encounter Visit Diagnoses Not on filedocumented in this encounter Additional Health Concerns Infection Onset Date Last Indicated Resolved Time CoV-Risk 07/10/2022 07/10/2022 07/21/2022 1:21 AM EDT Assessment Noted Time PHQ-2 Depression Total Score: 0 01/19/20 20 5:25 PM EDT documented as of this encounter Care Teams Remote Broadcast Technician Relationship Specialty Start Date End Date Eder Mansfield DO [address] [place] [address] mary PCP - General Endocrinology 07/10/22 08/04/23 Husam Carmona CNP [address] [place] [address], [address] [place] [address] Historical LMR Provider 02/10/17 Remington Post MD [address] [place] [address], [address] [place] [address] [email or web address] Historical LMR Provider 02/10/17 Immanuel Jaimes DO [address] [place] [address] [email or web address] Historical LMR Provider 02/10/17 Cindy Mc NP [address], [place] [address] [email or web address] Nurse Practitioner Hematology and Oncology 05/25/21 Sobia White MD [address] [place] [address] [email or web address] Insurance Assigned Provider 08/01/21 07/31/22 documented as of this encounter Additional Source Comments The information contained in this document represents components of the legal health record. It is not the complete legal health record.[facility]
--- OUTSIDE RECORDS SUMMARY | 2023-08-05 11:39 | XMS_ITS | Encounter Summary ---
Author Organization [facility] Address [address] [facility] [address] [place] [address] Phone Care Team Providers Care Forge Heater Name Role Phone Husam Carmona CENTRAL OFFICE TECHNICIAN Unavailable Remington Post MD Unavailable [phone] Immanuel Jaimes DO Unavailable [phone] Cindy Mc FORM WORKER Unavailable [phone] Edward Maddox MD Primary Care Provider [phone] Encounter Details Date Type Department Care Team (Late st Contact Info) Description 08/05/2023 12:39 PM EDT Hospital Encounter [facility] [address] [place] [address] Charlene Barrientos, FORM WORKER [address] [place] [address] [email or web address] Social History Tobacco Use Types Packs/Day Years [...] 02/01/2025 Procedure Pass [place] [address] 04/26/2025 8:00 AM EST Office Visit [facility] [address] Floor, [address] [place] [address] Leon Osman MD [address] [facility], [address] [place] [address] [email or web address] 08/02/2025 8:15 AM EDT Appointment Echo Lab [address] [place] [address] Isai Mayfield DO [address] [address] [email or web address] documented as of this encounter Procedures Procedure [...] clinician's provided indication for this examination in [facility]: Cough; cough x 1.5 weeks, hx of pneumonia COMPARISON: July 10, 2022 FINDINGS: Devices/Tubes/Lines: None. Lungs: No focal consolidation or pulmonary edema. Pleura: No pleural effusions or pneumothorax. Heart/Mediastinum: Normal cardiomediastinal silhouette. Bones/Soft Tissues: No significant abnormality. Procedure Note Chanell Patino MD - 08/05/2023 XR CHEST PA AND LATERAL 2 VIEWS Referring clinician's provided indication for this examination in [facility]:Cough; cough x 1.5 weeks, hx of pneumonia COMPARISON: July 10, 2022 FINDINGS: Devices/Tubes/Lines: None. Lungs: No focal consolidation or pulmonary edema. Pleura: No pleural effusions or pneumothorax. Heart/Mediastinum: Normal cardiomediastinal silhouette. Bones/Soft Tissues: No significant abnormality. IMPRESSION: No acute abnormality. Charlene Chakraborty Nickyantonella FORM WORKER IMG XR CHEST Final Resul t documented in this encounter Visit Diagnoses Not on filedocumented in this encounter Additional Health Concerns Assessment Noted Time PHQ-2 Depression Total Score: 0 01/19/20 20 5:25 PM EDT documented as of this encounter Care Teams Forge Heater Relationship Specialty Start Date End Date Edward Maddox MD [address] [place] [address] Drive [address] [place] [phone] PCP - General Internal Medicine 08/05/23 Husam Carmona, EFRAIN [address] [place] [address], [address] [address] Historical LMR Provider 02/10/17 Remington Post MD [address] [place] [address], [address] [place] [address] Historical LMR Provider 02/10/17 Immanuel Jaimes DO [address] [place] [address] [email or web address] Historical LMR Provider 02/10/17 Cindy Mc NP [address] [place] [address] Nurse Practitioner Hematology and Oncology 05/25/21 documented as of this encounter Additional Source Comments The information contained in this document represents components of the legal health record. It is not the complete legal health record.[facility]
--- OUTSIDE RECORDS SUMMARY | 2025-03-15 08:26 | XMS_ITS | Encounter Summary ---
Author Organization [facility] Address [address] [place] [address] [place] [address] Phone Care Team Providers Care Door Captain Name Role Phone Amaya Rodriguez MD Primary Care Provider + Amaya Rodriguez MD Unavailable [phone] Husam Carmona SUPERVISOR LOCOMOTIVE Unavailable [phone] Cortez oPwell DO Unavailable [phone] Remington Post MD Unavailable +[phone] Concepcion Hooper PA-C Unavailable [phone] Armond Marcano MD Unavailable [phone] Immanuel Jaimes DO Unavailable [phone] Camron Pedraza SUPERVISOR LOCOMOTIVE Unavailable [phone] Travis Smith MD Unavailable [phone] Husam Carmona SUPERVISOR LOCOMOTIVE Primary Care Provider + Amaya Rodriguez MD Unavailable +[phone] Sobia White MD Primary Care Provid er + Cindy Mc HEBREW CANTOR Unavailable [phone] Sobia White MD Unavailable + Unknown, Unknown Primary Care Provider Eder Lloyd DO Primary Care Provider [phone] Amaya Rodriguez MD Unavailable [phone] Edward Maddox MD Primary Care Provider [phone] Encounter Details Date Type Department Care Team (Latest Contact Info) Description 04/13/2017 Transcribe Orders [facility] [address] [place] [address] Immanuel Jaimes, DO [address] [place] [address] [email or web address] Malignant neoplasm of ovary, unspecified laterality (Primary [...] Info) Description 02/01/2025 Procedure Pass Echo Lab [address] [place] [address] 04/26/2025 8:00 AM EST Office Visit [facility] [address] [place] [address] 3rd Floor, [address] [place] [address] Leon Osman MD [address] [place] [address], [address] [address] 08/02/2025 8:15 AM EDT Appointment Echo Lab [address] [place] [address] Isai Mayfield, DO [address] [place] [address] documented as of this encounter Results * (ABNORMAL) Comprehensive metabolic panel (04/13/2017 2:46 PM EST) SODIUM 145 133 - 146 mmol/L [facility] POTASSIUM 4.1 3.3 - 5.1 mmol/L [facility] CHLORIDE 106 96 - 108 mmol/L [facility] CO2 27 21 - 35 mmol/L [facility] BUN 11 6 - 19 mg/dL [facility] CREATININE 0.80 0.5 - 1.5 mg/dL [facility] GLUCOSE 118(H) 70 - 99 mg/dL [facility] ALBUMIN 3.9 3.9 - 4.8 g/dL [facility] TOTAL PROTEIN 6.7 6.5 - 8.0 g/dL [facility] CALCIUM 9.2 8.4 - 10.3 mg/dL [facility] ALKALINE PHOSPHATASE 69 39 - 117 U/L [facility] TOTAL BILIRUBIN 0.3 0 - 1.2 mg/dL [facility] AST 20 0 - 37 U/L [facility] ALT 17 0 - 40 U/L [facility] GLOBULIN 2.8 1 - 4.8 g/dL [facility] EGFR >60 >60 mL/min/1.7 3m2 [facility] Comment:Abnormal if <60. If patient is -Luxembourger, multiply the result by 1.21. ANION GAP 16 10 - 20 mmol/L [facility] Blood 04/13/2017 2:46 PM EST 04/13/2017 2:47 PM EST us Immanuel W Fiona DO LAB BLOOD BKR ORDERABLES Fi nal Result [facility] [address] [place] [address] documented in this encounter Visit Diagnoses Diagnosis Malignant neoplasm of ovary, unspecified laterality- Primary documented in this encounter Additional Health Concerns Infection Onset Date Last Indicated Resolved Time CoV-Exposed Comment:Recent close contact 11/29/2019 11/29/2019 12/13/2019 1:23 AM EDT CoV-Risk 12/18/2019 12/18/2019 01/01/2020 1:23 AM EDT CoV-Risk 07/10/2022 07/10/2022 07/21/2022 1:21 AM EDT documented as of this encounter Care Teams Door Captain Relationship Specialty Start Date End Date Amaya Rodriguez MD [address] [place] [address], [address] [place] [address] [email or web address] PCP - General 02/10/17 06/06/17 Husam Carmona, SUPERVISOR LOCOMOTIVE [address] [place] [address], [address] [place] [address] [email or web address] PCP - General 06/07/17 04/07/21 Sobia White MD [address] [place] [address] [email or web address] PCP - General Family Medicine 04/08/21 04/12/22 Unknown, MD Jian PCP - General 04/13/22 07/09/22 Eder Mansfield DO [address] [place] [address] [email or web address] PCP - General Endocrinology 07/10/22 08/04/23 Edward Maddox MD [address] [place] [address] [phone] PCP - General Internal Medicine 08/05/23 Amaya Rodriguez MD [address] [place] [address], [address] [address] [email or web address] Historical LMR Provider 02/10/17 2 Husam Carmona, EFRAIN [address] [place] [address], [address] [address] [email or web address] Historical LMR Provider 02/10/17 Cortez Powell DO [address] [place] [address] [facility], [place] [address] Historical LMR Provider 02/10/17 05/02/21 Remington Post MD 22 [facility], [address] [place] [address] [email or web address] Historical LMR Provider 02/10/17 Concepcion Hooper PA-C [address] [place] [address] Orthopedics Sports [facility], [place] [address] [email or web address] Historical LMR Provider 02/10/17 05/02/21 Armond Marcano MD 22 [facility] Floor 1 [place] [address] [email or web address] Historical LMR Provider 02/10/17 05/02/21 Immanuel Jaimes DO [address] [place] [address] [email or web address] Historical LMR Provider 02/10/17 Camron Pedraza CNP [address] [place] [address], [address] [place] [address] [email or web address] Historical LMR Provider 02/10/17 Travis Smith MD [address] [place] [address] Historical LMR Provider 02/10/17 2 Amaya Rodriguez MD [address] [place] [address], [address] [place] [address] Insurance Assigned Provider 06/29/19 08/01/21 Cindy Mc, HEBREW CANTOR [address] [place] [address] [email or web address] Nurse Practitioner Hematology and Oncology 05/25/21 Sobia White MD [address] [place] [address] [email or web address] Insurance Assigned Provider 08/01/21 07/31/22 Amaya Rodriguez MD [address] [place] [address], [address] [place] [address] [email or web address] Insurance Assigned Provider 07/31/22 04/30/23 documented as of this encounter Additional Source Comments The information contained in this document represents components of the legal health record. It is not the complete legal health record.[facility]
--- OUTSIDE RECORDS SUMMARY | 2025-03-15 08:26 | XMS_ITS | Clinical Summary ---
Author Organization [address] Address [address] [place] [address] Phone Care Team Providers Care Mandrel Maker Name Role Phone Edward Maddox MD Primary Care Provider [phone] Social History Tobacco Use Types Packs/Day Years Used Date Smoking Tobacco: Never Assessed Comments Unknown Sex and Gender Information Value Date Recorded Sex Assigned at Not on file Legal Sex Female 7:37 PM EST Gender Identity Not on file Sexual Orientation Not on file Plan of Treatment Health Maintenance Due Date Last Done Comments Breast Cancer Screening 1950 Colorectal Cancer Screening: Colonoscopy 1950 COVID-19 Vaccine (2 - Abram risk series) 07/24/2020 06/26/2020 Falls Risk Assessment 05/24/2023 Medicare Annual Wellness Visit 05/24/2023 Social Influencers of Health Screening 05/24/2023 Hypertension/CHF/CAD Annual BMP Blood Test 03/27/2024 08/16/2022, 04/13/2022, 05/27/2021, Additional history exists Depression Screening 04/25/2024 Influenza Vaccine (#1) 2024 , 02/21/2019, 01/09/2018, Additional history exists RSV Immunization Adult Patients (1 - 1-dose 75+ series) 2027 DTaP,Tdap,and Td Vaccines (5 - Td or [...] age to complete this topic Insurance MEDICARE [facility] [place] [id number] Care Teams Mandrel Maker Relationship Specialty Start Date End Date Edward Maddox MD [address] [place] [address] [address] [facility] [place] [address] PCP - General Internal Medicine 04/20/24
--- OUTSIDE RECORDS SUMMARY | 2025-03-15 08:26 | XMS_ITS | Encounter Summary ---
Author Organization [facility] Address [address] [place] [address] [place] [address] Phone Care Team Providers Care Stopboard Assembler Name Role Phone Husam Carmona HORSE RACER Unavailable [phone] Remington Post MD Unavailable [phone] Immanuel Jaimes DO Unavailable [phone] Amaya Rodriguez MD Unavailable [phone] Sobia White MD Primary Care Provid er Cindy Mc PAID INTERN Unavailable [phone] Sobia White MD Unavailable [phone] Unknown, Unknown Primary Care Provider Eder Lloyd DO Primary Care Provider [phone] Amaya Rodriguez MD Unavailable [phone] Edward Maddox MD Primary Care Provider [phone] Encounter Details Date Type Department Care Team (Late st Contact Info) Description 05/08/2021 Procedure Pass Echo Lab [place] [address] [place] [address] Social History Tobacco Use Types Packs/Day [...] high school, GED, job training, learning the Italian language, technical skills, or developing parenting skills)? [...] 02/01/2025 Procedure [place] [address] 04/26/2025 8:00 AM EST Office Visit [facility] [address] Floor, [address] [place] [address] Leon Osman MD 22 [facility], [address] [address] 08/02/2025 8:15 AM EDT Appointment Echo Lab [address] [place] [address] Isai Mayfield DO [address] [place] [address] [place] [address] [email or web address] documented as of this encounter Visit Diagnoses Not on filedocumented in this encounter Additional Health Concerns Infection Onset Date Last Indicated Resolved Time CoV-Risk 07/10/2022 07/10/2022 07/21/2022 1:21 AM EDT Assessment Noted Time PHQ-2 Depression Total Score: 0 01/19/20 20 5:25 PM EDT documented as of this encounter Care Teams Stopboard Assembler Relationship Specialty Start Date End Date Sobia White MD [address] [place] [address] [place] [address] [email or web address] PCP - General Family Medicine 04/08/21 04/12/22 Unknown, Jian, PCP - General 04/13/22 07/09/22 Eder Mansfield DO [address] [place] [address] mary PCP - General Endocrinology 07/10/22 08/04/23 Edward Maddox MD [address] [place] [address] Drive [address] [place] [phone] PCP - General Internal Medicine 08/05/23 Husam Carmona, EFRAIN [address] [place] [address], [address] [place] [address] Historical LMR Provider 02/10/17 Remington Post MD [address] [place] [address] Historical LMR Provider 02/10/17 Immanuel Jaimes DO [address] [place] [address] [email or web address] Historical LMR Provider 02/10/17 Amaya Rodriguez MD [address] [place] [address] Insurance Assigned Provider 06/29/19 08/01/21 Cindy Mc NP [address] [place] [address] Nurse Practitioner Hematology and Oncology 05/25/21 Sobia White MD [address] [place] [address] [email or web address] Insurance Assigned Provider 08/01/21 07/31/22 Amaya Rodriguez MD [address] [place] [address] [place] [phone] Insurance Assigned Provider 07/31/22 04/30/23 documented as of this encounter Additional Source Comments The information contained in this document represents components of the legal health record. It is not the complete legal health record.[facility]
--- OUTSIDE RECORDS SUMMARY | 2025-03-15 08:26 | XMS_ITS | Encounter Summary ---
Author Organization [facility] Address [address] [place] [address] [place] [address] Phone Care Team Providers Care Cartridge Loader Name Role Phone Amaya Rodriguez MD Primary Care Provider + Amaya Rodriguez MD Unavailable +[phone] Husam Carmona CURVE SAW OPERATOR Unavailable [phone] Cortez Powell DO Unavailable [phone] Remington Post MD Unavailable +[phone] Concepcion Hooper PA-C Unavailable [phone] Armond Marcano MD Unavailable [phone] Immanuel Jaimes DO Unavailable [phone] Camron Pedraza CURVE SAW OPERATOR Unavailable [phone] Trvais Smith MD Unavailable [phone] Husam Carmona CURVE SAW OPERATOR Primary Care Provider + Amaya Rodriguez MD Unavailable +[phone] Sobia White MD Primary Care Provid er + Cindy Mc INSIDE SALES SUPERVISOR Unavailable [phone] Sobia White MD Unavailable + Unknown, Unknown Primary Care Provider Eder Lloyd DO Primary Care Provider [phone] Amaya Rodriguez MD Unavailable [phone] Edward Maddox MD Primary Care Provider [phone] Encounter Details Date Type Department Care Team (Late Contact Info) Description 06/03/2017 Ancillary Orders [address] [address] Concepcion Hooper PA-C [address] [place] [address] Orthopedics & Sports Medicine, [place] [address] Right knee pain, unspecified chronicity Social History [...] Info) Description 02/01/2025 Procedure Pass Echo Lab [address] [address] 04/26/2025 8:00 AM EST Office Visit [facility] [address] [place] [address] 3rd Floor, [address] [place] [address] Leon Osman MD [address] [place] [address] 08/02/2025 8:15 AM EDT Appointment Echo [place] [address] Isai Mayfield DO [address] [place] [address] documented as of this encounter Results * [...] documented as of this encounter Care Teams Cartridge Loader Relationship Specialty Start Date End Date Amaya Rodriguez MD 22 [facility], [address] [address] [email or web address] PCP - General 02/10/17 06/06/17 Husam Carmona, EFRAIN [address] [place] [address], [address] [place] [address] [email or web address] PCP - General 06/07/17 04/07/21 Sobia White MD [address] [address] [email or web address] PCP - General Family Medicine 04/08/21 04/12/22 Unknown, Jian, PCP - General 04/13/22 07/09/22 Eder Mansfield DO [address] [place] [address] PCP - General Endocrinology 07/10/22 08/04/23 Edward Maddox MD [address] [place] [address] [address] [place] [phone] PCP - General Internal Medicine 08/05/23 Amaya Rodriguez MD [address] [place] [address], [address] [place] [address] Historical LMR Provider 02/10/17 2 Husam Carmona CNP [address] [place] [address], [address] [place] [address] Historical LMR Provider 02/10/17 Cortez Powell DO [address] [place] [address] Orthopedics Sports [facility], [place] [address] Historical LMR Provider 02/10/17 05/02/21 Remington Post MD [address] [place] [address], [address] [place] [address] Historical LMR Provider 02/10/17 Concepcion Hooper PA-C [address] [place] [address] Orthopedics Sports [facility], [place] [address] Historical LMR Provider 02/10/17 05/02/21 Armond Marcano MD 22 [facility] Floor 1 [place] [address] [email or web address] Historical LMR Provider 02/10/17 05/02/21 Immanuel Jaimes DO [address] [place] [address] [email or web address] Historical LMR Provider 02/10/17 Camron Pedraza CNP 22 [facility], [address] [place] [address] [email or web address] Historical LMR Provider 02/10/17 Travis Smith MD [address] [place] [address] Historical LMR Provider 02/10/17 2 Amaya Rodriguez MD [address] [place] [address] [email or web address] Insurance Assigned Provider 06/29/19 08/01/21 Cindy Mc NP [address], [place] [address] [email or web address] Nurse Practitioner Hematology and Oncology 05/25/21 Sobia White MD [address] [address] Insurance Assigned Provider 08/01/21 07/31/22 Amaya Rodriguez MD [address] [place] [address] [email or web address] Insurance Assigned Provider 07/31/22 04/30/23 documented as of this encounter Additional Source Comments The information contained in this document represents components of the legal health record. It is not the complete legal health record.[facility]
--- OUTSIDE RECORDS SUMMARY | 2025-03-15 08:26 | XMS_ITS | Encounter Summary ---
Author Organization [facility] Address [address] [place] [address] Care Team Providers Care Rn Pain Management Name Role Phone Edward Maddox MD Primary Care Provider [phone] Encounter Details Date Type Department Care Team (Latest Contact Info) Description 03/29/2024 Lab Requisition [facility] Lab [address] [place] [phone] Andree Yusuf MD [address] [address] Encounter for gynecological examination (general) [...] screening system. Technical cytopathology services provided by [facility], at [address] [place] [address] (CLIA # [id number]/Deandre Aleman MD, Appellate Court Judge.) 04/02/2024 3:10 PM [facility] Console Pap Interpretation Reported 04/02/2024 3:10 PM [facility] Brushing/Spatula Vaginal structure / Unknown 03/28/2024 03/29/2024 8:25 AM EST us Andree Yusuf MD LAB CYTOLOGY ORDERABLES Final Result [facility] [address] [place] [address], documented in this encounter Visit Diagnoses Diagnosis Encounter for gynecological examination (general) (routine) without abnormal findings documented in this encounter Care Teams Rn Pain Management Relationship Specialty Start Date End Date Edward Maddox MD [address] [place] [address] Dr [address] [facility] [place] [address] PCP - General Internal Medicine 04/20/24 documented as of this encounter
--- OUTSIDE RECORDS SUMMARY | 2025-03-15 08:26 | XMS_ITS | Encounter Summary ---
Author Organization [facility] Address [address] [place] [address] [place] [address] Phone Care Team Providers Care Internet Media Planner Name Role Phone Husam Carmona SPARK PLUG TESTER Unavailable [phone] Remington Post MD Unavailable [phone] Immanuel Jaimes DO Unavailable [phone] Sobia White MD Primary Care Provid er Cindy Mc CARPET JOURNEYMAN Unavailable [phone] Sobia White MD Unavailable + [phone] Unknown, Unknown Primary Care Provider Eder Lloyd DO Primary Care Provider [phone] Amaya Rodriguez MD Unavailable [phone] Edward Maddox MD Primary Care Provider [phone] Encounter Details Date Type Department Care Team (Late st Contact Info) Description 04/12/2022 Procedure Pass [facility] [address] [place] [address] Social History Tobacco Use Types Packs/Day Years [...] high school, GED, job training, learning the Nepali language, technical skills, or developing parenting skills)? [...] Description 02/01/2025 Procedure Pass Echo [facility] [place] [address] [place] [address] 04/26/2025 8:00 AM EST Office Visit [facility] [address] Floor, [address] [place] [address] Leon Osman MD [address] [place] [address], [address] [place] [address] 08/02/2025 8:15 AM EDT Appointment Echo Lab [address] [place] [address] Isai Mayfield DO [address] [place] [address] [place] [address] [email or web address] documented as of this encounter Visit Diagnoses Not on filedocumented in this encounter Additional Health Concerns Infection Onset Date Last Indicated Resolved Time CoV-Risk 07/10/2022 07/10/2022 07/21/2022 1:21 AM EDT Assessment Noted Time PHQ-2 Depression Total Score: 0 01/19/20 20 5:25 PM EDT documented as of this encounter Care Teams Internet Media Planner Relationship Specialty Start Date End Date Sobia White MD [address] [place] [address] [place] [address] [email or web address] PCP - General Family Medicine 04/08/21 04/12/22 Unknown, Jian, PCP - General 04/13/22 07/09/22 Eder Mansfield DO [address] [place] [address] mary PCP - General Endocrinology 07/10/22 08/04/23 Edward Maddox MD [address] [place] [address] Drive [address] [place] [phone] PCP - General Internal Medicine 08/05/23 Husam Carmona, EFRAIN [address] [place] [address], [address] [place] [address] Historical LMR Provider 02/10/17 Remington Post MD [address] [place] [address], [address] [place] [address] [email or web address] Historical LMR Provider 02/10/17 Immanuel Jaimes DO [address] [place] [address] [email or web address] Historical LMR Provider 02/10/17 Cindy Mc NP [address] [place] [address] [email or web address] Nurse Practitioner Hematology and Oncology 05/25/21 Sobia White MD [address] [place] [address] [place] [address] [email or web address] Insurance Assigned Provider 08/01/21 07/31/22 Amaya Rodriguez MD [address] [place] [address], [address] [place] [address] [email or web address] Insurance Assigned Provider 07/31/22 04/30/23 documented as of this encounter Additional Source Comments The information contained in this document represents components of the legal health record. It is not the complete legal health record.[facility]
--- OUTSIDE RECORDS SUMMARY | 2025-03-15 08:26 | XMS_ITS | Patient Health Record ---
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) Active confirmed Plan Of Treatment Pending Test Test Name Order Date X ray : Foot, left 3V 12/09/2021 X ray : Foot, right 3V 12/09/2021 Insurance Providers Payer Name Payer Address Payer Phone Subscriber Number Group Number Insured Name Patient Relationship to Insured Coverage Start Date Coverage End Date Medicare National Govt Svcs Inc [address] [place] [phone] [id number] Christianne Yoder Self - patient is the insured [employer] ([employer]) [address] [place] [address] [id number] Christianne Yoder Self - patient is the insured Medical (General) History Medical History History ICD Code Arthritis Back,Hip,and Knee pain Cancer Reflux ( GERD) Measles Mumps Chicken pox Joint implants/screws Surgical History Surgery Date(Month/Year) knee replacement 11/2015, 05/2016 hysterectomy 03/2013 trapezoid bone 10/2019
--- OUTSIDE RECORDS SUMMARY | 2025-03-15 08:26 | XMS_ITS | Encounter Summary ---
Author Organization [facility] Address [address] [place] [address] [place] [address] Phone Care Team Providers Care Computer Programmer Name Role Phone Amaya Rodriguez MD Primary Care Provider + Amaya Rodriguez MD Unavailable [phone] Husam Carmona JEWEL CUPPING MACHINE OPERATOR Unavailable [phone] Cortez Powell DO Unavailable [phone] Remington Post MD Unavailable [phone] Concepcion Hooper PA-C Unavailable [phone] Armond Marcano MD Unavailable [phone] Immanuel Jaimes DO Unavailable [phone] Camron Pedraza JEWEL CUPPING MACHINE OPERATOR Unavailable [phone] Travis Smith MD Unavailable [phone] Husam Carmona JEWEL CUPPING MACHINE OPERATOR Primary Care Provider + Amaya Rodriguez MD Unavailable [phone] Sobia White MD Primary Care Provid er + Cindy Mc ESCALATOR ATTENDANT Unavailable [phone] Sobia White MD Unavailable + Unknown, Unknown Primary Care Provider Eder Lloyd DO Primary Care Provider [phone] Amaya Rodriguez MD Unavailable [phone] Edward Maddox MD Primary Care Provider [phone] Encounter Details Date Type Department Care Team (Late st Contact Info) Description 06/03/2017 Ancillary Orders [facility] Orthopedics & Sports Medicine [address] [place] [address] Concepcion Hooper PA-C [address] [place] [address] Orthopedics & Sports [place], [place] [address] Social History Tobacco Use Types Packs/Day Years [...] Info) Description 02/01/2025 Procedure Pass Echo Lab [place] [address] [place] [address] 04/26/2025 8:00 AM EST Office Visit [facility] [address] [place] [address] 3rd Floor, [address] [place] [address] Leon Osman MD [address] [place] [address], [address] [address] 08/02/2025 8:15 AM EDT Appointment Echo [place] [address] Isai Mayfield DO [address] [place] [address] documented as of this encounter Visit Diagnoses Not on filedocumented in this encounter Additional Health Concerns Infection Onset Date Last Indicated Resolved Time CoV-Exposed Comment:Recent close contact 11/29/2019 11/29/2019 12/13/2019 1:23 AM EDT CoV-Risk 12/18/2019 12/18/2019 01/01/2020 1:23 AM EDT CoV-Risk 07/10/2022 07/10/2022 07/21/2022 1:21 AM EDT documented as of this encounter Care Teams Computer Programmer Relationship Specialty Start Date End Date Amaya Rodriguez MD 22 [facility], [address] [place] [address] PCP - General 02/10/17 06/06/17 Husam Carmona CNP [address] [place] [address], [address] [address] [email or web address] PCP - General 06/07/17 04/07/21 Sobia White MD [address] [place] [address] [email or web address] PCP - General Family Medicine 04/08/21 04/12/22 Unknown, Jian, PCP - General 04/13/22 07/09/22 Eder Mansfield DO [address] [place] [address] mary PCP - General Endocrinology 07/10/22 08/04/23 Edward Maddox MD [address] [place] [address] [address] [place] [phone] PCP - General Internal Medicine 08/05/23 Amaya Rodriguez MD [address] [place] [address], [address] [place] [address] [email or web address] Historical LMR Provider 02/10/17 Husam Sotelo, EFRAIN [address] [place] [address], [address] [place] [address] [email or web address] Historical LMR Provider 02/10/17 Cortez Powell DO [address] [place] [address] Orthopedics & Sports [facility], [place] [address] [email or web address] Historical LMR Provider 02/10/17 05/02/21 Remington Post MD [address] [place] [address], [address] [place] [address] [email or web address] Historical LMR Provider 02/10/17 Concepcion Hooper, SHADIC [address] [place] [address] Orthopedics Sports [facility], [place] [address] [email or web address] Historical LMR Provider 02/10/17 05/02/21 Armond Marcano MD 22 [facility] Floor 1 [place] [address] [email or web address] Historical LMR Provider 02/10/17 05/02/21 Immanuel Jaimes DO [address] [place] [address] [email or web address] Historical LMR Provider 02/10/17 Camron Pedraza, JEWEL CUPPING MACHINE OPERATOR [address] [place] [address], [address] [place] [address] Historical LMR Provider 02/10/17 Travis Smith MD [address] [place] [address] Historical LMR Provider 02/10/17 2 Amaya Rodriguez MD [address] [place] [address], [address] [address] Insurance Assigned Provider 06/29/19 08/01/21 Cindy [facility] [place] [address] [email or web address] Nurse Practitioner Hematology and Oncology 05/25/21 Sobia White MD [address] [place] [address] [email or web address] Insurance Assigned Provider 08/01/21 07/31/22 Amaya Rodriguez MD [address] [place] [address] [email or web address] Insurance Assigned Provider 07/31/22 04/30/23 documented as of this encounter Additional Source Comments The information contained in this document represents components of the legal health record. It is not the complete legal health record.[facility]
--- OUTSIDE RECORDS SUMMARY | 2025-03-15 08:27 | XMS_ITS | Clinical Summary ---
Author Organization [facility] Address [address] [place] [address] Phone Care Team Providers Care Medical Claims Analyst Name Role Phone Husam Carmona DERRICK HAND Unavailable Remington Post MD Unavailable [phone] Immanuel Jaimes DO Unavailable [phone] Cindy Mc EVENT SPECIALIST PRODUCT DEMONSTRATOR Unavailable [phone] Po, Edward Ortiz MD Primary Care Provider [phone] Allergies No known active allergies Medications cyclobenzaprine (FLEXERIL) 5 MG tablet Take 10 mg by mouth 2 (two) times a day as needed. Active multivitamins-mi nerals-folic cehl-iszvcng-ixl ein (COMPLETE SENIOR) 0.4 mg-300 mcg- 250 mcg Tab Take 1 tablet by mouth daily. Active rosuvastatin (CRESTOR) 5 MG tablet Take 1 tablet (5 mg total) by mouth daily. 90 tablet 3 4 Active Additional Information Patient not taking.Reported on 02/01/2025 MOUNJARO 5 mg/0.5 mL PnIj subcutaneous pen Inject 5 mg under the skin once a week. 5 Active rosuvastatin (CRESTOR) 10 MG tablet Take 10 mg by mouth daily. Active cyanocobalamin, vitamin B-12, 500 MCG tablet 1 tablet Orally Once a day; Duration: 30 day(s) Active pyridoxine, vitamin B6, (B-6) 100 MG tablet 1 tablet Orally Once a day; Duration: 30 day(s) Active Active Problems Patient Care Coordination No [...] be fasting and must go to any [facility] [place] laboratory for this study. She does not [...] refer the patient to endocrine surgeon at [facility] Dr. Rhiannon Boyd. Assessment & Plan (04/12/2022 [...] 02/09/2022 Aortic stenosis 07/20/2021 Assessment & Plan (02/01/2025 8:48 AM EDT): She has moderate stable asymptomatic aortic stenosis with a mean gradient of 25 mmHg. I will I ordered another echo to be done in 6 months time Assessment & Plan (10/19/2024 9:39 AM EDT): [...] etiology. Mixed hyperlipidemia 01/11/2019 Assessment & Plan (02/01/2025 8:47 AM EDT): Lipids are getting under excellent control blood pressure is also controlled I reviewed an extensive blood pressure log but the patient brought in Assessment & Plan (10/19/2024 9:40 AM EDT): [...] insomnia 12/22/2017 History of ovarian cancer 09/15/2017 Assessment & Plan (02/01/2025 8:47 AM EDT): This is followed by [facility] oncology History of melanoma 09/15/2017 Overview (08/28/2018): 2014, nl margins and neg lymph nodes on biopsy. Dr Rai, [facility] Obesity, morbid 09/15/2017 Gastroesophageal reflux disease without esophagi tis 09/15/2017 Primary osteoarthritis, left ankle and foot 06/23 Left ankle pain 07/05/2017 Ovarian cancer 04/20/2017 Cancer Staging:Clinical: Unsigned Overview (05/18/2021): ovarian cancer stage 3A, Jan 2013- Dr. 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 Status post adjuvant carboplatin and paclitaxel completed July 27, [address] [facility] staging not available sentinel lymph node biopsy [...] Encounters Date Type Department Care Team Description 02/01/2025 8:30 AM EDT Office Visit [facility] [address]rd Floor, [address] [place], [place] [id number] Isai Mayfield DO Cardiac murmur, unspecified (Primary Dx); Palpitations; History of ovarian cancer; Mixed hyperlipidemia; Nonrheumatic aortic valve stenosis from Last 3 Months Immunizations Immunization Administration Dates Next Due COVID-19 (Pre-02/14) Abram Vaccine, rS-Ad26, PF 06/26/2020 DT 04/01/2008 [id number] FORMULATION 04/30/2009 INFLUENZA, SPLIT VIRUS, TRIVALENT PF [...] Medical History Relation Comments Heart disease Father Reynaldo's disease Mother Heart murmur Mother Infl. arthritis [...] Sign Reading Time Taken Comments Blood Pressure 160/100 02/01/2025 8:30 AM EDT Pulse 91 02/01/2025 8:30 AM EDT Temperature 36.8 C (98.3 F) 08/05/2023 12:25 PM EDT Respiratory Rate 18 08/05/2023 12:25 PM EDT Oxygen Saturation 96% 02/01/2025 8:30 AM EDT Inhaled Oxygen Concentration - - Weight 99.8 kg (220 lb) 02/01/2025 8:30 AM EDT Height 172.1 cm (5' 7.76 ) 02/01/2025 8:30 AM ED T Body Mass Index 33.69 02/01/2025 8:30 AM EDT Plan of Treatment Upcoming Encounters Date Type Department Care Team (Late st Contact Info) Description 02/01/2025 Procedure Pass Echo Lab [address] [place] [address] 04/26/2025 8:00 AM EST Office Visit [facility] [address] [place] [address] 3rd Floor, [address] [place] [address] Leon Osman MD [address] [place] [address], [address] [address] 08/02/2025 8:15 AM EDT Appointment Echo Lab [address] [place] [address] Isai Mayfield DO [address] [place] [address] [place] [address] [email or web address] Health Maintenance Due Date Last Done Comments COLOGUARD 1997 FIT TEST 1997 FOBT 1997 SIGMOIDOSCOPY 1997 VIRTUAL COLONOSCOPY 1997 RSV VACCINE (1 - Risk 50-74 years 1-dose series) 2002 DEPRESSION SCREENING 01/18/2021 01/19/2020 MAMMOGRAM 10/30/2024 10/30/2022, 06/10/2020, 10/19/2019, Additional history exists INFLUENZA VACCINE (#1) 2024 , 01/22/2020, 02/21/2019, Additional history exists COVID-19 VACCINE ( - season) 2024 06/26/2020 BLOOD PRESSURE 08/02/2025 02/01/2025 SMOKING Hx and SMOKELESS TOBACCO SCREENING 02/01/2026 02/01/2025 COLONOSCOPY 05/13/2026 05/13/2016 COLORECTAL CANCER SCREENING 05/13/2026 Adult Td,Tdap Booster 12/24/2027 12/23/2017 , 04/01/2008, 11/08/1998 LIPID PANEL 09/11/2029 09/11/2024, 05/2023, 04/09/2023, Additional history exists OSTEOPOROSIS SCREENING INITIAL (ONE-TIME) Completed 04/21/2018 ZOSTER VACCINES Completed 05/24/2019, 09/2018, 09/04/2015 PNEUMOCOCCAL VACCINES (50+ years) Completed [...] (09/11/2024 9:33 AM EDT) HDL 45 mg/dL [facility] Comment: Interpretation <40 mg/dL: Low HDL cholesterol (major risk factor for CHD) Greater than or equal to 60 mg/dL: High HDL cholesterol ( negative risk factor for CHD) HDL - cholesterol is affected by a number of factors, e.g. smoking, excerise, hormones, sex and age. CHOLESTEROL 158 0 - 240 mg/dL [facility] TRIGLYCERIDES 161(H) 30 - 160 mg/dL [facility] LDL 81 50 - 129 mg/dL [facility] Comment: LDL levels in terms of risk for coronary heart disease: <100 mg/dL: Optimal 100-129 mg/dL: Near or above optimal 130-159 mg/dL: Borderline high 160-189 mg/dL: High >190 mg/dL: Very High CARDIAC RISK RATIO 3.5 3.3 - 4.4 C [facility] Blood 09/11/2024 9:33 AM EDT 09/11/2024 9:46 AM EDT us Soumyajose Cm [facility] BLOOD BKR ORDERABLES Final Result Performing Organization Address City/[facility]/ZIP Co de Phone Number [address] [address] * MAMMOGRAPHY FOR RESULT ENTRY ONLY (10/30/2022) us Historical Provider HEALTH MAINTENANCE Final Result * Hepatitis C antibody, qualitative (01/23/2020 9:51 AM EDT) HCV NON-REACTIV E NON-REACTI VE [facility] Blood 01/23/2020 9:51 AM EDT 01/23/2020 9:58 AM EDT us Husam Carmona DERRICK HAND LAB BLOOD BKR ORDERABL ES Final Result Performing Organization Address [facility]/ZIP Co de Phone Number [address] [address] * BD DXA SPINE AND HIP WITH [...] family history ofosteoporosis POS - [id number] Eder MORENO BD BONE DENSITY DEXA Final Result from Last 3 Months or Most Recently Relevant to Health Maintenance Insurance MEDICARE PART A & B [place] MEDICARE SUPPLEMENT MEDICARE PART A & B [place] MEDICARE SUPPLEMENT MEDICARE PART A & B [facility] MEDICARE SUPPLEMENT MEDICARE PART A & B [facility] [employer] MEDICARE SUPPLEMENT MEDICARE PART A & B [facility] MEDICARE SUPPLEMENT MEDICARE PART A & B Member Subscriber Plan / Payer ( fective 2017-Present) Name:Christianne Yoder Member ID:[id number] Relation to Subscriber:Self Name:Christianne Yoder Subscriber ID:[id number] Payer ID:[id number] Group ID:Not on file Type:Medicare Address: [place] [address] [place] [phone] [facility] MEDICARE SUPPLEMENT MEDICARE PART A & B MEDICARE SUPPLEMENT MEDICARE PART A & B [place] MEDICARE SUPPLEMENT MEDICARE PART A & B [employer] MEDICARE SUPPLEMENT Care Teams Medical Claims Analyst Relationship Specialty Start Date End Date Edward Maddox MD [address] [place] [address] Drive [address] [place] [phone] PCP - General Internal Medicine 08/05/23 Husam Carmona, DERRICK HAND [address] [place] [address], [address] [place] [address] [email or web address] Historical LMR Provider 02/10/17 Remington Post MD [address] [place] [address], [address] [place] [address] Historical LMR Provider 02/10/17 Immanuel Jaimes DO [address] [place] [address] [email or web address] Historical LMR Provider 02/10/17 Cindy Mc NP [address] [place] [address] Nurse Practitioner Hematology and Oncology 05/25/21 Additional Source Comments The information contained in this document represents components of the legal health record. It is not the complete legal health record.[facility]
--- OUTSIDE RECORDS SUMMARY | 2025-03-15 08:27 | XMS_ITS | Encounter Summary ---
Author Organization [facility] Address [address] [place] [address] [place] [address] Phone Care Team Providers Care Snubber Name Role Phone Husam Carmona BOAT OAR MAKER Unavailable [phone] Remington Post MD Unavailable [phone] Immanuel Jaimes DO Unavailable [phone] Sobia White MD Primary Care Provid er Cindy Mc SCIENTIFIC SOFTWARE ENGINEER Unavailable [phone] Sobia White MD Unavailable [phone] Unknown, Unknown Primary Care Provider Eder Lloyd DO Primary Care Provider [phone] Amaya Rodriguez MD Unavailable [phone] Edward Maddox MD Primary Care Provider [phone] Encounter Details Date Type Department Care Team (Late st Contact Info) Description 08/31/2021 Procedure Pass Echo Lab [address] [place] [address] Social History Tobacco Use Types Packs/Day Years [...] high school, GED, job training, learning the [place] language, technical skills, or developing parenting skills)? [...] Procedure Pass Echo [place] [address] [place] [address] 04/26/2025 8:00 AM EST Office Visit [facility] [address] Floor, [address] [place] [address] Leon Osman MD [address] [place] [address], [address] [place] [address] 08/02/2025 8:15 AM EDT Appointment Echo Lab [address] [place] [address] Isai Mayfield DO [address] [place] [address] documented as of this encounter Visit Diagnoses Not on filedocumented in this encounter Additional Health Concerns Infection Onset Date Last Indicated Resolved Time CoV-Risk 07/10/2022 07/10/2022 07/21/2022 1:21 AM EDT Assessment Noted Time PHQ-2 Depression Total Score: 0 01/19/20 5:25 PM EDT documented as of this encounter Care Teams Snubber Relationship Specialty Start Date End Date Sobia White MD [address] [place] [address] [place] [address] [email or web address] PCP - General Family Medicine 04/08/21 04/12/22 Unknown, Jian, PCP - General 04/13/22 07/09/22 Eder [place] DO [address] [place] [address] mary PCP - General Endocrinology 07/10/22 08/04/23 Edward Maddox MD [address] [place] [address] [address] [place] [phone] PCP - General Internal Medicine 08/05/23 Husam Carmona, EFRAIN [address] [place] [address], [address] [place] [address] Historical LMR Provider 02/10/17 Remington Post MD [address] [place] [address], [address] [place] [address] [email or web address] Historical LMR Provider 02/10/17 Immanuel Jaimes DO [address] [place] [address] [email or web address] Historical LMR Provider 02/10/17 Cindy Mc NP [address] [place] [address] [email or web address] Nurse Practitioner Hematology and Oncology 05/25/21 Sobia White MD [address] [place] [address] [email or web address] Insurance Assigned Provider 08/01/21 07/31/22 Amaya Rodriguez MD [address] [place] [address], [address] [address] [email or web address] Insurance Assigned Provider 07/31/22 04/30/23 documented as of this encounter Additional Source Comments The information contained in this document represents components of the legal health record. It is not the complete legal health record.[facility]
--- OUTSIDE RECORDS SUMMARY | 2025-03-15 08:27 | XMS_ITS | Continuity of Care Document ---
Author Organization [facility] [address] [facility] [address] [place] [address] Phone [phone] Care Team Providers Care Grounds Restoration Specialist Name Role Phone Edward Maddox Care Team Information Inspector [employer] [phone] Problems Active Problems Provider Date H/O: depression [...] Date Description Comments Sex Female Sex Unknown Allergies and adverse reactions Active Allergies Criticality Reaction Severity Comments Date Celebrex Unable to assess criticality elevated blood pressure 01/10/2025 Medications Active Medications SIG Qnty Indications Ordering Provider Date Mounjaro7.5mg/0.5ML Solution Auto-Inject inject 7.5 mg every week 6ml Yosef Barrientos M.D. 11/13/2024 Cyclobenzaprine QGI36ff Tablets Take 1 Tablet By Mouth Three Times Daily as Needed Noe Ordoñez MD Rosuvastatin Hvxaxah19jg Tablets Take 1 Tablet By Mouth Daily Po, Edward History Medications Ppdbqoau4er/0.5ML Solution Auto-Inject inject 5 mg every week 2ml Yosef Barrientos M.D. 09/12/2024 - 11/13/2024 Wegovy0.25mg/0.5ML Solution Auto-Inject inject 0.5 ml weekly for one month 2ml Yosef Barrientos M.D. 06/05/2024 - 09/12/2024 Zepbound2.5mg/0.5ML Solution Auto-Inject inject weekly 2ml Yosef Lizama M.D. 04/02/2024 - 09/12/2024 Vital Signs Date Vital Result Comment 01/10/2025 10:22am BP Systolic 170 mmHg BP Diastolic 80 mmHg Heart Rate 76 /min Height 66 inches 5'6 Weight 223.00 lb BMI (Body Mass Index) 36.0 kg/m2 Results Test Acquired Date Facility Test [...] 1.4-7.0 Lymphs (Absolute) 1.7 x10E3/uL 0.7-3.1 Monocytes([place] ) 0.7 x10E3/uL 0.1-0.9 Eos (Absolute) 0.2 [...] 2 Thyroglobulin Antibo dy measured by Elfego Theresa Methodology It should be noted that the presence of thyroglobulin antibodies may not be pathogenic nor diagnostic, especially at very low levels. The assay medication reconciliation technician has found that four percent of individuals without evidence of thyroid disease or autoimmunity will have positive TgAb levels up to 4 IU/mL. 3 According to the [facility] Academy of Clinical Biochemistry, the reference interval [...] Date Location Provider Dx Diagnosis Office Visit 01/10/2025 10:45a Main Office Yosef Barrientos M.D. E66.9 Obesity, unspecified C73 Malignant neoplasm o f thyroid gland R73.01 Impaired fasting glu cose Assessments Date Code Description Provider 01/10/2025 E66.9 Obesity Yosef rosas M.D. 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 01/10/2025 R73.01 Impaired fasting glycemia Oral Barrientos M.D. Plan of Treatment Future Appointment(s):* 05/16/2025 9:30 am - Yosef Barrientos M.D. at Main Office 07/09/2024 - Yosef Barrientos M.D.* E66.9 Obesity * C73 Hurthle cell carcinoma of thyroid Functional Status Description No Information Available Mental Status Description No Information Available Referrals Description No Information Available
--- OUTSIDE RECORDS SUMMARY | 2025-03-15 08:27 | XMS_ITS | Patient Health Record ---
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 Problem Osteoarthritis of right subtalar joint (5147413501779748 1) 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
--- OUTSIDE RECORDS SUMMARY | 2025-03-15 08:27 | XMS_ITS | Encounter Summary ---
Author Organization [facility] Address [address] [facility] [address] [place] [address] Phone Care Team Providers Care Phone Representative Name Role Phone Husam Carmona HAND PATCHER Unavailable [phone] Remington Post MD Unavailable [phone] Immanuel Jaimes DO Unavailable [phone] Cindy Mc INFANT TODDLER LEAD TEACHER Unavailable [phone] Edward Maddox MD Primary Care Provider [phone] Encounter Details Date Type Department Care Team (Late st Contact Info) Description 09/08/2023 Procedure Pass Echo Lab [address] [place] [address] Social History Tobacco Use Types Packs/Day Years [...] Info) Description 02/01/2025 Procedure Pass Echo [facility] [place] [place] [address] 04/26/2025 8:00 AM EST Office Visit [facility] [address], [address] [place] [address] Leon Osman MD [address] [facility], [address] [place] [address] 08/02/2025 8:15 AM EDT Appointment Echo Lab [address] [place] [address] Isai Mayfield DO [address] [facility] [address] [place] [address] documented as of this encounter Visit Diagnoses Not on filedocumented in this encounter Additional Health Concerns Assessment Noted Time PHQ-2 Depression Total Score: 0 01/19/20 20 5:25 PM EDT documented as of this encounter Care Teams Phone Representative Relationship Specialty Start Date End Date Po, Edward Ortiz MD [address] [place] [address] [address] [place] [phone] PCP - General Internal Medicine 08/05/23 Husam Carmona CNP [address] [place] [address], [address] [place] [address] Historical LMR Provider 02/10/17 Remington Post MD [address] [place] [address], [address] [place] [address] Historical LMR Provider 02/10/17 Immanuel Jaimes DO [address] [place] [address] [email or web address] Historical LMR Provider 02/10/17 Cindy Mc NP [address] [place] [address] Nurse Practitioner Hematology and Oncology 05/25/21 documented as of this encounter Additional Source Comments The information contained in this document represents components of the legal health record. It is not the complete legal health record.[facility]
--- NOTE | 2025-03-15 08:40 | A.OFFPC_ITS ---
Vital Signs 03/15/25 08:42 Height 5 ft 6 in Weight 214 lb 8 oz BMI 34.6 BP 132/80 Blood Pressure Location Lt brachial Position Sitting Pulse 90 Pulse Source Pulse Oximeter Temp 96.4 F L Temp Source Temporal Artery Scan Pulse Oximetry (%) 96 Oxygen Delivery Method Room Air Intake Visit Reasons: TCM [facility] s/p L2-L4 OLIF 03/06 Intake Note: Patient is here for hospital discharge and TCM follow up. Patient was discharged from [facility] [place] 03/06[place]25. Bobbin Winder Required: No Program Director: Present Accompanied by: Son Allergies celecoxib (Celebrex) Adverse Reaction (Intermediate, Verified 03/15/25 08:42) hypertension Tobacco use date assessed: 03/15/25 Fall risk assessment: No Falls in past year Last assessed Fall Risk: 03/15/25 Dental Screening Dental Screen Date: 11/14/24 HPI TCM TCM Information Date of Discharge 03/06/25 Discharged From [facility] Interactive Contact Date (Reference documentation from this date) 03/07/25 HPI Comments History of Present Illness Details 74 y/o female patient presents to clinic today for TCM following recent hospitalizations. She was admitted at [facility] [place] 03/05?03/06 for an elective spine surgery. She is now s/p L2?L3 and L3?L4 diskectomy, arthrodesis, and interbody cage implantation via anterolateral/retroperitoneal approach, as well as removal of L4?S1 posterior instrumentation on 03/05/[address] Fernandes. Patient was re-admitted on 03/12 due to abdominal pain, nausea, vomiting, and overall malaise. She reports feeling improved today but still somewhat weak. Denies fevers/chills. States that pain is present but manageable with current regimen. Reports no new neurological deficits. Appetite slowly returning. Bowel movements present but decreased. Denies urinary retention or incontinence. She has a follow-up appointment with outpatient Neuro Spine scheduled for Thursday 03/15 at 10:30 AM. She received a prescription for Dilaudid for postoperative pain control. [facility] Medical History (Updated 03/13/25 @ 00:00 by Background Daemon) Onychomycosis OAB (overactive bladder) Fracture of one rib Callosity Ankle fracture Osteoarthritis Arthritis Hiatal hernia Numbness Murmur History of chemotherapy Blood pressure elevated without history of HTN Tubular adenoma Melanoma Ovarian cancer Thyroid cancer Aortic stenosis Surgical History (Updated 03/15/25 @ 08:57 by Viktoriya Flores NP) S/P lumbar spine operation History of back surgery History of ankle surgery Hx of laparoscopic gastric banding Hx of appendectomy Hx of cholecystectomy Hx of total hysterectomy (~2012) History of total bilateral knee replacement Hx of partial thyroidectomy (~11/24/22) History of hand surgery History of esophagogastroduodenoscopy (EGD) H/O colonoscopy S/P lumbar spinal fusion (~02/22/22) History of carpal tunnel surgery Family History Mother No problems noted. Father COPD (chronic obstructive pulmonary disease) Social History Household Members: None Housing: House Are you a primary ambulatory care coordinator to a significant other at home: No Do you presently have visiting nurse or other home services: No Alcohol intake: current Alcohol intake frequency: holidays/special occasions only Comment: 2-3 xa year 2 bottles beer Patient Tobacco Use Status: Former Tobacco user Tobacco use type: Cigarette Years Smoked: quit 30yrs ago 42 years old e-Cigarette/Vaping Use: Never Used Second Hand Smoke Exposure: Yes service: No Current occupational status: retired Cognitive needs: Yes (cane) Hearing needs: No Vision needs: Yes (glasses) Questionnaire Thrive Questionnaire Date Thrive assessed: 11/14/24 I am a: Patient What is your living situation today?: I have a steady place to live Within the past 12 months, did the food you bought not last and you didn't have the money to get more?: Never true Within the past 12 months, did you worry whether your food would run out before you got money to buy more?: Never true Do you have trouble paying for medicines?: No Do you have trouble getting transportation to medical appointments?: No Do you have trouble paying your heating and electricity bill?: I choose not to answer this question Do you have trouble taking care of your child, family member or friend?: No Do you have trouble with day-to-day activities such as bathing, preparing meals, shopping, managing finances, etc.?: No Are you currently unemployed and looking for a job?: No Are you interested in more education?: No Please select the resources that you would like help with: None Currently or been in a relationship where the following occur: No concerns reported THRIVE Score: 0 SHARMILA-7 AMB Questionnaire SHARMILA-7 Date SHARMILA - 7 assessed: 07/30/24 Source: Developed by Drs. Familia Parker, Nandini Teague, Garett Urena and colleagues, with an educational sindi from [employer]. Review of Systems Const All systems reviewed & are unremarkable except as noted in HPI and below Physical exam (Primary Care) Vital Signs: Last Vital Signs Temp 96.4 F L 03/15/25 08:42 Pulse 90 03/15/25 08:42 BP 132/80 03/15/25 08:42 Pulse Ox 96 03/15/25 08:42 Oxygen Delivery Method Room Air 03/15/25 08:42 BMI result Body Mass Index 34.6 Tobacco/Smoking Status: Tobacco use Status Tobacco use date assessed 03/15/25 03/15/25 08:50 Patient Tobacco Use Status Former Tobacco user 03/15/25 08:50 Tobacco use type Cigarette 03/15/25 08:50 e-Cigarette/Vaping Use Never Used 03/15/25 08:50 Thrive Assessment: Date of Thrive Assessment Date Thrive assessed 11/14/24 03/15/25 08:50 Currently or been in a relationship where the following occur: No concerns reported Const General: no acute distress; No comfortable Nutritional Appearance: obese Orientation/consciousness: patient oriented x3 Limitations: ambulation with cane Resp Effort & Inspection: normal respiratory effort Cardio Rate: regular rate Back/Spine/Pelvis Other: Back/incision: Surgical site clean, dry, intact. Mild erythema, no drainage, or dehiscence noted. Back: back tenderness Neuro Other: Neuro: Strength grossly intact in bilateral lower extremities; sensation intact. No focal deficits. General: patient oriented x3 and moves all extremities Psych Speech and movement: Normal speech and movement present Coding Level of Care Code TCM Mod MDM <= 7 Days Diagnoses S/P lumbar spine operation Z98.890 Time Spent (min) 20 Assessment & Plan Assessment & Plan (1) S/P lumbar spine operation: Code(s): Z98.890 - Other specified postprocedural states Category: Surgical Plan: Postoperative state s/p L2-L3, L3-L4 diskectomy, arthrodesis, and cage implantation; removal of L4-S1 instrumentation ? improving, no signs of infection or neurological decline. Recent hospitalization for abdominal pain, nausea, and vomiting ? ED workup negative for acute surgical complications; symptoms improving. Continue postoperative pain regimen as prescribed, including Dilaudid PRN. Encouraged hydration and small frequent meals until appetite fully returns. Monitor bowel function; consider stool softener if needed. Educated patient on red-flag symptoms: worsening abdominal pain, fever, increasing back pain, new leg weakness, bowel/bladder changes?seek urgent evaluation if these occur. Follow up with Outpatient Neuro Spine on 03/15 at 10:30 AM as scheduled.
[2025-03-15 08:42] VITALS: BP 132/80; PULSE 90; TEMP 35.8; O2SAT 96; BMI 34.6
== END 2025-03-15 09:02 | disposition home or self-care (01) ==
LOC: HO.HMCH 08:24
PROVIDERS: PCP Internal Medicine; Visit Provider Nurse Practitioner Family
DX: M51.362 Other intervertebral disc degeneration, lumbar region with discogenic back pain and lower extremity pain (principal); Z98.890 Other specified postprocedural states

== ENCOUNTER → 2025-03-15 08:23 | Outpatient (BNVA) | payer MEDICARE, OTHER, SELFPAY | PROVIDERS: PCP Internal Medicine; Visit Provider Nurse Practitioner Family | DX: Z09 Encounter for follow-up examination after completed treatment for conditions other than malignant neoplasm (principal); M54.50 Low back pain, unspecified; Z98.890 Other specified postprocedural states | CPT/HCPCS: 99212; 99495 ==

== ENCOUNTER 2025-03-15 10:24 | Outpatient (AMB) | payer MEDICARE, OTHER, SELFPAY ==
--- NOTE | 2025-03-15 10:28 | HO.SPINEOV ---
Intake Visit Reasons: ED Follow up Intake Note: Ms. Yoder is here today for an ED F/u for back pain. [place] Smearer Required: No Allergies celecoxib (Celebrex) Adverse Reaction (Intermediate, Verified 03/15/25 08:42) hypertension Coding
--- NOTE | 2025-03-15 11:04 | MHC.OFFVIS ---
Intake Visit Reasons: Follow up Allergies celecoxib (Celebrex) Adverse Reaction (Intermediate, Verified 03/15/25 08:42) hypertension PFSH Medical History (Updated 03/13/25 @ 00:00 by Oscar Rodriguez) Onychomycosis OAB (overactive bladder) Fracture of one rib Callosity Ankle fracture Osteoarthritis Arthritis Hiatal hernia Numbness Murmur History of chemotherapy Blood pressure elevated without history of HTN Tubular adenoma Melanoma Ovarian cancer Thyroid cancer Aortic stenosis Surgical History (Updated 03/15/25 @ 08:57 by Viktoriya Flores NP) S/P lumbar spine operation History of back surgery History of ankle surgery Hx of laparoscopic gastric banding Hx of appendectomy Hx of cholecystectomy Hx of total hysterectomy (~2012) History of total bilateral knee replacement Hx of partial thyroidectomy (~11/24/22) History of hand surgery History of esophagogastroduodenoscopy (EGD) H/O colonoscopy S/P lumbar spinal fusion (~02/22/22) History of carpal tunnel surgery Family History Mother No problems noted. Father COPD (chronic obstructive pulmonary disease) Social History Household Members: None Housing: House Are you a primary vp care management to a significant other at home: No Do you presently have visiting nurse or other home services: No Alcohol intake: current Alcohol intake frequency: holidays/special occasions only Comment: 2-3 xa year 2 bottles beer Patient Tobacco Use Status: Former Tobacco user Tobacco use type: Cigarette Years Smoked: quit 30yrs ago 42 years old e-Cigarette/Vaping Use: Never Used Second Hand Smoke Exposure: Yes service: No Current occupational status: retired Cognitive needs: Yes (cane) Hearing needs: No Vision needs: Yes (glasses) Assessment & Plan Assessment & Plan (1) Lumbar back pain: Comment: fusion Dr. Conner 2021 Code(s): M54.50 - Low back pain, unspecified Category: Medical Plan Mrs Yoder is 10 days out from her L2-3, L3-4 oblique lumbar interbody fusion with revision of posterior instrumentation. A few days after surgery she had began experiencing significant increase in her back pain as well as pain going down her right posterolateral thigh. It was quite intense, was bothering her at night when she was sleeping and when she was standing walking on it. She has continued to take Dilaudid and it does help a bit but when it wears off the pain becomes very intense. She does feel it degree of weakness but it is more less that it feels like her leg does not want to hold her up secondary to pain rather than being true weakness. She was in the emergency room a few days ago because she was also having some left-sided abdominal pain. She had a CAT scan done. She was sent to follow up after the abdominal CT did not reveal any acute findings and good positioning of the hardware. On examination today, she is uncomfortable, she is walking with a cane in his tearful at times. She is able to get up and stand on her own but does use the table for assistance. Her abdominal incision on the left lower quadrant as well healed. Abdomen is soft nondistended. Back stab incisions have some scabbing over them and ecchymosis. No signs of active bleeding. No redness or erythema to suggest infection. On motor examination, there is no focal motor deficits, just some pain with hip flexion. I reviewed her CT again in this shows good placement of the hardware, there is no evidence of screw malpositioning. All the hardware appears to be intact. I reassured the patient that a lot of the pain and discomfort she is feeling is just postsurgical and in light of the 2nd operation, sometimes it is a little harder to heal up. I talked about managing her pain medications with more than just Dilaudid, specifically Tylenol, Motrin, and also prescribed her some gabapentin. She is going to see Dylan ABBASI next week. I suspect she will be feeling better if she stays on the medication regimen as we talked about. Tra Mcdonnell MD, PhD [facility] Medications: New gabapentin 300 mg PO TID 90 caps 11RF Refilled hydromorphone Take 1-2 tablets by mouth orally every 4 hours PRN; Partial Fill upon patient request. 30 tabs 0RF pain Coding Level of Care Code Global (49395) Diagnoses Lumbar back pain M54.50
== END 2025-03-15 11:37 | disposition home or self-care (01) ==
PROVIDERS: PCP Internal Medicine; Visit Provider Physician Assistant
DX: M54.50 Low back pain, unspecified (principal)
CPT/HCPCS: 99024

== ENCOUNTER 2025-03-25 14:20 | Outpatient (AMB) | payer MEDICARE, OTHER, SELFPAY ==
--- OUTSIDE RECORDS SUMMARY | 2022-07-10 10:47 | XMS_ITS | Encounter Summary ---
Author Organization [facility] Address [address] [place] [address] [place] [address] Phone Care Team Providers Care Speech Therapy Director Name Role Phone Husam Carmona Debby DICTATING MACHINE TYPIST Unavailable Remington Post MD Unavailable [phone] Immanuel Jaimes DO Unavailable [phone] Cindy Mc HANDYMAN Unavailable [phone] Sobia White MD Unavailable [phone] Eder Mansfield DO Primary Care Provider [phone] Encounter Details Date Type Department Care Team (Late st Contact Info) Description 07/10/2022 11:47 AM EDT Hospital Encounter [facility] [address] [place] [address] Celestina Guzman DICTATING MACHINE TYPIST [address] [place] [address] [email or web address] Social History Tobacco Use Types Packs/Day Years Used Date Smoking Tobacco: Former Cigarettes Q uit: 1989 Smokeless Tobacco: Never Alcohol Use Standard Drinks/Week Comments Not Currently 0 (1 standard drink = 0.6 oz pur e alcohol) social Child or Family Care Answer Date Record ed Do you have problems with on e of the following making it difficult for you to work, study, or receive health care? No 10/10/2020 Education Answer Date Recorded Are you interested in more education? Not on myke e 10/18/2022 Are you concerned about learning? Not on file 10/18/2022 No 10/18/2022 No 10/18/2022 Food Answer Date Recorded Within the past 6 months we worried whether our food would run out before we got money to buy more. Never True 10/10/2020 Within the past 6 months the food we bought just didn't last and we didn't have enough money to get more. Never True Residential Stability Answer Date Recor ded What is your housing situation today? I have dom sing 10/10/2020 How many times have you move d in the past 12 months? Zero (I did not move) 10/10/2020 06 Are you worried that in t he next 2 months, you may not have your own housing to live in? No 10/10/2020 Paying for Meds Answer Date Recorded Do you have trouble paying for medicines? No 10/10/2020 Paying Utility Bills Answer Date Record ed Do you have trouble paying your heating or elect ricity bill? No 10/10/2020 Transportation Answer Date Recorded Has the lack of transportati on kept you from medical appointments or from getting medications? No 10/10/2020 Unemployment Answer Date Recorded Are you currently unemployed or working on a part-time or temporary basis, and looking for work? Yes 10/10/2020 Digital Access Answer Date Recorded No 09/14/2022 No 09/14/2022 Reliable internet access at home? Not on file 09/14/2022 Device with a working camera? 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 on file Not on file Not on fi le documented as of this encounter Plan of Treatment Upcoming Encounters Date Type Department Care Team (Late st Contact Info) Description 02/01/2025 Procedure Pass Echo Lab [address] [place] [address] 04/26/2025 8:00 AM EST Office Visit [facility] [address] [place] [address] Dr [address] Floor, [address] [place] [address] Leon Osman MD 22 [facility], [address] [place] [address] 08/02/2025 8:15 AM EDT Appointment Echo Lab [address] [place] [address] Isai Mayfield DO 22 [facility] [address] [place] [address] documented as of this encounter Procedures Procedure Name Priority Date/Time Associated Diagnosis Comments XR CHEST PA AND LATERAL 2 VIEWS Urgent/patient waiting 07/10/2022 11:58 AM EDT Shortness of breath documented in this encounter Results * XR CHEST PA AND LATERAL 2 VIEWS (07/10/2022 11:58 AM EDT) Anatomical Region Laterality Modality Chest Computed Radiogr aphy 07/10/2022 12:0 4 PM EDT Impressions 07/10/2022 12:10 PM EDT Mild bibasilar patchy opacities favored to represent atelectasis versus infectious symptoms. Otherwise, no focal consolidative process or overt pulmonary edema. Narrative 07/10/2022 12:10 PM EDT Procedure: XR CHEST PA AND LATERAL 2 VIEWS Clinical indication: 72 years Female with a provided clinical history of Cough; Dyspnea (Shortness of Breath) Comparison: Chest x-ray from December 18, 2019 FINDINGS: Devices/Tubes/Lines: None. Lungs: Mild bibasilar patchy opacities. No overt pulmonary edema. Pleura: No pleural effusion or pneumothorax. Right diaphragmatic eventration. Heart/Mediastinum: Cardiac silhouette is within normal limits. Calcified vascular disease of the aortic arch. Bones/Soft Tissues: Degenerative changes without acute osseous abnormality. Surgical clips project over the upper abdomen and the left chest wall. Procedure Note Jozef Garay MD - 07/10/2022 Procedure: XR CHEST PA AND LATERAL 2 VIEWS Clinical indication: 72 years Female with a provided clinical history ofCough; Dyspnea (Shortness of Breath) Comparison: Chest x-ray from December 18, 2019 FINDINGS: Devices/Tubes/Lines: None. Lungs: Mild bibasilar patchy opacities. No overt pulmonary edema. Pleura: No pleural effusion or pneumothorax. Right diaphragmaticeventration. Heart/Mediastinum: Cardiac silhouette is within normal limits. Calcifiedvascular disease of the aortic arch. Bones/Soft Tissues: Degenerative changes without acute osseousabnormality. Surgical clips project over the upper abdomen and the leftchest wall. IMPRESSION: Mild bibasilar patchy opacities favored to represent atelectasis versusinfectious symptoms. Otherwise, no focal consolidative process or overtpulmonary edema. us Celestina Guzman DICTATING MACHINE TYPIST IMG XR CHEST Final Resul t documented in this encounter Visit Diagnoses Not on filedocumented in this encounter Additional Health Concerns Infection Onset Date Last Indicated Resolved Time CoV-Risk 07/10/2022 07/10/2022 07/21/2022 1:21 AM EDT Assessment Noted Time PHQ-2 Depression Total Score: 0 01/19/20 20 5:25 PM EDT documented as of this encounter Care Teams Speech Therapy Director Relationship Specialty Start Date End Date Eder Mansfield DO [address] [place] [address] mary PCP - General Endocrinology 07/10/22 08/04/23 Husam Carmona CNP [address] [place] [address], [address] [place] [address] Historical LMR Provider 02/10/17 Remington Post MD [address] [place] [address], [address] [place] [address] [email or web address] Historical LMR Provider 02/10/17 Immanuel Jaimes DO [address] [place] [address] [email or web address] Historical LMR Provider 02/10/17 Cindy Mc NP [address], [place] [address] [email or web address] Nurse Practitioner Hematology and Oncology 05/25/21 Sobia White MD [address] [place] [address] [email or web address] Insurance Assigned Provider 08/01/21 07/31/22 documented as of this encounter Additional Source Comments The information contained in this document represents components of the legal health record. It is not the complete legal health record.[facility]
--- OUTSIDE RECORDS SUMMARY | 2023-08-05 11:39 | XMS_ITS | Encounter Summary ---
Author Organization [facility] Address [address] [facility] [address] [place] [address] Phone Care Team Providers Care Associate Dean Of Women Name Role Phone Husam Carmona GRINDER SET UP OPERATOR JIG Unavailable Remington Post MD Unavailable [phone] Immanuel Jaimes DO Unavailable [phone] Cindy Mc EPIC APPLICATION COORDINATOR Unavailable [phone] Edward Maddox MD Primary Care Provider [phone] Encounter Details Date Type Department Care Team (Late st Contact Info) Description 08/05/2023 12:39 PM EDT Hospital Encounter [facility] [address] [place] [address] Charlene Barrientos, EPIC APPLICATION COORDINATOR [address] [place] [address] [email or web address] Social History Tobacco Use Types Packs/Day Years [...] your housing situation today? I have dom arce 10/10/2020 How many times have you move [...] Info) Description 02/01/2025 Procedure Pass [place] [address] 04/26/2025 8:00 AM EST Office Visit [facility] [address] Floor, [address] [place] [address] Leon Osman MD [address] [facility], [address] [place] [address] [email or web address] 08/02/2025 8:15 AM EDT Appointment Echo Lab [address] [place] [address] Isai Mayfield DO [address] [address] [email or web address] documented as of this encounter Procedures Procedure Name Priority Date/Time Associated Diagnosis Comments XR CHEST PA AND LATERAL 2 VIEWS Urgent/patient waiting 08/05/2023 12:44 PM EDT Acute cough documented in this encounter Results * XR CHEST PA AND LATERAL 2 VIEWS (08/05/2023 12:44 PM EDT) Anatomical Region Laterality Modality Chest Computed Radiogr aphy 08/05/2023 1:12 PM EDT Impressions 08/05/2023 1:12 PM EDT No acute abnormality. Narrative 08/05/2023 1:12 PM EDT XR CHEST PA AND LATERAL 2 VIEWS Referring clinician's provided indication for this examination in [facility]: Cough; cough x 1.5 weeks, hx of pneumonia COMPARISON: July 10, 2022 FINDINGS: Devices/Tubes/Lines: None. Lungs: No focal consolidation or pulmonary edema. Pleura: No pleural effusions or pneumothorax. Heart/Mediastinum: Normal cardiomediastinal silhouette. Bones/Soft Tissues: No significant abnormality. Procedure Note Chanell Patino MD - 08/05/2023 XR CHEST PA AND LATERAL 2 VIEWS Referring clinician's provided indication for this examination in [facility]:Cough; cough x 1.5 weeks, hx of pneumonia COMPARISON: July 10, 2022 FINDINGS: Devices/Tubes/Lines: None. Lungs: No focal consolidation or pulmonary edema. Pleura: No pleural effusions or pneumothorax. Heart/Mediastinum: Normal cardiomediastinal silhouette. Bones/Soft Tissues: No significant abnormality. IMPRESSION: No acute abnormality. Charlene Chakraborty Nickyantonella EPIC APPLICATION COORDINATOR IMG XR CHEST Final Resul t documented in this encounter Visit Diagnoses Not on filedocumented in this encounter Additional Health Concerns Assessment Noted Time PHQ-2 Depression Total Score: 0 01/19/20 20 5:25 PM EDT documented as of this encounter Care Teams Associate Dean Of Women Relationship Specialty Start Date End Date Edward Maddox MD [address] [place] [address] Drive [address] [place] [phone] PCP - General Internal Medicine 08/05/23 Husam Carmona, EFRAIN [address] [place] [address], [address] [address] Historical LMR Provider 02/10/17 Remington Post MD [address] [place] [address], [address] [place] [address] Historical LMR Provider 02/10/17 Immanuel Jaimes DO [address] [place] [address] [email or web address] Historical LMR Provider 02/10/17 Cindy Mc NP [address] [place] [address] Nurse Practitioner Hematology and Oncology 05/25/21 documented as of this encounter Additional Source Comments The information contained in this document represents components of the legal health record. It is not the complete legal health record.[facility]
--- NOTE | 2025-03-25 14:29 | A.SPINEOV_ITS ---
Intake Visit Reasons: 1st post op Intake Note: Ms. Yoder is here today for her 1st post op. Racetrack Steward Required: No Allergies celecoxib (Celebrex) Adverse Reaction (Intermediate, Verified 03/15/25 08:42) hypertension Assessment & Plan Assessment & Plan (1) S/P lumbar spine operation: Code(s): Z98.890 - Other specified postprocedural states Category: Medical Plan Procedure: 1) L2-3, L3-4 discectomy, arthrodesis and implantation cage through an anterolateral, retroperitoneal approach 2) removal L4-S1 posterior instrumentation 3) L2-L4 posterior instrumented fusion 4) allograft Christianne is a pleasant 75-year-old female who comes in today for her 1st sched uled postoperative visit after having the above-listed procedure completed by Dr. Mcdonnell on 03/05/25. To recap she had a somewhat complicated postoperative course and was seen in the emergency department a few weeks ago and evaluated for abdominal pain. She subsequently was seen as an acute add on visit in clinic by ELROY Montoya. Her surgical hardware and incision sites appeared normal. Today, she reports that her pain has actually improved quite a bit since seeing ELROY Montoya. She has been adhering to the medication regimen that he advised her to take. She still reports moderate low back pain and shooting pain into her right lateral hip/thigh, but states that the burning/electricity healing that accompanied this has subsided. It feels more like a dull ache. We discussed the postoperative healing course and I answered any questions that she had. No new neurological deficits. The patient ambulates fairly well with the assistance of a cane. Her lateral and posterior incision sites are closed and well healing with no signs of erythema or drainage. I would like to follow up with Christianne again in 6 weeks for her 2nd postoperative visit with x-rays. I refilled a prescription of oxycodone for her as she reports she does not think she needs the hydromorphone which is a stronger medication. Dylan Mcdonnell MD,PhD [facility] Medications: New oxycodone Partial Fill upon patient request. 5 mg PO Q4-6H PRN 30 tabs 0RF pain Discontinued hydromorphone Discontinued Reason: Doctor's Order Take 1-2 tablets by mouth orally every 4 hours PRN; Partial Fill upon patient request. 30 tabs 0RF pain Coding Level of Care Code Global (28269) Diagnoses S/P lumbar spine operation Z98.890
--- OUTSIDE RECORDS SUMMARY | 2025-03-25 17:44 | XMS_ITS | Clinical Summary ---
Author Organization [address] Address [address] [place] [address] Phone Care Team Providers Care Fertilizer Loader Name Role Phone Edward Maddox MD Primary Care Provider [phone] Social History Tobacco Use Types Packs/Day Years [...] age to complete this topic Insurance MEDICARE [facility] [place] [id number] Care Teams Fertilizer Loader Relationship Specialty Start Date End Date Edward Maddox MD [address] [place] [address] [address] [facility] [place] [address] PCP - General Internal Medicine 04/20/24
--- OUTSIDE RECORDS SUMMARY | 2025-03-25 17:44 | XMS_ITS | Encounter Summary ---
Author Organization [facility] Address [address] [place] [address] [place] [address] Phone Care Team Providers Care Greenhouse Staff Name Role Phone Amaya Rodriguez MD Primary Care Provider + Amaya Rodriguez MD Unavailable [phone] Husam Carmona DIRECTOR SPECIAL EDUCATION Unavailable [phone] Cortez oPwell DO Unavailable [phone] Remington Post MD Unavailable [phone] Concepcion Hooper PA-C Unavailable [phone] Armond Marcano MD Unavailable [phone] Immanuel Jaimes DO Unavailable [phone] Camron Pedraza DIRECTOR SPECIAL EDUCATION Unavailable [phone] Travis Smith MD Unavailable [phone] Husam Carmona DIRECTOR SPECIAL EDUCATION Primary Care Provider + Amaya Rodriguez MD Unavailable [phone] Sobia White MD Primary Care Provid er + Cindy Mc ECONOMIC DEVELOPMENT DIRECTOR Unavailable [phone] Sobia White MD Unavailable + Unknown, Unknown Primary Care Provider Eder Lloyd DO Primary Care Provider [phone] Amaya Rodriguez MD Unavailable [phone] Edward Maddox MD Primary Care Provider [phone] Encounter Details Date Type Department Care Team (Latest Contact Info) Description 04/13/2017 Transcribe Orders [facility] [address] [place] [address] Immanuel Jaimes, DO [address] [place] [address] [email or web address] Malignant neoplasm of ovary, unspecified laterality (Primary [...] Info) Description 02/01/2025 Procedure Pass Echo Lab [address] [place] [address] 04/26/2025 8:00 AM EST Office Visit [facility] [address] [place] [address] 3rd Floor, [address] [place] [address] Leon Osman MD [address] [place] [address], [address] [address] 08/02/2025 8:15 AM EDT Appointment Echo Lab [address] [place] [address] Isai Mayfield, DO [address] [place] [address] documented as of this encounter Results * (ABNORMAL) Comprehensive metabolic panel (04/13/2017 2:46 PM EST) SODIUM 145 133 - 146 mmol/L [facility] POTASSIUM 4.1 3.3 - 5.1 mmol/L [facility] CHLORIDE 106 96 - 108 mmol/L [facility] CO2 27 21 - 35 mmol/L [facility] BUN 11 6 - 19 mg/dL [facility] CREATININE 0.80 0.5 - 1.5 mg/dL [facility] GLUCOSE 118(H) 70 - 99 mg/dL [facility] ALBUMIN 3.9 3.9 - 4.8 g/dL [facility] TOTAL PROTEIN 6.7 6.5 - 8.0 g/dL [facility] CALCIUM 9.2 8.4 - 10.3 mg/dL [facility] ALKALINE PHOSPHATASE 69 39 - 117 U/L [facility] TOTAL BILIRUBIN 0.3 0 - 1.2 mg/dL [facility] AST 20 0 - 37 U/L [facility] ALT 17 0 - 40 U/L [facility] GLOBULIN 2.8 1 - 4.8 g/dL [facility] EGFR >60 >60 mL/min/1.7 3m2 [facility] Comment:Abnormal if <60. If patient is -Mongolian, multiply the result by 1.21. ANION GAP 16 10 - 20 mmol/L [facility] Blood 04/13/2017 2:46 PM EST 04/13/2017 2:47 PM EST us Immanuel W Fiona DO LAB BLOOD BKR ORDERABLES Fi nal Result [facility] [address] [place] [address] documented in this encounter Visit Diagnoses Diagnosis Malignant neoplasm of ovary, unspecified laterality- Primary documented in this encounter Additional Health Concerns Infection Onset Date Last Indicated Resolved Time CoV-Exposed Comment:Recent close contact 11/29/2019 11/29/2019 12/13/2019 1:23 AM EDT CoV-Risk 12/18/2019 12/18/2019 01/01/2020 1:23 AM EDT CoV-Risk 07/10/2022 07/10/2022 07/21/2022 1:21 AM EDT documented as of this encounter Care Teams Greenhouse Staff Relationship Specialty Start Date End Date Amaya Rodriguez MD [address] [place] [address], [address] [place] [address] [email or web address] PCP - General 02/10/17 06/06/17 Husam Carmona, DIRECTOR SPECIAL EDUCATION [address] [place] [address], [address] [place] [address] [email or web address] PCP - General 06/07/17 04/07/21 Sobia White MD [address] [place] [address] [email or web address] PCP - General Family Medicine 04/08/21 04/12/22 Unknown, MD Jian PCP - General 04/13/22 07/09/22 Eder Mansfield DO [address] [place] [address] [email or web address] PCP - General Endocrinology 07/10/22 08/04/23 Edward Maddox MD [address] [place] [address] [phone] PCP - General Internal Medicine 08/05/23 Amaya Rodriguez MD [address] [place] [address], [address] [address] [email or web address] Historical LMR Provider 02/10/17 2 Husam Carmona, EFRAIN [address] [place] [address], [address] [address] [email or web address] Historical LMR Provider 02/10/17 Cortez Powell DO [address] [place] [address] Orthopedics & Sports Medicine, [place] [address] Historical LMR Provider 02/10/17 05/02/21 Remington Post MD [address] [facility], [address] [place] [address] [email or web address] Historical LMR Provider 02/10/17 Concepcion Hooper PA-C [address] [place] [address] Orthopedics [facility], [place] [address] [email or web address] Historical LMR Provider 02/10/17 05/02/21 Armond Marcano MD [address] [facility] Floor 1 [place] [address] [email or web address] Historical LMR Provider 02/10/17 05/02/21 Immanuel Jaimes DO [address] [place] [address] [email or web address] Historical LMR Provider 02/10/17 Camron Pedraza CNP [address] [place] [address], [address] [place] [address] [email or web address] Historical LMR Provider 02/10/17 Travis Smith MD [address] [place] [address] Historical LMR Provider 02/10/17 2 Amaya Rodriguez MD [address] [place] [address], [address] [place] [address] Insurance Assigned Provider 06/29/19 08/01/21 Cindy Mc, ECONOMIC DEVELOPMENT DIRECTOR [address] [place] [address] [email or web address] Nurse Practitioner Hematology and Oncology 05/25/21 Sobia White MD [address] [place] [address] [email or web address] Insurance Assigned Provider 08/01/21 07/31/22 Amaya Rodriguez MD [address] [place] [address], [address] [place] [address] [email or web address] Insurance Assigned Provider 07/31/22 04/30/23 documented as of this encounter Additional Source Comments The information contained in this document represents components of the legal health record. It is not the complete legal health record.[facility]
--- OUTSIDE RECORDS SUMMARY | 2025-03-25 17:44 | XMS_ITS | Clinical Summary ---
Author Organization [facility] Address [address] [place] [address] Phone Care Team Providers Care Cable Television Installer Name Role Phone Husam Carmona GAME MODERATOR Unavailable Remington Post MD Unavailable [phone] Immanuel Jaimes DO Unavailable [phone] Cindy Mc FOOD STOREROOM CLERK Unavailable [phone] Po, Edward Ortiz MD Primary Care Provider [phone] Allergies No known active allergies Medications cyclobenzaprine (FLEXERIL) 5 MG tablet Take 10 mg by mouth 2 (two) times a day as needed. Active multivitamins-mi nerals-folic ubzg-pwzzdsi-qis ein (COMPLETE SENIOR) 0.4 mg-300 mcg- 250 [...] fasting and must go to any [facility] laboratory for this study. She does not [...] refer the patient to endocrine surgeon at [facility] Dr. Rhiannon Boyd. Assessment & Plan [...] 8:47 AM EDT): This is followed by [facility] oncology History of melanoma 09/15/2017 Overview (08/28/2018): 2014, nl margins and neg lymph nodes on biopsy. Dr Rai, [facility] Obesity, morbid 09/15/2017 Gastroesophageal reflux disease without esophagi tis 09/15/2017 Primary osteoarthritis, left ankle and foot 06/23 Left ankle pain 07/05/2017 Ovarian cancer 04/20/2017 Cancer Staging:Clinical: Unsigned Overview (05/18/2021): ovarian cancer stage 3A, Jan 2013- Dr. 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 Status post adjuvant carboplatin and paclitaxel completed July 27, [address] Son's [facility] staging not available sentinel lymph node [...] Description 02/01/2025 8:30 AM EDT Office Visit [facility] [address] Floor, [address] [place], [place] [phone] Isai Mayfield DO Cardiac murmur, unspecified (Primary Dx); Palpitations; History of ovarian cancer; Mixed hyperlipidemia; Nonrheumatic aortic valve stenosis from Last 3 Months Immunizations Immunization Administration Dates Next Due COVID-19 (Pre-02/14) Abram Vaccine, rS-Ad26, PF 06/26/2020 DT 04/01/2008 [id number] FORMULATION 04/30/2009 INFLUENZA, SPLIT VIRUS, TRIVALENT PF [...] Medical History Relation Comments Heart disease Father State [place]'s disease Mother Heart murmur Mother Infl. arthritis [...] Info) Description 02/01/2025 Procedure Pass Echo Lab [address] [place] [address] 04/26/2025 8:00 AM EST Office Visit [facility] [address] [place] [address] 3rd Floor, [address] [place] [address] Leon Osman MD [address] [place] [address], [address] [address] 08/02/2025 8:15 AM EDT Appointment Echo Lab [address] [place] [address] Isai Mayfield DO [address] [place] [address] [place] [address] [email or web address] Health Maintenance Due Date Last Done Comments [...] (09/11/2024 9:33 AM EDT) HDL 45 mg/dL [facility] Comment: Interpretation <40 mg/dL: Low HDL cholesterol (major risk factor for CHD) Greater than or equal to 60 mg/dL: High HDL cholesterol ( negative risk factor for CHD) HDL - cholesterol is affected by a number of factors, e.g. smoking, excerise, hormones, sex and age. CHOLESTEROL 158 0 - 240 mg/dL [facility] TRIGLYCERIDES 161(H) 30 - 160 mg/dL [facility] LDL 81 50 - 129 mg/dL [facility] Comment: LDL levels in terms of risk for coronary heart disease: <100 mg/dL: Optimal 100-129 mg/dL: Near or above optimal 130-159 mg/dL: Borderline high 160-189 mg/dL: High >190 mg/dL: Very High CARDIAC RISK RATIO 3.5 3.3 - 4.4 C [facility] Blood 09/11/2024 9:33 AM EDT 09/11/2024 9:46 AM EDT us Soumyajose Cm [facility] LAB BLOOD BKR ORDERABLES Final Result Performing Organization Address City/[facility]/ZIP Co de Phone Number [address] [address] * MAMMOGRAPHY FOR RESULT ENTRY ONLY (10/30/2022) us Historical Provider HEALTH MAINTENANCE Final Result * Hepatitis C antibody, qualitative (01/23/2020 9:51 AM EDT) HCV NON-REACTIV E NON-REACTI VE [facility] Blood 01/23/2020 9:51 AM EDT 01/23/2020 9:58 AM EDT us Husam Carmona GAME MODERATOR LAB BLOOD BKR ORDERABL ES Final Result Performing Organization Address [facility]/ZIP Co de Phone Number [address] [address] * BD DXA SPINE AND HIP WITH [...] Maintenance Insurance MEDICARE PART A & B [employer] MEDICARE SUPPLEMENT MEDICARE PART A & B [employer] MEDICARE SUPPLEMENT MEDICARE PART A & B [facility] MEDICARE SUPPLEMENT MEDICARE PART A & B [facility] [employer] MEDICARE SUPPLEMENT MEDICARE PART A & B [facility] MEDICARE SUPPLEMENT MEDICARE PART A & B Member Subscriber Plan / Payer ( fective 2017-Present) Name:Christianne Yoder Member ID:[id number] Relation to Subscriber:Self Name:Christianne Yoder Subscriber ID:[id number] Payer ID:[id number] Group ID:Not on file Type:Medicare Address: [place] [address] [place] [phone] [facility] MEDICARE SUPPLEMENT MEDICARE PART A & B MEDICARE SUPPLEMENT MEDICARE PART A & B [employer] MEDICARE SUPPLEMENT MEDICARE PART A & B Official Limited [employer] MEDICARE SUPPLEMENT Care Teams Cable Television Installer Relationship Specialty Start Date End Date Edward Maddox MD [address] [place] [address] Drive [address] [place] [phone] PCP - General Internal Medicine 08/05/23 Husam Carmona, GAME MODERATOR [address] [place] [address], [address] [place] [address] [email or web address] Historical LMR Provider 02/10/17 Remington Post MD [address] [place] [address], [address] [place] [address] Historical LMR Provider 02/10/17 Immanuel Jaimes DO [address] [place] [address] [email or web address] Historical LMR Provider 02/10/17 Cindy Mc NP [address] [place] [address] Nurse Practitioner Hematology and Oncology 05/25/21 Additional Source Comments The information contained in this document represents components of the legal health record. It is not the complete legal health record.[facility]
--- OUTSIDE RECORDS SUMMARY | 2025-03-25 17:44 | XMS_ITS | Encounter Summary ---
Author Organization [facility] Address [address] [place] [address] Care Team Providers Care Survey Engineer Name Role Phone Edward Maddox MD Primary Care Provider [phone] Encounter Details Date Type Department Care Team (Latest Contact Info) Description 03/29/2024 Lab Requisition [facility] Lab [address] [place] [phone] Andree Yusuf MD [address] [phone] Encounter for gynecological examination (general) [...] lesion or malignancy 04/02/2024 3:10 PM EST [facility] at 1510 EST General Categorization Negative 04/02/2024 3:10 PM EST [facility] Specimen Adequacy Satisfactory for evaluation 04/02/2024 3:10 PM EST [facility] Pap Methodology Liquid Based Pap Test 04/02/2024 3:10 PM EST [facility] Disclaimer The Pap test is a screening test which carries an inherent false negative rate. These test results should be correlated with the patient's clinical findings and history. This Pap test was processed using an automated screening system. Technical cytopathology services provided by [facility], at [address] [place] [address] (CLIA # [id number]/Deandre Aleman MD, Content Engineer.) 04/02/2024 3:10 PM EST [facility] Console Pap Interpretation Reported 04/02/2024 3:10 PM [facility] Brushing/Spatula Vaginal structure / Unknown 03/28/2024 03/29/2024 8:25 AM EST us Andree Yusuf MD LAB CYTOLOGY ORDERABLES Final Result [facility] [address] [place] [address], documented in this encounter Visit Diagnoses Diagnosis Encounter for gynecological examination (general) (routine) without abnormal findings documented in this encounter Care Teams Survey Engineer Relationship Specialty Start Date End Date Edward Maddox MD [address] [place] [address] Dr [address] [facility] [place] [address] PCP - General Internal Medicine 04/20/24 documented as of this encounter
--- OUTSIDE RECORDS SUMMARY | 2025-03-25 17:44 | XMS_ITS | Encounter Summary ---
Author Organization [facility] Address [address] [place] [address] [place] [address] Phone Care Team Providers Care Facing Baster Jumpbasting Name Role Phone Amaya Rodriguez MD Primary Care Provider + Amaya Rodriguez MD Unavailable [phone] Husam Carmona [place] Unavailable [phone] Cortez Powell DO Unavailable [phone] Remington Post MD Unavailable [phone] Concepcion Hooper PA-C Unavailable [phone] Armond Marcano MD Unavailable [phone] Immanuel Jaimes DO Unavailable [phone] Camron Pedraza [place] Unavailable [phone] Travis Smith MD Unavailable [phone] Husam Carmona [place] Primary Care Provider + Amaya Rodriguez MD Unavailable +[phone] Sobia White MD Primary Care Provid er + Cindy Mc BATTALION CHIEF Unavailable Sobia White MD Unavailable + Unknown, Unknown Primary Care Provider Eder Lloyd DO Primary Care Provider [phone] Amaya Rodriguez MD Unavailable [phone] Edward Maddox MD Primary Care Provider [phone] Encounter Details Date Type Department Care Team (Late st Contact Info) Description 06/03/2017 Ancillary Orders [facility] [address] [place] [address] Concepcion Hooper PA-C [address] [place] [address] Orth[facility] [place], [place] [address] [email or web address] Social History Tobacco Use Types Packs/Day Years [...] Info) Description 02/01/2025 Procedure Pass Echo Lab [place] [address] [place] [address] 04/26/2025 8:00 AM EST Office Visit [facility] [address] [place] [address] 3rd Floor, [address] [place] [address] Leon Osman MD [address] [place] [address], [address] [address] 08/02/2025 8:15 AM EDT Appointment Echo [place] [address] Isai Mayfield DO [address] [place] [address] documented as of this encounter Visit Diagnoses Not on filedocumented in this encounter Additional Health Concerns Infection Onset Date Last Indicated Resolved Time CoV-Exposed Comment:Recent close contact 11/29/2019 11/29/2019 12/13/2019 1:23 AM EDT CoV-Risk 12/18/2019 12/18/2019 01/01/2020 1:23 AM EDT CoV-Risk 07/10/2022 07/10/2022 07/21/2022 1:21 AM EDT documented as of this encounter Care Teams Facing Baster Jumpbasting Relationship Specialty Start Date End Date Amaya Rodriguez MD [address] [facility], [address] [place] [address] PCP - General 02/10/17 06/06/17 Husam Carmona CNP [address] [place] [address], [address] [address] [email or web address] PCP - General 06/07/17 04/07/21 Sobia White MD [address] [place] [address] [email or web address] PCP - General Family Medicine 04/08/21 04/12/22 Unknown, Jian, PCP - General 04/13/22 07/09/22 Eder Mansfield DO [address] [place] [address] mary PCP - General Endocrinology 07/10/22 08/04/23 Edward Maddox MD [address] [place] [address] [address] [place] [phone] PCP - General Internal Medicine 08/05/23 Amaya Rodriguez MD [address] [place] [address], [address] [place] [address] [email or web address] Historical LMR Provider 02/10/17 Husam Sotelo, EFRAIN [address] [place] [address], [address] [place] [address] [email or web address] Historical LMR Provider 02/10/17 Cortez Powell DO [address] [place] [address] Orthopedics & Sports [facility], [place] [address] [email or web address] Historical LMR Provider 02/10/17 05/02/21 Remington Post MD [address] [place] [address], [address] [place] [address] [email or web address] Historical LMR Provider 02/10/17 Concepcion Hooper, SHADIC [address] [place] [address] Orthopedics [facility], [place] [address] [email or web address] Historical LMR Provider 02/10/17 05/02/21 Armond Marcano MD [address] [facility] Floor 1 [place] [address] [email or web address] Historical LMR Provider 02/10/17 05/02/21 Immanuel Jaimes DO [address] [place] [address] [email or web address] Historical LMR Provider 02/10/17 Camron Pedraza, [place] [address] [place] [address], [address] [place] [address] Historical LMR Provider 02/10/17 Travis Smith MD [address] [place] [address] Historical LMR Provider 02/10/17 2 Amaya Rodriguez MD [address] [place] [address], [address] [address] Insurance Assigned Provider 06/29/19 08/01/21 Cindy Mc NP [facility] [place] [address] [email or web address] Nurse Practitioner Hematology and Oncology 05/25/21 Sobia White MD [address] [place] [address] [email or web address] Insurance Assigned Provider 08/01/21 07/31/22 Amaya Rodriguez MD [address] [place] [address] [email or web address] Insurance Assigned Provider 07/31/22 04/30/23 documented as of this encounter Additional Source Comments The information contained in this document represents components of the legal health record. It is not the complete legal health record.[facility]
--- OUTSIDE RECORDS SUMMARY | 2025-03-25 17:44 | XMS_ITS | Continuity of Care Document ---
Author Organization [facility] [address] [facility] [address] [place] [address] Phone [phone] Care Team Providers Care Circulating Process Inspector Name Role Phone Edward Maddox Care Team Information Behavioral Technician + [phone] Problems Active Problems Provider Date H/O: depression [...] week 6ml Yosef Barrientos M.D. 11/13/2024 Cyclobenzaprine VNU99vl Tablets Take 1 Tablet By Mouth Three Times Daily as Needed Noe Ordoñez MD Rosuvastatin Oqblnka16lf Tablets Take 1 Tablet By Mouth Daily Po, Edward History Medications Djmlbljx1gu/0.5ML Solution Auto-Inject inject 5 mg every week [...] 2 Thyroglobulin Antibo dy measured by [facility] [place] Methodology It should be noted that the presence of thyroglobulin antibodies may not be pathogenic nor diagnostic, especially at very low levels. The assay regulatory agency director has found that four percent of individuals without evidence of thyroid disease or autoimmunity will have positive TgAb levels up to 4 IU/mL. 3 According to the [facility] Academy of Clinical [employer]ochemistry, the reference interval for Thyroglobulin (TG) should be related to euthyroid patients and not for patients who underwent thyroidectomy. TG reference intervals for these patients depend on the residual mass of the thyroid tissue left after surgery. Establishing a post-operative baseline is recommended. The assay limit of quantitation is 0.1 ng/mL Thyroglobulin measured by [facility] [place] Immunometric Assay Medical Devices Description No Information [...]
--- OUTSIDE RECORDS SUMMARY | 2025-03-25 17:44 | XMS_ITS | Encounter Summary ---
Author Organization [facility] Address [address] [facility] [address] [place] [address] Phone Care Team Providers Care Handicrafts Teacher Name Role Phone Husam Carmona PLOW HOLDER Unavailable Remington Post MD Unavailable [phone] Immanuel Jaimes DO Unavailable [phone] Cindy Mc LOOM BLOWER Unavailable [phone] Edward Maddox MD Primary Care Provider [phone] Encounter Details Date Type Department Care Team (Late st Contact Info) Description 09/08/2023 Procedure Pass Echo Lab Dm [address] [place] [address] Social History Tobacco Use Types Packs/Day Years [...] Info) Description 02/01/2025 Procedure Pass Echo [facility] [place] [place] [address] 04/26/2025 8:00 AM EST Office Visit [facility] [address] 3rd Floor, [address] [place] [address] Leon Osman MD [address] [facility], [address] [place] [address] 08/02/2025 8:15 AM EDT Appointment Echo Lab [address] [place] [address] Isai Mayfield DO [address] [facility] [address] [place] [address] documented as of this encounter Visit Diagnoses Not on filedocumented in this encounter Additional Health Concerns Assessment Noted Time PHQ-2 Depression Total Score: 0 01/19/20 20 5:25 PM EDT documented as of this encounter Care Teams Handicrafts Teacher Relationship Specialty Start Date End Date Po, Edward Ortiz MD [address] [place] [address] [address] [place] [address] PCP - General Internal Medicine 08/05/23 Husam Carmona CNP [address] [place] [address], [address] [place] [address] Historical LMR Provider 02/10/17 Remington Post MD [address] [place] [address], [address] [place] [address] Historical LMR Provider 02/10/17 Immanuel Jaimes DO [address] [place] [address] [email or web address] Historical LMR Provider 02/10/17 Cindy Mc NP [address] [place] [address] Nurse Practitioner Hematology and Oncology 05/25/21 documented as of this encounter Additional Source Comments The information contained in this document represents components of the legal health record. It is not the complete legal health record.[facility]
--- OUTSIDE RECORDS SUMMARY | 2025-03-25 17:44 | XMS_ITS | Encounter Summary ---
Author Organization [facility] Address [address] [place] [address] [place] [address] Phone Care Team Providers Care Burnisher And Bumper Name Role Phone Husam Carmona TRAVEL AGENT Unavailable [phone] Remington Post MD Unavailable Immanuel Jaimes DO Unavailable [phone] Amaya Rodriguez MD Unavailable [phone] Sobia White MD Primary Care Provid er Cindy Mc HAND COMPOSITOR Unavailable [phone] Sobia White MD Unavailable [phone] Unknown, Unknown Primary Care Provider Eder Lloyd DO Primary Care Provider [phone] Amaya Rodriguez MD Unavailable [phone] Edward Maddox MD Primary Care Provider [phone] Encounter Details Date Type Department Care Team (Late st Contact Info) Description 05/08/2021 Procedure Pass Echo Lab Dm [address] [place] [address] Social History Tobacco Use Types [...] high school, GED, job training, learning the And[place] language, technical skills, or developing parenting skills)? [...] 02/01/2025 Procedure [place] [address] 04/26/2025 8:00 AM EST Office Visit [facility] [address] 3rd Floor, [address] [place] [address] Leon Osman MD 22 [facility], [address] [address] 08/02/2025 8:15 AM EDT Appointment Echo Lab [address] [place] [address] Isai Mayfield DO [address] [place] [address] [place] [address] [email or web address] documented as of this encounter Visit Diagnoses Not on filedocumented in this encounter Additional Health Concerns Infection Onset Date Last Indicated Resolved Time CoV-Risk 07/10/2022 07/10/2022 07/21/2022 1:21 AM EDT Assessment Noted Time PHQ-2 Depression Total Score: 0 01/19/20 20 5:25 PM EDT documented as of this encounter Care Teams Burnisher And Bumper Relationship Specialty Start Date End Date Sobia White MD [address] [place] [address] [place] [address] [email or web address] PCP - General Family Medicine 04/08/21 04/12/22 Unknown, Jian, PCP - General 04/13/22 07/09/22 Eder Mansfield DO [address] [place] [address] mary PCP - General Endocrinology 07/10/22 08/04/23 Edward Maddox MD [address] [place] [address] Drive [address] [place] [phone] PCP - General Internal Medicine 08/05/23 Husam Carmona, EFRAIN [address] [place] [address], [address] [place] [address] Historical LMR Provider 02/10/17 Remington Post MD [address] [place] [address] Historical LMR Provider 02/10/17 Immanuel Jaimes DO [address] [place] [address] [email or web address] Historical LMR Provider 02/10/17 Amaya Rodriguez MD [address] [place] [address] Insurance Assigned Provider 06/29/19 08/01/21 Cindy Mc NP [address] [place] [address] Nurse Practitioner Hematology and Oncology 05/25/21 Sobia White MD [address] [place] [address] [email or web address] Insurance Assigned Provider 08/01/21 07/31/22 Amaya Rodriguez MD [address] [place] [address] [place] [address] Insurance Assigned Provider 07/31/22 04/30/23 documented as of this encounter Additional Source Comments The information contained in this document represents components of the legal health record. It is not the complete legal health record.[facility]
--- OUTSIDE RECORDS SUMMARY | 2025-03-25 17:44 | XMS_ITS | Encounter Summary ---
Author Organization [facility] Address [address] [place] [address] [place] [address] Phone Care Team Providers Care Mapping Analyst Name Role Phone Husam Carmona NURSING DEPARTMENT CHAIRPERSON Unavailable [phone] Remington Post MD Unavailable [phone] Immanuel Jaimes DO Unavailable [phone] Sobia White MD Primary Care Provid er Cindy Mc CONTRACT ENGINEER Unavailable [phone] Sobia White MD Unavailable + [phone] Unknown, Unknown Primary Care Provider Eder Lloyd DO Primary Care Provider [phone] Amaya Rodriguez MD Unavailable [phone] Edward Maddox MD Primary Care Provider [phone] Encounter Details Date Type Department Care Team (Late st Contact Info) Description 04/12/2022 Procedure Pass [facility] [address] [place] [address] Social History Tobacco Use Types Packs/Day Years [...] high school, GED, job training, learning the [place] language, technical skills, or developing parenting skills)? [...] Procedure Pass Echo Lab [place] [place] [address] 04/26/2025 8:00 AM EST Office Visit [facility] [address] 3[address] Floor, [address] [place] [address] Leon Osman MD [address] [place] [address], [address] [place] [address] 08/02/2025 8:15 AM EDT Appointment Echo Lab [address] [place] [address] Isai Mayfield DO [address] [place] [address] [place] [address] [email or web address] documented as of this encounter Visit Diagnoses Not on filedocumented in this encounter Additional Health Concerns Infection Onset Date Last Indicated Resolved Time CoV-Risk 07/10/2022 07/10/2022 07/21/2022 1:21 AM EDT Assessment Noted Time PHQ-2 Depression Total Score: 0 01/19/20 20 5:25 PM EDT documented as of this encounter Care Teams Mapping Analyst Relationship Specialty Start Date End Date Sobia White MD [address] [place] [address] [place] [address] [email or web address] PCP - General Family Medicine 04/08/21 04/12/22 Unknown, Jian, PCP - General 04/13/22 07/09/22 Eder Mansfield DO [address] [place] [address] mary PCP - General Endocrinology 07/10/22 08/04/23 Edward Maddox MD [address] [place] [address] Drive [address] [place] [phone] PCP - General Internal Medicine 08/05/23 Husam Carmona, EFRAIN [address] [place] [address], [address] [place] [address] Historical LMR Provider 02/10/17 Remington Post MD [address] [place] [address], [address] [place] [address] [email or web address] Historical LMR Provider 02/10/17 Immanuel Jaimes DO [address] [place] [address] [email or web address] Historical LMR Provider 02/10/17 Cindy Mc NP [address] [place] [address] [email or web address] Nurse Practitioner Hematology and Oncology 05/25/21 Sobia White MD [address] [place] [address] [place] [address] [email or web address] Insurance Assigned Provider 08/01/21 07/31/22 Amaya Rodriguez MD [address] [place] [address], [address] [place] [address] [email or web address] Insurance Assigned Provider 07/31/22 04/30/23 documented as of this encounter Additional Source Comments The information contained in this document represents components of the legal health record. It is not the complete legal health record.[facility]
--- OUTSIDE RECORDS SUMMARY | 2025-03-25 17:44 | XMS_ITS | Encounter Summary ---
Author Organization [facility] Address [address] [place] [address] [place] [address] Phone Care Team Providers Care Webfed Offset Press Operator Name Role Phone Husam Carmona HORSE SHOER Unavailable [phone] Remington Post MD Unavailable Immanuel Jaimes DO Unavailable [phone] Sobia White MD Primary Care Provid er Cindy Mc TELECOMMUNICATIONS FACILITY EXAMINER Unavailable [phone] Sobia White MD Unavailable + [phone] Unknown, Unknown Primary Care Provider Eder Lloyd DO Primary Care Provider [phone] Amaya Rodriguez MD Unavailable [phone] Edward Maddox MD Primary Care Provider [phone] Encounter Details Date Type Department Care Team (Late st Contact Info) Description 08/31/2021 Procedure Pass [facility] [address] [address] Social History Tobacco Use Types Packs/Day Years [...] high school, GED, job training, learning the [place] Islander language, technical skills, or developing parenting skills)? [...] Procedure Pass Echo Lab [place] [place] [address] 04/26/2025 8:00 AM EST Office Visit [facility] [address] Floor, [address] [place] [address] Leon Osman MD [address] [place] [address], [address] [place] [address] 08/02/2025 8:15 AM EDT Appointment Echo Lab [address] [place] [address] Isai Mayfield DO [address] [place] [address] documented as of this encounter Visit Diagnoses Not on filedocumented in this encounter Additional Health Concerns Infection Onset Date Last Indicated Resolved Time CoV-Risk 07/10/2022 07/10/2022 07/21/2022 1:21 AM EDT Assessment Noted Time PHQ-2 Depression Total Score: 0 01/19/20 5:25 PM EDT documented as of this encounter Care Teams Webfed Offset Press Operator Relationship Specialty Start Date End Date Sobia White MD [address] [place] [address] [place] [address] [email or web address] PCP - General Family Medicine 04/08/21 04/12/22 Unknown, Jian, PCP - General 04/13/22 07/09/22 Eder Mansfield DO [address] [place] [address] mary PCP - General Endocrinology 07/10/22 08/04/23 Edward Maddox MD [address] [place] [address] Drive [address] [place] [phone] PCP - General Internal Medicine 08/05/23 Husam Carmona, EFRAIN [address] [place] [address], [address] [place] [address] Historical LMR Provider 02/10/17 Remington Post MD [address] [place] [address], [address] [place] [address] [email or web address] Historical LMR Provider 02/10/17 Immanuel Jaimes DO [address] [place] [address] [email or web address] Historical LMR Provider 02/10/17 Cindy Mc NP [address] [place] [address] [email or web address] Nurse Practitioner Hematology and Oncology 05/25/21 Sobia White MD [address] [place] [address] [email or web address] Insurance Assigned Provider 08/01/21 07/31/22 Amaya Rodriguez MD [address] [place] [address], [address] [address] [email or web address] Insurance Assigned Provider 07/31/22 04/30/23 documented as of this encounter Additional Source Comments The information contained in this document represents components of the legal health record. It is not the complete legal health record.[facility]
--- OUTSIDE RECORDS SUMMARY | 2025-03-25 17:44 | XMS_ITS | Encounter Summary ---
Author Organization [facility] Address [address] [place] [address] [place] [address] Phone Care Team Providers Care Hot Metal Charger Name Role Phone Amaya Rodriguez MD Primary Care Provider + Amaya Rodriguez MD Unavailable +[phone] Husam Carmona FACILITIES PLANNER Unavailable [phone] Cortez Powell DO Unavailable [phone] Remington Post MD Unavailable +[phone] Concepcion Hooper PA-C Unavailable [phone] Armond Marcano MD Unavailable +[phone] Immanuel Jaimes DO Unavailable +[phone] Camron Pedraza FACILITIES PLANNER Unavailable [phone] Travis Smith MD Unavailable [phone] Husam Carmona FACILITIES PLANNER Primary Care Provider + Amaya Rodriguez MD Unavailable +[phone] Sobia White MD Primary Care Provid er + Cindy Mc TOUR AGENT Unavailable [phone] Sobia White MD Unavailable + Unknown, Unknown Primary Care Provider Eder Lloyd DO Primary Care Provider [phone] Amaya Rodriguez MD Unavailable +[phone] Edward Maddox MD Primary Care Provider [phone] Encounter Details Date Type Department Care Team (Late Contact Info) Description 06/03/2017 Ancillary Orders [address] [address] Concepcion Hooper PA-C [address] [place] [address] Orthopedics & Sports Medicine, [place] [address] Right knee pain, unspecified chronicity Social History [...] Info) Description 02/01/2025 Procedure Pass Echo Lab [address] [place] [address] 04/26/2025 8:00 AM EST Office Visit [facility] [address] [place] [address] 3rd Floor, [address] [place] [address] Leon Osman MD [address] [place] [address] 08/02/2025 8:15 AM EDT Appointment [place] [address] Isai Mayfield DO [address] [place] [address] documented as of this encounter Results * [...] documented as of this encounter Care Teams Hot Metal Charger Relationship Specialty Start Date End Date Amaya Rodriguez MD 22 [facility], [address] [address] [email or web address] PCP - General 02/10/17 06/06/17 Husam Carmona, EFRAIN [address] [place] [address], [address] [place] [address] [email or web address] PCP - General 06/07/17 04/07/21 Sobia White MD [address] [address] [email or web address] PCP - General Family Medicine 04/08/21 04/12/22 Unknown, Jian, PCP - General 04/13/22 07/09/22 Eder Mansfield DO [address] [place] [address] PCP - General Endocrinology 07/10/22 08/04/23 Edward Maddox MD [address] [place] [address] [address] [place] [address] [phone] PCP - General Internal Medicine 08/05/23 Amaya Rodriguez MD [address] [place] [address], [address] [place] [address] Historical LMR Provider 02/10/17 2 Husam Carmona CNP [address] [place] [address], [address] [place] [address] Historical LMR Provider 02/10/17 Cortez Powell DO [address] [place] [address] Orthopedics Sports [facility], [place] [address] Historical LMR Provider 02/10/17 05/02/21 Remington Post MD [address] [place] [address], [address] [place] [address] Historical LMR Provider 02/10/17 Concepcion Hooper PA-C [address] [place] [address] Orthopedics [facility], [place] [address] Historical LMR Provider 02/10/17 05/02/21 Armond Marcano MD 22 [facility] Floor 1 [place] [address] [email or web address] Historical LMR Provider 02/10/17 05/02/21 Immanuel Jaimes DO [address] [place] [id number] [email or web address] Historical LMR Provider 02/10/17 Camron Pedraza CNP 22 [facility], [address] [place] [address] [email or web address] Historical LMR Provider 02/10/17 Travis Smith MD [address] [place] [address] Historical LMR Provider 02/10/17 2 Amaya Rodriguez MD [address] [place] [address] [email or web address] Insurance Assigned Provider 06/29/19 08/01/21 Cindy Mc NP [address], [place] [address] [email or web address] Nurse Practitioner Hematology and Oncology 05/25/21 Sobia White MD [address] [address] Insurance Assigned Provider 08/01/21 07/31/22 Amaya Rodriguez MD [address] [place] [address] [email or web address] Insurance Assigned Provider 07/31/22 04/30/23 documented as of this encounter Additional Source Comments The information contained in this document represents components of the legal health record. It is not the complete legal health record.[facility]
== END 2025-03-25 15:03 | disposition home or self-care (01) ==
LOC: HO.HNS 14:22
PROVIDERS: PCP Internal Medicine; Visit Provider Physician Assistant
DX: Z98.890 Other specified postprocedural states (principal)
CPT/HCPCS: 99024

== ENCOUNTER → 2025-03-25 14:20 | Outpatient (BNVA) | payer MEDICARE, OTHER, SELFPAY | PROVIDERS: PCP Internal Medicine; Visit Provider Physician Assistant | DX: M54.50 Low back pain, unspecified (principal); Z98.890 Other specified postprocedural states | CPT/HCPCS: 99212 ==